=== PATIENT | female | born 1945 | race Caucasian/White ===

== ENCOUNTER → 2019-05-26 14:17 | Outpatient (BNVA) | payer MEDICARE, MEDICAID, SELFPAY | PROVIDERS: Family Provider Nurse Practitioner; Visit Provider Nurse Practitioner | DX: E11.65 Type 2 diabetes mellitus with hyperglycemia (principal); Z79.4 Long term (current) use of insulin; E61.1 Iron deficiency; I10 Essential (primary) hypertension; J44.9 Chronic obstructive pulmonary disease, unspecified; M81.0 Age-related osteoporosis without current pathological fracture; K21.9 Gastro-esophageal reflux disease without esophagitis; Z98.62 Peripheral vascular angioplasty status; J30.9 Allergic rhinitis, unspecified; R11.0 Nausea; R39.9 Unspecified symptoms and signs involving the genitourinary system; N39.0 Urinary tract infection, site not specified | CPT/HCPCS: 80053; 80061; 81001; 83036; 83540; 87077; 87086; 87186 ==

== ENCOUNTER → 2019-08-25 14:31 | Outpatient (BNVA) | payer MEDICARE, MEDICAID, SELFPAY | PROVIDERS: Family Provider Nurse Practitioner; Visit Provider Nurse Practitioner | DX: E11.65 Type 2 diabetes mellitus with hyperglycemia (principal); Z79.4 Long term (current) use of insulin; I10 Essential (primary) hypertension; M81.0 Age-related osteoporosis without current pathological fracture; Z98.62 Peripheral vascular angioplasty status; J30.9 Allergic rhinitis, unspecified; R11.0 Nausea; J44.9 Chronic obstructive pulmonary disease, unspecified; K21.9 Gastro-esophageal reflux disease without esophagitis; M19.90 Unspecified osteoarthritis, unspecified site | CPT/HCPCS: 80053; 80061; 81000; 81003; 83036; 84443; 87077; 87086; 87184; 87186 ==

== ENCOUNTER → 2019-09-14 13:58 | Outpatient (BNVA) | payer MEDICARE, MEDICAID, SELFPAY | PROVIDERS: Family Provider Nurse Practitioner; Visit Provider Nurse Practitioner | DX: E11.65 Type 2 diabetes mellitus with hyperglycemia (principal); Z79.4 Long term (current) use of insulin; N39.0 Urinary tract infection, site not specified | CPT/HCPCS: 81000 ==

== ENCOUNTER → 2019-11-30 10:26 | Outpatient (BNVA) | payer MEDICARE, MEDICAID, SELFPAY | PROVIDERS: Family Provider Nurse Practitioner; Visit Provider Nurse Practitioner | DX: E11.65 Type 2 diabetes mellitus with hyperglycemia (principal); Z79.4 Long term (current) use of insulin; Z98.62 Peripheral vascular angioplasty status; K21.9 Gastro-esophageal reflux disease without esophagitis | CPT/HCPCS: 80053; 80061; 81000; 83036; 84443; 85025 ==

== ENCOUNTER → 2020-02-01 09:47 | Outpatient (BNVA) | payer MEDICARE, MEDICAID, SELFPAY | PROVIDERS: Family Provider Nurse Practitioner; Visit Provider Nurse Practitioner | DX: E11.65 Type 2 diabetes mellitus with hyperglycemia (principal); I10 Essential (primary) hypertension; Z79.4 Long term (current) use of insulin; E78.1 Pure hyperglyceridemia; J43.9 Emphysema, unspecified; J30.9 Allergic rhinitis, unspecified; Z98.62 Peripheral vascular angioplasty status; R11.0 Nausea; R82.90 Unspecified abnormal findings in urine | CPT/HCPCS: 80053; 81000; 83036; 85025; 87077; 87086; 87184 ==

== ENCOUNTER → 2020-03-12 12:25 | Outpatient (BNVA) | payer MEDICARE, MEDICAID, SELFPAY | PROVIDERS: Family Provider Nurse Practitioner; Visit Provider Nurse Practitioner | DX: J43.9 Emphysema, unspecified (principal); R91.1 Solitary pulmonary nodule | CPT/HCPCS: 71046; 80053; 81000; 85025 ==

== ENCOUNTER 2020-03-28 15:29 | Outpatient (CLI) | payer MEDICARE, MEDICAID, SELFPAY ==
--- NOTE | 2020-03-28 16:00 | CT_ITS ---
WS: [id number] CT scan of the chest without IV contrast, additional two-dimensional coronal and sagittal reconstruct ion was performed. 03/28/2020 Clinical Data: Lung Nodule Comparison: PA and lateral chest, 03/12/2020, CT chest, 10/09/2014. DLP: 812.19 mGy-cm All CT scans at [facility] use at least one of these dose optimization techniques: automat ed exposure control; mA and/or kV adjustment per patient size (includes targeted exams where dose is matched to clinical indication); or iterative reconstruction. Findings: There is a anterior segment right upper lobe mass measuring in greatest diameter 2.12 cm. This is see n best on axial image 15 of 65. The heart size is normal with no pericardial effusion. There are hans nary artery calcifications. No pneumonia or pneumothorax is seen. The trachea bifurcates normally int o the bronchi. The pulmonary arterial system and thoracic aorta demonstrate no abnormalities or dilat ations. There is calcification in the aortic arch and descending aorta. There is no axillary or signi ficant mediastinal adenopathy. The upper abdomen shows clips from a cholecystectomy and the gallbladder fossa. The visualized liver, pancreas, adrenal glands and spleen are not remarkable. The bony thorax shows only osteoarthritic ch anges of the thoracic vertebral bodies. CT/CT chest wo con [id number] Impression: 1. 2.12 cm spiculated mass in the right upper lobe most consistent with cancer of the lung. 2. Recommend pulmonary consult.
== END 2020-03-28 15:30 | disposition home or self-care (01) ==
LOC: RADWPI 15:36
PROVIDERS: PCP Nurse Practitioner; Visit Provider Internal Medicine Critical Care Medicine
DX: R91.1 Solitary pulmonary nodule (principal)
CPT/HCPCS: 71250

== ENCOUNTER → 2020-04-02 10:53 | Outpatient (BNVA) | payer MEDICARE, MEDICAID, SELFPAY | PROVIDERS: PCP Nurse Practitioner; Visit Provider Internal Medicine Critical Care Medicine | DX: R91.1 Solitary pulmonary nodule (principal); Z01.812 Encounter for preprocedural laboratory examination; Z20.828 Contact with and (suspected) exposure to other viral communicable diseases | CPT/HCPCS: 87635 ==

== ENCOUNTER 2020-04-04 11:44 | Day surgery (SDC) | payer MEDICARE, MEDICAID, SELFPAY ==
[2020-04-03 09:48] VITALS: BMI 23.6
[2020-04-04] VITALS (11 sets, daily range): BP systolic 110–149; BP diastolic 46–99; PULSE 83–87; RESP 18–26; TEMP 36.3–36.7; O2SAT 93–100
--- NOTE | 2020-04-04 | CT_ITS ---
Guided Bronchoscopy Planning CT images; total exam DLP: 917.58 mGy-cm MTDD
[2020-04-04] MEDS: sodium chloride 0.9% 1,000 ML 30 ML IV (12:07)
[2020-04-04 12:16] LABS: Glucose Point of Care 79 mg/dL (70-110)
[2020-04-04] MEDS: midazolam 1 mg/mL INJ 2 mL 2 MG IVP ×2 (12:38→13:00)
--- NOTE | 2020-04-04 13:08 | ANES.PREANE2 ---
Pre-Anesthetic Assessment Pre-Anesthetic Assessment: Height/Weight: Height 1.68 m Weight 66.224 kg Temp Pulse Resp BP Pulse Ox 97.9 F 87 18 149/70 98 04/04/20 12:01 04/04/20 12:01 04/04/20 12:01 04/04/20 12:01 04/04/20 12:01 Preop Diagnosis: Suspected lung cancer Proposed Procedure: Operation Date: 04/04/20 13:20 Proposed Procedures p Alex [id number] R91.1(Not Applicable) - Delmi Polanco MD Last intake: Intake Last Liquid Date 04/03/20 Last Liquid Time 20:00 Last Solid Date 04/03/20 Last Solid Time 20:00 Social: Social History: No alcohol and No tobacco Exam: Pre-Anes Outpt Exam: alert, oriented x 3 and regular rate & rhythm Airway: Submandibular: WNL Cervical ROM: WNL MP: 2 Dentition: False Pulmonary: Pulmonary: COPD CV/HEM: CV/HEM: CAD, HTN and PVD : : None reported Hepatic: Hepatic: None reported GI: GI: GERD Metabolic: Metabolic: DM Musc/skel: Musc/skel: None reported Neuropsych: Neuropsych: None reported Anesthetic Plan: ASA status: 3 Anesthesia: General Risk of > 500 ml blood loss (7ml/kg in children): No Meds/Allergies Current Medications: Current Medications Generic Name Dose Route Start Last Admin Trade Name Freq PRN Reason Stop Dose Admin Sodium Chloride 1,000 mls @ 30 ml s/hr 04/04/20 12:00 04/04/20 12:07 Sodium Chloride 0.9% IV 04/05/20 11:59 30 mls/hr .Q24H ALLEGRA Administration Midazolam HCl 2 mg 04/04/20 11:53 04/04/20 12:38 Midazolam 1 Mg/M l Inj 2 Ml IVP 1 mg Q5M PRN Administration Preop Anxiety PFSH Anesthesia PFSH: Medical History Acid reflux Allergic rhinitis due to allergen Controlled diabetes mellitus with hyperglycemia, with long-term current use of insulin COPD (chronic obstructive pulmonary disease) HTN (hypertension) Low serum iron Nocturnal oxygen desaturation Osteoarthritis Post-menopausal osteoporosis Surgical History History of angioplasty with stent 1998 History of cholecystectomy History of oophorectomy History of tonsillectomy Hx of carotid angioplasty Family History Family/Other Diabetes Father COPD exacerbation Social History Smoking and tobacco status: former smoker Quit status (tobacco): has quit using tobacco Year quit tobacco: 2019 - 1PPD x 50 Years Second hand smoke exposure: No Smoking risk assessment/counseling performed?: Yes Alcohol intake: never Desire information about alcohol rehabilitation?: No Counseling given: No Desire information about substance/drug rehabilitation?: No Counseling given: No Lives independently: Yes Household members: children Housing: House Marital status: / Current occupational status: disabled Pets and animals: Yes Pets & animals: dog(s) History of recent travel: No Current gender identity: Female Data Anesthesia Other Labs: Laboratory Results - last 48 hr 04/04/20 12:11 POC Glucose 79 Cardiac Studies: No Data to Display
--- NOTE | 2020-04-04 13:48 | W.PM.OPSUD ---
Surgery/Procedure H&P Update DATE OF PROCEDURE: April 04, 2020 DATE H&P PERFORMED: 03/28/20 H&P UPDATE INFORMATION: I have reviewed H&P completed within last 30 days, I have examined patient prior to procedure and No changes to prior documentation PREOP DIAGNOSIS: Suspected lung cancer PLANNED PROCEDURE: Bronchoscopic inspection of the airway, possible endobronchial biopsy, navigational bronchoscopy guided transbronchial biopsies, fine-needle aspiration, Cytobrush, endobronchial sound guided transbronchial needle aspiration of lymph nodes and control of bleeding. Operation Date: 04/04/20 13:20 Proposed Procedures praveen Johnson [id number] R91.1(Not Applicable) - Bipjosé Polanco MD
--- NOTE | 2020-04-04 14:15 | SUR.OPER ---
EBUS BALLOON REMOVED INTACT.
[2020-04-04] MEDS: lidocaine 1% INJ 20 mL INTRAVESIC (14:44)
--- NOTE | 2020-04-04 15:42 | PM.OP ---
Operative Report Date of procedure: April 04, 2020 Pre-op Diagnosis: Suspected lung cancer Post-op diagnosis: same Brief History: 74-year-old lady with recently identified right upper lobe lung mass coming in for bronchoscopic evaluation. Procedure: Name of the procedure: Bronchoscopy with inspection of the airway, endobronchial ultrasound-guided transbronchial needle aspiration of lymph nodes and control of bleeding, navigational bronchoscopy guided right upper lobe lung mass biopsy, fine-needle aspiration. Indication: Right upper lobe lung mass Anesthesia: General anesthesia. Local anesthesia: The gwendolyn in the right and left mainstem bronchi were anesthetized with 1% lidocaine, 3 mL. Description of the procedure: The procedure was explained to the patient and the consent was obtained. The patient was brought to the OR. The patient underwent endotracheal intubation for general anesthesia. Following induction of general anesthesia, the bronchoscope was advanced through the ET tube. The lower trachea appeared to be normal. The gwendolyn was sharp. The gwendolyn, the right and left mainstem bronchi are anesthetized with 1% lidocaine. In a systematic manner bilateral bronchial tree was then examined. The bronchoscope was advanced into the left mainstem bronchus. There was no erythema,mucus and areas of cobblestoning. The left upper lobe, lingula and left lower lobe bronchi were examined up to the third subsegmental level and no abnormalities were identified. The bronchoscope was then introduced into the right mainstem bronchus. The right upper lobe, right middle lobe and right lower lobe bronchi were examined up to the third subsegmental level and no abnormalities were identified. There was mucus throughout the airways. Right upper lobe lung mass biopsies were attempted under navigational guidance however this was not successful. The endobronchial ultrasound was introduced through the ET tube. No significant lymphadenopathy was identified. The largest lymph node was in the right hilar lymph node group. Station 11 R were sampled with fine-needle aspiration. Samples: 1. Fine-needle aspiration from 1111 constitutional sent for histopathology. Complications: There was no immediate complications.
--- NOTE | 2020-04-04 15:49 | SUR.PHASEI ---
pt awake alert asking questions pertinent to surgery vss. iv patent
--- NOTE | 2020-04-04 15:58 | XRR_ITS ---
PROCEDURE INFORMATION: Exam: XR Chest, 1 View Exam date and time: 04/04/2020 4:24 PM Age: 74 years old Clinical indication: Device placement; Other: Post bronch; Prior surgery; Surgery date: Post-operative (0-2 days); Additional info: Post bronchoscopy TECHNIQUE: Imaging protocol: XR of the chest Views: 1 view. COMPARISON: CT chest wo con [id number] 03/28/2020 4:05 PM FINDINGS: Lungs: Unremarkable. No consolidation. Pleural space: Unremarkable. No pleural effusion. No pneumothorax. Heart/Mediastinum: Unremarkable. No cardiomegaly. Bones/joints: Unremarkable. XR/XR chest 1V portable [id number] IMPRESSION: No acute findings.
[2020-04-04] MEDS: ipratropium-albuterol 3 mL Neb INHALATION (16:00)
[2020-04-04] MEDS: HYDROcodone-acetaminophen 10-325 mg Tablet 2 TAB PO (16:40)
--- NOTE | 2020-04-04 16:58 | SUR.PHASEI ---
622 pt up in bed awake alert resp even and unlabored pt c/o of (hard to breath) but then wants something to drink her glasses and dentures wants to see family pt vss pt to ops awake alert talkative, no s/s of distess.
--- NOTE | 2020-04-04 17:26 | ANE.PACU2 ---
Inpatient post-anesthesia follow up: Airway intact: Yes Vital signs: Temperature 97.4 F Pulse Rate 85 Respiratory Rate 18 Blood Pressure 121/99 Pulse Oximetry 94 Oxygen Delivery Me thod Room Air Oxygen Flow Rate 2 Fraction of Inspir ed Oxygen Hydration adequate: Yes Nausea and vomiting: No Pain level: 1 Mental status: Baseline
== END 2020-04-04 17:00 | disposition home or self-care (01) ==
PROVIDERS: PCP Nurse Practitioner; Visit Provider Internal Medicine Critical Care Medicine
PROC: 0BJ08ZZ Inspection of Tracheobronchial Tree, Via Natural or Artificial Opening Endoscopic (ICD-10-PCS; CPT 31622; principal; 2020-04-04 13:10)
PROC: BB4BZZZ Ultrasonography of Pleura (ICD-10-PCS; 2020-04-04 13:10)
DX: C34.90 Malignant neoplasm of unspecified part of unspecified bronchus or lung (principal); C77.9 Secondary and unspecified malignant neoplasm of lymph node, unspecified; J44.9 Chronic obstructive pulmonary disease, unspecified; I25.10 Atherosclerotic heart disease of native coronary artery without angina pectoris; I10 Essential (primary) hypertension; K21.9 Gastro-esophageal reflux disease without esophagitis; E11.9 Type 2 diabetes mellitus without complications; M19.90 Unspecified osteoarthritis, unspecified site; Z95.5 Presence of coronary angioplasty implant and graft; Z87.891 Personal history of nicotine dependence; Z79.4 Long term (current) use of insulin
CPT/HCPCS: 12345; 31625; 31627; 36416; 71045; 77011; 82962; 88305; 96374; 96375; J2250; J2704; J3010; J3490; J7030

== ENCOUNTER 2020-04-25 09:40 | Outpatient (CLI) | payer MEDICARE, MEDICAID, SELFPAY ==
--- NOTE | 2020-04-25 18:45 | ONC CON_ITS ---
Dr. Cartwright New Patient Note Patient: Melonie Cross Unit #: [id number]: [id number] Dicatated By: Davy Cartwright M.D.Date of Visit: Apr 25, 2020 Onc MED New Patient/Consult Referring Physician: Chief Complaint: Lung cancer. 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 Her chest x-ray on 03/12/2020 showed a faint 2 cm nodular density in the right suprahilar region which was new compared to previous study from 2017. She was recommended to have further evaluation with chest CT. Her noncontrast CT on 03/28/2020 showed a right upper lobe lung mass measuring 2.12 cm. There are no other pulmonary parenchymal lesions noted and there is no significant mediastinal or axillary adenopathy noted. She was then referred to Dr. Polanco and on 04/04/2020 she underwent bronchoscopy/EBUS with FNA biopsy of a station 11R lymph node. There were no endobronchial lesions identified and attempted biopsy of the lung nodule was unsuccessful. The endobronchial ultrasound showed no significant lymphadenopathy. The largest node was in the right hilar node group, and pathology on the FNA was consistent with poorly differentiated nonkeratinizing squamous cell carcinoma. She is scheduled to have further staging with PET/CT on Thursday, and she is scheduled to have pulmonary function studies. She does have known COPD. Her other medical illnesses include hypertension, hyperlipidemia, type 2 diabetes, and coronary artery disease. She has had previous angioplasty/stent placement. Her medical history is also significant for having undergone right nephrectomy for renal cell carcinoma sometime around 2009. Those records are not available. She does have a history of smoking for 45 years, up to a pack and a half of cigarettes daily. She quit smoking in February 2020. She does have limited activity tolerance, but she is able to do light work and she also cares for an invalid son. Her ECOG score is 1. Her appetite is variable. She has had a weight loss of at least 20 pounds. She does not have fever or night sweats. Her breathing has improved since she stopped smoking. She does not complain of cough, and she has not been having chest pain. She has no GI/ complaints other than heartburn, which has bothered her for years, mainly just when she eats spicy foods. She has degenerative disease of the spine with chronic low back pain in her back. More recently she is also had pain and numbness in her left leg. She does not complain of headache, and she has no other focal neurologic symptoms. Past Medical History: Her medical history includes chronic obstructive pulmonary disease, degenerative disease of the spine, gastroesophageal reflux disease, hyperlipidemia, hypertension, osteoporosis, renal cell carcinoma, and type II diabetes. Past Surgical History: She underwent bronchoscopy/EBUS with FNA biopsy of station 11R lymph node on 04/04/2020. Her other surgical/procedural history includes oopherectomy, tonsillectomy, right nephrectomy for renal cell carcinoma in 2009, cholecystectomy in 2006, and coronary angioplasty with stent placement in 1998. Medications: Alendronate Sodium (70 mg) Tablet Oral Take as Directed, Anoro Ellipta 1 Inhalation (of 62.5-25 mcg/inh) Aerosol Powder, Breath Activated Inhalation q 24 hours, Aspirin 1 Tablet (of 81 mg) Tablet, chewable Oral daily, Bactroban (2 %) Ointment Topical t.i.d., Benazepril HCl 1 Tablet (of 40 mg) Oral daily, Budesonide (0.5 mg/2mL) Suspension Inhalation b.i.d., Cardizem CD 1 (360 mg) Capsule SR 24 HR Oral daily, Cholecalciferol 1 Tablet (of 50 mcg ) Oral daily, diazePAM 1 (10 mg) Tablet Oral four times a day, Fenofibrate 1 (145 mg) Tablet Oral daily, HYDROcodone-Acetaminophen 1 Tablet (of 10-325 mg) Oral 6x/d, Ipratropium-Albuterol 1 Inhalation (of 0.5-2.5 (3) mg/3mL) Solution Inhalation four times a day, Isosorbide Mononitrate ER 1 Tablet (of 60 mg) Tablet SR 24 HR Oral b.i.d., Magnesium Oxide 1 (400 mg) Capsule Oral b.i.d., Metoprolol Succinate ER 1 Tablet (of 100 mg) Tablet SR 24 HR Oral daily, Nitroglycerin Tablet, sublingual Sublingual PRN, Ondansetron HCl 1 Tablet (of 4 mg) Oral daily, Pantoprazole Sodium 1 (20 mg) Tablet, enteric coated Oral daily, Probiotic & Acidophilus Ex St 1 Capsule Oral daily, Theophylline ER 1 (400 mg) Capsule SR 24 HR Oral daily, Tresiba FlexTouch 75 Units (of 200 Units/mL) Subcutaneous daily, Victoza 1 (18 mg/3mL) Subcutaneous q 24 hours, Xyzal 1 Tablet (of 5 mg) Oral daily Allergies: amLODIPine Besylate, Cephalexin, Erythromycin Base, Penicillins, Propranolol HCl, Tetanus-Diphtheria Toxoids Td, Tetracycline HCl, and ticlopidine. Social History: Ms. Cross is . She has a history of smoking for 45 years, up to 1-1/2 packs of cigarettes daily. She quit smoking in February 2020. She does not drink alcohol. Family History: Father had COPD and of heart attack at age 80. Mother with congestive heart failure at age 70. She had no siblings. Review Of Symptoms: Constitutional - She has limited activity tolerance, but she is able to do light work, and she takes care of her invalid son. Appetite is variable. Her weight is down at least 20 pounds. She does not have fever, night sweats, or hot flashes. ECOG score is 1, Eyes - No change in vision, ENMT - No sinus congestion/drainage. No mouth sores. No sore throat or difficulty swallowing, Hematologic/Lymphatic - No abnormal bruising or bleeding, Respiratory - She has shortness of breath, but her breathing has improved since she quit smoking. No cough. No pleuritic pain or hemoptysis, Cardiovascular - No angina pain. No palpitations, Gastrointestinal - No nausea or vomiting. She has had heartburn for years, mainly with spicy foods. No diarrhea or constipation. No blood in the stool or black stools, Genitourinary (F) - No dysuria or hematuria. No urinary frequency. No urgency or incontinence, Musculoskeletal - She has chronic pain in the back and left leg, Neurologic - No headache or dizziness. She has some numbness in the anterior aspect of the left thigh and in the dorsum of her left foot. No other focal neurologic symptoms, Psychiatric - She has some depression. No insomnia. Vital Signs: Performed on Apr 25, 2020 10:44: 6, 22.79, 1.73 sq.m, 66 in, 96 %, 85 /min, 16 /min, 120/41 mm(hg), 97.7 F (LOW), and 141.2 lbs (HIGH). Physical Examination: Constitutional - She looks pretty good generally, Eyes - Sclerae nonicteric. Conjunctivae clear, ENMT - No lesions noted in the oral cavity, Neck - No mass or thyromegaly, Hematologic/Lymphatic - No cervical, clavicular, or axillary adenopathy, Respiratory - Lungs sound clear with diminished air movement bilaterally, Cardiovascular - Heart rhythm is regular. There is a II/ systolic murmur. There is no gallop or rub noted, Abdomen - Soft and non-tender. Liver and spleen are not enlarged. There is no abdominal mass or ascites noted and there is no inguinal adenopathy, Extremities - No edema. Pedal pulses are palpable bilaterally, Integumentary - No rashes. No suspicious skin lesions noted, Neurologic - No focal neurologic deficits noted. Lab/Imaging: Her laboratory studies from 03/12/2020 included CBC showing hemoglobin 10.6 g with hematocrit 34.9%. The red cell indices were in the upper normal range. White blood cell count was 9300 and platelet count was 401,000. Comprehensive metabolic profile showed elevated BUN and creatinine at 26 and 1.3 mg/dL. The bilirubin and liver enzymes were normal. Historic Problem List: 1. COPD. 2. Hypertension. 3. Hyperlipidemia. 4. Type 2 diabetes. 5. Coronary artery disease with previous angioplasty/stent placement. 6. Chronic kidney disease. 7. GERD. 8. 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 9. She underwent right nephrectomy for renal cell carcinoma approximately 2009. Problems Addressed with this Encounter and Plan: 1. 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 By clinical evaluation her disease appears to be stage IIB (T1c, N1, M0). The CT findings and the pathology results were reviewed with the patient, and I also reviewed the CT images with her. We discussed the clinic complications. At this point it is uncertain whether her disease may be operable, as that will depend on the results of the staging PET/CT and the pulmonary function studies. With lymph node involvement, though, she would not be a candidate for SBRT. If she is considered nonoperable or if she declined surgery, she would be eligible for treatment with chemoradiation and, depending on response, maintenance immunotherapy. I did review potential side effects associated with those treatments, but any further recommendations will be deferred pending outcome of the PET/CT and the pulmonary function studies. 2. Her laboratory studies from February did show mild anemia. In reviewing her records in [facility], this does appear to be a new finding, and it will require further evaluation. Signed By: Davy Cartwright M.D. <<Signature on File>>
[2020-04-27 06:32] LABS: Coronavirus Test Green County Not Detected
== END 2020-04-25 09:41 | disposition home or self-care (01) ==
LOC: ONCMED 09:43
PROVIDERS: PCP Nurse Practitioner; Visit Provider Internal Medicine Medical Oncology
DX: C34.11 Malignant neoplasm of upper lobe, right bronchus or lung (principal); Z20.822 Contact with and (suspected) exposure to COVID-19; D63.0 Anemia in neoplastic disease; E11.22 Type 2 diabetes mellitus with diabetic chronic kidney disease; I12.9 Hypertensive chronic kidney disease with stage 1 through stage 4 chronic kidney disease, or unspecified chronic kidney disease; N18.9 Chronic kidney disease, unspecified; D63.1 Anemia in chronic kidney disease; J44.9 Chronic obstructive pulmonary disease, unspecified; Z87.891 Personal history of nicotine dependence
CPT/HCPCS: 87635; 99205

== ENCOUNTER 2020-05-01 12:50 | Outpatient (CLI) | payer MEDICARE, MEDICAID, SELFPAY ==
--- NOTE | 2020-05-01 14:32 | PFTS_ITS ---
Date of Study:05/01/20 Date of Dictation: 05/09/20 MECHANICS: Forced vital capacity (FVC) is normal . Forced expiratory volume in one second (FEV1) is reduced . FEV1/FVC is reduced . No post bronchodilator study performed. FLOW VOLUME LOOP: End expiratory sloping suggestive of small airway obstruction . LUNG VOLUMES: Total lung capacity (TLC) is normal. Residual volume (RV) is increased suggestive of airway trapping. DIFFUSING CAPACITY FOR CARBON MONOXIDE: mildly decreased. . INTERPRETATION: The pulmonary function tests are consistent with obstructive ventilatory defect with air trapping. Mild gas transfer defect. Please correlate clinically. MTDD
== END 2020-05-01 12:51 | disposition home or self-care (01) ==
LOC: RT 12:52
PROVIDERS: PCP Nurse Practitioner; Visit Provider Internal Medicine Critical Care Medicine
DX: R91.1 Solitary pulmonary nodule (principal)
CPT/HCPCS: 87635; 94010; 94726; 94729

== ENCOUNTER → 2020-05-04 12:08 | Outpatient (BNVA) | payer MEDICARE, MEDICAID, SELFPAY | PROVIDERS: PCP Nurse Practitioner; Visit Provider Nurse Practitioner | DX: E11.65 Type 2 diabetes mellitus with hyperglycemia (principal); I10 Essential (primary) hypertension; J43.9 Emphysema, unspecified; E78.1 Pure hyperglyceridemia; Z98.62 Peripheral vascular angioplasty status; R11.0 Nausea; K21.9 Gastro-esophageal reflux disease without esophagitis; F41.8 Other specified anxiety disorders; Z79.4 Long term (current) use of insulin | CPT/HCPCS: 80053; 83036; 84443 ==

== ENCOUNTER 2020-05-21 06:03 | Outpatient (CLI) | payer MEDICARE, MEDICAID, SELFPAY ==
--- NOTE | 2020-05-22 07:26 | ONC FU_ITS ---
Dr. Cartwright Patient Follow-Up Note Patient: Melonie Cross Unit #: [id number]: 1945 Dicatated By: Davy Cartwright M.D.Date of Visit:May 21, 2020 Onc Med Follow-up/Prog Note Chief Complaint: Lung cancer. 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 Her chest x-ray on 03/12/2020 showed a faint 2 cm nodular density in the right suprahilar region which was new compared to previous study from 2017. She was recommended to have further evaluation with chest CT. Her noncontrast CT on 03/28/2020 showed a right upper lobe lung mass measuring 2.12 cm. There are no other pulmonary parenchymal lesions noted and there is no significant mediastinal or axillary adenopathy noted. She was then referred to Dr. Polanco and on 04/04/2020 she underwent bronchoscopy/EBUS with FNA biopsy of a station 11R lymph node. There were no endobronchial lesions identified and attempted biopsy of the lung nodule was unsuccessful. The endobronchial ultrasound showed no significant lymphadenopathy. The largest node was in the right hilar node group, and pathology on the FNA was consistent with poorly differentiated nonkeratinizing squamous cell carcinoma. She has known COPD. Her other medical illnesses include hypertension, hyperlipidemia, type 2 diabetes, and coronary artery disease. She has had previous angioplasty/stent placement. Her medical history is also significant for having undergone right nephrectomy for renal cell carcinoma sometime around 2009. Those records were not available. She does have a history of smoking for 45 years, up to a pack and a half of cigarettes daily. She quit smoking in February 2020. I had seen her initially on 04/25/2020. 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 She was able to come in for staging PET/CT on 04/28/2020. That study showed an FDG avid right upper lobe mass measuring 2.1 cm, SUV 10.9, consistent with primary malignancy. A superior right hilar lymph node was FDG avid with SUV 4.8, consistent with local metastatic disease. The only other area of abnormal uptake was a solid lesion in the superior right breast measuring 1.7 x 1.2 cm with SUV 10.0, suspicious for synchronous primary breast cancer. She was then able to come in for pulmonary function studies on 05/01/2020. Her FEV1 was 1.57 L, 69% of predicted. She comes in now to discuss her further management. She says she does not feel too bad. Her main complaint is that she has chronic pain in her left leg, for which she has been getting treatment through pain clinic. She has been maintained on a stable dose of hydrocodone/APAP and she is very concerned about being able to continue it, because it does keep her functional enough to care for her son. Medications: Alendronate Sodium (70 mg) Tablet Oral Take as Directed, Anoro Ellipta 1 Inhalation (of 62.5-25 mcg/inh) Aerosol Powder, Breath Activated Inhalation q 24 hours, Aspirin 1 Tablet (of 81 mg) Tablet, chewable Oral daily, Bactroban (2 %) Ointment Topical t.i.d., Benazepril HCl 1 Tablet (of 40 mg) Oral daily, Budesonide (0.5 mg/2mL) Suspension Inhalation b.i.d., Cardizem CD 1 (360 mg) Capsule SR 24 HR Oral daily, Cholecalciferol 1 Tablet (of 50 mcg ) Oral daily, diazePAM 1 (10 mg) Tablet Oral four times a day, Fenofibrate 1 (145 mg) Tablet Oral daily, HYDROcodone-Acetaminophen 1 Tablet (of 10-325 mg) Oral 6x/d, Ipratropium-Albuterol 1 Inhalation (of 0.5-2.5 (3) mg/3mL) Solution Inhalation four times a day, Isosorbide Mononitrate ER 1 Tablet (of 60 mg) Tablet SR 24 HR Oral b.i.d., Magnesium Oxide 1 (400 mg) Capsule Oral b.i.d., Metoprolol Succinate ER 1 Tablet (of 100 mg) Tablet SR 24 HR Oral daily, Nitroglycerin Tablet, sublingual Sublingual PRN, Ondansetron HCl 1 Tablet (of 4 mg) Oral daily, Pantoprazole Sodium 1 (20 mg) Tablet, enteric coated Oral daily, Probiotic & Acidophilus Ex St 1 Capsule Oral daily, Theophylline ER 1 (400 mg) Capsule SR 24 HR Oral daily, Tresiba FlexTouch 75 Units (of 200 Units/mL) Subcutaneous daily, Victoza 1 (18 mg/3mL) Subcutaneous q 24 hours, Xyzal 1 Tablet (of 5 mg) Oral daily Allergies: amLODIPine Besylate, Cephalexin, Erythromycin Base, Penicillins, Propranolol HCl, Tetanus-Diphtheria Toxoids Td, Tetracycline HCl, and ticlopidine. Vital Signs: Performed on May 21, 2020 14:40 Height - 66.00 in Weight - 142 lbs (HIGH) BSA - 1.73 sq.m BMI - 22.92 Temperature - 98.0 F (LOW) Pulse - 74 /min Respiration - 18 /min BP - 142/63 mm(hg) (HIGH) O2 Sat - 97 % Pain - 7 Fatigue - 3 Problem List: 1. 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 By clinical evaluation her disease appears to be stage IIB (T1c, N1, M0). 2. PET/CT evidence of FDG avid mass in the superior right breast, suspicious for primary breast cancer. 3. COPD. 4. Hypertension. 5. Hyperlipidemia. 6. Type 2 diabetes. 7. Coronary artery disease with previous angioplasty/stent placement. 8. Chronic kidney disease. 9. GERD. 10. 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 11. She underwent right nephrectomy for renal cell carcinoma approximately 2009. Problems Addressed with this Encounter and Plan: 1. 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 By clinical evaluation her disease appears to be stage IIB (T1c, N1, M0). With disease localized to the lung and a hilar lymph node, she would potentially be an operable candidate. We had discussed this with her previously, but she has been adamantly opposed to undergoing surgery. As the hilar lymph node involvement precludes SBRT, the other treatment option would be chemoradiation utilizing a standard weekly carboplatin/paclitaxel chemotherapy regimen. I reviewed anticipated side effects with that regimen, and she is at least willing to consider it. She is aware that she would need to undergo placement of a Port-A-Cath for venous access for the chemotherapy. 2. PET/CT evidence of FDG avid mass in the superior right breast, suspicious for primary breast cancer. We also discussed the fact that she would require further evaluation for the suspected breast cancer. In the setting of known lung cancer, I would manage her breast cancer as conservatively as possible. I have reviewed the PET/CT with Dr. Honeycutt to discuss his recommendations for evaluating the breast mass I have also reviewed the case with Dr. Pierre to get his input on radiation. At this point she will be scheduled for diagnostic mammogram/ultrasound and at the same time I will have her see Dr. Pierre for radiation oncology consultation. If the breast lesion is suspicious, I will then arrange for needle biopsy. If she is confirmed to have breast cancer, we can then plan a lumpectomy/axillary sentinel lymph node biopsy procedure together with placement of Port-A-Cath venous access device. At least for now she is agreeable to proceeding with this plan of action. Signed By: Davy Cartwright M.D. <<Signature on File>>
== END 2020-05-21 06:04 | disposition home or self-care (01) ==
LOC: ONCMED 06:05
PROVIDERS: PCP Nurse Practitioner; Visit Provider Internal Medicine Medical Oncology
DX: C34.11 Malignant neoplasm of upper lobe, right bronchus or lung (principal); J44.9 Chronic obstructive pulmonary disease, unspecified; I10 Essential (primary) hypertension; E78.5 Hyperlipidemia, unspecified; E11.59 Type 2 diabetes mellitus with other circulatory complications; I25.10 Atherosclerotic heart disease of native coronary artery without angina pectoris; Z95.5 Presence of coronary angioplasty implant and graft; E11.22 Type 2 diabetes mellitus with diabetic chronic kidney disease; N18.9 Chronic kidney disease, unspecified; K21.9 Gastro-esophageal reflux disease without esophagitis; M47.9 Spondylosis, unspecified; G89.29 Other chronic pain; M54.5 Low back pain; Z90.5 Acquired absence of kidney; Z85.528 Personal history of other malignant neoplasm of kidney; Z79.899 Other long term (current) drug therapy
CPT/HCPCS: 99215

== ENCOUNTER 2020-05-31 19:23 | Emergency (ER) | payer MEDICARE, MEDICAID, SELFPAY ==
[2020-05-31 19:33] VITALS: BP 108/76; PULSE 108; RESP 18; TEMP 36.6; O2SAT 99; BMI 21.7
--- NOTE | 2020-05-31 21:58 | W.ED.FEMALGU ---
HPI - Female Genitourinary General: Chief complaint: Urogenital-Female Stated complaint: unable to urinate Time Seen by Provider: 05/31/20 21:50 History of Present Illness: HPI Narrative: Patient is says today it started that she has been having difficulty urinating is been able to pee about 3 drops. Said she started some right lower quadrant pain yesterday that is gone now but her bladder feels full. Is currently being treated by Dr. Cartwright for cancer. Patient said her right kidney is also gone. MD elicited complaint: dysuria Onset (ago): hour(s) Vaginal discharge: none Urinary symptoms: Difficulty Urinating Exacerbating factors: none Relieving factors: none Associated symptoms: Reports no associated symptoms and abdominal pain (Abdominal pain is gone now but she does have fullness in her bladder); Deny headache(s) Treatment prior to arrival: none Review of Systems Const: Denies: fever(s) or chills ENMT: Denies: throat pain Card: Denies: chest pain Resp: Denies: dyspnea (Patient does breathing treatments every 4 hours at home.) GI: Reports: abdominal pain (Abdominal pain is gone now but she does have fullness in her bladder) : Reports: difficulty voiding Musc: Denies: neck pain Skin/Breast: Denies: rash Neuro: Denies: headache(s) Psych: Denies: anxiety or depression Igor/Lymph: Denies: easy bruising PFSH ED PFSH: Medical History (Updated 06/01/20 @ 01:56 by CHEIKH Ramirez) Acid reflux Allergic rhinitis due to allergen Controlled diabetes mellitus with hyperglycemia, with long-term current use of insulin COPD (chronic obstructive pulmonary disease) HTN (hypertension) Low serum iron Nausea Nocturnal oxygen desaturation Osteoarthritis Post-menopausal osteoporosis Surgical History History of angioplasty with stent 1998 History of cholecystectomy History of oophorectomy History of tonsillectomy Hx of carotid angioplasty Family History Family/Other Diabetes Father COPD exacerbation Social History Smoking and tobacco status: former smoker Quit status (tobacco): has quit using tobacco Year quit tobacco: 2019 - 1PPD x 50 Years Second hand smoke exposure: No Smoking risk assessment/counseling performed?: Yes Alcohol intake: never Desire information about alcohol rehabilitation?: No Counseling given: No Desire information about substance/drug rehabilitation?: No Counseling given: No Lives independently: Yes Household members: children Housing: House Marital status: / Current occupational status: disabled Pets and animals: Yes Pets & animals: dog(s) History of recent travel: No Current gender identity: Female Physical Exam Const: COMMON NORMALS: no acute distress, average body habitus and patient oriented x3 HENMT: COMMON NORMALS: normocephalic HEAD & SCALP: normal to inspection and normocephalic FACE & SINUS: normal facial exam Eye: COMMON NORMALS: conjunctivae normal GENERAL EYE: appearance normal, both eyes and all related structures CONJUNCTIVA: Yes conjunctivae normal Neck/C-Spine: COMMON NORMALS: no JVD Chest: COMMONS NORMALS: normal inspection of the chest Resp: COMMON NORMALS: normal respiratory effort and clear to auscultation bilaterally AUSCULTATION: clear to auscultation bilaterally Cardio: COMMON NORMALS: no JVD, regular rate and regular rhythm RATE: regular rate RHYTHM: regular rhythm GI: COMMON NORMALS: Normal to inspection, nondistended, normoactive bowel sounds present AUSCULTATION: Yes normoactive bowel sounds OTHER: Her bladder is tender to palpation is slightly full. Extremity: COMMON NORMALS: normal to inspection and full ROM Neuro: COMMON NORMALS: patient oriented x3 Course Vital Signs: Vital signs: Vital Signs Temperature 97.9 F 05/31/20 19:33 Pulse Rate 105 H 06/01/20 02:26 Respiratory Rate 18 06/01/20 02:26 Blood Pressure 102/51 06/01/20 02:26 Pulse Oximetry 97 06/01/20 02:26 MDM - Female MDM Narrative: Medical decision making narrative: Labs and case discussed with Dr. Spann. Plan of care instructed patient will receive another liter fluids we draw basic metabolic and see how kidney function doing after 2 L of fluid. Patient requested breathing updraft be done which she says she does every 4 hours at home. Also wanted nitroglycerin because she says she just takes 1 will be on the safe side. She denies chest pain and she is very adamant she did not have chest pain. She takes 1 nitroglycerin as needed because she thinks it helps prevent any problems. Said she is wanting go home soon only more lab test done. Discussed case with Dr. Spann Lab Data: Labs: Lab Results 05/31/20 05/31/20 05/31/20 Range/Units 22:00 22:00 22:11 WBC 12.3 H (4.0-10.0) 10^3/ uL RBC 3.87 L (4.1-5.3) 10^6/u L Hgb 11.0 L (11.5-15.3) g/dL Hct 36.6 L (37.0-47.0) % MCV 94.6 (81-99) fL MCH 28.4 (28.0-34.0) pg MCHC 30.1 (30.0-36.0) g/dL RDW 13.5 (12.1-15.1) % Plt Count 389 (130-400) 10^3/c mm MPV 9.6 (7.4-10.4) fL Neut % (Auto) 71.4 % Lymph % (Auto) 21.2 % [place] % (Auto) 5.9 % Eos % (Auto) 0.9 % Baso % (Auto) 0.4 % Neut # (Auto) 8.76 H (1.8-7.7) 10^3/u L Lymph # (Auto) 2.6 (0.8-4.8) 10^3/u L [place] # (Auto) 0.7 (0.2-0.9) 10^3/u L Eos # (Auto) 0.1 (0.0-0.8) 10^3/u L Baso # (Auto) 0.1 (0.0-0.1) 10^3/u L Nucleated RBC % (a uto) 0 % Nucleated RBCs # 0.0 /100WBC Sodium 137 (136-145) mmol/L Potassium 4.2 (3.5-5.1) mmol/L Chloride 103 (98-107) mmol/L Carbon Dioxide 17 L (22-29) mmol/L Anion Gap 21.2 H (5-19) BUN 39 H (8-23) mg/dL Creatinine 2.9 H (0.5-0.9) mg/dL GFR Calculation Not Reportable Glucose 116 H (65-115) mg/dL Calculated Osmolal ity 294 (285-295) mOsm/k g Calcium 8.9 (8.5-10.5) mg/dL Total Bilirubin 0.2 (0.15-1.2) mg/dL AST 14 (0-32) U/L ALT 9 (0-33) U/L Alkaline Phosphata se 54 (35-105) IU/L Total Protein 7.5 (6.6-8.7) g/dL Albumin 4.4 (3.5-5.2) g/dL Globulin 3.1 (1.3-4.6) g/dL Urine Color Cancelled Urine Appearance Cancelled Urine pH Cancelled Ur Specific Gravit y Cancelled Urine Protein Cancelled Urine Glucose (UA) Cancelled Urine Ketones Cancelled Urine Blood Cancelled Urine Nitrate Cancelled Urine Bilirubin Cancelled Prot Sulfosalicyli c Acd Cancelled Urine Urobilinogen Cancelled Ur Leukocyte Mona ase Cancelled Urine RBC (0-2) /hpf Urine WBC (0-5) /hpf Ur Squamous Epith Cells (0-5) /hpf Ur Transition Epit h Cell /hpf Amorphous Sediment /hpf Urine Bacteria (NONE) /hpf 05/31/20 06/01/20 Range/Units 23:00 01:16 WBC (4.0-10.0) 10^3/ uL RBC (4.1-5.3) 10^6/u L Hgb (11.5-15.3) g/dL Hct (37.0-47.0) % MCV (81-99) fL MCH (28.0-34.0) pg MCHC (30.0-36.0) g/dL RDW (12.1-15.1) % Plt Count (130-400) 10^3/c mm MPV (7.4-10.4) fL Neut % (Auto) % Lymph % (Auto) % [place] % (Auto) % Eos % (Auto) % Baso % (Auto) % Neut # (Auto) (1.8-7.7) 10^3/u L Lymph # (Auto) (0.8-4.8) 10^3/u L [place] # (Auto) (0.2-0.9) 10^3/u L Eos # (Auto) (0.0-0.8) 10^3/u L Baso # (Auto) (0.0-0.1) 10^3/u L Nucleated RBC % (a uto) % Nucleated RBCs # /100WBC Sodium 138 (136-145) mmol/L Potassium 4.0 (3.5-5.1) mmol/L Chloride 107 (98-107) mmol/L Carbon Dioxide 19 L (22-29) mmol/L Anion Gap 16.0 (5-19) BUN 36 H (8-23) mg/dL Creatinine 2.2 H (0.5-0.9) mg/dL GFR Calculation Not Reportable Glucose 102 (65-115) mg/dL Calculated Osmolal ity 295 (285-295) mOsm/k g Calcium 7.9 L (8.5-10.5) mg/dL Total Bilirubin (0.15-1.2) mg/dL AST (0-32) U/L ALT (0-33) U/L Alkaline Phosphata se (35-105) IU/L Total Protein (6.6-8.7) g/dL Albumin (3.5-5.2) g/dL Globulin (1.3-4.6) g/dL Urine Color Yellow Urine Appearance Cloudy Urine pH 5 Ur Specific Gravit y 1.025 Urine Protein Neg Urine Glucose (UA) Norm Urine Ketones Negative Urine Blood Neg Urine Nitrate Negative Urine Bilirubin Neg Prot Sulfosalicyli c Acd Urine Urobilinogen Norm Ur Leukocyte Mona ase Negative Urine RBC 0-4 H (0-2) /hpf Urine WBC None (0-5) /hpf Ur Squamous Epith Cells 0-4 H (0-5) /hpf Ur Transition Epit h Cell 0-4 /hpf Amorphous Sediment 1+ /hpf Urine Bacteria 3+ H (NONE) /hpf Discharge Plan Discharge Patient Disposition: Home Clinical Impression: Acute dehydration, Acute UTI Condition: Stable Prescriptions: New Bactrim DS 800-160 mg tablet 1 tab PO BID 7 Days Qty: 14 RF: 0 No Action cholecalciferol (vitamin D3) 50 mcg (2,000 unit) capsule 50 mcg PO DAILY RF: 0 aspirin 81 mg tablet,delayed release (DR/EC) 81 mg PO DAILY Qty: 30 RF: 2 benazepril 40 mg tablet 40 mg PO DAILY Qty: 30 RF: 2 diltiazem HCl 360 mg capsule,extended release 24hr 360 mg PO DAILY Qty: 30 RF: 2 fenofibrate nanocrystallized [Tricor] 145 mg tablet 145 mg PO DAILY Qty: 30 RF: 2 Tresiba FlexTouch U-200 200 unit/mL (3 mL) insulin pen 75 unit SUBCUT DAILY Qty: 27 RF: 2 ipratropium-albuterol 0.5 mg-3 mg(2.5 mg base)/3 mL solution for nebulization 3 ml INHALATION QID PRN (Reason: shortness of breath or wheezing) Qty: 90 RF: 5 isosorbide mononitrate 60 mg tablet extended release 24 hr 60 mg PO BID Qty: 30 RF: 2 Victoza 3-Alfred 0.6 mg/0.1 mL (18 mg/3 mL) pen injector 1.8 mg SUBCUT Q24H Qty: 9 RF: 2 magnesium oxide 400 mg magnesium tablet 400 mg PO BID Qty: 60 RF: 2 metoprolol succinate 100 mg tablet extended release 24 hr 100 mg PO DAILY Qty: 30 RF: 2 ondansetron HCl [Zofran] 4 mg tablet 4 mg PO DAILY Qty: 30 RF: 2 pantoprazole 20 mg tablet,delayed release (DR/EC) 20 mg PO DAILY Qty: 30 RF: 2 theophylline 400 mg capsule,extended release 24hr 400 mg PO DAILY Qty: 30 RF: 2 escitalopram oxalate [Lexapro] 10 mg tablet 10 mg PO .at supper Qty: 30 RF: 2 mupirocin 2 % ointment 1 applic topical TID Qty: 22 RF: 0 nitroglycerin [Nitrostat] 0.4 mg tablet, sublingual 0.4 mg SUBLINGUAL Q5M PRN (Reason: chest pain) Qty: 25 RF: 0 (DME) pen needle, diabetic 33 gauge x 5/32 needle See Rx Instructions .ROUTE .MEDSUPPLY Qty: 200 RF: 5 (DME) nebulizers Misc See Rx Instructions .ROUTE .MEDSUPPLY Qty: 1 RF: 0 Anoro Ellipta 62.5-25 mcg/actuation blister with device 1 inh INHALATION Q24H Qty: 60 RF: 3 hydrocodone-acetaminophen 10-325 mg Tablet 1 tab PO Q6H PRN (Reason: Pain) RF: 0 Discharge Orders: Discharge ED (Routine); Ordered 06/01/20 Ordered By: Jose Llamas Referrals: Idalia Means FNP-C [Primary Care Provider] - Jose Llamas FNP [Emergency Provider] - Discharge Diet: Usual diet Discharge Activity: Increase activity as tolerated Patient Instructions: Dehydration (ED), Urinary Tract Infection in Women (ED), Opioid Safety Activity Restrictions/Additional Instructions: Follow-up with medical provider as directed. Take medications as prescribed. Return to the ER or your medical provider if condition worsens. Please read and understand discharge instructions. If any questions ask please. Follow-up Idalia Means next week and repeat your urine result and your laboratory blood work to make sure that everything is doing well. Coding Level of Care Code ED Pharmacogeneticist for Luis Fwd Exam Comprehensive
[2020-05-31 22:08] LABS: Basophils # 0.1 10^3/uL (0.0-0.1); Basophils % 0.4 %; Eosinophils # 0.1 10^3/uL (0.0-0.8); Eosinophils % 0.9 %; Hematocrit 36.6 % (37.0-47.0); Lymphocytes # 2.6 10^3/uL (0.8-4.8); Lymphocytes % 21.2 %; Mean Corpuscular HGB Conc 30.1 g/dL (30.0-36.0); Mean Corpuscular Hemoglobin 28.4 pg (28.0-34.0); Mean Corpuscular Volume 94.6 fL (81-99); Mean Platelet Volume 9.6 fL (7.4-10.4); Monocytes # 0.7 10^3/uL (0.2-0.9); Monocytes % 5.9 %; Neutrophils # 8.76 10^3/uL (1.8-7.7); Neutrophils % 71.4 %; Nucleated Red Blood Cells % 0 %; Platelet Count 389 10^3/cmm (130-400); Red Blood Count 3.87 10^6/uL (4.1-5.3); Red Cell Distribution Width 13.5 % (12.1-15.1); White Blood Count 12.3 10^3/uL (4.0-10.0)
[2020-05-31 22:24] LABS: Alanine Aminotransferase 9 U/L (0-33); Albumin Level 4.4 g/dL (3.5-5.2); Alkaline Phosphatase 54 IU/L (35-105); Anion Gap 21.2 (5-19); Aspartate Amino Transferase 14 U/L (0-32); Blood Urea Nitrogen 39 mg/dL (8-23); Calcium 8.9 mg/dL (8.5-10.5); Carbon Dioxide 17 mmol/L (22-29); Chloride 103 mmol/L (98-107); Globulin 3.1 g/dL (1.3-4.6); Glucose 116 mg/dL (65-115); Osmolality Calculated 294 mOsm/kg (285-295); Potassium 4.2 mmol/L (3.5-5.1); Sodium 137 mmol/L (136-145); Total Bilirubin 0.2 mg/dL (0.15-1.2); Total Protein 7.5 g/dL (6.6-8.7)
[2020-05-31 23:05] VITALS: BP 99/69; PULSE 102; RESP 18; O2SAT 96
[2020-05-31] MEDS: sodium chloride 0.9% 1,000 ML 999 ML IV (23:13)
[2020-05-31 23:28] LABS: Add Urine Microscopic? YES; Bilirubin Urine Neg (Negative); Blood Urine Neg (Negative); Glucose Urine UA Norm (Normal); Ketones Urine Negative (Negative); Leukocyte Esterase Urine Negative (Negative); Nitrate Urine Negative (Negative); Protein Urine Neg (Negative); Specific Gravity, Urine 1.025 (1.005-1.030); Urine Appearance Cloudy (CLEAR); Urine Color Yellow (Yellow); Urobilinogen Urine Norm (Negative); pH Urine 5 (5-7)
--- NOTE | 2020-05-31 23:32 | XR_ITS ---
WS: [id number] ABDOMEN 1 VIEW(S) HISTORY: abd discomfort COMPARISON: None available. Mild diffuse constipation. Mild increased amount of air fecal material. 14 mm calcification in the pelvis related to a fibroid. There is a 5 mm calcification in the LEFT abd omen which may be associated with the kidney. Severe degenerative rotoscoliosis of the lumbar spine. Asymmetric disc space narrowing with LEFT conv ex curvature. XR/XR KUB portable [id number] IMPRESSION: 1. Mild fecal retention and constipation. 2. Calcified fibroid. 3. Prior cholecystectomy.
[2020-05-31 23:38] LABS: Add Urine Culture? No; Amorphous Sediment Urine 1+ /hpf; Bacteria Urine 3+ /hpf; RBC Urine 0-4 /hpf (0-2); Squamous Epithelial Cell Urine 0-4 /hpf (0-5); Transitional Epi Cells Urine 0-4 /hpf
[2020-05-31] MEDS: sulfamethoxazole-trimeth DS 160-800 mg Tablet 1 TAB PO (23:43)
[2020-05-31 23:57] VITALS: BP 125/81; PULSE 105; RESP 18; O2SAT 98
[2020-06-01] MEDS: sodium chloride 0.9% 1,000 ML 999 ML IV (00:36)
[2020-06-01 01:13] VITALS: BP 163/107; PULSE 78; RESP 18; O2SAT 99
[2020-06-01] MEDS: ipratropium-albuterol 3 mL Neb INHALATION (01:34)
[2020-06-01 01:35] VITALS: PULSE 109; RESP 20; O2SAT 97
[2020-06-01 01:41] VITALS: PULSE 108; RESP 22; O2SAT 98
[2020-06-01] MEDS: nitroglycerin 0.4 mg sublingual Tablet SUBLINGUAL (01:45)
[2020-06-01 02:15] LABS: Blood Urea Nitrogen 36 mg/dL (8-23); Calcium 7.9 mg/dL (8.5-10.5); Carbon Dioxide 19 mmol/L (22-29); Chloride 107 mmol/L (98-107); Glucose 102 mg/dL (65-115); Osmolality Calculated 295 mOsm/kg (285-295); Sodium 138 mmol/L (136-145)
[2020-06-01 02:26] VITALS: BP 102/51; PULSE 105; RESP 18; O2SAT 97
== END 2020-06-01 02:27 | disposition home or self-care (01) ==
PROVIDERS: Emergency Medicine; Emergency Provider Nurse Practitioner Family; PCP Nurse Practitioner
DX: N39.0 Urinary tract infection, site not specified (principal); E86.0 Dehydration; Z79.82 Long term (current) use of aspirin; Z79.4 Long term (current) use of insulin; E11.9 Type 2 diabetes mellitus without complications; J44.9 Chronic obstructive pulmonary disease, unspecified; I10 Essential (primary) hypertension; Z87.891 Personal history of nicotine dependence
CPT/HCPCS: 36415; 51701; 74018; 80048; 80053; 81001; 81003; 85025; 94640; 96360; 96361; 99283; J7030

== ENCOUNTER 2020-06-07 11:17 | Outpatient (CLI) | payer MEDICARE, MEDICAID, SELFPAY ==
--- NOTE | 2020-06-07 11:27 | MM_ITS ---
WS: [id number] BILATERAL DIGITAL DIAGNOSTIC MAMMOGRAM MAMMOGRAPHY WITH CAD CLINICAL INFORMATION: FDG POSITIVE MASS SUPERIOR RIGHT BREAST COMPARISON: PET CT April 28, 2020 TECHNIQUE: Bilateral CC, MLO, and ML views. FINDINGS: Palpable marker upper inner quadrant right breast. The breasts are composed of heterogeneous fibroglandular density, which can limit the detection of sm all underlying mass lesions. Dense heterogeneous focal asymmetric density measuring 2.7 x 2.4 cm deep to the palpable marker upper quadrant right breast. Multiple associated pleomorphic calcifications. Findings are suspicious and ultrasound is pending. This corresponds to the FDG active lesion seen on the PET/CT. Additional indeterminant calcifications subareolar right breast. Additional indeterminant calcificati ons along the right axillary tail posterior depth. Additional vascular calcifications in this area. Eggshell and punctate benign calcifications left breast. Left breast is otherwise unremarkable. ULTRASOUND BREAST RIGHT TECHNIQUE: Ultrasound right breast focused area of concern. CLINICAL INFORMATION: FDG POSITIVE MASS SUPERIOR RIGHT BREAST COMPARISON: None. FINDINGS: Ultrasound right breast the 12:00 position 4 cm from the nipple. There is a hypoechoic solid irregula r mass with heterogeneous calcifications. Shadowing mass measures approximately 2.3 x 1.8 x 1.5 cm hi ghly suspicious for malignancy. This lesion is taller than wide. Recommend further evaluation ultraso und-guided biopsy. Additional enlarged lymph nodes noted in the right axilla the largest measuring 1.9 x 1.2 x 1.0 cm. R ecommend ultrasound guided biopsy of this lymph node. MM/[place] [id number] IMPRESSION: BI-RADS: 5-Highly Suggestive of Malignancy FOLLOW UP: US Guided Biopsy Recommended RECOMMEND ULTRASOUND-GUIDED BIOPSY SHADOWING RIGHT BREAST MASS AND LARGEST RIGH T AXILLARY LYMPH NODE. Also, Recommend additional spot magnification views of the subareolar calcifica tions right breast and additional calcifications right axillary tail posterior depth.
--- NOTE | 2020-06-07 14:19 | N.ONRAD NP_ITS ---
Radiation Oncology Consultation Patient Name: Melonie Cross Date of : 1945 Date of Service: 06/07/2020 Attending Physician: Darrick Pierre M.D. Melonie Cross was seen in consultation this afternoon at the request of Davy Cartwright M.D. for consideration of thoracic radiotherapy in the management of her recently diagnosed non-small cell lung cancer. A chest radiograph obtained February 2020 for evaluation of COPD demonstrated a 2 cm nodule in the right supra-hilar region. CT of the chest completed on March 28, 2020 identified a 2.1 cm right upper lobe mass without mediastinal adenopathy. A bronchoscopy with EBUS performed on April 04, 2020 by Marah Polanco M.D. The biopsy of an 11R lymph node was positive for metastatic non-keratinizing squamous cell carcinoma (pathology report was dependently reviewed in [facility]). A PET CT on April 28, 2020 (directly visualized in [facility]) revealed a 2.1 cm right upper lobe lesion (SUV 10.9), a right hilar lymph node (SUV 4.8), and a 0.7 cm nodule in the right breast (SUV 10). Pulmonary function testing revealed an obstructive ventilatory defect (increased TLC and RV; FEV1 69% and DLCO 72% of predicted). The breast nodule is pending evaluation. I discussed with Ms. Cross the AJCC clinical stage IIB (T1cN1) lung cancer corresponding to her disease. I also reviewed the National Comprehensive Cancer Network Guidelines for surgical exploration and mediastinal lymph node dissection or concurrent chemoradiotherapy in medically inoperable patients that was established by the classic study RTOG 9410 comparing sequential versus concurrent chemoradiotherapy that demonstrated an overall survival advantage for the concurrent chemoradiotherapy regimen. She will be evaluated for surgery prior to making a final treatment decision. Signed by: Dr. Darrick Pierre 08/09/2020 10:11:45 AM
== END 2020-06-07 11:18 | disposition home or self-care (01) ==
PROVIDERS: PCP Nurse Practitioner; Visit Provider Internal Medicine Medical Oncology
DX: C34.11 Malignant neoplasm of upper lobe, right bronchus or lung (principal); C77.1 Secondary and unspecified malignant neoplasm of intrathoracic lymph nodes; R92.1 Mammographic calcification found on diagnostic imaging of breast; N63.12 Unspecified lump in the right breast, upper inner quadrant; R93.89 Abnormal findings on diagnostic imaging of other specified body structures
CPT/HCPCS: 76642; 77066; 99205

== ENCOUNTER 2020-06-15 10:18 | Outpatient (CLI) | payer MEDICARE, MEDICAID, SELFPAY ==
--- NOTE | 2020-06-15 11:00 | MM_ITS ---
WS: [id number] RIGHT DIGITAL MAMMOGRAPHY WITH CAD CLINICAL INFORMATION: calcifications COMPARISON: June 07, 2020 TECHNIQUE: 4 views of the right breast were obtained. FINDINGS: The right breast is composed of heterogeneous fibroglandular density tissue, which can limit the dete ction of small underlying mass lesions. Heterogeneous clustered and punctate calcifications some in a ductal distribution appear contiguous w ith the previously described shadowing mass at the 12:00 position. These extend into a subareolar loc ation some of which appear ductal. Additional heterogeneous and pleomorphic calcifications upper outer right breast some in a ductal dis tribution also likely contiguous with the 12:00 shadowing mass which also demonstrates calcifications . Incidental vascular calcifications. MM/[place] [id number] IMPRESSION: BI-RADS: 5-Highly Suggestive of Malignancy FOLLOW UP: See Report Clustered and ductal pleomorphic calcifications in the subareolar location and upper outer right breast appear contiguous with the previously described 12:00 breast mass also with suspicious calcifications. This is likely part of the lilia e process. Recommend breast surgery consultation for further evaluation. These additional calcifications could be sampled with stereotactic biopsy if clinical ly indicated.
== END 2020-06-15 10:19 | disposition home or self-care (01) ==
LOC: RADSHAW 10:23
PROVIDERS: PCP Nurse Practitioner; Visit Provider Nurse Practitioner
DX: R92.1 Mammographic calcification found on diagnostic imaging of breast (principal)
CPT/HCPCS: 77065

== ENCOUNTER 2020-06-22 11:34 | Outpatient (CLI) | payer MEDICARE, MEDICAID, SELFPAY ==
--- NOTE | 2020-06-22 | US_ITS ---
WS: [id number] ULTRASOUND-GUIDED RIGHT BREAST BIOPSY CLINICAL INFORMATION: Right breast nodule X2 COMPARISON: None. FINDINGS: The procedure including risks, benefits, and complications were discussed with the patient who agreed to proceed. Using sterile technique patient was prepped and draped in the usual sterile fashion. Aft er 1% lidocaine utilizing real-time ultrasound guidance 5 14-gauge cores were obtained of the right b reast lesion at the 12 o'clock position. Subsequently a titanium clip was placed in the biopsy cavity . Next the largest lymph node right axilla was also biopsied. After 1% lidocaine utilizing real-time ul trasound guidance 5 14-gauge cores were obtained of the right axillary lymph node. Subsequently a tit anium clip was placed in the biopsy cavity. No immediate complications. Pathology demonstrates A. Breast, right , biopsy: -Positive for malignancy. -Consistent with intramammary breast carcinoma, Andersen Mathur grade 2 (score 7). B. Lymph node, axilla, -Sinus histiocytosis. US/US biopsy lymph node breast/ax IMPRESSION: 1. Uncomplicated ultrasound-guided right breast and axillary lymph node biopsy . 2. The pathology demonstrates intramammary breast carcinoma. Axillary lymph no de pathology is benign. 3. See pathology report for breast cancer prognostic profile BI-RADS: 6-Known Biopsy-Proven Malignancy FOLLOW UP: Surgical Biopsy Recommended RECOMMEND BREAST SURGERY CONSULTATION FOR FURTHER EVALUATION.
--- NOTE | 2020-06-22 13:00 | US_ITS ---
WS: [id number] ULTRASOUND-GUIDED RIGHT BREAST BIOPSY CLINICAL INFORMATION: Right breast nodule X2 COMPARISON: None. FINDINGS: The procedure including risks, benefits, and complications were discussed with the patient who agreed to proceed. Using sterile technique patient was prepped and draped in the usual sterile fashion. Aft er 1% lidocaine utilizing real-time ultrasound guidance 5 14-gauge cores were obtained of the right b reast lesion at the 12 o'clock position. Subsequently a titanium clip was placed in the biopsy cavity . Next the largest lymph node right axilla was also biopsied. After 1% lidocaine utilizing real-time ul trasound guidance 5 14-gauge cores were obtained of the right axillary lymph node. Subsequently a tit anium clip was placed in the biopsy cavity. No immediate complications. Pathology demonstrates A. Breast, right , biopsy: -Positive for malignancy. -Consistent with intramammary breast carcinoma, Andersen Mathur grade 2 (score 7). B. Lymph node, axilla, -Sinus histiocytosis. US/[place] [id number] IMPRESSION: 1. Uncomplicated ultrasound-guided right breast and axillary lymph node biopsy . 2. The pathology demonstrates intramammary breast carcinoma. Axillary lymph no de pathology is benign. 3. See pathology report for breast cancer prognostic profile BI-RADS: 6-Known Biopsy-Proven Malignancy FOLLOW UP: Surgical Biopsy Recommended RECOMMEND BREAST SURGERY CONSULTATION FOR FURTHER EVALUATION.
[2020-06-22 13:01] LABS: INR 0.91 (0.8-1.2)
[2020-06-28 10:50] LABS: Miscellaneous Test See Scanned Lab Rpt
== END 2020-06-22 11:35 | disposition home or self-care (01) ==
PROVIDERS: PCP Nurse Practitioner; Visit Provider Internal Medicine Medical Oncology
DX: N63.10 Unspecified lump in the right breast, unspecified quadrant (principal); C50.811 Malignant neoplasm of overlapping sites of right female breast; D76.3 Other histiocytosis syndromes
CPT/HCPCS: 19083; 36415; 38505; 76942; 85610; 88305; 88361; 88367; 88374

== ENCOUNTER → 2020-06-26 09:49 | Outpatient (BNVA) | payer MEDICARE, MEDICAID, SELFPAY | PROVIDERS: PCP Nurse Practitioner; Visit Provider Nurse Practitioner | DX: E11.65 Type 2 diabetes mellitus with hyperglycemia (principal); Z79.4 Long term (current) use of insulin | CPT/HCPCS: 81003; 87077; 87086; 87184 ==

== ENCOUNTER 2020-07-05 06:16 | Outpatient (CLI) | payer MEDICARE, MEDICAID, SELFPAY ==
[2020-07-05 14:58] LABS: Basophils # 0.1 10^3/uL (0.0-0.1); Basophils % 0.7 %; Eosinophils # 0.2 10^3/uL (0.0-0.8); Eosinophils % 2.2 %; Hematocrit 36.2 % (37.0-47.0); Hemoglobin 11.1 g/dL (11.5-15.3); Lymphocytes # 1.9 10^3/uL (0.8-4.8); Lymphocytes % 28.2 %; Mean Corpuscular HGB Conc 30.7 g/dL (30.0-36.0); Mean Corpuscular Hemoglobin 28.1 pg (28.0-34.0); Mean Corpuscular Volume 91.6 fL (81-99); Mean Platelet Volume 9.4 fL (7.4-10.4); Monocytes # 0.5 10^3/uL (0.2-0.9); Monocytes % 7.4 %; Neutrophils # 4.13 10^3/uL (1.8-7.7); Neutrophils % 61.4 %; Nucleated Red Blood Cells % 0 %; Platelet Count 466 10^3/cmm (130-400); Red Blood Count 3.95 10^6/uL (4.1-5.3); Red Cell Distribution Width 13.6 % (12.1-15.1); White Blood Count 6.7 10^3/uL (4.0-10.0)
[2020-07-05 15:17] LABS: Alanine Aminotransferase 9 U/L (0-33); Albumin Level 4.4 g/dL (3.5-5.2); Alkaline Phosphatase 52 IU/L (35-105); Anion Gap 14.8 (5-19); Aspartate Amino Transferase 18 U/L (0-32); Blood Urea Nitrogen 31 mg/dL (8-23); Calcium 9.4 mg/dL (8.5-10.5); Carbon Dioxide 22 mmol/L (22-29); Chloride 102 mmol/L (98-107); Globulin 3.5 g/dL (1.3-4.6); Glucose 116 mg/dL (65-115); Osmolality Calculated 286 mOsm/kg (285-295); Potassium 4.8 mmol/L (3.5-5.1); Sodium 134 mmol/L (136-145); Total Bilirubin 0.2 mg/dL (0.15-1.2); Total Protein 7.9 g/dL (6.6-8.7)
--- NOTE | 2020-07-08 12:27 | ONC FU_ITS ---
Dr. Cartwright Patient Follow-Up Note Patient: Melonie Cross Unit #: [id number]: 1945 Dicatated By: Davy Cartwright M.D.Date of Visit:Jul 05, 2020 Onc Med Follow-up/Prog Note Chief Complaint: Lung cancer. 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 Her chest x-ray on 03/12/2020 showed a faint 2 cm nodular density in the right suprahilar region which was new compared to previous study from 2017. She was recommended to have further evaluation with chest CT. Her noncontrast CT on 03/28/2020 showed a right upper lobe lung mass measuring 2.12 cm. There are no other pulmonary parenchymal lesions noted and there is no significant mediastinal or axillary adenopathy noted. She was then referred to Dr. Polanco and on 04/04/2020 she underwent bronchoscopy/EBUS with FNA biopsy of a station 11R lymph node. There were no endobronchial lesions identified and attempted biopsy of the lung nodule was unsuccessful. The endobronchial ultrasound showed no significant lymphadenopathy. The largest node was in the right hilar node group, and pathology on the FNA was consistent with poorly differentiated nonkeratinizing squamous cell carcinoma. She has known COPD. Her other medical illnesses include hypertension, hyperlipidemia, type 2 diabetes, and coronary artery disease. She has had previous angioplasty/stent placement. Her medical history is also significant for having undergone right nephrectomy for renal cell carcinoma sometime around 2009. Those records were not available. She does have a history of smoking for 45 years, up to a pack and a half of cigarettes daily. She quit smoking in February 2020. I had seen her initially on 04/25/2020. 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 She was able to come in for staging PET/CT on 04/28/2020. That study showed an FDG avid right upper lobe mass measuring 2.1 cm, SUV 10.9, consistent with primary malignancy. A superior right hilar lymph node was FDG avid with SUV 4.8, consistent with local metastatic disease. The only other area of abnormal uptake was a solid lesion in the superior right breast measuring 1.7 x 1.2 cm with SUV 10.0, suspicious for synchronous primary breast cancer. She was then able to come in for pulmonary function studies on 05/01/2020. Her FEV1 was 1.57 L, 69% of predicted. She had radiation oncology consultation with Dr. Pierre on 06/07/2020. Although with N1 disease she was still potentially an operable candidate, she indicated that due to her social circumstances and requirement for hospitalization, that she would still not consider surgery as a treatment option. She was agreeable, though, to undergo radiation. At that time she had further evaluation for the breast lesion with diagnostic mammogram/ultrasound. It was BI-RADS 5, highly suggestive of malignancy. The mammogram showed a dense heterogeneous focal asymmetric density measuring 2.7 x 2.4 cm, corresponding to the lesion identified by PET/CT. Ultrasound showed a hypoechoic solid irregular mass at the 12 o'clock position measuring 2.3 x 1.8 x 1.5 cm. Also noted was an enlarged lymph node in the right axilla measuring 1.9 x 1.2 x 1.0 cm. On 06/22/2020 she underwent ultrasound-guided biopsy of the breast mass and of the axillary lymph node. Pathology on the breast showed grade 2 intraductal carcinoma. It was found to be ER and GA negative. The lymph node showed sinus histiocytosis. She is seen today to discuss her further management. Medications: Alendronate Sodium (70 mg) Tablet Oral Take as Directed, Anoro Ellipta 1 Inhalation (of 62.5-25 mcg/inh) Aerosol Powder, Breath Activated Inhalation q 24 hours, Aspirin 1 Tablet (of 81 mg) Tablet, chewable Oral daily, Bactroban (2 %) Ointment Topical t.i.d., Benazepril HCl 1 Tablet (of 40 mg) Oral daily, Budesonide (0.5 mg/2mL) Suspension Inhalation b.i.d., Cardizem CD 1 (360 mg) Capsule SR 24 HR Oral daily, Cholecalciferol 1 Tablet (of 50 mcg ) Oral daily, diazePAM 1 (10 mg) Tablet Oral four times a day, Fenofibrate 1 (145 mg) Tablet Oral daily, HYDROcodone-Acetaminophen 1 Tablet (of 10-325 mg) Oral 6x/d, Ipratropium-Albuterol 1 Inhalation (of 0.5-2.5 (3) mg/3mL) Solution Inhalation four times a day, Isosorbide Mononitrate ER 1 Tablet (of 60 mg) Tablet SR 24 HR Oral b.i.d., Magnesium Oxide 1 (400 mg) Capsule Oral b.i.d., Metoprolol Succinate ER 1 Tablet (of 100 mg) Tablet SR 24 HR Oral daily, Nitroglycerin Tablet, sublingual Sublingual PRN, Ondansetron HCl 1 Tablet (of 4 mg) Oral daily, Pantoprazole Sodium 1 (20 mg) Tablet, enteric coated Oral daily, Probiotic & Acidophilus Ex St 1 Capsule Oral daily, Theophylline ER 1 (400 mg) Capsule SR 24 HR Oral daily, Tresiba FlexTouch 75 Units (of 200 Units/mL) Subcutaneous daily, Victoza 1 (18 mg/3mL) Subcutaneous q 24 hours, Xyzal 1 Tablet (of 5 mg) Oral daily Allergies: amLODIPine Besylate, Cephalexin, Erythromycin Base, Penicillins, Propranolol HCl, Tetanus-Diphtheria Toxoids Td, Tetracycline HCl, and ticlopidine. Vital Signs: Performed on Jul 05, 2020 15:16 Height - 66.00 in Weight - 139.8 lbs (LOW) BSA - 1.72 sq.m BMI - 22.56 Temperature - 97.8 F (LOW) Pulse - 106 /min (HIGH) Respiration - 17 /min BP - 130/67 mm(hg) O2 Sat - 97 % Pain - 0 Lab/Imaging: Test performed on Jul 05, 2020 14:40 Sodium 134 mmol/L Potassium 4.8 mmol/L Chloride 102 mmol/L CO2 22 mmol/L Anion Gap 14.8 BUN 31 mg/dL Creatinine 1.7 mg/dL Cr Clearance (Est) 29.5000 mL/min Glucose 116 mg/dL Osmolality - Calculated 286 mOsm/kg Calcium 9.4 mg/dL Protein, Total 7.9 g/dL Albumin 4.4 g/dL Globulin 3.5 g/dL Bilirubin, Total 0.2 mg/dL ALT (SGPT) 9 U/L AST (SGOT) 18 U/L Alkaline Phosphatase 52 IU/L WBC 6.7 10 3/uL RBC 3.95 10 6/uL HGB 11.1 g/dL HCT 36.2 % MCV 91.6 fL MCH 28.1 pg MCHC 30.7 g/dL RDW 13.6 % Platelet Count 466 10 3/cmm MPV 9.4 fL Neutrophils 4.13 10 3/uL Lymphocytes 1.9 10 3/uL Monocytes 0.5 10 3/uL Eosinophils 0.2 10 3/uL Basophils 0.1 10 3/uL Neutrophil % 61.4 % Lymphocyte % 28.2 % Monocyte % 7.4 % Eosinophil % 2.2 % Basophils % 0.7 % NRBC % 0 % Problem List: 1. 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 By clinical evaluation her disease appears to be stage IIB (T1c, N1, M0). 2. 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 3. COPD. 4. Hypertension. 5. Hyperlipidemia. 6. Type 2 diabetes. 7. Coronary artery disease with previous angioplasty/stent placement. 8. Chronic kidney disease. 9. GERD. 10. 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 11. She underwent right nephrectomy for renal cell carcinoma approximately 2009. Problems Addressed with this Encounter and Plan: 1. 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 By clinical evaluation her disease appears to be stage IIB (T1c, N1, M0). With disease localized to the lung and a hilar lymph node, she would potentially be an operable candidate, but she has been adamantly opposed to undergoing surgery. As such, she is given the option to undergo chemoradiation utilizing a standard weekly carboplatin/paclitaxel chemotherapy regimen. I reviewed anticipated side effects with that regimen, and at this point she is willing to proceed with treatment as recommended She will be scheduled to undergo placement of a Port-A-Cath for venous access for the chemotherapy, and she will then return for radiation planning. 2. She has been found to have grade 2 ductal carcinoma in situ of the right breast, ER/GA negative. Treatment will be deferred until she has completed her chemoradiation. Her lung radiation unfortunately will preclude radiation to the breast, and within the ER/GA negative tumor she will not be eligible for adjuvant hormonal therapy. As such her treatment options will be lumpectomy alone or total mastectomy. Signed By: Davy Cartwright M.D. <<Signature on File>>
== END 2020-07-05 06:17 | disposition home or self-care (01) ==
LOC: ONCMED 06:18
PROVIDERS: PCP Nurse Practitioner; Visit Provider Internal Medicine Medical Oncology
DX: C34.11 Malignant neoplasm of upper lobe, right bronchus or lung (principal); C77.1 Secondary and unspecified malignant neoplasm of intrathoracic lymph nodes; D05.11 Intraductal carcinoma in situ of right breast; Z17.1 Estrogen receptor negative status [ER-]
CPT/HCPCS: 36415; 80053; 85025; 99215

== ENCOUNTER → 2020-07-26 08:10 | Outpatient (BNVA) | payer MEDICARE, MEDICAID, SELFPAY | PROVIDERS: PCP Nurse Practitioner; Visit Provider Surgery | DX: C34.90 Malignant neoplasm of unspecified part of unspecified bronchus or lung (principal); E11.65 Type 2 diabetes mellitus with hyperglycemia; I10 Essential (primary) hypertension; J43.9 Emphysema, unspecified; Z79.4 Long term (current) use of insulin; F41.8 Other specified anxiety disorders; E78.1 Pure hyperglyceridemia; R11.0 Nausea; K21.9 Gastro-esophageal reflux disease without esophagitis; Z74.09 Other reduced mobility; M79.18 Myalgia, other site; M81.0 Age-related osteoporosis without current pathological fracture; J30.9 Allergic rhinitis, unspecified | CPT/HCPCS: 80053; 80061; 81000; 83036; 85025; 87635 ==

== ENCOUNTER → 2020-08-03 09:53 | Outpatient (BNVA) | payer MEDICARE, MEDICAID, SELFPAY | PROVIDERS: PCP Nurse Practitioner; Visit Provider Surgery | DX: Z01.812 Encounter for preprocedural laboratory examination (principal); Z20.822 Contact with and (suspected) exposure to COVID-19 | CPT/HCPCS: 87635 ==

== ENCOUNTER 2020-08-07 09:02 | Day surgery (SDC) | payer MEDICARE, MEDICAID, SELFPAY ==
[2020-07-27 14:40] VITALS: BMI 23.2
[2020-08-07] VITALS (7 sets, daily range): BP systolic 127–171; BP diastolic 47–113; PULSE 78–92; RESP 14–18; TEMP 36.3–36.8; O2SAT 95–99
--- NOTE | 2020-08-07 | SCC_ITS ---
Procedure Done: Right internal jugular vein PowerPort placement 19.8 seconds of fluoroscopic guidance, for a cumulative dose of 2.89 mGy, was provided to Dr. Fritz by the radiology department. C-arm images of the chest were saved for the patient's permanent record. [facility]
--- NOTE | 2020-08-07 09:10 | SC_ITS ---
WS: [id number] C-ARM RADIOGRAPHS CHEST; 3 IMAGES HISTORY: Powerport Placement COMPARISON: None available. Intraoperative imaging during Mediport placement. Tip in the distal SVC. SC/C-arm FL for CVA [id number] IMPRESSION: Intraoperative imaging during Mediport placement.
--- NOTE | 2020-08-07 10:02 | P.ANESASSM_ITS ---
Pre-Anesthetic Assessment Pre-Anesthetic Assessment: Height/Weight: Height 1.68 m Weight 65.317 kg Temp Pulse Resp BP Pulse Ox 98.3 F 79 18 171/113 98 08/07/20 09:25 08/07/20 09:25 08/07/20 09:25 08/07/20 09:25 08/07/20 09:25 Preop Diagnosis: Lung cancer Proposed Procedure: Operation Date: 08/07/20 10:45 Proposed Procedures p Portacath Placement 26913 C34.90(Not Applicable) - Denton Fritz MD Familial anesthetic complications: Hard time waking up - took very long to wake up from colonoscopy. Avoid versed. Was Beta Aileen taken within 24 hours: Yes Was Clonidine taken within 24 hours: N/A Last intake: Intake Last Liquid Date 08/07/20 Last Liquid Time 04:00 Last Solid Date 08/06/20 Last Solid Time 23:55 Social: Social History: No alcohol and No tobacco Exam: Pre-Anes Outpt Exam: alert, oriented x 3, clear to auscultation bilaterally and regular rate & rhythm Airway: Cervical ROM: WNL MP: 2 Dentition: False Pulmonary: Pulmonary: COPD CV/HEM: CV/HEM: CAD, HTN and PVD GI: GI: GERD Metabolic: Metabolic: DM Anesthetic Plan: ASA status: 3 Anesthesia: MAC Other: Patient asking about local only to avoid prolonged awakening from anesthesia. Will avoid versed and minimize any fentanyl Risk of > 500 ml blood loss (7ml/kg in children): No PFSH Anesthesia PFSH: Medical History Acid reflux Allergic rhinitis due to allergen Controlled diabetes mellitus with hyperglycemia, with long-term current use of insulin COPD (chronic obstructive pulmonary disease) HTN (hypertension) Low serum iron Nausea Nocturnal oxygen desaturation Osteoarthritis Post-menopausal osteoporosis Surgical History History of angioplasty with stent 1998 History of cholecystectomy History of oophorectomy History of tonsillectomy Hx of carotid angioplasty Family History Family/Other Diabetes Father COPD exacerbation Social History Smoking and tobacco status: former smoker Quit status (tobacco): has quit using tobacco Year quit tobacco: 2020 - 1PPD x 50 Years Second hand smoke exposure: No Smoking risk assessment/counseling performed?: Yes Alcohol intake: never Desire information about alcohol rehabilitation?: No Counseling given: No Desire information about substance/drug rehabilitation?: No Counseling given: No Lives independently: Yes Household members: children Housing: House Marital status: / Current occupational status: disabled Pets and animals: Yes Pets & animals: dog(s) History of recent travel: No Current gender identity: Female Data Anesthesia Cardiac Studies: No Data to Display
[2020-08-07] MEDS: sodium chloride 0.9% 1,000 ML 30 ML IV (10:04)
[2020-08-07 10:13] LABS: Glucose Point of Care 117 mg/dL (70-110)
--- NOTE | 2020-08-07 10:50 | W.PM.OPSUD ---
Surgery/Procedure H&P Update DATE OF PROCEDURE: August 07, 2020 DATE H&P PERFORMED: 07/26/20 H&P UPDATE INFORMATION: I have reviewed H&P completed within last 30 days, I have examined patient prior to procedure and No changes to prior documentation PREOP DIAGNOSIS: Lung cancer PRIMARY INDICATION FOR PROCEDURE: The same PLANNED PROCEDURE: Operation Date: 08/07/20 10:45 Proposed Procedures p Portacath Placement 52803 C34.90(Not Applicable) - Denton Fritz MD
[2020-08-07] MEDS: clindamycin 600 MG/50 ML PREMIX 100 MG IV (10:54)
--- NOTE | 2020-08-07 11:51 | P.OP_ITS ---
Operative Report Date of procedure: August 07, 2020 Pre-op Diagnosis: Lung cancer Procedure Done: 1. Placement of PowerPort via the right internal jugular vein 2. Fluoroscopic guidance and interpretation for placement of catheter 3. Ultrasound guidance to access the right internal jugular vein Implants: Right upper chest PowerPort Surgeon: Denton Fritz Costuming Supervisor: computer aided design technician Rey and circulating nurse Danna Toth Anesthesia: MAC (Shreya Conn) Estimated blood loss (mL): 5 Findings: Attempt access to left subclavian vein and right subclavian vein without success. Condition: stable Brief History: Pleasant 75 years old female patient with history of lung cancer requiring Port-A-Cath placement. Full H&P and informed consent per chart. Procedure: Patient was identified in the holding area and taken to the operative room and placed in supine position IV propofol was given by the anesthesia provider ,both arms were tucked,Time-out was done verifying the patient's name/date of /planned procedure and destination after the procedure, all were in agreement. SCDs confirmed to be functioning, preoperative antibiotics administered per protocol, and beta georgette protocol was confirmed, appropriate positioning of the patient was done by me. Medications were reviewed to assess for anticoagulant usage. Risks and benefits and prevention of central line associated blood stream infection (CLABSI) were discussed with the patient/CPOA, and a consent was obtained. Monitors were in place and monitored throughout the procedure. All necessary supplies were available prior to start. Hand hygiene was completed prior to starting. Maximum barrier technique was utilized including a sterile gown, sterile gloves with a hat and mask. Site was was prepped with [chlorhexidine] and a full body drape was placed. 5 mL of 2% lidocaine was injected into the skin with a 25 gauge needle. Prep& drape was done under the usual sterile technique, lidocaine 2% was injected at the site of the stick, started by left subclavian vein there was no obvious success after few attempts, at this point I decided to access the right subclavian vein and arterial flow was revealed. Pressure was sustained for a few minutes and then I decided to access the right internal jugular vein. Right Internal Juglar vein stick that retrieved venous blood was obtained from the first stick under ultrasound guidance and there was no evidence of intraluminal thrombosis, interpretation was done by me through the whole entire procedure, a guidewire was then threaded and under the guidance of fluoroscopy position was confirmed to be in the IVC and my interpretation, there was no PVC changes, at that point the guidewire was secured to the drapes with a hemostat and the needle was taken out. Attention was then deviated towards creation of a pocket for the port were lidocaine 2% was injected using an 15 blade knife skin incision was created at the right upper Chest ,dissection using the Bovie to create a pocket for the Port-A-Cath to be accommodated, hemostasis was secured, after the port being appropriately flushed it was inserted into the pocket and a tunneler was used to accommodate the catheter of the port cath to be delivered through the incision first created at the site of the stick, yet I had to create a transit incision at the root of the neck at the right side to the patient difficult anatomy , and then I was able to retrieve the catheter at the index site of the stick. At that point under fluoroscopy an estimated length was measured for the catheter and was cut at the designed level, followed by that a dilator with the sheath introduced onto the guidewire the dilator and the wire were retrieved and the catheter of the port was introduced via the sheath where it was peeled off and the catheter maintained to be in the SVC that was confirmed with fluoroscopy, and the fluoroscopy interpretation was done by me throughout the entire procedure. Multiple flushes of the port was done by diluted heparin and I was able to retrieve without difficulty venous blood as well as appropriate flushing was achieved. The port was Kept in its pocket,3-0 Vicryl deep subdermal interrupted sutures, skin was then closed by 4-0 Monocryl as subcuticular closure. The stick site was closed by 4-0 Monocryl and Surgical gluewas used followed by dressing. Patient tolerated the procedure well was taken to the recovery area Count was correct at the end of the procedure I was present for the whole entire procedure
--- NOTE | 2020-08-07 11:54 | XR_ITS ---
WS: [id number] Exam: XR chest 1V portable [id number] Date/Time of Exam: 08/07/2020 12:10 PM Reason For Exam: Status post placement of right IJ vein PowerPort A right subclavian port is been placed and appears to end in the lower one third of the SVC. A 3 cm e nlarging mass seen in the right upper lobe which apparently represents the patient's known lung malig adrienne. There may be some infiltrate in the right lower lobe. The left lung is clear. No pneumothorax. No pleural effusion. Normal cardiomediastinal silhouette. Regional bony elements are intact. XR/XR chest 1V portable [id number] IMPRESSION: 1. Right subclavian port in satisfactory position. 2. Enlarging 3 cm right upper lobe pulmonary mass apparently representing the p atient's known lung malignancy. 3. There may be infiltrate in the right lower lobe. This could also be artifact due to clothing.
[2020-08-07] MEDS: lidocaine 2% INJ 20 mL INJECTION (11:57)
[2020-08-07] MEDS: heparin, porcine 1,000 unit/mL INJ 10 mL 6000 UNIT IRRIGATION (11:58)
[2020-08-07] MEDS: cetylpyridinium Lozenge 1 EACH MUCOUS MEM (12:35)
--- NOTE | 2020-08-07 14:19 | ANE.PACU2 ---
Inpatient post-anesthesia follow up: Airway intact: Yes Vital signs: Temperature 97.5 F Pulse Rate 78 Respiratory Rate 18 Blood Pressure 147/52 Pulse Oximetry 95 Oxygen Delivery Me thod Room Air Oxygen Flow Rate Fraction of Inspir ed Oxygen Hydration adequate: Yes Nausea and vomiting: No Pain level: 2 Mental status: Baseline
== END 2020-08-07 13:10 | disposition home or self-care (01) ==
PROVIDERS: PCP Nurse Practitioner; Visit Provider Surgery
PROC: (CPT 36561; principal; 2020-08-07 10:45)
DX: C34.90 Malignant neoplasm of unspecified part of unspecified bronchus or lung (principal); J44.9 Chronic obstructive pulmonary disease, unspecified; I25.10 Atherosclerotic heart disease of native coronary artery without angina pectoris; I10 Essential (primary) hypertension; K21.9 Gastro-esophageal reflux disease without esophagitis; E11.9 Type 2 diabetes mellitus without complications; M19.90 Unspecified osteoarthritis, unspecified site; Z87.891 Personal history of nicotine dependence; Z79.82 Long term (current) use of aspirin; Z79.4 Long term (current) use of insulin
CPT/HCPCS: 36561; 36416; 71045; 77001; 82962; 96365; C1788; J1644; J2704; J3490; J7030

== ENCOUNTER 2020-08-09 05:58 | Outpatient (RCR) | payer MEDICARE, MEDICAID, SELFPAY ==
--- NOTE | 2020-08-09 | CT_ITS ---
Radiation Therapy Planning CT images; total exam DLP: 500.35 mGy-cm MTDD
[2020-08-09] MEDS: iodixanol 320 mg/mL 100mL Btl (RAD THERAPY ONLY) IV (09:58)
== END 2020-08-10 23:59 | disposition home or self-care (01) ==
LOC: ONCMED 05:58
PROVIDERS: PCP Nurse Practitioner; Visit Provider Radiology Radiation Oncology
DX: Z51.0 Encounter for antineoplastic radiation therapy (principal); C34.11 Malignant neoplasm of upper lobe, right bronchus or lung; D05.11 Intraductal carcinoma in situ of right breast
CPT/HCPCS: 77334; Q9967

== ENCOUNTER 2020-09-04 06:53 | Outpatient (CLI) | payer MEDICARE, MEDICAID, SELFPAY ==
--- NOTE | 2020-09-04 08:21 | CT_ITS ---
WS: [id number] CT CHEST ANGIOGRAPHY WITH REFORMATS HISTORY: SUDDEN ONSET SHORTNESS OF BREATH TECHNIQUE: Contiguous axial images are obtained through the chest during arterial injection of intrav enous contrast. Images are reconstructed to evaluate the pulmonary arteries. MIP imaging also reviewe d. All CT scans at [facility] use at least one of these dose optimization techniques: aut omated exposure control; mA and/or kV adjustment per patient size (includes targeted exams where dose is matched to clinical indication); or iterative reconstruction. CONTRAST: Visipaque 320; 95 mL IV. DLP: 586.08 mGy.cm COMPARISON: 03/28/2020, 08/09/2020 Excellent opacification of the pulmonary arteries. No filling defects or pulmonary emboli. Normal siz e pulmonary artery. Moderate atherosclerosis aorta. No aneurysm. Heart size is normal. No filling def ect in the LEFT atrial appendage. No pericardial or pleural effusion. Moderate pulmonary hyperexpansion. There is a mixed solid and cystic mass with spiculation in the RIG HT upper lobe measuring 2.3 x 2.3 cm. Solid component has decreased and this is probably undergone pr ior radiation therapy. No additional pulmonary nodules, mass or pneumonia. RIGHT hilar lymph node tej sures 11 mm. Right-sided Port-A-Cath with tip in the distal SVC. Lobulated soft tissue mass in the RIGHT breast me asures 17 x 23 mm with an adjacent biopsy clip. No axillary adenopathy. No hiatal hernia. Very mild thickening of the adrenal glands. Similar to the study of 03/28/2020 with no increasing nodularity or mass. Mild increase in thoracic kyphosis. No osteoblastic or osteolytic bone disease. CT/CT angio chest PE protcl [id number] IMPRESSION: 1. No pulmonary embolism. 2. No pneumonia. 3. Subsolid, spiculated mass in the RIGHT upper lobe. Mass measures 2.3 x 2.3 cm and has probably undergone recent radiation therapy. Recommend continued rock se follow-up to ensure no progression. 4. Known RIGHT breast neoplasm. 5. Indeterminate RIGHT hilar lymph node measures 11 mm.
[2020-09-04] MEDS: iodixanol 320 mg/mL 100mL Btl IV (09:15)
== END 2020-09-04 06:54 | disposition home or self-care (01) ==
PROVIDERS: PCP Nurse Practitioner; Visit Provider Internal Medicine Medical Oncology
DX: C34.11 Malignant neoplasm of upper lobe, right bronchus or lung (principal); R06.02 Shortness of breath; D49.3 Neoplasm of unspecified behavior of breast
CPT/HCPCS: 71275

== ENCOUNTER 2020-09-05 05:49 | Outpatient (RCR) | payer MEDICARE, MEDICAID, SELFPAY ==
[2020-08-16 11:58] LABS: Basophils % 0.3 %; Hematocrit 33.1 % (37.0-47.0); Hemoglobin 9.9 g/dL (11.5-15.3); Lymphocytes # 0.6 10^3/uL (0.8-4.8); Lymphocytes % 9.1 %; Mean Corpuscular HGB Conc 29.9 g/dL (30.0-36.0); Mean Corpuscular Hemoglobin 27.7 pg (28.0-34.0); Mean Corpuscular Volume 92.5 fL (81-99); Mean Platelet Volume 9.5 fL (7.4-10.4); Monocytes % 0.6 %; Neutrophils # 6.08 10^3/uL (1.8-7.7); Neutrophils % 89.6 %; Nucleated Red Blood Cells % 0 %; Platelet Count 381 10^3/cmm (130-400); Red Blood Count 3.58 10^6/uL (4.1-5.3); Red Cell Distribution Width 13.8 % (12.1-15.1); White Blood Count 6.8 10^3/uL (4.0-10.0)
[2020-08-16 12:17] LABS: Alanine Aminotransferase 11 U/L (0-33); Albumin Level 4.2 g/dL (3.5-5.2); Alkaline Phosphatase 42 IU/L (35-105); Anion Gap 18.6 (5-19); Aspartate Amino Transferase 17 U/L (0-32); Blood Urea Nitrogen 23 mg/dL (8-23); Calcium 9.3 mg/dL (8.5-10.5); Carbon Dioxide 25 mmol/L (22-29); Chloride 100 mmol/L (98-107); Globulin 2.8 g/dL (1.3-4.6); Glucose 294 mg/dL (65-115); Osmolality Calculated 303 mOsm/kg (285-295); Potassium 4.6 mmol/L (3.5-5.1); Sodium 139 mmol/L (136-145); Total Bilirubin 0.2 mg/dL (0.15-1.2)
[2020-08-16] MEDS: sodium chloride 0.9% 250 ML 75 ML IV (14:12)
[2020-08-16] MEDS: famotidine 20 mg/2 mL INJ IVP (14:12)
[2020-08-16] MEDS: diphenhydrAMINE 50 mg/mL SDV 1mL 25 MG IVP (14:14)
[2020-08-16] MEDS: palonosetron 0.25 mg/5 mL SDV IVP (14:18)
--- NOTE | 2020-08-21 11:14 | ONCRAD TMN_ITS ---
Radiation Oncology Treatment Management Note Patient Name: Melonie Cross Date of : 1945 Date of Service: 08/21/2020 Attending Physician: Darrick Pierre M.D. 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 The patient has received 8 Gy of a prescribed 60 Dia with an intensity modulated radiotherapy plan utilizing a step and shoot treatment technique. She has been prescribed carboplatin (AUC 2) and paclitaxel (50 mg/m???) weekly during therapy. Upon review of systems, she denied pulmonary symptoms. On physical examination, the patient weighed 142 lbs. Her temperature was 97.8 ???F with a blood pressure of 160/70 mmHg. The pulse was 97 bpm and her respiratory rate was 20. Oxygen saturation while breathing room air was 97%. There was no erythema within the treatment gusman. Auscultation of the posterior lung gusman identified bronchial breath sounds. Continue thoracic radiotherapy as prescribed. Signed by: Dr. Darrick Pierre 08/21/2020 11:12:44 AM
[2020-08-22 13:48] LABS: Basophils % 0.5 %; Eosinophils # 0.1 10^3/uL (0.0-0.8); Eosinophils % 1.9 %; Hematocrit 31.8 % (37.0-47.0); Hemoglobin 9.8 g/dL (11.5-15.3); Lymphocytes # 1.5 10^3/uL (0.8-4.8); Lymphocytes % 25.7 %; Mean Corpuscular HGB Conc 30.8 g/dL (30.0-36.0); Mean Corpuscular Hemoglobin 28.1 pg (28.0-34.0); Mean Corpuscular Volume 91.1 fL (81-99); Mean Platelet Volume 9.9 fL (7.4-10.4); Monocytes # 0.3 10^3/uL (0.2-0.9); Monocytes % 4.7 %; Neutrophils # 3.79 10^3/uL (1.8-7.7); Neutrophils % 66.5 %; Nucleated Red Blood Cells % 0 %; Platelet Count 356 10^3/cmm (130-400); Red Blood Count 3.49 10^6/uL (4.1-5.3); Red Cell Distribution Width 13.6 % (12.1-15.1); White Blood Count 5.7 10^3/uL (4.0-10.0)
[2020-08-22 14:28] LABS: Alanine Aminotransferase 9 U/L (0-33); Alkaline Phosphatase 34 IU/L (35-105); Anion Gap 12.3 (5-19); Aspartate Amino Transferase 13 U/L (0-32); Blood Urea Nitrogen 25 mg/dL (8-23); Calcium 8.7 mg/dL (8.5-10.5); Carbon Dioxide 27 mmol/L (22-29); Chloride 105 mmol/L (98-107); Globulin 2.5 g/dL (1.3-4.6); Glucose 136 mg/dL (65-115); Osmolality Calculated 296 mOsm/kg (285-295); Potassium 4.3 mmol/L (3.5-5.1); Sodium 140 mmol/L (136-145); Total Bilirubin 0.2 mg/dL (0.15-1.2); Total Protein 6.5 g/dL (6.6-8.7)
--- NOTE | 2020-08-23 10:20 | ONC FU_ITS ---
[facility] Patient Note Patient: Melonie Cross Unit #: [id number]: 1945 Dictated By: Anila AriasDate of Visit: August 16, 2020 Onc MED Follow-Up/Prog Note Chief Complaint: Lung cancer. 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 Her chest x-ray on 03/12/2020 showed a faint 2 cm nodular density in the right suprahilar region which was new compared to previous study from 2017. She was recommended to have further evaluation with chest CT. Her noncontrast CT on 03/28/2020 showed a right upper lobe lung mass measuring 2.12 cm. There are no other pulmonary parenchymal lesions noted and there is no significant mediastinal or axillary adenopathy noted. She was then referred to Dr. Polanco and on 04/04/2020 she underwent bronchoscopy/EBUS with FNA biopsy of a station 11R lymph node. There were no endobronchial lesions identified and attempted biopsy of the lung nodule was unsuccessful. The endobronchial ultrasound showed no significant lymphadenopathy. The largest node was in the right hilar node group, and pathology on the FNA was consistent with poorly differentiated nonkeratinizing squamous cell carcinoma. She has known COPD. Her other medical illnesses include hypertension, hyperlipidemia, type 2 diabetes, and coronary artery disease. She has had previous angioplasty/stent placement. Her medical history is also significant for having undergone right nephrectomy for renal cell carcinoma sometime around 2009. Those records were not available. She does have a history of smoking for 45 years, up to a pack and a half of cigarettes daily. She quit smoking in February 2020. Dr Cartwright had seen her initially on 04/25/2020. 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 She was able to come in for staging PET/CT on 04/28/2020. That study showed an FDG avid right upper lobe mass measuring 2.1 cm, SUV 10.9, consistent with primary malignancy. A superior right hilar lymph node was FDG avid with SUV 4.8, consistent with local metastatic disease. The only other area of abnormal uptake was a solid lesion in the superior right breast measuring 1.7 x 1.2 cm with SUV 10.0, suspicious for synchronous primary breast cancer. She was then able to come in for pulmonary function studies on 05/01/2020. Her FEV1 was 1.57 L, 69% of predicted. She had radiation oncology consultation with Dr. Pierre on 06/07/2020. Although with N1 disease she was still potentially an operable candidate, she indicated that due to her social circumstances and requirement for hospitalization, that she would still not consider surgery as a treatment option. She was agreeable, though, to undergo radiation. At that time she had further evaluation for the breast lesion with diagnostic mammogram/ultrasound. It was BI-RADS 5, highly suggestive of malignancy. The mammogram showed a dense heterogeneous focal asymmetric density measuring 2.7 x 2.4 cm, corresponding to the lesion identified by PET/CT. Ultrasound showed a hypoechoic solid irregular mass at the 12 o'clock position measuring 2.3 x 1.8 x 1.5 cm. Also noted was an enlarged lymph node in the right axilla measuring 1.9 x 1.2 x 1.0 cm. On 06/22/2020 she underwent ultrasound-guided biopsy of the breast mass and of the axillary lymph node. Pathology on the breast showed grade 2 intraductal carcinoma. It was found to be ER and CA negative. The lymph node showed sinus histiocytosis. Dr. Cartwright had offered her treatment for her stage IIb right upper lobe lung cancer with concurrent therapy with chemotherapy/radiation. Her planned chemotherapy will be weekly carboplatin paclitaxel. She did have a right internal jugular vein PowerPort placed on August 07, [address] Fritz. 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 This treatment will be deferred until she is completed chemoradiation. Her lung radiation unfortunately will preclude radiation to the breast and within the ER CA negative tumor she will not be eligible for adjuvant hormonal therapy. In regards to treatment her options could be lumpectomy alone or total mastectomy. Mrs. Cross is here today for follow-up initiation of her first cycle of carboplatin paclitaxel in combination with daily radiation. She has no new concerns today. She denies any fever or chills. She is had no signs or symptoms of infection for at least the last 72 hours. She denies any new pain. She states she has shortness of breath but is no different than what has been normal over the last several months. She denies any hemoptysis. She denies any orthopnea. She states she has not any chest pain or palpitations. She has had no nausea or vomiting. She states her bowels and bladder are normal for her presently. She denies any pre-existing peripheral neuropathy. Her ECOG is 1. She is seen today to discuss her further management. Past Medical History: Chronic obstructive pulmonary disease Coronary artery disease Degenerative disease of the spine Gastroesophageal reflux disease Hyperlipidemia Hypertension Osteoporosis Renal cell cancer Type II diabetes Past Surgical History: Oopherectomy Tonsillectomy PowerPort right internal jugular vein-Dr. Fritz in 2020 Bronchoscopy/EBUS with FNA biopsy of station 11R lymph node. in 2019 Right nephrectomy for renal cell carcinoma in 2009 Cholecystectomy in 2006 Coronary angioplasty with stent placement in 1998 Allergies: amLODIPine Besylate, Cephalexin, Erythromycin Base, Penicillins, Propranolol HCl, Tetanus-Diphtheria Toxoids Td, Tetracycline HCl, and ticlopidine. Medications: Alendronate Sodium (70 mg) Tablet Oral Take as Directed Anoro Ellipta 1 Inhalation (of 62.5-25 mcg/inh) Aerosol Powder, Breath Activated Inhalation q 24 hours Aspirin 1 Tablet (of 81 mg) Tablet, chewable Oral daily Bactroban (2 %) Ointment Topical t.i.d. Benazepril HCl 1 Tablet (of 40 mg) Oral daily Budesonide (0.5 mg/2mL) Suspension Inhalation b.i.d. Cardizem CD 1 (360 mg) Capsule SR 24 HR Oral daily Cholecalciferol 1 Tablet (of 50 mcg ) Oral daily diazePAM 1 (10 mg) Tablet Oral four times a day Fenofibrate 1 (145 mg) Tablet Oral daily HYDROcodone-Acetaminophen 1 Tablet (of 10-325 mg) Oral 6x/d Ipratropium-Albuterol 1 Inhalation (of 0.5-2.5 (3) mg/3mL) Solution Inhalation four times a day Isosorbide Mononitrate ER 1 Tablet (of 60 mg) Tablet SR 24 HR Oral b.i.d. Magnesium Oxide 1 (400 mg) Capsule Oral b.i.d. Metoprolol Succinate ER 1 Tablet (of 100 mg) Tablet SR 24 HR Oral daily Nitroglycerin Tablet, sublingual Sublingual PRN Ondansetron HCl 1 Tablet (of 4 mg) Oral daily Pantoprazole Sodium 1 (20 mg) Tablet, enteric coated Oral daily Probiotic & Acidophilus Ex St 1 Capsule Oral daily Theophylline ER 1 (400 mg) Capsule SR 24 HR Oral daily Tresiba FlexTouch 75 Units (of 200 Units/mL) Subcutaneous daily Victoza 1 (18 mg/3mL) Subcutaneous q 24 hours Xyzal 1 Tablet (of 5 mg) Oral daily Family History: Ms. Goetzs mother at age 70: congestive heart failure, and myocardial infarction at age 70. Ms. Cross's father at age 80: chronic obstructive pulmonary disease, and myocardial infarction at age 80. Father had COPD and of heart attack at age 80. Mother with congestive heart failure at age 70. She had no siblings. Social History: Ms. Cross is . She quit smoking 1 year ago but had smoked 0.5 packs/day for 50 years. She has no history of drinking. She is . She has a history of smoking for 45 years, up to 1-1/2 packs of cigarettes daily. She quit smoking in February 2020. She does not drink alcohol. Review Of Symptoms: <See Above> Vital Signs: Performed on August 16, 2020 12:42 Height - 66.00 in Weight - 141.2 lbs (HIGH) BSA - 1.73 sq.m BMI - 22.79 Temperature - 97.1 F (LOW) Pulse - 93 /min Respiration - 18 /min BP - 144/59 mm(hg) (HIGH) O2 Sat - 96 % Pain - 6 Fatigue - 7,1 - No physically strenuous activity, but ambulatory and able to carry out light or sedentary work (e.g. office work, light house work). (ECOG) Physical Examination: Constitutional Alert, oriented, no acute distress. Skin pink, warm and dry. Head Normocephalic; atraumatic. Eyes Conjunctivae and sclerae are clear and without icterus. Pupils are reactive and equal. Neck Supple without masses or thyromegaly. No jugular venous distension. Hematologic/Lymphatic No petechiae or purpura. No tender or palpable lymph nodes in the cervical or supraclavicular areas. Respiratory Lungs are clear to auscultation without rhonchi or wheezing. Cardiovascular Regular rate and rhythm of heart without murmurs,clicks, gallops or rubs. Chest Right port insertion site unremarkable. Abdomen Non-tender, non-distended, no masses or ascites. Good bowel sounds noted in all quads. No guarding or rebound tenderness. No pulsatile masses. Back/Spine Non-tender to palpation. Extremities No visible deformities, no cyanosis, clubbing or edema. Musculoskeletal No tenderness or swelling, normal range of motion without obvious weakness. Integumentary No rashes or lesions. Neurologic No sensory or motor deficits, normal cerebellar function, normal gait. Psychiatric Alert and oriented times three. Coherent speech. Verbalizes understanding of our discussions today. Laboratory:Test performed on August 22, 2020 13:30 Sodium 140 mmol/L Potassium 4.3 mmol/L Chloride 105 mmol/L CO2 27 mmol/L Anion Gap 12.3 BUN 25 mg/dL Creatinine 1.2 mg/dL Cr Clearance (Est) 41.8000 mL/min Glucose 136 mg/dL Osmolality - Calculated 296 mOsm/kg Calcium 8.7 mg/dL Protein, Total 6.5 g/dL Albumin 4.0 g/dL Globulin 2.5 g/dL Bilirubin, Total 0.2 mg/dL ALT (SGPT) 9 U/L AST (SGOT) 13 U/L Alkaline Phosphatase 34 IU/L WBC 5.7 10 3/uL RBC 3.49 10 6/uL HGB 9.8 g/dL HCT 31.8 % MCV 91.1 fL MCH 28.1 pg MCHC 30.8 g/dL RDW 13.6 % Platelet Count 356 10 3/cmm MPV 9.9 fL Neutrophils 3.79 10 3/uL Lymphocytes 1.5 10 3/uL Monocytes 0.3 10 3/uL Eosinophils 0.1 10 3/uL Basophils 0.0 10 3/uL Neutrophil % 66.5 % Lymphocyte % 25.7 % Monocyte % 4.7 % Eosinophil % 1.9 % Basophils % 0.5 % NRBC % 0 % Test performed on Jun 22, 2020 12:40 PT 12.50 SECONDS INR 0.91 Impression: 1. 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 By clinical evaluation her disease appears to be stage IIB (T1c, N1, M0). 2. 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 3. COPD. 4. Hypertension. 5. Hyperlipidemia. 6. Type 2 diabetes. 7. Coronary artery disease with previous angioplasty/stent placement. 8. Chronic kidney disease. 9. GERD. 10. 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 11. She underwent right nephrectomy for renal cell carcinoma approximately 2009. Plan/Problems Addressed at this Visit: 1. 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 By clinical evaluation her disease appears to be stage IIB (T1c, N1, M0). With disease localized to the lung and a hilar lymph node, she would potentially be an operable candidate, but she has been adamantly opposed to undergoing surgery. As such, she is given the option to undergo chemoradiation utilizing a standard weekly carboplatin/paclitaxel chemotherapy regimen. She had right internal jugular PowerPort placed by Dr. Fritz. A. Proceed with week 1 carboplatin AUC 2/paclitaxel 50 mg per metered squared in conjunction with daily radiation. B. Premed steroid compliance confirmed. C. Aggressive antiemetics due to regimen D. Today's labs reviewed in detail discussed with Julio C America and a copy was given to her. WBC 6.8, hemoglobin 9.9, platelets 381,000, ANC is 6000. Potassium 4.6 random glucose 294???steroid-induced, creatinine 1.2 LFTs are normal. Her weight today is 141.2. E. She will have antiemetics on hand at home to include Compazine and lorazepam. We may add ondansetron after day 3 or 4 of chemotherapy as she does get Aloxi with her chemotherapy treatments weekly. 2. 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 Treatment will be deferred until she has completed her chemoradiation. Her lung radiation unfortunately will preclude radiation to the breast, and within the ER/CA negative tumor she will not be eligible for adjuvant hormonal therapy. As such her treatment options will be lumpectomy alone or total mastectomy. 3. Follow-up plan A. She will have weekly CBC CMP which may be done the day before chemotherapy. B. She will have weekly carboplatin paclitaxel in combination with daily radiation as long as side effects and blood counts allow. C. Mrs. Cross was encouraged to contact us prior to her visit in 1 week if she has any questions or problems. 4. Chemotherapy treatment plan education A. The patient was informed of chemotherapy plan and specific drugs were discussed. We also discussed how chemotherapy works and identified common side effects including alopecia; myelosuppression-including neutropenia, anemia, thrombocytopenia; peripheral neuropathy; fatigue; nausea; diarrhea; constipation; bleeding or bruising; skin changes; mouth sores; drug hypersensitivity/allergic reactions or anaphylaxis and extravasation. They have also been informed how to contact the clinic with side effects or symptoms, including but not limited to fever greater than 100.4???, chills, sore throat, bleeding or bruising that is not explained or mouth sores, cough, nasal discharge, diarrhea, constipation, nausea and/or vomiting not relieved with medications on hand at home, as well as any other concern or question they may have. Our hours are 8:00 a.m. to 4:30 p.m. on Thursday through and 8-12:00 on Thursday. However, someone is stationary boiler fireman 24 hours per day and they have been advised to contact the [facility] at if it is after hours. We have also discussed potential long-term side effects of chemotherapy including secondary cancers, infertility, pulmonary complications, cardiac complications, and again peripheral neuropathy. We have discussed that they certainly need to let us know before taking any antioxidants or herbal or further dietary supplements, as we are unsure of how these agents react with chemotherapy and we request that they avoid these products for now. They were informed that it is okay to take multivitamins at normal doses. They verbally state that they understand to take all medications as directed by their healthcare provider unless otherwise indicated. They also verbalized understanding to leave the pressure dressing on the intravenous administration site for at least two hours after treatment. Instructions for oral care with baking soda and salt water rinses as well as a guide for use of [id number] medication were provided with the treatment plan. They have been given a written patient treatment plan, of which a copy is in the chart, as well as specific drug information. They have no questions and verbalized understanding and are willing to proceed with chemotherapy at this time. Total time spent on Ms. Cross's care today including time spent reviewing her chart and proposed plan of care prior to the visit; discussion of current treatment plan, side effect of medication and management and answering questions as well as post visit documentation was 60 minutes. Signed By: Anila Arias-, AOCNP Davy Cartwright MD <<Signature on File>>
[2020-08-27 14:09] LABS: Basophils % 0.1 %; Hematocrit 29.7 % (37.0-47.0); Hemoglobin 9.4 g/dL (11.5-15.3); Lymphocytes # 0.3 10^3/uL (0.8-4.8); Lymphocytes % 2.9 %; Mean Corpuscular HGB Conc 31.6 g/dL (30.0-36.0); Mean Corpuscular Hemoglobin 28.6 pg (28.0-34.0); Mean Corpuscular Volume 90.3 fL (81-99); Mean Platelet Volume 9.7 fL (7.4-10.4); Monocytes # 0.5 10^3/uL (0.2-0.9); Monocytes % 4.5 %; Neutrophils # 9.78 10^3/uL (1.8-7.7); Neutrophils % 91.5 %; Nucleated Red Blood Cells % 0 %; Platelet Count 357 10^3/cmm (130-400); Red Blood Count 3.29 10^6/uL (4.1-5.3); Red Cell Distribution Width 14.5 % (12.1-15.1); White Blood Count 10.7 10^3/uL (4.0-10.0)
[2020-08-27 14:24] LABS: Alanine Aminotransferase 20 U/L (0-33); Albumin Level 3.7 g/dL (3.5-5.2); Alkaline Phosphatase 33 IU/L (35-105); Anion Gap 13.7 (5-19); Aspartate Amino Transferase 19 U/L (0-32); Blood Urea Nitrogen 36 mg/dL (8-23); Calcium 8.1 mg/dL (8.5-10.5); Carbon Dioxide 24 mmol/L (22-29); Chloride 108 mmol/L (98-107); Globulin 2.2 g/dL (1.3-4.6); Glucose 135 mg/dL (65-115); Osmolality Calculated 304 mOsm/kg (285-295); Potassium 3.7 mmol/L (3.5-5.1); Sodium 142 mmol/L (136-145); Total Bilirubin 0.2 mg/dL (0.15-1.2); Total Protein 5.9 g/dL (6.6-8.7)
[2020-08-28] MEDS: sodium chloride 0.9% 250 ML 75 ML IV (12:30)
[2020-08-28] MEDS: famotidine 20 mg/2 mL INJ IVP (12:30)
[2020-08-28] MEDS: diphenhydrAMINE 50 mg/mL SDV 1mL 25 MG IVP (12:32)
[2020-08-28] MEDS: sodium chloride 0.9% (100 ml) 100 ML 400 ML (12:32)
[2020-08-28] MEDS: palonosetron 0.25 mg/5 mL SDV IVP (12:50)
--- NOTE | 2020-08-28 15:36 | ONCRAD TMN_ITS ---
Radiation Oncology Treatment Management Note Patient Name: Melonie Cross Date of : 1945 Date of Service: 08/28/2020 Attending Physician: Darrick Pierre M.D. Melonie Corss is a 75 year-old white female diagnosed with a clinical stage IIB (T1cN1) squamous cell carcinoma of the right upper lobe of the lung and hilum. The patient has received 18 Gy of a prescribed 60 Dia with an intensity modulated radiotherapy plan utilizing a step and shoot treatment technique. She has been prescribed carboplatin (AUC 2) and paclitaxel (50 mg/m???) weekly during therapy. Upon review of systems, she denied pulmonary symptoms. On physical examination, the patient weighed 146 lbs. Her temperature was 97.6 ???F with a blood pressure of 164/64 mmHg. The pulse was 108 bpm and her respiratory rate was 16. Oxygen saturation while breathing room air was 97%. There was no erythema within the treatment gusman. Auscultation of the posterior lung gusman identified bronchial breath sounds. Continue thoracic radiotherapy as planned. Signed by: Dr. Darrick Pierre 08/28/2020 3:34:59 PM
--- NOTE | 2020-09-04 12:01 | ONC FU_ITS ---
[facility] Patient Note Patient: Melonie Cross Unit #: [id number]: 1945 Dictated By: Anila AriasDate of Visit: August 23, 2020 Onc MED Follow-Up/Prog Note Chief Complaint: Lung cancer. 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 Her chest x-ray on 03/12/2020 showed a faint 2 cm nodular density in the right suprahilar region which was new compared to previous study from 2017. She was recommended to have further evaluation with chest CT. Her noncontrast CT on 03/28/2020 showed a right upper lobe lung mass measuring 2.12 cm. There are no other pulmonary parenchymal lesions noted and there is no significant mediastinal or axillary adenopathy noted. She was then referred to Dr. Polanco and on 04/04/2020 she underwent bronchoscopy/EBUS with FNA biopsy of a station 11R lymph node. There were no endobronchial lesions identified and attempted biopsy of the lung nodule was unsuccessful. The endobronchial ultrasound showed no significant lymphadenopathy. The largest node was in the right hilar node group, and pathology on the FNA was consistent with poorly differentiated nonkeratinizing squamous cell carcinoma. She has known COPD. Her other medical illnesses include hypertension, hyperlipidemia, type 2 diabetes, and coronary artery disease. She has had previous angioplasty/stent placement. Her medical history is also significant for having undergone right nephrectomy for renal cell carcinoma sometime around 2009. Those records were not available. She does have a history of smoking for 45 years, up to a pack and a half of cigarettes daily. She quit smoking in February 2020. Dr Cartwright had seen her initially on 04/25/2020. 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 She was able to come in for staging PET/CT on 04/28/2020. That study showed an FDG avid right upper lobe mass measuring 2.1 cm, SUV 10.9, consistent with primary malignancy. A superior right hilar lymph node was FDG avid with SUV 4.8, consistent with local metastatic disease. The only other area of abnormal uptake was a solid lesion in the superior right breast measuring 1.7 x 1.2 cm with SUV 10.0, suspicious for synchronous primary breast cancer. She was then able to come in for pulmonary function studies on 05/01/2020. Her FEV1 was 1.57 L, 69% of predicted. She had radiation oncology consultation with Dr. Pierre on 06/07/2020. Although with N1 disease she was still potentially an operable candidate, she indicated that due to her social circumstances and requirement for hospitalization, that she would still not consider surgery as a treatment option. She was agreeable, though, to undergo radiation. At that time she had further evaluation for the breast lesion with diagnostic mammogram/ultrasound. It was BI-RADS 5, highly suggestive of malignancy. The mammogram showed a dense heterogeneous focal asymmetric density measuring 2.7 x 2.4 cm, corresponding to the lesion identified by PET/CT. Ultrasound showed a hypoechoic solid irregular mass at the 12 o'clock position measuring 2.3 x 1.8 x 1.5 cm. Also noted was an enlarged lymph node in the right axilla measuring 1.9 x 1.2 x 1.0 cm. On 06/22/2020 she underwent ultrasound-guided biopsy of the breast mass and of the axillary lymph node. Pathology on the breast showed grade 2 intraductal carcinoma. It was found to be ER and VT negative. The lymph node showed sinus histiocytosis. Dr. Cartwright had offered her treatment for her stage IIb right upper lobe lung cancer with concurrent therapy with chemotherapy/radiation. Her planned chemotherapy will be weekly carboplatin paclitaxel. She did have a right internal jugular vein PowerPort placed on August 07, [address] Fritz. 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 This treatment will be deferred until she is completed chemoradiation. Her lung radiation unfortunately will preclude radiation to the breast and within the ER VT negative tumor she will not be eligible for adjuvant hormonal therapy. In regards to treatment her options could be lumpectomy alone or total mastectomy. Mrs. Cross is here today for follow-up and week 2 of carboplatin paclitaxel in combination with daily radiation. She began her first treatment on august 16, 2020. She states the only concern she has had with the treatment is bilateral leg weakness. She states is not really numbness or tingling is just weakness in general. She states she does care for her son who is bedridden and blind. She states there are times that she just do not know if I will be able to get in there and check on him because my legs are so weak . She states in general she is more weak and tired but today she feels really good because she took her premed steroids. It is noted that her random glucose prior to her treatment last week which was done the day she did take her premed steroids was 294 and yesterday without the premed steroids her random glucose was 136. She states she has not had any nausea or vomiting. She denies any fever or chills. She states she has not had any cough or hemoptysis. She states her breathing is about the same and feels that the shortness of breath is better overall. She denies any bowel or bladder changes. She does not had any peripheral neuropathy symptoms that she identifies. She states her mouth has been tender and feels that there is been a few sores in it. She has tried baking soda salt water rinses which have not helped at all. She states it sore to eat although she is eating it is just sore . Her ECOG is 1. Past Medical History: Chronic obstructive pulmonary disease Coronary artery disease Degenerative disease of the spine Gastroesophageal reflux disease Hyperlipidemia Hypertension Osteoporosis Renal cell cancer Type II diabetes Past Surgical History: Oopherectomy Tonsillectomy PowerPort right internal jugular vein-Dr. Fritz in 2020 Bronchoscopy/EBUS with FNA biopsy of station 11R lymph node. in 2019 Right nephrectomy for renal cell carcinoma in 2009 Cholecystectomy in 2006 Coronary angioplasty with stent placement in 1998 Allergies: amLODIPine Besylate, Cephalexin, Erythromycin Base, Penicillins, Propranolol HCl, Tetanus-Diphtheria Toxoids Td, Tetracycline HCl, and ticlopidine. Medications: Alendronate Sodium (70 mg) Tablet Oral Take as Directed Anoro Ellipta 1 Inhalation (of 62.5-25 mcg/inh) Aerosol Powder, Breath Activated Inhalation q 24 hours Aspirin 1 Tablet (of 81 mg) Tablet, chewable Oral daily Bactroban (2 %) Ointment Topical t.i.d. Benazepril HCl 1 Tablet (of 40 mg) Oral daily Budesonide (0.5 mg/2mL) Suspension Inhalation b.i.d. Cardizem CD 1 (360 mg) Capsule SR 24 HR Oral daily Cholecalciferol 1 Tablet (of 50 mcg ) Oral daily diazePAM 1 (10 mg) Tablet Oral four times a day Fenofibrate 1 (145 mg) Tablet Oral daily HYDROcodone-Acetaminophen 1 Tablet (of 10-325 mg) Oral 6x/d Ipratropium-Albuterol 1 Inhalation (of 0.5-2.5 (3) mg/3mL) Solution Inhalation four times a day Isosorbide Mononitrate ER 1 Tablet (of 60 mg) Tablet SR 24 HR Oral b.i.d. Magnesium Oxide 1 (400 mg) Capsule Oral b.i.d. Metoprolol Succinate ER 1 Tablet (of 100 mg) Tablet SR 24 HR Oral daily Nitroglycerin Tablet, sublingual Sublingual PRN Ondansetron HCl 1 Tablet (of 4 mg) Oral daily Pantoprazole Sodium 1 (20 mg) Tablet, enteric coated Oral daily Probiotic & Acidophilus Ex St 1 Capsule Oral daily Theophylline ER 1 (400 mg) Capsule SR 24 HR Oral daily Tresiba FlexTouch 75 Units (of 200 Units/mL) Subcutaneous daily Victoza 1 (18 mg/3mL) Subcutaneous q 24 hours Xyzal 1 Tablet (of 5 mg) Oral daily Family History: Ms. Cross's mother at age 70: congestive heart failure, and myocardial infarction at age 70. Ms. Cross's father at age 80: chronic obstructive pulmonary disease, and myocardial infarction at age 80. Father had COPD and of heart attack at age 80. Mother with congestive heart failure at age 70. She had no siblings. Social History: Ms. Cross is . She quit smoking 1 year ago but had smoked 0.5 packs/day for 50 years. She has no history of drinking. She is . She has a history of smoking for 45 years, up to 1-1/2 packs of cigarettes daily. She quit smoking in February 2020. She does not drink alcohol. Review Of Symptoms: <See Above> Vital Signs: Performed on August 23, 2020 10:10 Height - 66.00 in Weight - 139.0 lbs (LOW) BSA - 1.71 sq.m BMI - 22.44 Temperature - 97.1 F (LOW) Pulse - 116 /min (HIGH) Respiration - 19 /min BP - 121/80 mm(hg) O2 Sat - 97 % Pain - 6,1 - No physically strenuous activity, but ambulatory and able to carry out light or sedentary work (e.g. office work, light house work). (ECOG) Physical Examination: Constitutional Alert, oriented, no acute distress. Skin pink, warm and dry. Head Normocephalic; atraumatic. Eyes Conjunctivae and sclerae are clear and without icterus. Pupils are reactive and equal. ENMT Mild mucositis noted in the palate with some bright red tongue irritation and mild amount of white pasty exudate. Neck Supple without masses or thyromegaly. No jugular venous distension. Hematologic/Lymphatic No petechiae or purpura. No tender or palpable lymph nodes in the cervical or supraclavicular areas. Respiratory Lungs are clear to auscultation without rhonchi or wheezing. Cardiovascular Regular rate and rhythm of heart without murmurs,clicks, gallops or rubs. Chest Right port insertion site unremarkable. Back/Spine Non-tender to palpation. Extremities No visible deformities, no cyanosis, clubbing or edema. Musculoskeletal No tenderness or swelling, normal range of motion without obvious weakness. Integumentary No rashes or lesions. Neurologic No sensory or motor deficits, normal cerebellar function, normal gait. Psychiatric Alert and oriented times three. Coherent speech. Verbalizes understanding of our discussions today. Laboratory:Test performed on August 27, 2020 13:30 Sodium 142 mmol/L Potassium 3.7 mmol/L Chloride 108 mmol/L CO2 24 mmol/L Anion Gap 13.7 BUN 36 mg/dL Creatinine 1.2 mg/dL Cr Clearance (Est) 41.5600 mL/min Glucose 135 mg/dL Osmolality - Calculated 304 mOsm/kg Calcium 8.1 mg/dL Protein, Total 5.9 g/dL Albumin 3.7 g/dL Globulin 2.2 g/dL Bilirubin, Total 0.2 mg/dL ALT (SGPT) 20 U/L AST (SGOT) 19 U/L Alkaline Phosphatase 33 IU/L WBC 10.7 10 3/uL RBC 3.29 10 6/uL HGB 9.4 g/dL HCT 29.7 % MCV 90.3 fL MCH 28.6 pg MCHC 31.6 g/dL RDW 14.5 % Platelet Count 357 10 3/cmm MPV 9.7 fL Neutrophils 9.78 10 3/uL Lymphocytes 0.3 10 3/uL Monocytes 0.5 10 3/uL Eosinophils 0.0 10 3/uL Basophils 0.0 10 3/uL Neutrophil % 91.5 % Lymphocyte % 2.9 % Monocyte % 4.5 % Eosinophil % 0.0 % Basophils % 0.1 % NRBC % 0 % Test performed on Jun 22, 2020 12:40 PT 12.50 SECONDS INR 0.91 Impression: 1. 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 By clinical evaluation her disease appears to be stage IIB (T1c, N1, M0). 2. 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 3. COPD. 4. Hypertension. 5. Hyperlipidemia. 6. Type 2 diabetes. 7. Coronary artery disease with previous angioplasty/stent placement. 8. Chronic kidney disease. 9. GERD. 10. 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 11. She underwent right nephrectomy for renal cell carcinoma approximately 2009. Plan/Problems Addressed at this Visit: 1. 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 By clinical evaluation her disease appears to be stage IIB (T1c, N1, M0). With disease localized to the lung and a hilar lymph node, she would potentially be an operable candidate, but she has been adamantly opposed to undergoing surgery. As such, she is given the option to undergo chemoradiation utilizing a standard weekly carboplatin/paclitaxel chemotherapy regimen. She had right internal jugular PowerPort placed by Dr. Fritz. A. Proceed with week 2 carboplatin AUC 2/paclitaxel 50 mg per metered squared in conjunction with daily radiation. B. Premed steroid compliance confirmed. C. Aggressive antiemetics due to regimen D. August 22, 2020 labs reviewed in detail discussed with Ms. Cross and a copy was given to her. WBC 5.7, hemoglobin 9.8, platelets 356,000, ANC is 3800. Potassium 4.3 random glucose 136 creatinine 1.2 which is stable LFTs are normal. Her weight today is 139.0 which is down 2 pounds. E. She will have antiemetics on hand at home to include Compazine and lorazepam. She may add ondansetron after day 3 or 4 of chemotherapy as she does get Aloxi with her chemotherapy treatments weekly. F. She is having some mouth tenderness and states it is sore to eat. She does have mild mucositis on exam. She will be given a prescription for fluconazole and famciclovir. 2. 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 Treatment will be deferred until she has completed her chemoradiation. Her lung radiation unfortunately will preclude radiation to the breast, and within the ER/VT negative tumor she will not be eligible for adjuvant hormonal therapy. As such her treatment options will be lumpectomy alone or total mastectomy. 3. Follow-up plan A. She will have weekly CBC CMP which may be done the day before chemotherapy. B. She will have weekly carboplatin paclitaxel in combination with daily radiation as long as side effects and blood counts allow. C. Mrs. Cross was encouraged to contact us prior to her visit in 1 week if she has any questions or problems. Signed By: Anila Arias-, AOCNP Davy Cartwright MD <<Signature on File>>
--- NOTE | 2020-09-04 12:50 | ONCRAD TMN_ITS ---
Radiation Oncology Weekly Treatment Management Patient: Melonie Cross MR#: [id number] : 1945> Attending Physician: Dr. Joaquín Diaz Date of Service: 09/04/2020 Referring Physician(s) : Diagnosis: C34.11 - Malignant neoplasm of upper lobe, right bronchus or lung, Diagnosed 04/25/2020 (Active) Stage IIB, T1c, N1, M0 Radiotherapy to date: Course: Lung 2020, Treatment Site: [facility], Ref. ID: [id number], Energy: 6X, Dose/Fx (cGy): 200, #Fx: , Dose Correction (cGy): 0, Total Dose (cGy): 2,600, Start Date: 08/16/2020, Elapsed Days: Reason for visit: The patient is being seen today as part of their regularly scheduled weekly on treatment visits to assess for acute toxicities from radiotherapy. Review of Systems: Noted increased SOB and new ankle swelling beginning on Thursday08/31/2020. No sore throat, F, C, N or V. . Not smoking. Vital Signs: Performed on 09/04/2020 11:23 AM BMI - 23.501 kg/m2 (high), Height - 66.00 in, Weight - 145.6 lbs, Temperature - 98.3 f, Pulse - 89, Respiration - 24, O2 Sat - 95 % (low), Pain - 0 and BP - 134/ 55 mm(hg)(/low). Physical Exam: New bilateral pedal edema Imaging: Radiation therapy imaging related to accurate target localization (i.e. KV, MV and CBCT) was reviewed. Appropriate changes, if any, were made to ensure treatment accuracy. CTA with PE protocol today: No evidence for PE, no pneumonia, no effusion. Known lung and breast carcinomas seen. Lung mass 2.3 x 2.3 cm Plan: Good tolerance of RT. Likely new CHF. Dr. Cartwright increased prednisone and added furosemide and K replacement. Continue treatment as planned. Signed by: Dr. Joaquín Diaz 09/04/2020 12:49:35 PM
[2020-09-05 13:34] LABS: Basophils % 0.1 %; Hematocrit 32.2 % (37.0-47.0); Hemoglobin 10.1 g/dL (11.5-15.3); Lymphocytes # 0.2 10^3/uL (0.8-4.8); Lymphocytes % 1.1 %; Mean Corpuscular HGB Conc 31.4 g/dL (30.0-36.0); Mean Corpuscular Hemoglobin 28.5 pg (28.0-34.0); Mean Corpuscular Volume 90.7 fL (81-99); Mean Platelet Volume 9.9 fL (7.4-10.4); Monocytes # 0.4 10^3/uL (0.2-0.9); Monocytes % 2.6 %; Neutrophils # 16.35 10^3/uL (1.8-7.7); Neutrophils % 94.9 %; Nucleated Red Blood Cells % 0 %; Platelet Count 211 10^3/cmm (130-400); Red Blood Count 3.55 10^6/uL (4.1-5.3); Red Cell Distribution Width 15.3 % (12.1-15.1); White Blood Count 17.2 10^3/uL (4.0-10.0)
--- NOTE | 2020-09-05 16:08 | ONC FU_ITS ---
[facility] Patient Note Patient: Melonie Cross Unit #: [id number]: 1945 Dictated By: Anila AriasDate of Visit: August 28, 2020 Onc MED Follow-Up/Prog Note Chief Complaint: Lung cancer. 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 Her chest x-ray on 03/12/2020 showed a faint 2 cm nodular density in the right suprahilar region which was new compared to previous study from 2017. She was recommended to have further evaluation with chest CT. Her noncontrast CT on 03/28/2020 showed a right upper lobe lung mass measuring 2.12 cm. There are no other pulmonary parenchymal lesions noted and there is no significant mediastinal or axillary adenopathy noted. She was then referred to Dr. Polanco and on 04/04/2020 she underwent bronchoscopy/EBUS with FNA biopsy of a station 11R lymph node. There were no endobronchial lesions identified and attempted biopsy of the lung nodule was unsuccessful. The endobronchial ultrasound showed no significant lymphadenopathy. The largest node was in the right hilar node group, and pathology on the FNA was consistent with poorly differentiated nonkeratinizing squamous cell carcinoma. She has known COPD. Her other medical illnesses include hypertension, hyperlipidemia, type 2 diabetes, and coronary artery disease. She has had previous angioplasty/stent placement. Her medical history is also significant for having undergone right nephrectomy for renal cell carcinoma sometime around 2009. Those records were not available. She does have a history of smoking for 45 years, up to a pack and a half of cigarettes daily. She quit smoking in February 2020. Dr Cartwright had seen her initially on 04/25/2020. 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 She was able to come in for staging PET/CT on 04/28/2020. That study showed an FDG avid right upper lobe mass measuring 2.1 cm, SUV 10.9, consistent with primary malignancy. A superior right hilar lymph node was FDG avid with SUV 4.8, consistent with local metastatic disease. The only other area of abnormal uptake was a solid lesion in the superior right breast measuring 1.7 x 1.2 cm with SUV 10.0, suspicious for synchronous primary breast cancer. She was then able to come in for pulmonary function studies on 05/01/2020. Her FEV1 was 1.57 L, 69% of predicted. She had radiation oncology consultation with Dr. Pierre on 06/07/2020. Although with N1 disease she was still potentially an operable candidate, she indicated that due to her social circumstances and requirement for hospitalization, that she would still not consider surgery as a treatment option. She was agreeable, though, to undergo radiation. At that time she had further evaluation for the breast lesion with diagnostic mammogram/ultrasound. It was BI-RADS 5, highly suggestive of malignancy. The mammogram showed a dense heterogeneous focal asymmetric density measuring 2.7 x 2.4 cm, corresponding to the lesion identified by PET/CT. Ultrasound showed a hypoechoic solid irregular mass at the 12 o'clock position measuring 2.3 x 1.8 x 1.5 cm. Also noted was an enlarged lymph node in the right axilla measuring 1.9 x 1.2 x 1.0 cm. On 06/22/2020 she underwent ultrasound-guided biopsy of the breast mass and of the axillary lymph node. Pathology on the breast showed grade 2 intraductal carcinoma. It was found to be ER and ID negative. The lymph node showed sinus histiocytosis. Dr. Cartwright had offered her treatment for her stage IIb right upper lobe lung cancer with concurrent therapy with chemotherapy/radiation. Her planned chemotherapy will be weekly carboplatin paclitaxel. She did have a right internal jugular vein PowerPort placed on August 07, [address] Fritz. 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 This treatment will be deferred until she is completed chemoradiation. Her lung radiation unfortunately will preclude radiation to the breast and within the ER ID negative tumor she will not be eligible for adjuvant hormonal therapy. In regards to treatment her options could be lumpectomy alone or total mastectomy. Mrs. Cross is here today for follow-up and week 3 of carboplatin paclitaxel in combination with daily radiation. She began her first treatment on August 16, 2020. Her treatment was held last week due to bilateral leg weakness and presentation of her disabled son to the ER during her appointment time. She states she does feel some better with the break. We have recommended that she change her treatment to carboplatin and Abraxane so that she could avoid the premed steroids. She did not take them this morning. She was having intolerance of the premed steroids due to hyperglycemia and bilateral leg weakness. She states she feels really good today. Her son is doing better. She states she is eating good. Her energy is some better although she does still tire easily. She denies any shortness of breath orthopnea. She denies any cough or hemoptysis. She denies any nausea or vomiting. She states her bowels and bladder are normal for her. She denies any new pain. She has no peripheral neuropathy. She has not noted any hearing changes. Her ECOG is 1. She states if her energy runs low that she may try taking dexamethasone 4 mg daily for energy so that she can care for her son. She is advised that this has caused her blood sugar to elevate in the past. Past Medical History: Chronic obstructive pulmonary disease Coronary artery disease Degenerative disease of the spine Gastroesophageal reflux disease Hyperlipidemia Hypertension Osteoporosis Renal cell cancer Type II diabetes Past Surgical History: Oopherectomy Tonsillectomy PowerPort right internal jugular vein-Dr. Fritz in 2020 Bronchoscopy/EBUS with FNA biopsy of station 11R lymph node. in 2019 Right nephrectomy for renal cell carcinoma in 2009 Cholecystectomy in 2006 Coronary angioplasty with stent placement in 1998 Allergies: amLODIPine Besylate, Cephalexin, Erythromycin Base, Penicillins, Propranolol HCl, Tetanus-Diphtheria Toxoids Td, Tetracycline HCl, and ticlopidine. Medications: Alendronate Sodium (70 mg) Tablet Oral Take as Directed Anoro Ellipta 1 Inhalation (of 62.5-25 mcg/inh) Aerosol Powder, Breath Activated Inhalation q 24 hours Aspirin 1 Tablet (of 81 mg) Tablet, chewable Oral daily Bactroban (2 %) Ointment Topical t.i.d. Benazepril HCl 1 Tablet (of 40 mg) Oral daily Budesonide (0.5 mg/2mL) Suspension Inhalation b.i.d. Cardizem CD 1 (360 mg) Capsule SR 24 HR Oral daily Cholecalciferol 1 Tablet (of 50 mcg ) Oral daily diazePAM 1 (10 mg) Tablet Oral four times a day Fenofibrate 1 (145 mg) Tablet Oral daily HYDROcodone-Acetaminophen 1 Tablet (of 10-325 mg) Oral 6x/d Ipratropium-Albuterol 1 Inhalation (of 0.5-2.5 (3) mg/3mL) Solution Inhalation four times a day Isosorbide Mononitrate ER 1 Tablet (of 60 mg) Tablet SR 24 HR Oral b.i.d. Magnesium Oxide 1 (400 mg) Capsule Oral b.i.d. Metoprolol Succinate ER 1 Tablet (of 100 mg) Tablet SR 24 HR Oral daily Nitroglycerin Tablet, sublingual Sublingual PRN Ondansetron HCl 1 Tablet (of 4 mg) Oral daily Pantoprazole Sodium 1 (20 mg) Tablet, enteric coated Oral daily Probiotic & Acidophilus Ex St 1 Capsule Oral daily Theophylline ER 1 (400 mg) Capsule SR 24 HR Oral daily Tresiba FlexTouch 75 Units (of 200 Units/mL) Subcutaneous daily Victoza 1 (18 mg/3mL) Subcutaneous q 24 hours Xyzal 1 Tablet (of 5 mg) Oral daily Family History: Ms. Goetzs mother at age 70: congestive heart failure, and myocardial infarction at age 70. Ms. Goetzs father at age 80: chronic obstructive pulmonary disease, and myocardial infarction at age 80. Father had COPD and of heart attack at age 80. Mother with congestive heart failure at age 70. She had no siblings. Social History: Ms. Cross is . She quit smoking 1 year ago but had smoked 0.5 packs/day for 50 years. She has no history of drinking. She is . She has a history of smoking for 45 years, up to 1-1/2 packs of cigarettes daily. She quit smoking in February 2020. She does not drink alcohol. Review Of Symptoms: <See Above> Vital Signs: Performed on August 28, 2020 15:25 Height - 66.00 in Weight - 146.0 lbs Temperature - 97.6 F Pulse - 108 Respiration - 16 BP - 164/64 mm(hg) (HIGH) O2 Sat - 97 % Pain - 0 Performed on August 28, 2020 15:25 BMI - 23.565 kg/m2 (HIGH) Performed on August 28, 2020 11:57 Height - 66.00 in Weight - 146 lbs (HIGH) BSA - 1.75 sq.m BMI - 23.57 Temperature - 97.6 F (LOW) Pulse - 108 /min (HIGH) Respiration - 16 /min BP - 164/64 mm(hg) (HIGH) O2 Sat - 97 % Pain - 0,1 - No physically strenuous activity, but ambulatory and able to carry out light or sedentary work (e.g. office work, light house work). (ECOG) Physical Examination: Constitutional Alert, oriented, no acute distress. Skin pink, warm and dry. Head Normocephalic; atraumatic. Eyes Conjunctivae and sclerae are clear and without icterus. Pupils are reactive and equal. ENMT No oral exudates, ulcers, masses, thrush or mucositis. Oropharynx clear. Tongue normal. Neck Supple without masses or thyromegaly. No jugular venous distension. Hematologic/Lymphatic No petechiae or purpura. No tender or palpable lymph nodes in the cervical or supraclavicular areas. Respiratory Lungs are clear to auscultation without rhonchi or wheezing. Cardiovascular Regular rate and rhythm of heart without murmurs,clicks, gallops or rubs. Chest Right port insertion site unremarkable. Abdomen Non-tender, non-distended, no masses or ascites. Good bowel sounds noted in all quads. No guarding or rebound tenderness. No pulsatile masses. Back/Spine Non-tender to palpation. Extremities No visible deformities, no cyanosis, clubbing or edema. Musculoskeletal No tenderness or swelling, normal range of motion without obvious weakness. Integumentary No rashes or lesions. Neurologic No sensory or motor deficits, normal cerebellar function, normal gait. Psychiatric Alert and oriented times three. Coherent speech. Verbalizes understanding of our discussions today. Laboratory:Test performed on August 27, 2020 13:30 Sodium 142 mmol/L Potassium 3.7 mmol/L Chloride 108 mmol/L CO2 24 mmol/L Anion Gap 13.7 BUN 36 mg/dL Creatinine 1.2 mg/dL Cr Clearance (Est) 41.5600 mL/min Glucose 135 mg/dL Osmolality - Calculated 304 mOsm/kg Calcium 8.1 mg/dL Protein, Total 5.9 g/dL Albumin 3.7 g/dL Globulin 2.2 g/dL Bilirubin, Total 0.2 mg/dL ALT (SGPT) 20 U/L AST (SGOT) 19 U/L Alkaline Phosphatase 33 IU/L WBC 10.7 10 3/uL RBC 3.29 10 6/uL HGB 9.4 g/dL HCT 29.7 % MCV 90.3 fL MCH 28.6 pg MCHC 31.6 g/dL RDW 14.5 % Platelet Count 357 10 3/cmm MPV 9.7 fL Neutrophils 9.78 10 3/uL Lymphocytes 0.3 10 3/uL Monocytes 0.5 10 3/uL Eosinophils 0.0 10 3/uL Basophils 0.0 10 3/uL Neutrophil % 91.5 % Lymphocyte % 2.9 % Monocyte % 4.5 % Eosinophil % 0.0 % Basophils % 0.1 % NRBC % 0 % Test performed on Jun 22, 2020 12:40 PT 12.50 SECONDS INR 0.91 Impression: 1. 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 By clinical evaluation her disease appears to be stage IIB (T1c, N1, M0). 2. 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 3. COPD. 4. Hypertension. 5. Hyperlipidemia. 6. Type 2 diabetes. 7. Coronary artery disease with previous angioplasty/stent placement. 8. Chronic kidney disease. 9. GERD. 10. 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 11. She underwent right nephrectomy for renal cell carcinoma approximately 2009. Plan/Problems Addressed at this Visit: 1. 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 By clinical evaluation her disease appears to be stage IIB (T1c, N1, M0). With disease localized to the lung and a hilar lymph node, she would potentially be an operable candidate, but she has been adamantly opposed to undergoing surgery. As such, she is given the option to undergo chemoradiation utilizing a standard weekly carboplatin/paclitaxel chemotherapy regimen. She had right internal jugular PowerPort placed by Dr. Fritz. A. Proceed with week # carboplatin AUC 2/TAXANE (Now Abraxane due to steroid intolerance) in conjunction with daily radiation. B. Aggressive antiemetics due to regimen C. August 27, 2020 labs reviewed in detail discussed with Ms. Cross and a copy was given to her. WBC 10.7, hemoglobin 9.4, platelets 3 57,000 ANC is 9780. Potassium 3.7 random glucose 135 without steroids creatinine 1.2 LFTs are normal. Her weight is improved at 146 today. D. She does have antiemetics on hand at home to include Compazine and lorazepam. She may add ondansetron after day 3 or 4 of chemotherapy as she does get Aloxi with her chemotherapy treatments weekly. 2. 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 Treatment will be deferred until she has completed her chemoradiation. Her lung radiation unfortunately will preclude radiation to the breast, and within the ER/ID negative tumor she will not be eligible for adjuvant hormonal therapy. As such her treatment options will be lumpectomy alone or total mastectomy. 3. Follow-up plan A. She will have weekly CBC CMP which may be done the day before chemotherapy. B. She will have weekly carboplatin ABRAXANE in combination with daily radiation as long as side effects and blood counts allow. C. Mrs. Cross was encouraged to contact us prior to her visit in 1 week if she has any questions or problems. Signed By: Anila Arias-, [facility] Davy Cartwright MD <<Signature on File>>
== END 2020-09-06 13:00 | disposition home or self-care (01) ==
LOC: ONCMED 05:49
PROVIDERS: Nurse Practitioner; Absent Provider Radiology Radiation Oncology; PCP Nurse Practitioner; Visit Provider Radiology Radiation Oncology
DX: Z51.0 Encounter for antineoplastic radiation therapy (principal); Z51.11 Encounter for antineoplastic chemotherapy; C34.01 Malignant neoplasm of right main bronchus; D05.11 Intraductal carcinoma in situ of right breast; Z17.1 Estrogen receptor negative status [ER-]; J44.9 Chronic obstructive pulmonary disease, unspecified; E11.59 Type 2 diabetes mellitus with other circulatory complications; I25.10 Atherosclerotic heart disease of native coronary artery without angina pectoris; E11.22 Type 2 diabetes mellitus with diabetic chronic kidney disease; N18.9 Chronic kidney disease, unspecified; M47.9 Spondylosis, unspecified; K21.9 Gastro-esophageal reflux disease without esophagitis; E78.5 Hyperlipidemia, unspecified; I10 Essential (primary) hypertension; M81.0 Age-related osteoporosis without current pathological fracture; Z79.899 Other long term (current) drug therapy; C34.11 Malignant neoplasm of upper lobe, right bronchus or lung; R06.02 Shortness of breath; D49.3 Neoplasm of unspecified behavior of breast
CPT/HCPCS: 36591; 71275; 77300; 77301; 77336; 77338; 77386; 80053; 85025; 96367; 96375; 96413; 96417; 99214; 99215; J1100; J1200; J2469; J3490; J7030; J7050; J9045; J9264; J9267

== ENCOUNTER 2020-09-06 13:53 | Emergency (ER) | payer MEDICARE, MEDICAID, SELFPAY ==
[2020-09-06 13:56] VITALS: BP 132/71; PULSE 101; RESP 28; TEMP 36.8; O2SAT 95; BMI 22.4
--- NOTE | 2020-09-06 13:59 | ECG_ITS ---
[facility] Test Date: 2020-09-06 Pat Name: Melonie Cross Department: Room: Gender: Female [employer]: : 1945 Requested By: Tyree Bautista Order Number: [id number] Pradeep MD: Cecelia Duran M.D. Measurements Intervals [place] Rate: 97 P: -10 ID: [id number] QRS: 47 QRSD: 75 T: 3 QT: 328 QTc: 418 Interpretive Statements SINUS RHYTHM POSSIBLE LEFT ATRIAL ENLARGEMENT [-0.1mV P WAVE IN V1/V2] No previous ECG available for comparison Electronically Signed On 09-06-2020 15:38:55 CDT by Cecelia Duran M.D. [id number]
--- NOTE | 2020-09-06 13:59 | XR_ITS ---
WS: [id number] Exam: XR chest 1V portable [id number] Date/Time of Exam: 09/06/2020 2:01 PM Reason For Exam: dyspnea/cough Comparison 08/07/2020. The lungs are fully expanded. No consolidating infiltrates or pleural effusions. Normal cardiomediast inal structures. A right subclavian port ends in the lower one third of the SVC. Regional bony struct ures are intact. XR/XR chest 1V portable [id number] IMPRESSION: 1. No acute cardiopulmonary finding.
--- NOTE | 2020-09-06 14:01 | ED_ITS ---
Documented by User: Tyree Wall DO 09/07/20 06:09 HPI - SOB/Dyspnea General: Chief Complaint: Shortness of Breath/Dyspnea Stated Complaint: SOB/ DIFFICULTY BREATHING Time Seen by Provider: 09/06/20 13:54 History of Present Illness: HPI Narrative: 75-year-old female presents emergency room via EMS from home. She has a known history of lung CA. She was having increasing shortness of breath and cough she is not usually on any oxygen therapy message she was sent in the 90s they put her on supplemental oxygen as well. On arrival here she is in the upper 90s on 4 L. She denies any chest pain she has no significant productive cough but has been very short of breath in route she received nebulizers with moderate improvement. She not currently on antibiotics she did get radiation treatment earlier this week. Denies any chest pain. MD elicited complaint: shortness of breath and cough Pertinent past history: COPD and other (Lung CA) Onset (ago): hour(s) Timing: constant Associated symptoms: Deny abdominal pain, chest pain, fever(s), nausea, orth opnea or vomiting Review of Systems Const: Denies: fever(s), chills, body aches, change in appetite, fatigue or malaise ENMT: Denies: throat pain, ear or mastoid pain, nasal discharge or nasal congestion Card: Denies: chest pain, edema, dyspnea on exertion or orthopnea Resp: Reports: dyspnea; Denies: productive cough or non-productive cough GI: Denies: abdominal pain, nausea, vomiting, hematemesis, coffee ground emesis, diarrhea, constipation, bloating, hematochezia or melena : Denies: flank pain, difficulty voiding, dysuria, urinary frequency or urinary urgency Skin/Breast: Denies: rash or pruritus PFSH ED PFSH: Medical History Acid reflux Allergic rhinitis due to allergen Controlled diabetes mellitus with hyperglycemia, with long-term current use of insulin COPD (chronic obstructive pulmonary disease) HTN (hypertension) Low serum iron Nausea Nocturnal oxygen desaturation Osteoarthritis Post-menopausal osteoporosis Surgical History History of angioplasty with stent 1998 History of cholecystectomy History of oophorectomy History of tonsillectomy Hx of carotid angioplasty Family History Family/Other Diabetes Father COPD exacerbation Social History Smoking and tobacco status: former smoker Quit status (tobacco): has quit using tobacco Year quit tobacco: 2020 - 1PPD x 50 Years Second hand smoke exposure: No Smoking risk assessment/counseling performed?: Yes Alcohol intake: never Desire information about alcohol rehabilitation?: No Counseling given: No Desire information about substance/drug rehabilitation?: No Counseling given: No Lives independently: Yes Household members: children Housing: House Marital status: / Current occupational status: disabled Pets and animals: Yes Pets & animals: dog(s) History of recent travel: No Current gender identity: Female Physical Exam Const: COMMON NORMALS: no acute distress GENERAL APPEARANCE: cooperative and comfortable ORIENTATION/CONSCIOUSNESS: Yes awake, Yes oriented to person, Yes oriented to place and Yes oriented to time HENMT: COMMON NORMALS: normocephalic, atraumatic, hearing grossly normal bilaterally and external ears normal HEAD & SCALP: normocephalic and atraumatic EXTERNAL EAR: Yes external ears normal Neck/C-Spine: COMMON NORMALS: no JVD Resp: AUSCULTATION: wheezes (mild) expiratory wheezes and throughout Cardio: COMMON NORMALS: no JVD, regular rate, regular rhythm and No murmurs present (Cardio) RATE: regular rate RHYTHM: regular rhythm GI: COMMON NORMALS: Soft to palpation and No hepatosplenomegaly present AUSCULTATION: Yes normoactive bowel sounds PALPATION: Yes Soft to palpation, No Tenderness to palpation present (GI), No Guarding due to palpation present (GI) and Yes No hepatosplenomegaly present Extremity: COMMON NORMALS: normal to inspection, capillary refill normal, no clubbing, cyanosis or edema, no calf tenderness and no pedal edema Neuro: SENSORIUM/ORIENTATION: Yes oriented to person, Yes oriented to place and Yes oriented to time Skin: COMMON NORMALS: no rashes or lesions noted GENERAL SKIN EXAM: no rashes or lesions noted Course Vital Signs: Vital signs: Vital Signs Temperature 98.2 F 09/06/20 13:56 Pulse Rate 99 09/06/20 16:33 Respiratory Rate 24 H 09/06/20 16:33 Blood Pressure 167/75 09/06/20 16:33 Pulse Oximetry 96 09/06/20 16:33 MDM - SOB/Dyspnea MDM Narrative: Medical decision making narrative: Care turned over to Dr. Rajan at change of shift. Labs and x-ray unremarkable patient does adding respiratory alkalosis on arrival. She is feeling much better we titrated her off her oxygen. Home O2 evaluate she had is pending. Lab Data: Labs: Lab Results 09/06/20 09/06/20 09/06/20 Range/Units 14:08 14:10 14:10 WBC 13.3 H (4.0-10.0) 10^3/ uL RBC 3.54 L (4.1-5.3) 10^6/u L Hgb 10.3 L (11.5-15.3) g/dL Hct 32.1 L (37.0-47.0) % MCV 90.7 (81-99) fL MCH 29.1 (28.0-34.0) pg MCHC 32.1 (30.0-36.0) g/dL RDW 15.6 H (12.1-15.1) % Plt Count 179 (130-400) 10^3/c mm MPV 10.2 (7.4-10.4) fL Neut % (Auto) 96.6 % Lymph % (Auto) 0.5 % Scott % (Auto) 1.6 % Eos % (Auto) 0.0 % Baso % (Auto) 0.2 % Neut # (Auto) 12.87 H (1.8-7.7) 10^3/u L Lymph # (Auto) 0.1 L (0.8-4.8) 10^3/u L Scott # (Auto) 0.2 (0.2-0.9) 10^3/u L Eos # (Auto) 0.0 (0.0-0.8) 10^3/u L Baso # (Auto) 0.0 (0.0-0.1) 10^3/u L Nucleated RBC % (a uto) 0 % Nucleated RBCs # 0.0 /100WBC Specimen Type Arterial Sample Site Radial, right ABG pH 7.52 H (7.35-7.45) ABG pCO2 36.0 (35-45) mmHg ABG pO2 65.4 L (80.0-100.0) mmH g ABG HCO3 29.5 H (22-26) mmol/L ABG O2 Saturation 92.1 ABG Base Excess 6.4 H (-2.0-2.0) mmol/ L Tye Test Pos A-a O2 Gradient 11.5 H (5-10) mmHg Hematocrit 32.9 L (37-47) % Hgb O2 Saturation 91.5 L (95-100) % Carboxyhemoglobin < 0.0 L (0.4-20.1) %THgb Methemoglobin 1.0 (0.4-1.5) % Total Hemoglobin 10.7 L (12-16) g/dL Sodium 137.0 136 (131-143) mmol/L Potassium 4.5 4.4 (3.5-5.0) mmol/L Glucose 400.0 H 367 H (70-115) mg/dL Ionized Calcium 1.1 (1.1-1.4) mmol/L O2 Delivery Device Nc O2 Liters/Min 2.0 % FiO2 28.0 % [place] Attendant ID Cak Chloride 96 L (98-107) mmol/L Carbon Dioxide 25 (22-29) mmol/L Anion Gap 19.4 H (5-19) BUN 41 H (8-23) mg/dL Creatinine 1.0 H (0.5-0.9) mg/dL GFR Calculation Not Reportable Calculated Osmolal ity 307 H (285-295) mOsm/k g Calcium 8.0 L (8.5-10.5) mg/dL Total Bilirubin 0.2 (0.15-1.2) mg/dL AST 18 (0-32) U/L ALT 35 H (0-33) U/L Alkaline Phosphata se 37 (35-105) IU/L Troponin T Baselin e (0-10) ng/L Troponin T 120 Min mi'kmaq (0-10) ng/L Delta Troponin T (0-10) ABS# Total Protein 5.3 L (6.6-8.7) g/dL Albumin 3.7 (3.5-5.2) g/dL Globulin 1.6 (1.3-4.6) g/dL 09/06/20 09/06/20 Range/Units 14:10 16:25 WBC (4.0-10.0) 10^3/ uL RBC (4.1-5.3) 10^6/u L Hgb (11.5-15.3) g/dL Hct (37.0-47.0) % MCV (81-99) fL MCH (28.0-34.0) pg MCHC (30.0-36.0) g/dL RDW (12.1-15.1) % Plt Count (130-400) 10^3/c mm MPV (7.4-10.4) fL Neut % (Auto) % Lymph % (Auto) % Scott % (Auto) % Eos % (Auto) % Baso % (Auto) % Neut # (Auto) (1.8-7.7) 10^3/u L Lymph # (Auto) (0.8-4.8) 10^3/u L Scott # (Auto) (0.2-0.9) 10^3/u L Eos # (Auto) (0.0-0.8) 10^3/u L Baso # (Auto) (0.0-0.1) 10^3/u L Nucleated RBC % (a uto) % Nucleated RBCs # /100WBC Specimen Type Sample Site ABG pH (7.35-7.45) ABG pCO2 (35-45) mmHg ABG pO2 (80.0-100.0) mmH g ABG HCO3 (22-26) mmol/L ABG O2 Saturation ABG Base Excess (-2.0-2.0) mmol/ L Tye Test A-a O2 Gradient (5-10) mmHg Hematocrit (37-47) % Hgb O2 Saturation (95-100) % Carboxyhemoglobin (0.4-20.1) %THgb Methemoglobin (0.4-1.5) % Total Hemoglobin (12-16) g/dL Sodium (131-143) mmol/L Potassium (3.5-5.0) mmol/L Glucose (70-115) mg/dL Ionized Calcium (1.1-1.4) mmol/L O2 Delivery Device O2 Liters/Min % FiO2 % [place] Attendant ID Chloride (98-107) mmol/L Carbon Dioxide (22-29) mmol/L Anion Gap (5-19) BUN (8-23) mg/dL Creatinine (0.5-0.9) mg/dL GFR Calculation Calculated Osmolal ity (285-295) mOsm/k g Calcium (8.5-10.5) mg/dL Total Bilirubin (0.15-1.2) mg/dL AST (0-32) U/L ALT (0-33) U/L Alkaline Phosphata se (35-105) IU/L Troponin T Baselin e 22 H (0-10) ng/L Troponin T 120 Min [place] 25.89 H (0-10) ng/L Delta Troponin T 3.89 (0-10) ABS# Total Protein (6.6-8.7) g/dL Albumin (3.5-5.2) g/dL Globulin (1.3-4.6) g/dL Discharge Plan Discharge Patient Disposition: Home Clinical Impression: Dyspnea Qualifiers: Dyspnea type: unspecified Qualified Code(s): R06.00 - Dyspnea, unspecified Condition: Stable Prescriptions: No Action cholecalciferol (vitamin D3) 50 mcg (2,000 unit) capsule 50 mcg PO DAILY RF: 0 aspirin 81 mg tablet,delayed release (DR/EC) 81 mg PO DAILY Qty: 30 RF: 2 Hold Instructions: Resume on 08/10/20. diltiazem HCl 360 mg capsule,extended release 24hr 360 mg PO DAILY Qty: 30 RF: 2 fenofibrate nanocrystallized [Tricor] 145 mg tablet 145 mg PO DAILY Qty: 30 RF: 2 (DME) nebulizers Misc See Rx Instructions .ROUTE .MEDSUPPLY Qty: 1 RF: 0 ondansetron HCl [Zofran] 4 mg tablet 4 mg PO DAILY Qty: 30 RF: 2 pantoprazole 20 mg tablet,delayed release (DR/EC) 20 mg PO DAILY Qty: 30 RF: 2 (DME) pen needle, diabetic 33 gauge x 5/32 needle See Rx Instructions .ROUTE .MEDSUPPLY Qty: 200 RF: 5 theophylline 400 mg capsule,extended release 24hr 400 mg PO DAILY Qty: 30 RF: 2 (DME) [id number] lightweight wheelchair See Rx Instructions .Route .MEDSUPPLY Qty: 1 RF: 0 Victoza 3-Alfred 0.6 mg/0.1 mL (18 mg/3 mL) pen injector 1.8 mg SUBCUT Q24H Qty: 9 RF: 2 isosorbide mononitrate 60 mg tablet extended release 24 hr 60 mg PO BID Qty: 30 RF: 2 magnesium oxide 400 mg magnesium tablet 400 mg PO BID Qty: 60 RF: 2 metoprolol succinate 100 mg tablet extended release 24 hr 100 mg PO DAILY Qty: 30 RF: 2 nitroglycerin [Nitrostat] 0.4 mg tablet, sublingual 0.4 mg SUBLINGUAL Q5M PRN (Reason: chest pain) Qty: 25 RF: 0 Anoro Ellipta 62.5-25 mcg/actuation blister with device See Rx Instructions .ROUTE .COMPLEX Qty: 60 RF: 3 ipratropium-albuterol 0.5 mg-3 mg(2.5 mg base)/3 mL solution for nebulization 3 ml INHALATION QID PRN (Reason: shortness of breath or wheezing) Qty: 180 RF: 1 budesonide [Pulmicort] 0.5 mg/2 mL suspension for nebulization 0.5 mg inhalation BID Qty: 120 RF: 5 Lotensin 40 mg tablet 40 mg PO DAILY RF: 0 hydrocodone-acetaminophen 10-325 mg Tablet 1 tab PO Q6H PRN (Reason: Pain) RF: 0 Discharge Orders: Discharge ED (Routine); Ordered 09/06/20 Ordered By: Kris Rajan Referrals: Idalia Means FNP-C [Primary Care Provider] - 1-3 days Discharge Diet: Advance as tolerated Discharge Activity: Resume usual activity Patient Instructions: Dyspnea (ED) Coding Level of Care Code ED Certified Medication Technician for Chg Fwd Documented by User: Kris Rajan MD 09/06/20 17:37 HPI - SOB/Dyspnea General: Chief Complaint: Shortness of Breath/Dyspnea Stated Complaint: SOB/ DIFFICULTY BREATHING Time Seen by Provider: 09/06/20 13:54 PFSH ED PFSH: Medical History Acid reflux Allergic rhinitis due to allergen Controlled diabetes mellitus with hyperglycemia, with long-term current use of insulin COPD (chronic obstructive pulmonary disease) HTN (hypertension) Low serum iron Nausea Nocturnal oxygen desaturation Osteoarthritis Post-menopausal osteoporosis Surgical History History of angioplasty with stent 1998 History of cholecystectomy History of oophorectomy History of tonsillectomy Hx of carotid angioplasty Family History Family/Other Diabetes Father COPD exacerbation Social History Smoking and tobacco status: former smoker Quit status (tobacco): has quit using tobacco Year quit tobacco: 2020 - 1PPD x 50 Years Second hand smoke exposure: No Smoking risk assessment/counseling performed?: Yes Alcohol intake: never Desire information about alcohol rehabilitation?: No Counseling given: No Desire information about substance/drug rehabilitation?: No Counseling given: No Lives independently: Yes Household members: children Housing: House Marital status: / Current occupational status: disabled Pets and animals: Yes Pets & animals: dog(s) History of recent travel: No Current gender identity: Female Course Vital Signs: Vital signs: Vital Signs Temperature 98.2 F 09/06/20 13:56 Pulse Rate 99 09/06/20 16:33 Respiratory Rate 24 H 09/06/20 16:33 Blood Pressure 167/75 09/06/20 16:33 Pulse Oximetry 96 09/06/20 16:33 MDM - SOB/Dyspnea MDM Narrative: Medical decision making narrative: Patient presents here with dyspnea and is well-appearing here her x-ray shows no pneumonia. Her lab work here is all normal. She does not qualify for home O2 and is stable for discharge. Lab Data: Labs: Lab Results 09/06/20 09/06/20 09/06/20 Range/Units 14:08 14:10 14:10 WBC 13.3 H (4.0-10.0) 10^3/ uL RBC 3.54 L (4.1-5.3) 10^6/u L Hgb 10.3 L (11.5-15.3) g/dL Hct 32.1 L (37.0-47.0) % MCV 90.7 (81-99) fL MCH 29.1 (28.0-34.0) pg MCHC 32.1 (30.0-36.0) g/dL RDW 15.6 H (12.1-15.1) % Plt Count 179 (130-400) 10^3/c mm MPV 10.2 (7.4-10.4) fL Neut % (Auto) 96.6 % Lymph % (Auto) 0.5 % Scott % (Auto) 1.6 % Eos % (Auto) 0.0 % Baso % (Auto) 0.2 % Neut # (Auto) 12.87 H (1.8-7.7) 10^3/u L Lymph # (Auto) 0.1 L (0.8-4.8) 10^3/u L Scott # (Auto) 0.2 (0.2-0.9) 10^3/u L Eos # (Auto) 0.0 (0.0-0.8) 10^3/u L Baso # (Auto) 0.0 (0.0-0.1) 10^3/u L Nucleated RBC % (a uto) 0 % Nucleated RBCs # 0.0 /100WBC Specimen Type Arterial Sample Site Radial, right ABG pH 7.52 H (7.35-7.45) ABG pCO2 36.0 (35-45) mmHg ABG pO2 65.4 L (80.0-100.0) mmH g ABG HCO3 29.5 H (22-26) mmol/L ABG O2 Saturation 92.1 ABG Base Excess 6.4 H (-2.0-2.0) mmol/ L Tye Test Pos A-a O2 Gradient 11.5 H (5-10) mmHg Hematocrit 32.9 L (37-47) % Hgb O2 Saturation 91.5 L (95-100) % Carboxyhemoglobin < 0.0 L (0.4-20.1) %THgb Methemoglobin 1.0 (0.4-1.5) % Total Hemoglobin 10.7 L (12-16) g/dL Sodium 137.0 136 (131-143) mmol/L Potassium 4.5 4.4 (3.5-5.0) mmol/L Glucose 400.0 H 367 H (70-115) mg/dL Ionized Calcium 1.1 (1.1-1.4) mmol/L O2 Delivery Device Nc O2 Liters/Min 2.0 % FiO2 28.0 % [place] Attendant ID Cak Chloride 96 L (98-107) mmol/L Carbon Dioxide 25 (22-29) mmol/L Anion Gap 19.4 H (5-19) BUN 41 H (8-23) mg/dL Creatinine 1.0 H (0.5-0.9) mg/dL GFR Calculation Not Reportable Calculated Osmolal ity 307 H (285-295) mOsm/k g Calcium 8.0 L (8.5-10.5) mg/dL Total Bilirubin 0.2 (0.15-1.2) mg/dL AST 18 (0-32) U/L ALT 35 H (0-33) U/L Alkaline Phosphata se 37 (35-105) IU/L Troponin T Baselin e (0-10) ng/L Troponin T 120 Min [place] (0-10) ng/L Delta Troponin T (0-10) ABS# Total Protein 5.3 L (6.6-8.7) g/dL Albumin 3.7 (3.5-5.2) g/dL Globulin 1.6 (1.3-4.6) g/dL 09/06/20 09/06/20 Range/Units 14:10 16:25 WBC (4.0-10.0) 10^3/ uL RBC (4.1-5.3) 10^6/u L Hgb (11.5-15.3) g/dL Hct (37.0-47.0) % MCV (81-99) fL MCH (28.0-34.0) pg MCHC (30.0-36.0) g/dL RDW (12.1-15.1) % Plt Count (130-400) 10^3/c mm MPV (7.4-10.4) fL Neut % (Auto) % Lymph % (Auto) % Scott % (Auto) % Eos % (Auto) % Baso % (Auto) % Neut # (Auto) (1.8-7.7) 10^3/u L Lymph # (Auto) (0.8-4.8) 10^3/u L Scott # (Auto) (0.2-0.9) 10^3/u L Eos # (Auto) (0.0-0.8) 10^3/u L Baso # (Auto) (0.0-0.1) 10^3/u L Nucleated RBC % (a uto) % Nucleated RBCs # /100WBC Specimen Type Sample Site ABG pH (7.35-7.45) ABG pCO2 (35-45) mmHg ABG pO2 (80.0-100.0) mmH g ABG HCO3 (22-26) mmol/L ABG O2 Saturation ABG Base Excess (-2.0-2.0) mmol/ L Tye Test A-a O2 Gradient (5-10) mmHg Hematocrit (37-47) % Hgb O2 Saturation (95-100) % Carboxyhemoglobin (0.4-20.1) %THgb Methemoglobin (0.4-1.5) % Total Hemoglobin (12-16) g/dL Sodium (131-143) mmol/L Potassium (3.5-5.0) mmol/L Glucose (70-115) mg/dL Ionized Calcium (1.1-1.4) mmol/L O2 Delivery Device O2 Liters/Min % FiO2 % [place] Attendant ID Chloride (98-107) mmol/L Carbon Dioxide (22-29) mmol/L Anion Gap (5-19) BUN (8-23) mg/dL Creatinine (0.5-0.9) mg/dL GFR Calculation Calculated Osmolal ity (285-295) mOsm/k g Calcium (8.5-10.5) mg/dL Total Bilirubin (0.15-1.2) mg/dL AST (0-32) U/L ALT (0-33) U/L Alkaline Phosphata se (35-105) IU/L Troponin T Baselin e 22 H (0-10) ng/L Troponin T 120 Min [place] 25.89 H (0-10) ng/L Delta Troponin T 3.89 (0-10) ABS# Total Protein (6.6-8.7) g/dL Albumin (3.5-5.2) g/dL Globulin (1.3-4.6) g/dL Imaging Data^: CXR: Attestation: I personally reviewed and interpreted this imaging study as follows: Radiologist's impression: [address] [address] XRay Report Signed Patient: Melonie Cross Unit #: [id number] : 1945 Age/Sex: 75 / F ADM Date: 09/06/20 Loc: ER Room/Bed: Attending Dr: Ordering Provider/Ordering MD: Tyree Wall DO Date of Service: 09/06/20 Procedure(s): XR chest 1V portable [id number] Accession Number(s): [id number] Report Number: [id number] WS: [id number] Exam: XR chest 1V portable [id number] Date/Time of Exam: 09/06/2020 2:01 PM Reason For Exam: dyspnea/cough Comparison 08/07/2020. The lungs are fully expanded. No consolidating infiltrates or pleural effusions. Normal cardiomediastinal structures. A right subclavian port ends in the lower one third of the SVC. Regional bony structures are intact. XR/XR chest 1V portable [id number] IMPRESSION: 1. No acute cardiopulmonary finding. Discharge Plan Discharge Patient Disposition: Home Clinical Impression: Dyspnea Qualifiers: Dyspnea type: unspecified Qualified Code(s): R06.00 - Dyspnea, unspecified Condition: Stable Prescriptions: No Action cholecalciferol (vitamin D3) 50 mcg (2,000 unit) capsule 50 mcg PO DAILY RF: 0 aspirin 81 mg tablet,delayed release (DR/EC) 81 mg PO DAILY Qty: 30 RF: 2 Hold Instructions: Resume on 08/10/20. diltiazem HCl 360 mg capsule,extended release 24hr 360 mg PO DAILY Qty: 30 RF: 2 fenofibrate nanocrystallized [Tricor] 145 mg tablet 145 mg PO DAILY Qty: 30 RF: 2 (DME) nebulizers Misc See Rx Instructions .ROUTE .MEDSUPPLY Qty: 1 RF: 0 ondansetron HCl [Zofran] 4 mg tablet 4 mg PO DAILY Qty: 30 RF: 2 pantoprazole 20 mg tablet,delayed release (DR/EC) 20 mg PO DAILY Qty: 30 RF: 2 (DME) pen needle, diabetic 33 gauge x 5/32 needle See Rx Instructions .ROUTE .MEDSUPPLY Qty: 200 RF: 5 theophylline 400 mg capsule,extended release 24hr 400 mg PO DAILY Qty: 30 RF: 2 (DME) [id number] lightweight wheelchair See Rx Instructions .Route .MEDSUPPLY Qty: 1 RF: 0 Victoza 3-Alfred 0.6 mg/0.1 mL (18 mg/3 mL) pen injector 1.8 mg SUBCUT Q24H Qty: 9 RF: 2 isosorbide mononitrate 60 mg tablet extended release 24 hr 60 mg PO BID Qty: 30 RF: 2 magnesium oxide 400 mg magnesium tablet 400 mg PO BID Qty: 60 RF: 2 metoprolol succinate 100 mg tablet extended release 24 hr 100 mg PO DAILY Qty: 30 RF: 2 nitroglycerin [Nitrostat] 0.4 mg tablet, sublingual 0.4 mg SUBLINGUAL Q5M PRN (Reason: chest pain) Qty: 25 RF: 0 Anoro Ellipta 62.5-25 mcg/actuation blister with device See Rx Instructions .ROUTE .COMPLEX Qty: 60 RF: 3 ipratropium-albuterol 0.5 mg-3 mg(2.5 mg base)/3 mL solution for nebulization 3 ml INHALATION QID PRN (Reason: shortness of breath or wheezing) Qty: 180 RF: 1 budesonide [Pulmicort] 0.5 mg/2 mL suspension for nebulization 0.5 mg inhalation BID Qty: 120 RF: 5 Lotensin 40 mg tablet 40 mg PO DAILY RF: 0 hydrocodone-acetaminophen 10-325 mg Tablet 1 tab PO Q6H PRN (Reason: Pain) RF: 0 Discharge Orders: Discharge ED (Routine); Ordered 09/06/20 Ordered By: Kris Rajan Referrals: Idalia Means, SERVICE DISPATCHER-C [Primary Care Provider] - 1-3 days Discharge Diet: Advance as tolerated Discharge Activity: Resume usual activity Patient Instructions: Dyspnea (ED) Coding Level of Care Code ED Certified Medication Technician for Luis Gonzáles
--- NOTE | 2020-09-06 14:03 | US_ITS ---
WS: [id number] Limited abdomen ultrasound. HISTORY: Evaluate for ascites. There is no ascites identified in all 4 quadrants. Urinary bladder is normally distended. US/US abdomen limited [id number] IMPRESSION: No ascites.
[2020-09-06 14:19] LABS: ABG PH Result 7.52 (7.35-7.45); Alveolar-Arterial Oxygen Gradi 11.5 mmHg (5-10); Arterial Blood Gas Hematocrit 32.9 % (37-47); Base Excess ABG 6.4 mmol/L (-2.0-2.0); Blood Gas Allen Test Pos; Blood Gas Operator Identificat CAK; Blood Gas Sample Site Radial, right; Blood Gas Sample Type Arterial; Carboxyhemoglobin < 0.0 %THgb (0.4-20.1); HCO3 ABG 29.5 mmol/L (22-26); HGB O2 Sat 91.5 % (95-100); Ionized Calcium Level - ABG 1.1 mmol/L (1.1-1.4); Oxygen Device NC; Oxygen Saturation ABG 92.1; PO2 ABG 65.4 mmHg (80.0-100.0); Potassium Level - ABG 4.5 mmol/L (3.5-5.0); Total Hemoglobin 10.7 g/dL (12-16)
[2020-09-06 14:41] LABS: Basophils % 0.2 %; Hematocrit 32.1 % (37.0-47.0); Hemoglobin 10.3 g/dL (11.5-15.3); Lymphocytes # 0.1 10^3/uL (0.8-4.8); Lymphocytes % 0.5 %; Mean Corpuscular HGB Conc 32.1 g/dL (30.0-36.0); Mean Corpuscular Hemoglobin 29.1 pg (28.0-34.0); Mean Corpuscular Volume 90.7 fL (81-99); Mean Platelet Volume 10.2 fL (7.4-10.4); Monocytes # 0.2 10^3/uL (0.2-0.9); Monocytes % 1.6 %; Neutrophils # 12.87 10^3/uL (1.8-7.7); Neutrophils % 96.6 %; Nucleated Red Blood Cells % 0 %; Platelet Count 179 10^3/cmm (130-400); Red Blood Count 3.54 10^6/uL (4.1-5.3); Red Cell Distribution Width 15.6 % (12.1-15.1); White Blood Count 13.3 10^3/uL (4.0-10.0)
[2020-09-06 15:08] LABS: Alanine Aminotransferase 35 U/L (0-33); Albumin Level 3.7 g/dL (3.5-5.2); Alkaline Phosphatase 37 IU/L (35-105); Anion Gap 19.4 (5-19); Aspartate Amino Transferase 18 U/L (0-32); Blood Urea Nitrogen 41 mg/dL (8-23); Carbon Dioxide 25 mmol/L (22-29); Chloride 96 mmol/L (98-107); Globulin 1.6 g/dL (1.3-4.6); Glucose 367 mg/dL (65-115); Osmolality Calculated 307 mOsm/kg (285-295); Potassium 4.4 mmol/L (3.5-5.1); Sodium 136 mmol/L (136-145); Total Bilirubin 0.2 mg/dL (0.15-1.2); Total Protein 5.3 g/dL (6.6-8.7)
[2020-09-06] MEDS: ipratropium-albuterol 3 mL Neb INHALATION (15:54)
[2020-09-06 15:55] VITALS: PULSE 98; RESP 18; O2SAT 93
[2020-09-06 15:58] VITALS: PULSE 96
[2020-09-06 16:00] VITALS: O2SAT 93
[2020-09-06 16:33] VITALS: BP 167/75; PULSE 99; RESP 24; O2SAT 96
[2020-09-06] MEDS: sodium chloride 0.9% 1,000 ML 999 ML IV (16:44)
[2020-09-06 17:23] LABS: Troponin 5 2HR 25.89 ng/L (0-10)
[2020-09-06 17:52] LABS: Troponin(5th) Baseline 22 ng/L (0-10)
[2020-09-06 18:16] LABS: Troponin 5 2HR Delta 3.89 ABS# (0-10)
--- NOTE | 2020-09-07 13:59 | PC.NURSE ---
spoke with pt and called in prescription to [facility] and pt's request
== END 2020-09-06 18:06 | disposition home or self-care (01) ==
PROVIDERS: Family Medicine; Emergency Provider Emergency Medicine; PCP Nurse Practitioner
DX: R06.00 Dyspnea, unspecified (principal); Z79.82 Long term (current) use of aspirin; E11.9 Type 2 diabetes mellitus without complications; J44.9 Chronic obstructive pulmonary disease, unspecified; I10 Essential (primary) hypertension; Z87.891 Personal history of nicotine dependence
CPT/HCPCS: 36415; 36600; 71045; 76705; 80051; 80053; 82330; 82805; 84484; 85025; 87040; 87077; 87186; 87205; 93005; 94640; 96360; 99284; J7030

== ENCOUNTER 2020-09-19 05:45 | Outpatient (RCR) | payer MEDICARE, MEDICAID, SELFPAY ==
--- NOTE | 2020-09-18 13:17 | ONCRAD TMN_ITS ---
Radiation Oncology Treatment Management Note Patient Name: Melonie Cross Date of : 1945 Date of Service: 09/18/2020 Attending Physician: Darrick Pierre M.D. 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 The patient has received 30 Gy of a prescribed 60 Dia with an intensity modulated radiotherapy plan utilizing a step and shoot treatment technique. She has been prescribed carboplatin (AUC 2) and Abraxane (40 mg/m???) weekly during therapy. Upon review of systems, she denied pulmonary symptoms. On physical examination, the patient weighed 141 lbs. Her temperature was 96.6 ???F with a blood pressure of 108/62 mmHg. The pulse was 105 bpm and her respiratory rate was 18. Oxygen saturation while breathing room air was 98%. There was no erythema within the treatment gusman. Auscultation of the posterior lung gusman identified bronchial breath sounds. Continue thoracic radiotherapy as planned. Signed by: Dr. Darrick Pierre 09/18/2020 1:15:46 PM
--- NOTE | 2020-09-18 19:48 | ONC FU_ITS ---
Dr. Cartwright Patient Follow-Up Note Patient: Melonie Cross Unit #: [id number]: 1945 Dicatated By: Davy Cartwright M.D.Date of Visit:Sep 18, 2020 Onc Med Follow-up/Prog Note Chief Complaint: Lung cancer and breast cancer. 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 Her chest x-ray on 03/12/2020 showed a faint 2 cm nodular density in the right suprahilar region which was new compared to previous study from 2017. She was recommended to have further evaluation with chest CT. Her noncontrast CT on 03/28/2020 showed a right upper lobe lung mass measuring 2.12 cm. There were no other pulmonary parenchymal lesions noted and there was no significant mediastinal or axillary adenopathy noted. She was then referred to Dr. Polanco and on 04/04/2020 she underwent bronchoscopy/EBUS with FNA biopsy of a station 11R lymph node. There were no endobronchial lesions identified and attempted biopsy of the lung nodule was unsuccessful. The endobronchial ultrasound showed no significant lymphadenopathy. The largest node was in the right hilar node group, and pathology on the FNA was consistent with poorly differentiated nonkeratinizing squamous cell carcinoma. I had seen her initially on 04/25/2020. 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 She was able to come in for staging PET/CT on 04/28/2020. That study showed an FDG avid right upper lobe mass measuring 2.1 cm, SUV 10.9, consistent with primary malignancy. A superior right hilar lymph node was FDG avid with SUV 4.8, consistent with local metastatic disease. The only other area of abnormal uptake was a solid lesion in the superior right breast measuring 1.7 x 1.2 cm with SUV 10.0, suspicious for synchronous primary breast cancer. She was then able to come in for pulmonary function studies on 05/01/2020. Her FEV1 was 1.57 L, 69% of predicted. She had radiation oncology consultation with Dr. Pierre on 06/07/2020. Although with N1 disease she was still potentially an operable candidate, she indicated that due to her social circumstances and requirement for hospitalization, that she would still not consider surgery as a treatment option. She was agreeable, though, to undergo radiation. At that time she had further evaluation for the breast lesion with diagnostic mammogram/ultrasound. It was BI-RADS 5, highly suggestive of malignancy. The mammogram showed a dense heterogeneous focal asymmetric density measuring 2.7 x 2.4 cm, corresponding to the lesion identified by PET/CT. Ultrasound showed a hypoechoic solid irregular mass at the 12 o'clock position measuring 2.3 x 1.8 x 1.5 cm. Also noted was an enlarged lymph node in the right axilla measuring 1.9 x 1.2 x 1.0 cm. On 06/22/2020 she underwent ultrasound-guided biopsy of the breast mass and of the axillary lymph node. Pathology on the breast showed grade 2 invasive ductal carcinoma. It was found to be ER and WI negative, both less < 1%. HER-2/vargas was positive, 3+ by IHC and amplification ratio by FISH of 2.9 with 9.0 HER-2 copies/cell. The lymph node showed sinus histiocytosis. Ultimately, it was determined that she was not an appropriate candidate for SBRT to the lung lesion, and we opted to proceed with standard chemoradiation utilizing weekly carboplatin/placlitaxel for the chemosensitization. We opted to defer further management of the breast cancer until the lung cancer treatment was completed. Her other medical illnesses include COPD, hypertension, hyperlipidemia, type 2 diabetes, and coronary artery disease. She has had previous angioplasty/stent placement. Her medical history is also significant for having undergone right nephrectomy for renal cell carcinoma sometime around 2009. Those records were not available. She does have a history of smoking for 45 years, up to a pack and a half of cigarettes daily. She quit smoking in February 2020. INTERIM HISTORY: She underwent placement of Port-A-Cath venous access device on 08/07/2020 and then she began week 1 carboplatin/paclitaxel concurrently with radiation on 08/16/2020. She tolerated the chemotherapy with acceptable toxicity, but her further management was complicated due to her social circumstances. She received her week to chemotherapy on 08/28/2020. She has since then continued radiation with some further interruptions. She has received no further chemotherapy. She is seen for an unplanned visit. Among other problems she has encountered, she developed an open wound at the site of her Port-A-Cath venous access device. She has had some ongoing problems with shortness of breath, but that has improved somewhat with empiric steroid therapy and pulmonary bronchial nebulizers. Her evaluation during that time did include a CT pulmonary angiogram which showed no evidence of pulmonary embolism and no pneumonia or other acute pathology. There was noted to be some decrease in the right upper lobe mass. She has limited activity tolerance, but she is able to do some light work. ECOG score is 1. She has had good appetite on the steroid. She has not had fever. She occasionally has sweating at night. She still has some shortness of breath, but her breathing has improved with the prednisone. She says she hardly ever has cough. She does not complain of chest pain. She has no GI or complaints. She has some pain and weakness in the left leg, thought to be due to sciatica. She does not complain of headache or dizziness, and she has no other focal neurologic symptoms. Medications: Alendronate Sodium (70 mg) Tablet Oral Take as Directed, Anoro Ellipta 1 Inhalation (of 62.5-25 mcg/inh) Aerosol Powder, Breath Activated Inhalation q 24 hours, Aspirin 1 Tablet (of 81 mg) Tablet, chewable Oral daily, Bactroban (2 %) Ointment Topical t.i.d., Benazepril HCl 1 Tablet (of 40 mg) Oral daily, Budesonide (0.5 mg/2mL) Suspension Inhalation b.i.d., Cardizem CD 1 (360 mg) Capsule SR 24 HR Oral daily, Cholecalciferol 1 Tablet (of 50 mcg ) Oral daily, diazePAM 1 (10 mg) Tablet Oral four times a day, Fenofibrate 1 (145 mg) Tablet Oral daily, HYDROcodone-Acetaminophen 1 Tablet (of 10-325 mg) Oral 6x/d, Ipratropium-Albuterol 1 Inhalation (of 0.5-2.5 (3) mg/3mL) Solution Inhalation four times a day, Isosorbide Mononitrate ER 1 Tablet (of 60 mg) Tablet SR 24 HR Oral b.i.d., Magnesium Oxide 1 (400 mg) Capsule Oral b.i.d., Metoprolol Succinate ER 1 Tablet (of 100 mg) Tablet SR 24 HR Oral daily, Nitroglycerin Tablet, sublingual Sublingual PRN, Ondansetron HCl 1 Tablet (of 4 mg) Oral daily, Pantoprazole Sodium 1 (20 mg) Tablet, enteric coated Oral daily, Probiotic & Acidophilus Ex St 1 Capsule Oral daily, Theophylline ER 1 (400 mg) Capsule SR 24 HR Oral daily, Tresiba FlexTouch 75 Units (of 200 Units/mL) Subcutaneous daily, Victoza 1 (18 mg/3mL) Subcutaneous q 24 hours, Xyzal 1 Tablet (of 5 mg) Oral daily Allergies: amLODIPine Besylate, Cephalexin, Erythromycin Base, Penicillins, Propranolol HCl, Tetanus-Diphtheria Toxoids Td, Tetracycline HCl, and ticlopidine. Vital Signs: Performed on Sep 18, 2020 13:08 Height - 66.00 in Weight - 141.2 lbs Temperature - 96.6 F Pulse - 105 Respiration - 18 BP - 108/62 mm(hg) O2 Sat - 98 % Pain - 0 Performed on Sep 18, 2020 13:08 BMI - 22.79 kg/m2 Performed on Sep 18, 2020 12:10 Height - 66.00 in Weight - 141.2 lbs (LOW) BSA - 1.73 sq.m BMI - 22.79 Temperature - 96.6 F (LOW) Pulse - 105 /min (HIGH) Respiration - 18 /min BP - 108/62 mm(hg) O2 Sat - 98 % Pain - 4 Fatigue - 7 Physical Examination: Constitutional - She appears somewhat weak generally, but not acutely ill., Eyes - Sclerae nonicteric. Conjunctivae clear, ENMT - No lesions noted in the oral cavity, Hematologic/Lymphatic - No cervical, clavicular, or axillary adenopathy, Respiratory - Lungs sound clear with diminished air movement bilaterally, Cardiovascular - Heart rhythm is regular. There is a II/ systolic murmur. There is no gallop or rub noted, Chest - There is an open wound at the site of the Port-A-Cath in the upper right chest wall. It looks clean and there is just mild associated erythema, Abdomen - Soft. Liver and spleen are not enlarged. There is no abdominal mass or ascites noted and there is no inguinal adenopathy, Extremities - Mild pedal edema, Neurologic - No focal neurologic deficits noted. Lab/Imaging: Laboratory studies from 09/06/2020 included CBC showing hemoglobin 10.3 g, white blood cell count 13,300, and platelet count 179,000. Problem List: 1. 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 By clinical evaluation her disease appears to be stage IIB (T1c, N1, M0). 2. Grade 2 invasive ductal carcinoma of the right breast, ER/WI negative and HER-2/vargas positive. 3. COPD. 4. Hypertension. 5. Hyperlipidemia. 6. Type 2 diabetes. 7. Coronary artery disease with previous angioplasty/stent placement. 8. Chronic kidney disease. 9. GERD. 10. 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 11. She underwent right nephrectomy for renal cell carcinoma approximately 2009. Problems Addressed with this Encounter and Plan: 1. 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 By clinical evaluation her disease appears to be stage IIB (T1c, N1, M0). 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 As such, she was adamantly opposed to undergoing surgery for the lung cancer. As an alternative, she was given the option to undergo chemoradiation utilizing a standard weekly carboplatin/paclitaxel chemotherapy regimen. She began her week 1 carboplatin/paclitaxel concurrently with radiation on 08/16/2020. She tolerated it without significant toxicity, but her further treatment was interrupted due to her social circumstances. She received her week 2 carboplatin/paclitaxel on 08/28/2020. As yet she has had no further chemotherapy. In the meantime, she has developed an open wound at the Port-A-Cath site in the upper right chest wall, and the Port-A-Cath is no longer viable for use. At this point she is willing to continue her treatment, but the Port-A-Cath will need to be removed and she will need an alternative venous access for the chemotherapy. We have been in contact with Dr. Rodarte and he has agreed to remove the Port-A-Cath and to have a PICC line placed tomorrow. That done, she can then proceed with her third weekly carboplatin/paclitaxel infusion. The dosages will remain the same. 2. She has been found to have grade 2 invasive ductal carcinoma in situ of the right breast, ER/WI negative and HER/2/vargas positive. Treatment is being deferred until she has completed her chemoradiation. Signed By: Davy Cartwright M.D. <<Signature on File>>
[2020-09-19 13:44] LABS: Basophils % 0.2 %; Hematocrit 28.4 % (37.0-47.0); Lymphocytes # 0.2 10^3/uL (0.8-4.8); Lymphocytes % 3.7 %; Mean Corpuscular HGB Conc 31.7 g/dL (30.0-36.0); Mean Corpuscular Hemoglobin 29.7 pg (28.0-34.0); Mean Corpuscular Volume 93.7 fL (81-99); Mean Platelet Volume 9.7 fL (7.4-10.4); Monocytes # 0.2 10^3/uL (0.2-0.9); Monocytes % 3.1 %; Neutrophils # 4.55 10^3/uL (1.8-7.7); Neutrophils % 89.1 %; Nucleated Red Blood Cells % 0 %; Platelet Count 206 10^3/cmm (130-400); Red Blood Count 3.03 10^6/uL (4.1-5.3); Red Cell Distribution Width 17.2 % (12.1-15.1); White Blood Count 5.1 10^3/uL (4.0-10.0)
[2020-09-19 14:08] LABS: Alanine Aminotransferase 13 U/L (0-33); Albumin Level 3.7 g/dL (3.5-5.2); Alkaline Phosphatase 35 IU/L (35-105); Anion Gap 17.9 (5-19); Aspartate Amino Transferase 14 U/L (0-32); Blood Urea Nitrogen 69 mg/dL (8-23); Calcium 8.4 mg/dL (8.5-10.5); Carbon Dioxide 21 mmol/L (22-29); Chloride 102 mmol/L (98-107); Globulin 2.5 g/dL (1.3-4.6); Glucose 305 mg/dL (65-115); Osmolality Calculated 314 mOsm/kg (285-295); Potassium 4.9 mmol/L (3.5-5.1); Sodium 136 mmol/L (136-145); Total Bilirubin 0.2 mg/dL (0.15-1.2); Total Protein 6.2 g/dL (6.6-8.7)
== END 2020-09-19 13:40 | disposition home or self-care (01) ==
LOC: ONCMED 05:45
PROVIDERS: Absent Provider Radiology Radiation Oncology; PCP Nurse Practitioner; Visit Provider Nurse Practitioner
DX: Z51.0 Encounter for antineoplastic radiation therapy (principal); C34.11 Malignant neoplasm of upper lobe, right bronchus or lung; C50.811 Malignant neoplasm of overlapping sites of right female breast; Z17.0 Estrogen receptor positive status [ER+]; J44.9 Chronic obstructive pulmonary disease, unspecified; I10 Essential (primary) hypertension; E78.5 Hyperlipidemia, unspecified; E11.59 Type 2 diabetes mellitus with other circulatory complications; I25.10 Atherosclerotic heart disease of native coronary artery without angina pectoris; E11.22 Type 2 diabetes mellitus with diabetic chronic kidney disease; N18.9 Chronic kidney disease, unspecified; K21.9 Gastro-esophageal reflux disease without esophagitis; M47.9 Spondylosis, unspecified; Z90.5 Acquired absence of kidney; Z79.899 Other long term (current) drug therapy; D05.11 Intraductal carcinoma in situ of right breast; Z17.1 Estrogen receptor negative status [ER-]; Z95.5 Presence of coronary angioplasty implant and graft; M54.5 Low back pain; G89.29 Other chronic pain; Z85.528 Personal history of other malignant neoplasm of kidney
CPT/HCPCS: 36415; 77386; 80053; 85025; 99215

== ENCOUNTER 2020-09-19 13:48 | Day surgery (SDC) | payer MEDICARE, MEDICAID, SELFPAY ==
--- NOTE | 2020-09-19 13:54 | PM.OPSURHP ---
Providers/Chief Complaint Primary Care Provider: GITA Decker Chief Complaint: picc insertion History of Present Illness Melonie Cross is a 75 year old female with history of breast cancer and lung cancer who is undergoing chemotherapy. Patient had a port placed in July 2020 and during visit with Dr. Cartwright yesterday it was noted that the wound had dehisced and the port was exposed and I was therefore consulted for removal of port. She denies any fevers or chills Review of Systems General: Reports: 10 or more systems reviewed and unremarkable except in HPI and below Medications/Allergies Home Medications Medication Instructions Recorded Confirmed Last Taken Type cholecalciferol (vitamin D3) 50 50 mcg PO DAILY 05/26/19 09/12/20 08/03/20 History mcg (2,000 unit) capsule hydrocodone-acetaminophen 1 tab PO Q6H PRN 04/03/20 09/12/20 08/07/20 07:30 History K0003 lightweight wheelchair #1 ea 07/26/20 09/12/20 Unknown Rx aspirin 81 mg tablet,delayed 81 mg PO DAILY #30 tab 07/26/20 09/12/20 08/03/20 Rx release diltiazem HCl 360 mg 360 mg PO DAILY #30 cap 07/26/20 09/12/20 08/07/20 07:30 Rx capsule,extended release 24 hr fenofibrate nanocrystallized 145 145 mg PO DAILY #30 tab 07/26/20 09/12/20 08/04/20 Rx mg tablet isosorbide mononitrate 60 mg 60 mg PO BID #30 tab 07/26/20 09/12/20 08/04/20 Rx tablet,extended release 24 hr liraglutide 0.6 mg/0.1 mL (18 mg/3 1.8 mg SUBCUT Q24H #9 ml 07/26/20 09/12/20 08/06/20 Rx mL) subcutaneous pen injector magnesium oxide 400 mg PO BID #60 tab 07/26/20 09/12/20 08/04/20 Rx metoprolol succinate 100 mg 100 mg PO DAILY #30 tab 07/26/20 09/12/20 08/07/20 07:30 Rx tablet,extended release 24 hr nebulizers #1 each 07/26/20 09/12/20 Unknown Rx ondansetron HCl 4 mg tablet 4 mg PO DAILY #30 tab 07/26/20 09/12/20 08/07/20 07:30 Rx pantoprazole 20 mg tablet,delayed 20 mg PO DAILY #30 tab 07/26/20 09/12/20 08/04/20 Rx release pen needle, diabetic 33 gauge x #200 each 07/26/20 09/12/20 Unknown Rx theophylline 400 mg 400 mg PO DAILY #30 cap 07/26/20 09/12/20 08/04/20 Rx capsule,extended release 24 hr nitroglycerin 0.4 mg sublingual 0.4 mg SUBLINGUAL Q5M PRN #25 tab 08/06/20 09/12/20 Unknown Rx tablet Lotensin 40 mg PO DAILY 08/07/20 09/12/20 08/06/20 07:30 History ipratropium 0.5 mg-albuterol 3 mg 3 ml INHALATION QID PRN #180 ml 09/04/20 09/12/20 Unknown Rx (2.5 mg base)/3 mL nebulization soln budesonide 0.5 mg/2 mL suspension 0.5 mg INHALATION BID #120 ml 09/05/20 09/12/20 Unknown Rx for nebulization insulin aspart U-100 100 unit/mL 3 - 18 unit SUBCUT TID 30 Days 09/12/20 09/12/20 Unknown Rx (3 mL) subcutaneous pen #16.2 ml insulin degludec 200 unit/mL (3 See Rx Instructions SUBCUT DAILY 09/12/20 09/12/20 Unknown Rx mL) subcutaneous pen #27 ml prednisone 20 mg tablet 20 mg PO DAILY 09/12/20 09/12/20 Unknown History glycopyrrolate 9 mcg-formoterol 2 puff INHALATION Q12H #10.7 g 09/18/20 Unknown Rx 4.8 mcg HFA aerosol inhaler Allergies Allergy/AdvReac Type Severity Reaction Status Date / Time amlodipine [From Norvasc] Allergy swelling Verified 08/24/20 14:17 cephalexin Allergy ALGY-Anaphy Verified 08/24/20 14:17 laxis erythromycin base Allergy ADR-Nausea Verified 08/24/20 14:17 Penicillins Allergy swelling Verified 08/24/20 14:17 propranolol [From Inderal LA] Allergy swelling Verified 08/24/20 14:17 tetanus toxoid, adsorbed Allergy swelling Verified 08/24/20 14:17 tetracycline Allergy ADR-Nausea Verified 08/24/20 14:17 ticlopidine [From Ticlid] Allergy swelling Verified 08/24/20 14:17 PFSH PFSH: Medical History Acid reflux Allergic rhinitis due to allergen COPD (chronic obstructive pulmonary disease) Diabetes mellitus with hyperglycemia, with long-term current use of insulin HTN (hypertension) Low serum iron Nausea Nocturnal oxygen desaturation Osteoarthritis Post-menopausal osteoporosis Surgical History History of angioplasty with stent 1998 History of cholecystectomy History of oophorectomy History of tonsillectomy Hx of carotid angioplasty Port-A-Cath in place Family History Family/Other Diabetes Father COPD exacerbation Social History Smoking and tobacco status: former smoker Quit status (tobacco): has quit using tobacco Year quit tobacco: 2019 - 1PPD x 50 Years Second hand smoke exposure: No Smoking risk assessment/counseling performed?: Yes Alcohol intake: never Desire information about alcohol rehabilitation?: No Counseling given: No Desire information about substance/drug rehabilitation?: No Counseling given: No Lives independently: Yes Household members: children Housing: House Marital status: / Current occupational status: disabled Pets and animals: Yes Pets & animals: dog(s) History of recent travel: No Current gender identity: Female Dietary Habits: Caffeine: Yes Physical Exam Narrative: EXAM NARRATIVE: HEENT: Normocephalic Eye: Sclera /conjunctiva normal Respiratory and chest: Bilateral clear breath sounds on auscultation 2 x 2 centimeter wound at the site of the port placement, no cellulitis or significant hematoma Cardiovascular: Normal S1 and S2 heart sounds Abdomen: Soft to palpation Neurological: Oriented to place person and time Skin: Intact, no lesions appreciated on gross exam A&P Assessment and plan (1) Encounter for care related to Port-a-Cath: 75-year-old female with lung cancer and breast cancer who has an exposed port which was initially placed for chemotherapy Plan for removal of PowerPort under local anesthesia today Procedure, risks, benefits and alternatives have been discussed with the patient who wishes to proceed with surgery. Status: Resolved Coding Level of Care Code Acute Drafter Assistant for Chg Fwd Diagnoses Encounter for care related to Port-a-Cath Z45.2
[2020-09-19 14:18] VITALS: BP 125/64; PULSE 115; RESP 18; TEMP 36.3; O2SAT 98
[2020-09-19 14:20] VITALS: BMI 23.4
[2020-09-19] MEDS: sodium chloride 0.9% 1,000 ML 30 ML IV (14:40)
[2020-09-19 14:45] VITALS: BP 112/57; PULSE 103; RESP 16; O2SAT 98
[2020-09-19 14:47] LABS: Glucose Point of Care 227 mg/dL (70-110)
[2020-09-19 14:55] VITALS: BP 128/63; PULSE 102; RESP 16; O2SAT 98
[2020-09-19] MEDS: ketorolac 30 mg/mL INJ IVP (15:03)
[2020-09-19] MEDS: lidocaine 1% INJ 20 mL INJECTION (15:04)
[2020-09-19 15:05] VITALS: BP 133/45; PULSE 102; RESP 16; O2SAT 94
[2020-09-19 15:10] VITALS: BP 119/63; PULSE 108; RESP 16; O2SAT 98
--- NOTE | 2020-09-19 15:14 | PM.OP ---
Operative Report Date of procedure: September 19, 2020 Pre-op Diagnosis: Port-A-Cath right internal jugular vein with overlying skin breakdown Post-op diagnosis: same Procedure Done: Removal of PowerPort from right internal jugular vein Pathology: none sent Surgeon: Johan Rodarte Anesthesia: Local Condition: stable Disposition: PACU Procedure: Patient was taken to the operating room and her right chest was prepped and draped in a sterile manner. 20 mL of 1% lidocaine with 0.5% Marcaine was infiltrated around the MediPort and catheter in the right internal jugular vein. Using a 15 blade the previous incision was opened, the subcutaneous tissue was divided using electrocautery and MediPort along the catheter was dissected free from the surrounding subcutaneous tissue and removed entirely. The wound was irrigated with saline, hemostasis ensured with electrocautery and subcutaneous tissue was approximated using 3-0 Vicryl suture and skin was closed using running subcuticular 4-0 Monocryl suture. 4x4 and sterile dressings were used as a pressure dressing. The patient was transferred to the recovery room in stable condition.
[2020-09-19 15:18] VITALS: BP 115/55; PULSE 103; RESP 18; TEMP 36.3; O2SAT 98
--- NOTE | 2020-09-19 15:48 | XR_ITS ---
WS: [id number] Portable AP upright chest, 09/19/2020 Clinical Data: picc placement Comparison: Portable chest, 09/06/2020. Findings: A left PICC line has been inserted and it ends in the superior vena cava. No left apical pn eumothorax is seen. XR/XR chest 1V portable [id number] Impression: Insertion of left PICC line.
--- NOTE | 2020-09-19 16:35 | PC.NURSE ---
PICC LEFT arm ready for use. Patient given instructions on care of PICC. No further questions.
== END 2020-09-19 16:41 | disposition home or self-care (01) ==
PROVIDERS: PCP Nurse Practitioner; Visit Provider Surgery
PROC: (CPT 36589; principal; 2020-09-19 15:45)
DX: Z45.2 Encounter for adjustment and management of vascular access device (principal); Z85.3 Personal history of malignant neoplasm of breast; Z85.118 Personal history of other malignant neoplasm of bronchus and lung; Z79.82 Long term (current) use of aspirin; Z79.4 Long term (current) use of insulin; Z79.52 Long term (current) use of systemic steroids; J44.9 Chronic obstructive pulmonary disease, unspecified; E11.65 Type 2 diabetes mellitus with hyperglycemia; I10 Essential (primary) hypertension; M19.90 Unspecified osteoarthritis, unspecified site; M81.0 Age-related osteoporosis without current pathological fracture; Z87.891 Personal history of nicotine dependence
CPT/HCPCS: 36590; 36416; 36569; 71045; 82962; J1885; J3490; J7030

== ENCOUNTER 2020-10-10 05:50 | Outpatient (RCR) | payer MEDICARE, MEDICAID, SELFPAY ==
[2020-09-20] MEDS: sodium chloride 0.9% 500 ML 999 ML IV (10:50)
--- NOTE | 2020-09-25 13:39 | ONCRAD TMN_ITS ---
Radiation Oncology Treatment Management Note Patient Name: Melonie Cross Date of : 1945 Date of Service: 09/25/2020 Attending Physician: Darrick Pierre M.D. 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 The patient has received 38 Gy of a prescribed 60 Dia with an intensity modulated radiotherapy plan utilizing a step and shoot treatment technique. She has been prescribed carboplatin (AUC 2) and Abraxane (40 mg/m???) weekly during therapy. Upon review of systems, she denied pulmonary symptoms. On physical examination, the patient weighed 141 lbs. Her temperature was 98.7 ???F with a blood pressure of 126/59 mmHg. The pulse was 77 bpm and her respiratory rate was 20. Oxygen saturation while breathing room air was 98%. There was no erythema within the treatment gusman. Auscultation of the posterior lung gusman identified clear breath sounds. Continue thoracic radiotherapy as prescribed. Ultrasound is scheduled for evaluation of PICC-line. Signed by: Dr. Darrick Pierre 09/25/2020 1:37:50 PM
--- NOTE | 2020-09-25 14:50 | USCV_ITS ---
Melonie Cross Age: 75 Gender: F : 1945 Exam Date: 09/25/2020 15:07 Ordering Phys: Addie Kang NP Technologist: KATIE Exam Location: [facility] [place]_ Indication: PICC LINE PAIN HISTORY: After PICC line placement the pt has experienced pain PROCEDURES: Venous duplex imaging was performed in only the left upper extremity. The following venous structures were evaluated: internal jugular vein, subclavian vein, axillary vein, and brachial veins. In addition, the basilic vein, cephalic vein, radial vein, and ulnar vein. Serial compression, augmentation maneuvers, and spectral Doppler flow evaluation were performed. FINDINGS: The PICC is located in one of the Lt Brachial veins. It is clotted . I can see the PICC in Lt SCV and see no clot there. Called prelim to Isabel at [facility]. 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 Brachial vein with PICC line appears to be occluded The second brachial vein and all the other above-mentioned veins were found to be patent, including the subclavian vein. Dr Guido Marks MD [facility] (Electronically Signed) Final Date: 25 September 2020 16:37 S
--- NOTE | 2020-09-27 09:39 | XR_ITS ---
WS: [id number] Exam: XR chest 1V portable [id number] Date/Time of Exam: 09/27/2020 9:42 AM Reason For Exam: picc placed Comparison 09/19/2020. A right-sided PICC line is been placed and ends in the lower one third of the SVC in good position. T he lungs are clear and fully inflated. Normal cardiomediastinal structures and regional bony elements . XR/XR chest 1V portable [id number] IMPRESSION: 1. Right-sided PICC line ending in the region of the lower one third of the SVC . 2. No acute cardiopulmonary process. These results were discussed by phone with the attending caregiver in the ICU a t 9:49 AM 09/27/2020.
[2020-09-27] MEDS: vancomycin 1,000 MG in sodium chloride 0.9% 250 ML 250 MG IV (10:47)
--- NOTE | 2020-10-03 13:33 | ONCRAD TMN_ITS ---
Radiation Oncology Treatment Management Note Patient Name: Melonie Cross Date of : 1945 Date of Service: 10/03/2020 Attending Physician: Darrick Pierre M.D. 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 The patient has received 46 Gy of a prescribed 60 Dia with an intensity modulated radiotherapy plan utilizing a step and shoot treatment technique. She has been prescribed carboplatin (AUC 2) and Abraxane (40 mg/m???) weekly during therapy. Upon review of systems, she denied pulmonary symptoms. On physical examination, the patient weighed 143 lbs. Her temperature was 98.1 ???F with a blood pressure of 124/61 mmHg. The pulse was 96 bpm and her respiratory rate was 20. Oxygen saturation while breathing room air was 98%. There was no erythema within the treatment gusman. Auscultation of the posterior lung gusman identified isolated right sided rales. Continue thoracic radiotherapy as planned. Signed by: Dr. Darrick Pierre 10/03/2020 1:31:55 PM
[2020-10-03 14:46] LABS: Basophils % 0.5 %; Eosinophils % 0.2 %; Hematocrit 27.1 % (37.0-47.0); Hemoglobin 8.2 g/dL (11.5-15.3); Lymphocytes # 0.7 10^3/uL (0.8-4.8); Lymphocytes % 13.1 %; Mean Corpuscular HGB Conc 30.3 g/dL (30.0-36.0); Mean Corpuscular Hemoglobin 28.6 pg (28.0-34.0); Mean Corpuscular Volume 94.4 fL (81-99); Mean Platelet Volume 10.2 fL (7.4-10.4); Monocytes # 0.8 10^3/uL (0.2-0.9); Monocytes % 13.6 %; Neutrophils # 3.95 10^3/uL (1.8-7.7); Neutrophils % 71.7 %; Nucleated Red Blood Cells % 0 %; Platelet Count 334 10^3/cmm (130-400); Red Blood Count 2.87 10^6/uL (4.1-5.3); Red Cell Distribution Width 17.4 % (12.1-15.1); White Blood Count 5.5 10^3/uL (4.0-10.0)
[2020-10-03 15:16] LABS: Alanine Aminotransferase 12 U/L (0-33); Albumin Level 4.1 g/dL (3.5-5.2); Alkaline Phosphatase 34 IU/L (35-105); Aspartate Amino Transferase 14 U/L (0-32); Blood Urea Nitrogen 31 mg/dL (8-23); Calcium 9.5 mg/dL (8.5-10.5); Carbon Dioxide 25 mmol/L (22-29); Chloride 102 mmol/L (98-107); Globulin 2.2 g/dL (1.3-4.6); Glucose 71 mg/dL (65-115); Osmolality Calculated 291 mOsm/kg (285-295); Sodium 138 mmol/L (136-145); Total Bilirubin 0.2 mg/dL (0.15-1.2); Total Protein 6.3 g/dL (6.6-8.7)
[2020-10-03 15:21] LABS: Anion Gap 15.7 (5-19); Potassium 4.7 mmol/L (3.5-5.1)
--- NOTE | 2020-10-09 13:42 | ONCRAD TMN_ITS ---
Radiation Oncology Treatment Management Note Patient Name: Melonie Cross Date of : 1945 Date of Service: 10/09/2020 Attending Physician: Darrick Pierre M.D. 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 The patient has received 52 Gy of a prescribed 60 Dia with an intensity modulated radiotherapy plan utilizing a step and shoot treatment technique. She has been prescribed carboplatin (AUC 2) and Abraxane (40 mg/m???) weekly during therapy. Upon review of systems, she denied pulmonary symptoms. On physical examination, the patient weighed 143 lbs. Her temperature was 98.3 ???F with a blood pressure of 122/56 mmHg. The pulse was 93 bpm and her respiratory rate was 20. Oxygen saturation while breathing room air was 99%. There was no erythema within the treatment gusman. Auscultation of the posterior lung gusman identified bronchial breath sounds. Continue thoracic radiotherapy as prescribed. Signed by: Dr. Darrick Pierre 10/09/2020 1:41:18 PM
--- NOTE | 2020-10-14 14:24 | ONC FU_ITS ---
[facility] Patient Note Patient: Melonie Cross Unit #: [id number]: 1945 Dictated By: Anila AriasDate of Visit: Sep 24, 2020 Onc MED Follow-Up/Prog Note Chief Complaint: Lung cancer. 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 Her chest x-ray on 03/12/2020 showed a faint 2 cm nodular density in the right suprahilar region which was new compared to previous study from 2017. She was recommended to have further evaluation with chest CT. Her noncontrast CT on 03/28/2020 showed a right upper lobe lung mass measuring 2.12 cm. There are no other pulmonary parenchymal lesions noted and there is no significant mediastinal or axillary adenopathy noted. She was then referred to Dr. Polanco and on 04/04/2020 she underwent bronchoscopy/EBUS with FNA biopsy of a station 11R lymph node. There were no endobronchial lesions identified and attempted biopsy of the lung nodule was unsuccessful. The endobronchial ultrasound showed no significant lymphadenopathy. The largest node was in the right hilar node group, and pathology on the FNA was consistent with poorly differentiated nonkeratinizing squamous cell carcinoma. She has known COPD. Her other medical illnesses include hypertension, hyperlipidemia, type 2 diabetes, and coronary artery disease. She has had previous angioplasty/stent placement. Her medical history is also significant for having undergone right nephrectomy for renal cell carcinoma sometime around 2009. Those records were not available. She does have a history of smoking for 45 years, up to a pack and a half of cigarettes daily. She quit smoking in February 2020. Dr Cartwright had seen her initially on 04/25/2020. 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 She was able to come in for staging PET/CT on 04/28/2020. That study showed an FDG avid right upper lobe mass measuring 2.1 cm, SUV 10.9, consistent with primary malignancy. A superior right hilar lymph node was FDG avid with SUV 4.8, consistent with local metastatic disease. The only other area of abnormal uptake was a solid lesion in the superior right breast measuring 1.7 x 1.2 cm with SUV 10.0, suspicious for synchronous primary breast cancer. She was then able to come in for pulmonary function studies on 05/01/2020. Her FEV1 was 1.57 L, 69% of predicted. She had radiation oncology consultation with Dr. Pierre on 06/07/2020. Although with N1 disease she was still potentially an operable candidate, she indicated that due to her social circumstances and requirement for hospitalization, that she would still not consider surgery as a treatment option. She was agreeable, though, to undergo radiation. At that time she had further evaluation for the breast lesion with diagnostic mammogram/ultrasound. It was BI-RADS 5, highly suggestive of malignancy. The mammogram showed a dense heterogeneous focal asymmetric density measuring 2.7 x 2.4 cm, corresponding to the lesion identified by PET/CT. Ultrasound showed a hypoechoic solid irregular mass at the 12 o'clock position measuring 2.3 x 1.8 x 1.5 cm. Also noted was an enlarged lymph node in the right axilla measuring 1.9 x 1.2 x 1.0 cm. On 06/22/2020 she underwent ultrasound-guided biopsy of the breast mass and of the axillary lymph node. Pathology on the breast showed grade 2 intraductal carcinoma. It was found to be ER and AL negative. The lymph node showed sinus histiocytosis. Dr. Cartwright had offered her treatment for her stage IIb right upper lobe lung cancer with concurrent therapy with chemotherapy/radiation. Her planned chemotherapy will be weekly carboplatin paclitaxel. She did have a right internal jugular vein PowerPort placed on August 07, [address] Fritz. 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 This treatment will be deferred until she is completed chemoradiation. Her lung radiation unfortunately will preclude radiation to the breast and within the ER AL negative tumor she will not be eligible for adjuvant hormonal therapy. In regards to treatment her options could be lumpectomy alone or total mastectomy. Ms Cross began week 1 carboplatin/paclitaxel concurrently with radiation on 08/16/2020. She tolerated the chemotherapy with acceptable toxicity, but her further management was complicated due to her social circumstances. She has a disabled son that she is the primary caregiver of. He has had health complications recently and she has not been completely compliant with her treatment in order to care for him. She received her week 2 chemotherapy on 08/28/2020. She has since then continued radiation with some further interruptions. She has received no further chemotherapy. She was seen by Dr Cartwright on 09/18/2020 for an unplanned visit. Among other problems she has encountered, she developed an open wound at the site of her Port-A-Cath venous access device. She has had some ongoing problems with shortness of breath, but that has improved somewhat with empiric steroid therapy and pulmonary bronchial nebulizers. Her evaluation during that time did include a CT pulmonary angiogram which showed no evidence of pulmonary embolism and no pneumonia or other acute pathology. There was noted to be some decrease in the right upper lobe mass. She has limited activity tolerance, but she is able to do some light work. She had removal of a PowerPort in the right internal jugular vein due to overlying skin breakdown on September 19, 2020. She had placement of a left PICC line on 09/19/2020. Ms. Cross presents today for follow-up and was scheduled to resume her chemotherapy with carboplatin Abraxane however she presents today with left arm swelling post PICC insertion. She states this swelling has been there for a couple of days but seems to be worse today. She denies any pain or redness. She has had no fever or chills. She states overall her energy is better. She still tires pretty quickly caring for her son but is still able to provide his care basically anorectic. She does have some assistance throughout the day occasionally but continues to be his primary caregiver. She denies any nausea or vomiting. She states her appetite is good. She denies any diarrhea or constipation. She is had no peripheral neuropathy. She denies any pain. She states her port site has improved dramatically and is not a problem. She denies any new shortness of breath orthopnea. She denies any hemoptysis. Her ECOG is 1. Past Medical History: Chronic obstructive pulmonary disease Coronary artery disease Degenerative disease of the spine Gastroesophageal reflux disease Hyperlipidemia Hypertension Osteoporosis Renal cell cancer Type II diabetes Past Surgical History: Oopherectomy Tonsillectomy Placement of the LEFT PICC line in 2020 Removal of right internal jugular PowerPort due to skin breakdown around the port per Dr. Rodarte in 2020 PowerPort right internal jugular vein-Dr. Fritz in 2020 Bronchoscopy/EBUS with FNA biopsy of station 11R lymph node. in 2019 Right nephrectomy for renal cell carcinoma in 2009 Cholecystectomy in 2006 Coronary angioplasty with stent placement in 1998 Allergies: amLODIPine Besylate, Cephalexin, Erythromycin Base, Penicillins, Propranolol HCl, Tetanus-Diphtheria Toxoids Td, Tetracycline HCl, and ticlopidine. Medications: Alendronate Sodium (70 mg) Tablet Oral Take as Directed Anoro Ellipta 1 Inhalation (of 62.5-25 mcg/inh) Aerosol Powder, Breath Activated Inhalation q 24 hours Aspirin 1 Tablet (of 81 mg) Tablet, chewable Oral daily Bactroban (2 %) Ointment Topical t.i.d. Benazepril HCl 1 Tablet (of 40 mg) Oral daily Budesonide (0.5 mg/2mL) Suspension Inhalation b.i.d. Cardizem CD 1 (360 mg) Capsule SR 24 HR Oral daily Cholecalciferol 1 Tablet (of 50 mcg ) Oral daily diazePAM 1 (10 mg) Tablet Oral four times a day Fenofibrate 1 (145 mg) Tablet Oral daily HYDROcodone-Acetaminophen 1 Tablet (of 10-325 mg) Oral 6x/d Ipratropium-Albuterol 1 Inhalation (of 0.5-2.5 (3) mg/3mL) Solution Inhalation four times a day Isosorbide Mononitrate ER 1 Tablet (of 60 mg) Tablet SR 24 HR Oral b.i.d. Magnesium Oxide 1 (400 mg) Capsule Oral b.i.d. Metoprolol Succinate ER 1 Tablet (of 100 mg) Tablet SR 24 HR Oral daily Nitroglycerin Tablet, sublingual Sublingual PRN Ondansetron HCl 1 Tablet (of 4 mg) Oral daily Pantoprazole Sodium 1 (20 mg) Tablet, enteric coated Oral daily Probiotic & Acidophilus Ex St 1 Capsule Oral daily Theophylline ER 1 (400 mg) Capsule SR 24 HR Oral daily Tresiba FlexTouch 75 Units (of 200 Units/mL) Subcutaneous daily Victoza 1 (18 mg/3mL) Subcutaneous q 24 hours Xyzal 1 Tablet (of 5 mg) Oral daily Family History: Ms. Cross's mother at age 70: congestive heart failure, and myocardial infarction at age 70. Ms. Cross's father at age 80: chronic obstructive pulmonary disease, and myocardial infarction at age 80. Father had COPD and of heart attack at age 80. Mother with congestive heart failure at age 70. She had no siblings. Social History: Ms. Cross is . She quit smoking 1 year ago but had smoked 0.5 packs/day for 50 years. She has no history of drinking. She is . She has a history of smoking for 45 years, up to 1-1/2 packs of cigarettes daily. She quit smoking in February 2020. She does not drink alcohol. Review Of Symptoms: <See Above> Vital Signs: Performed on Sep 24, 2020 12:33 Height - 66.00 in Weight - 141.8 lbs (HIGH) BSA - 1.73 sq.m BMI - 22.89 Temperature - 96.1 F (LOW) Pulse - 112 /min (HIGH) Respiration - 18 /min BP - 105/63 mm(hg) O2 Sat - 98 % Pain - 5 Fatigue - 6,1 - No physically strenuous activity, but ambulatory and able to carry out light or sedentary work (e.g. office work, light house work). (ECOG) Physical Examination: Constitutional Alert, oriented, no acute distress. Skin pink, warm and dry. Head Normocephalic; atraumatic. Eyes Conjunctivae and sclerae are clear and without icterus. Pupils are reactive and equal. Neck Supple without masses or thyromegaly. No jugular venous distension. Respiratory Lungs are clear to auscultation without rhonchi or wheezing. Cardiovascular Regular rate and rhythm of heart without murmurs,clicks, gallops or rubs. Back/Spine Non-tender to palpation. Extremities Left arm swelling above PICC insertion site. The PICC line insertion site itself is unremarkable. There is no redness or warmth noted at this time. There is swelling/thickness in her shoulder area. Musculoskeletal No tenderness or swelling, normal range of motion without obvious weakness. Integumentary No rashes or lesions. Neurologic No sensory or motor deficits, normal cerebellar function, normal gait. Psychiatric Alert and oriented times three. Coherent speech. Verbalizes understanding of our discussions today. Laboratory:Test performed on Oct 04, 2020 07:56 Creatinine 1.5 mg/dL Cr Clearance (Est) 33.25 mL/min Test performed on Sep 19, 2020 13:27 Sodium 136 mmol/L Potassium 4.9 mmol/L Chloride 102 mmol/L CO2 21 mmol/L Anion Gap 17.9 BUN 69 mg/dL Glucose 305 mg/dL Osmolality - Calculated 314 mOsm/kg Calcium 8.4 mg/dL Protein, Total 6.2 g/dL Albumin 3.7 g/dL Globulin 2.5 g/dL Bilirubin, Total 0.2 mg/dL ALT (SGPT) 13 U/L AST (SGOT) 14 U/L Alkaline Phosphatase 35 IU/L WBC 5.1 10 3/uL RBC 3.03 10 6/uL HGB 9.0 g/dL HCT 28.4 % MCV 93.7 fL MCH 29.7 pg MCHC 31.7 g/dL RDW 17.2 % Platelet Count 206 10 3/cmm MPV 9.7 fL Neutrophils 4.55 10 3/uL Lymphocytes 0.2 10 3/uL Monocytes 0.2 10 3/uL Eosinophils 0.0 10 3/uL Basophils 0.0 10 3/uL Neutrophil % 89.1 % Lymphocyte % 3.7 % Monocyte % 3.1 % Eosinophil % 0.0 % Basophils % 0.2 % NRBC % 0 % Impression: 1. 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 By clinical evaluation her disease appears to be stage IIB (T1c, N1, M0). 2. 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 3. COPD. 4. Hypertension. 5. Hyperlipidemia. 6. Type 2 diabetes. 7. Coronary artery disease with previous angioplasty/stent placement. 8. Chronic kidney disease. 9. GERD. 10. 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 11. She underwent right nephrectomy for renal cell carcinoma approximately 2009. Plan/Problems Addressed at this Visit: 1. 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 By clinical evaluation her disease appears to be stage IIB (T1c, N1, M0). 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 As such, she was adamantly opposed to undergoing surgery for the lung cancer. As an alternative, she was given the option to undergo chemoradiation utilizing a standard weekly carboplatin/paclitaxel chemotherapy regimen. She began her week 1 carboplatin/paclitaxel concurrently with radiation on 08/16/2020. She tolerated it without significant toxicity, but her further treatment was interrupted due to her social circumstances. She received her week 2 carboplatin/paclitaxel on 08/28/2020. As yet she has had no further chemotherapy. In the meantime, she had developed an open wound at the Port-A-Cath site in the upper right chest wall, and the Port-A-Cath was no longer viable for use. The port was removed per Dr. Rodarte on 09/19/2020 and a left PICC was placed on 09/19/2020. A. She presents today with left arm swelling in association with a PICC line. This will need further evaluation prior to any further treatment as this is the only IV access that she currently has. B. Her last labs were September 19, 2020 which reported a WBC of 5.1 hemoglobin is 9.0 platelets are 206,000 and her ANC was 4550. Potassium was 4.9 random glucose was 305 her BUN was 69 and her creatinine was 1.9. Her LFTs were normal. C. Her treatment will once again be placed on hold while we await a venous Doppler of the left extremity swelling post PICC line insertion. Her venous Doppler will be obtained on 09/25/2020 and further plan of care will be decided at that time. D. Mrs. Cross was instructed to contact us in interim should questions or problems arise. She is also advised to present to the ER if she has any further complications with swelling in the arm, sudden shortness of breath or any other concerns. 2. 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 Treatment is being deferred until she has completed her chemoradiation. Signed By: Anila Arias-DOMITILA, AOJANELLP Davy Cartwright MD <<Signature on File>>
== END 2020-10-10 23:59 | disposition home or self-care (01) ==
LOC: ONCMED 05:50
PROVIDERS: Nurse Practitioner; Absent Provider Radiology Radiation Oncology; PCP Nurse Practitioner; Visit Provider Radiology Radiation Oncology
DX: Z51.0 Encounter for antineoplastic radiation therapy (principal); C34.11 Malignant neoplasm of upper lobe, right bronchus or lung; D05.11 Intraductal carcinoma in situ of right breast; Z17.1 Estrogen receptor negative status [ER-]; J44.9 Chronic obstructive pulmonary disease, unspecified; I10 Essential (primary) hypertension; E78.5 Hyperlipidemia, unspecified; E11.59 Type 2 diabetes mellitus with other circulatory complications; I25.10 Atherosclerotic heart disease of native coronary artery without angina pectoris; Z95.5 Presence of coronary angioplasty implant and graft; E11.22 Type 2 diabetes mellitus with diabetic chronic kidney disease; N18.9 Chronic kidney disease, unspecified; K21.9 Gastro-esophageal reflux disease without esophagitis; M47.9 Spondylosis, unspecified; M54.5 Low back pain; G89.29 Other chronic pain; Z90.5 Acquired absence of kidney; Z85.528 Personal history of other malignant neoplasm of kidney; Z79.899 Other long term (current) drug therapy
CPT/HCPCS: 36415; 36569; 71045; 77014; 77336; 77386; 80053; 85025; 93971; 96360; 99214; C1751; J3370; J7040; J7050

== ENCOUNTER 2020-10-18 05:29 | Outpatient (RCR) | payer MEDICARE, MEDICAID, SELFPAY ==
--- NOTE | 2020-10-25 09:19 | N.ONRD TS_ITS ---
Radiation OncologyTreatment Summary Patient Name: Melonie Cross Date of : 1945 Date of Service: 10/25/2020 Attending Physician: Darrick Pierre M.D. Melonie Cross has completed definitive thoracic radiotherapy for the management of a clinical stage IIB (T1cN1) squamous cell carcinoma of the right upper lobe of the lung and hilum. Thoracic radiation therapy was delivered between the dates of August 16, 2020 through October 18, 2020. A prescribed dose of 58 Gy was delivered in 29 fractions encompassing 64 elapsed days. The patient elected to defer the last scheduled treatment on account of a family health predicament. The right upper-lobe mass and mediastinal lymphadenopathy were treated utilizing an intensity modulated radiotherapy plan with a step and shoot treatment technique. The plan required five gantry angles (15???, 160???, 205???, 290???, and 315???) replicating a partial arc. The collimator rotation 0???. The field sizes spanned between 9.9 cm x 10 cm to 13.7 cm x 10 cm. The SSDs measured a minimum of 85.7 cm to a maximum of 90.8 cm. The ports delivered 148 MU, 114 MU, 122 MU, 113 MU, and 112 MU corresponding to the gantry angles described. All treatments were performed with the [employer] Shot Therapy linear accelerator and an isocentric technique. The dose was calculated by Anisotropic Analytic Algorithm. A photon energy of 6 MV was prescribed with the plan normalized to deliver 100% of the prescription dose to 95% of the planning target volume. She has been prescribed carboplatin (AUC 2) and Abraxane (40 mg/m???) weekly during radiotherapy under the supervision of Davy Cartwright M.D. Signed by: Dr. Darrick Pierre 10/25/2020 9:17:44 AM
== END 2020-11-10 23:59 | disposition home or self-care (01) ==
LOC: ONCMED 05:29
PROVIDERS: Absent Provider Radiology Radiation Oncology; PCP Nurse Practitioner; Visit Provider Radiology Radiation Oncology
DX: Z51.0 Encounter for antineoplastic radiation therapy (principal); C34.11 Malignant neoplasm of upper lobe, right bronchus or lung; D05.11 Intraductal carcinoma in situ of right breast; Z79.899 Other long term (current) drug therapy
CPT/HCPCS: 77014; 77336; 77386

== ENCOUNTER → 2020-10-24 11:15 | Outpatient (BNVA) | payer MEDICARE, MEDICAID, SELFPAY | PROVIDERS: PCP Nurse Practitioner; Visit Provider Nurse Practitioner | DX: E11.65 Type 2 diabetes mellitus with hyperglycemia (principal); Z79.4 Long term (current) use of insulin | CPT/HCPCS: 80053; 80061; 81000; 83036 ==

== ENCOUNTER 2020-11-23 09:23 | Outpatient (CLI) | payer MEDICARE, MEDICAID, SELFPAY ==
--- NOTE | 2020-11-23 09:55 | ONCRAD EPV_ITS ---
Radiation Oncology Follow-Up Note Patient Name: Melonie Cross Date of : 1945 Date of Service: 11/23/2020 Attending Physician: Darrick Pierre M.D. Melonie Cross has completed definitive thoracic radiotherapy for the management of a clinical stage IIB (T1cN1) squamous cell carcinoma of the right upper lobe of the lung and hilum. Thoracic radiation therapy was delivered between the dates of August 16, 2020 through October 18, 2020. A prescribed dose of 58 Gy was delivered in 29 fractions encompassing 64 elapsed days. The patient elected to defer the last scheduled treatment on account of a family health predicament. On review of systems, she denied pulmonary symptoms. On physical examination, she weighed 136 lbs and her temperature was 98.8???F. Her blood pressure was 117/60 mmHg. The pulse was 100 bpm and the respiratory rate was 20 breaths per minute. Her oxygen saturation while breathing ambient air was 97%. Auscultation of the posterior lung gusman identified bronchial breath sounds. In summary, Ms. Cross returned for a routine post-radiotherapy follow-up. She will scheduled for follow-up with her medical oncologist. Signed by: Dr. Darrick Pierre 11/23/2020 9:54:44 AM
== END 2020-11-23 09:24 | disposition home or self-care (01) ==
LOC: ONCMED 09:26
PROVIDERS: PCP Nurse Practitioner; Visit Provider Radiology Radiation Oncology
DX: C34.11 Malignant neoplasm of upper lobe, right bronchus or lung (principal); R06.00 Dyspnea, unspecified; Z99.81 Dependence on supplemental oxygen; Z79.899 Other long term (current) drug therapy
CPT/HCPCS: 99024

== ENCOUNTER 2020-12-13 11:16 | Outpatient (CLI) | payer MEDICARE, MEDICAID, SELFPAY ==
[2020-12-13 12:35] LABS: Basophils % 0.6 %; Eosinophils % 0.3 %; Hematocrit 33.8 % (37.0-47.0); Hemoglobin 10.4 g/dL (11.5-15.3); Lymphocytes # 0.6 10^3/uL (0.8-4.8); Lymphocytes % 8.6 %; Mean Corpuscular HGB Conc 30.8 g/dL (30.0-36.0); Mean Corpuscular Hemoglobin 29.5 pg (28.0-34.0); Mean Platelet Volume 9.6 fL (7.4-10.4); Monocytes # 0.6 10^3/uL (0.2-0.9); Monocytes % 8.6 %; Neutrophils % 81.2 %; Nucleated Red Blood Cells % 0 %; Platelet Count 457 10^3/cmm (130-400); Red Blood Count 3.52 10^6/uL (4.1-5.3); Red Cell Distribution Width 15.6 % (12.1-15.1); Reticulocyte % 1.5 % (0.5-2.0)
[2020-12-13 13:32] LABS: Alanine Aminotransferase 12 U/L (0-33); Albumin Level 3.9 g/dL (3.5-5.2); Alkaline Phosphatase 36 IU/L (35-105); Anion Gap 17.4 (5-19); Aspartate Amino Transferase 24 U/L (0-32); Blood Urea Nitrogen 19 mg/dL (8-23); Calcium 9.2 mg/dL (8.5-10.5); Carbon Dioxide 22 mmol/L (22-29); Chloride 102 mmol/L (98-107); Ferritin 145 ng/mL (15-150); Globulin 2.5 g/dL (1.3-4.6); Glucose 134 mg/dL (65-115); Iron 20 ug/dL (37-145); Lactate Dehydrogenase 160 U/L (135-214); Osmolality Calculated 288 mOsm/kg (285-295); Percent Saturation 4.8 % (20-50); Potassium 4.4 mmol/L (3.5-5.1); Sodium 137 mmol/L (136-145); Thyroid Stimulating Hormone 0.88 uIU/mL (0.27-4.20); Total Bilirubin 0.2 mg/dL (0.15-1.2); Total Iron Binding Capacity 410 mcg/dl; Total Protein 6.4 g/dL (6.6-8.7); Unsaturated Iron Binding 390 ug/dL (112-347); Vitamin B12 383 pg/mL (232-1245)
[2020-12-13 15:01] LABS: LAB Peripheral Smear Sent for Review
[2020-12-13 15:34] LABS: Erythrocyte Sedimentation Rate 31 mm/hr (0-15)
[2020-12-13 16:42] LABS: Estmated Average Glucose 105; Hemoglobin A1C 5.3 % (4.0-6.0)
[2020-12-14 09:22] LABS: PROTEIN, TOTAL 6.4 g/dL (6.1-8.1)
[2020-12-14 12:56] LABS: ALBUMIN 3.6 g/dL (3.8-4.8); ALPHA 1 GLOBULIN 0.4 g/dL (0.2-0.3); BETA 1 GLOBULIN 0.5 g/dL (0.4-0.6); BETA 2 GLOBULIN 0.3 g/dL (0.2-0.5); GAMMA GLOBULIN 0.6 g/dL (0.8-1.7)
--- NOTE | 2020-12-15 14:44 | ONC FU_ITS ---
Dr. Cartwright Patient Follow-Up Note Patient: Melonie Cross Unit #: [id number]: 1945 Dicatated By: Davy Cartwright M.D.Date of Visit:Dec 13, 2020 Onc Med Follow-up/Prog Note Chief Complaint: Lung cancer and breast cancer. 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 Her chest x-ray on 03/12/2020 showed a faint 2 cm nodular density in the right suprahilar region which was new compared to previous study from 2017. She was recommended to have further evaluation with chest CT. Her noncontrast CT on 03/28/2020 showed a right upper lobe lung mass measuring 2.12 cm. There were no other pulmonary parenchymal lesions noted and there was no significant mediastinal or axillary adenopathy noted. She was then referred to Dr. Polanco and on 04/04/2020 she underwent bronchoscopy/EBUS with FNA biopsy of a station 11R lymph node. There were no endobronchial lesions identified and attempted biopsy of the lung nodule was unsuccessful. The endobronchial ultrasound showed no significant lymphadenopathy. The largest node was in the right hilar node group, and pathology on the FNA was consistent with poorly differentiated nonkeratinizing squamous cell carcinoma. I had seen her initially on 04/25/2020. 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 She was able to come in for staging PET/CT on 04/28/2020. That study showed an FDG avid right upper lobe mass measuring 2.1 cm, SUV 10.9, consistent with primary malignancy. A superior right hilar lymph node was FDG avid with SUV 4.8, consistent with local metastatic disease. The only other area of abnormal uptake was a solid lesion in the superior right breast measuring 1.7 x 1.2 cm with SUV 10.0, suspicious for synchronous primary breast cancer. She was then able to come in for pulmonary function studies on 05/01/2020. Her FEV1 was 1.57 L, 69% of predicted. She had radiation oncology consultation with Dr. Pierre on 06/07/2020. Although with N1 disease she was still potentially an operable candidate, she indicated that due to her social circumstances and requirement for hospitalization, that she would still not consider surgery as a treatment option. She was agreeable, though, to undergo radiation. At that time she had further evaluation for the breast lesion with diagnostic mammogram/ultrasound. It was BI-RADS 5, highly suggestive of malignancy. The mammogram showed a dense heterogeneous focal asymmetric density measuring 2.7 x 2.4 cm, corresponding to the lesion identified by PET/CT. Ultrasound showed a hypoechoic solid irregular mass at the 12 o'clock position measuring 2.3 x 1.8 x 1.5 cm. Also noted was an enlarged lymph node in the right axilla measuring 1.9 x 1.2 x 1.0 cm. On 06/22/2020 she underwent ultrasound-guided biopsy of the breast mass and of the axillary lymph node. Pathology on the breast showed grade 2 invasive ductal carcinoma. It was found to be ER and PA negative, both less < 1%. HER-2/vargas was positive, 3+ by IHC and amplification ratio by FISH of 2.9 with 9.0 HER-2 copies/cell. The lymph node showed sinus histiocytosis. Ultimately, it was determined that she was not an appropriate candidate for SBRT to the lung lesion, and we opted to proceed with standard chemoradiation utilizing weekly carboplatin/placlitaxel for the chemosensitization. We opted to defer further management of the breast cancer until the lung cancer treatment was completed. Her other medical illnesses include COPD, hypertension, hyperlipidemia, type 2 diabetes, and coronary artery disease. She has had previous angioplasty/stent placement. Her medical history is also significant for having undergone right nephrectomy for renal cell carcinoma sometime around 2009. Those records were not available. She does have a history of smoking for 45 years, up to a pack and a half of cigarettes daily. She quit smoking in February 2020. INTERIM HISTORY: She underwent placement of Port-A-Cath venous access device on 08/07/2020 and then she began week 1 carboplatin/paclitaxel concurrently with radiation on 08/16/2020. She tolerated the chemotherapy with acceptable toxicity, but her further management was complicated due to her social circumstances. She received her week 2 chemotherapy on 08/28/2020. She then continued radiation, though with some further interruptions. Due to lack of venous access and multiple failed attempts to obtain venous access, she received no further chemotherapy. She ultimately completed radiation on 10/18/2020 to a total dose of 5800 cGy administered in 29 fractions. She is seen for a follow-up visit. She has not been feeling very good, in part due to emotional distress over her son's recent . She also complains that her legs have been weak, and they also have been hurting, especially when she walks. It is limiting her activity. Her ECOG score is 2. Her appetite has not been good. She does not have fever or night sweats. She has not had sore mouth or throat. She says her breathing is pretty good, and she does not complain of cough. She also has not been having chest pain. She has nausea occasionally. She has no other GI or complaints. She has had some pain in the right lower back area, but that has been going on for years and it is not any worse now. She reports no other joint or bone pain. She does not complain of headache or dizziness, and she has not been having numbness or paresthesia. She has having difficulty sleeping at night. Medications: Alendronate Sodium (70 mg) Tablet Oral Take as Directed, Anoro Ellipta 1 Inhalation (of 62.5-25 mcg/inh) Aerosol Powder, Breath Activated Inhalation q 24 hours, Aspirin 1 Tablet (of 81 mg) Tablet, chewable Oral daily, Bactroban (2 %) Ointment Topical t.i.d., Benazepril HCl 1 Tablet (of 40 mg) Oral daily, Budesonide (0.5 mg/2mL) Suspension Inhalation b.i.d., Cardizem CD 1 (360 mg) Capsule SR 24 HR Oral daily, Cholecalciferol 1 Tablet (of 50 mcg ) Oral daily, diazePAM 1 (10 mg) Tablet Oral four times a day, Fenofibrate 1 (145 mg) Tablet Oral daily, HYDROcodone-Acetaminophen 1 Tablet (of 10-325 mg) Oral 6x/d, Ipratropium-Albuterol 1 Inhalation (of 0.5-2.5 (3) mg/3mL) Solution Inhalation four times a day, Isosorbide Mononitrate ER 1 Tablet (of 60 mg) Tablet SR 24 HR Oral b.i.d., Magnesium Oxide 1 (400 mg) Capsule Oral b.i.d., Metoprolol Succinate ER 1 Tablet (of 100 mg) Tablet SR 24 HR Oral daily, Nitroglycerin Tablet, sublingual Sublingual PRN, Ondansetron HCl 1 Tablet (of 4 mg) Oral daily, Pantoprazole Sodium 1 (20 mg) Tablet, enteric coated Oral daily, Probiotic & Acidophilus Ex St 1 Capsule Oral daily, Theophylline ER 1 (400 mg) Capsule SR 24 HR Oral daily, Tresiba FlexTouch 75 Units (of 200 Units/mL) Subcutaneous daily, Victoza 1 (18 mg/3mL) Subcutaneous q 24 hours, Xyzal 1 Tablet (of 5 mg) Oral daily Allergies: amLODIPine Besylate, Cephalexin, Erythromycin Base, Penicillins, Propranolol HCl, Tetanus-Diphtheria Toxoids Td, Tetracycline HCl, and ticlopidine. Vital Signs: Performed on Dec 13, 2020 11:36 Height - 66.00 in Weight - 129.8 lbs (LOW) BSA - 1.66 sq.m BMI - 20.95 Temperature - 97.6 F (LOW) Pulse - 116 /min (HIGH) Respiration - 18 /min BP - 111/66 mm(hg) O2 Sat - 96 % Pain - 9 Fatigue - 4 Physical Examination: Constitutional - She appears somewhat weak generally, Eyes - Sclerae nonicteric. Conjunctivae clear, ENMT - No lesions noted in the oral cavity, Hematologic/Lymphatic - No cervical, clavicular, or axillary adenopathy, Respiratory - Lungs show diminished air movement and slightly coarse breath sounds bilaterally, Cardiovascular - Heart rhythm is irregular. There is a II/ systolic murmur. There is no gallop or rub noted, Abdomen - Soft. Liver and spleen are not enlarged. There is no abdominal mass or ascites noted and there is no inguinal adenopathy, Extremities - No edema. Dorsalis pedis pulses are palpable bilaterally, Neurologic - There is evidence of muscle atrophy in her legs, but there are no focal neurologic deficits noted. Problem List: 1. 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 By clinical evaluation her disease appears to be stage IIB (T1c, N1, M0). 2. Grade 2 invasive ductal carcinoma of the right breast, ER/PA negative and HER-2/vargas positive. 3. COPD. 4. Hypertension. 5. Hyperlipidemia. 6. Type 2 diabetes. 7. Coronary artery disease with previous angioplasty/stent placement. 8. Chronic kidney disease. 9. GERD. 10. 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 11. She underwent right nephrectomy for renal cell carcinoma approximately 2009. Problems Addressed with this Encounter and Plan: 1. 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 By clinical evaluation her disease appears to be stage IIB (T1c, N1, M0). 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 As such, she had been adamantly opposed to undergoing surgery for the lung cancer. As an alternative, she was given the option to undergo chemoradiation utilizing a standard weekly carboplatin/paclitaxel chemotherapy regimen. She began her week 1 carboplatin/paclitaxel concurrently with radiation on 08/16/2020. She tolerated it without significant toxicity, but her further treatment was interrupted due to her social circumstances. She received her week 2 carboplatin/paclitaxel on 08/28/2020. Due to lack of venous access despite multiple attempts to place a venous access device, she received no further chemotherapy. She completed radiation on 10/18/2020 to a total dose of 5800 cGy administered in 29 fractions. Overall, her treatment was very suboptimal, mostly due to her social circumstances. She has not yet been evaluated for response. As such, she will have laboratory studies today and she will now be scheduled for restaging CT scans. I will see her again to discuss further treatment when those results are available. 2. She has been found to have grade 2 invasive ductal carcinoma in situ of the right breast, ER/PA negative and HER/2/vargas positive. Treatment has deferred pending completion of her chemoradiation, and it will also need to be addressed with her next visit. Signed By: Davy Cartwright M.D. <<Signature on File>>
== END 2020-12-13 11:17 | disposition home or self-care (01) ==
LOC: ONCMED 11:18
PROVIDERS: PCP Nurse Practitioner; Visit Provider Internal Medicine Medical Oncology
DX: C34.11 Malignant neoplasm of upper lobe, right bronchus or lung (principal); D05.11 Intraductal carcinoma in situ of right breast; J44.9 Chronic obstructive pulmonary disease, unspecified; I25.10 Atherosclerotic heart disease of native coronary artery without angina pectoris; Z79.899 Other long term (current) drug therapy; Z95.5 Presence of coronary angioplasty implant and graft
CPT/HCPCS: 36415; 80053; 80500; 82607; 82728; 82746; 83010; 83036; 83540; 83550; 83615; 84155; 84165; 84443; 85025; 85045; 85651; 96372; 99214

== ENCOUNTER 2020-12-21 08:11 | Outpatient (CLI) | payer MEDICARE, MEDICAID, SELFPAY ==
[2020-12-21 08:53] LABS: Basophils # 0.1 10^3/uL (0.0-0.1); Basophils % 0.8 %; Eosinophils # 0.1 10^3/uL (0.0-0.8); Eosinophils % 1.6 %; Hematocrit 32.1 % (37.0-47.0); Hemoglobin 9.8 g/dL (11.5-15.3); Lymphocytes # 0.5 10^3/uL (0.8-4.8); Lymphocytes % 6.7 %; Mean Corpuscular HGB Conc 30.5 g/dL (30.0-36.0); Mean Corpuscular Hemoglobin 29.6 pg (28.0-34.0); Mean Platelet Volume 9.3 fL (7.4-10.4); Monocytes # 0.6 10^3/uL (0.2-0.9); Monocytes % 7.9 %; Neutrophils # 6.52 10^3/uL (1.8-7.7); Neutrophils % 82.7 %; Nucleated Red Blood Cells % 0 %; Platelet Count 437 10^3/cmm (130-400); Red Blood Count 3.31 10^6/uL (4.1-5.3); Red Cell Distribution Width 14.8 % (12.1-15.1); White Blood Count 7.9 10^3/uL (4.0-10.0)
--- NOTE | 2020-12-21 09:11 | CT_ITS ---
WS: [id number] CT CHEST TECHNIQUE: Contrast enhanced CT of the chest with coronal and sagittal reformatted images. CLINICAL INFORMATION: LUNG CANCER COMPARISON: None. DLP: 501.[address] scans at [facility] use at least one of these dose optimization techniques: automated e xposure control; mA and/or kV adjustment per patient size (includes targeted exams where dose is matc hed to clinical indication); or iterative reconstruction. FINDINGS: Again seen is the spiculated right upper lobe lesion with a small amount of central cavitation. Today this measures approximately 2.1 x 1.7 x 2.7 cm AP by transverse by craniocaudal. This is increased i n size and more solid in appearance compared to previous compatible with disease progression. This ca n be further evaluated PET/CT. No other suspicious pulmonary parenchymal abnormalities. Lungs are wel l aerated. No acute pulmonary infiltrates. Moderate thoracic aortic calcification. Multinodular right thyroid unchanged in appearance. No medias tinal or hilar lymphadenopathy. No axillary lymphadenopathy. Removal of the right chest Port-A-Cath w ith a small seroma in the right breast. Adrenal glands are normal. Normal GE junction. Cholecystectomy. CT/CT chest w con* [id number] IMPRESSION: 1. Progressed right upper lobe spiculated solid mass measuring 2.1 x 1.7 x 2.7 cm AP by transverse by craniocaudal. This is more solid and progressed in siz e compared to September 04, 2020. This can be further evaluated PET/CT. 2. No other suspicious pulmonary parenchymal abnormalities. 3. No mediastinal or hilar lymphadenopathy. 4. Multinodular thyroid unchanged.
[2020-12-21 09:13] LABS: Alanine Aminotransferase 7 U/L (0-33); Alkaline Phosphatase 37 IU/L (35-105); Anion Gap 14.5 (5-19); Aspartate Amino Transferase 21 U/L (0-32); Blood Urea Nitrogen 12 mg/dL (8-23); Calcium 8.8 mg/dL (8.5-10.5); Carbon Dioxide 24 mmol/L (22-29); Chloride 103 mmol/L (98-107); Globulin 2.7 g/dL (1.3-4.6); Glucose 86 mg/dL (65-115); Osmolality Calculated 283 mOsm/kg (285-295); Potassium 4.5 mmol/L (3.5-5.1); Sodium 137 mmol/L (136-145); Total Bilirubin 0.2 mg/dL (0.15-1.2); Total Protein 6.7 g/dL (6.6-8.7)
[2020-12-21] MEDS: iodixanol 320 mg/mL 100mL Btl IV (09:34)
== END 2020-12-21 08:12 | disposition home or self-care (01) ==
LOC: ONCMED 08:13
PROVIDERS: PCP Nurse Practitioner; Visit Provider Internal Medicine Medical Oncology
DX: C34.11 Malignant neoplasm of upper lobe, right bronchus or lung (principal); I70.0 Atherosclerosis of aorta; E04.2 Nontoxic multinodular goiter
CPT/HCPCS: 36415; 71260; 80053; 85025; Q9967

== ENCOUNTER → 2021-01-21 10:38 | Outpatient (BNVA) | payer MEDICARE, MEDICAID, SELFPAY | PROVIDERS: PCP Nurse Practitioner; Visit Provider Nurse Practitioner | DX: E11.65 Type 2 diabetes mellitus with hyperglycemia (principal); Z79.4 Long term (current) use of insulin; J43.9 Emphysema, unspecified; E61.1 Iron deficiency; I10 Essential (primary) hypertension; F41.8 Other specified anxiety disorders; E78.1 Pure hyperglyceridemia; Z23 Encounter for immunization; R82.90 Unspecified abnormal findings in urine | CPT/HCPCS: 80053; 81000; 83036; 87077; 87086; 87184 ==

== ENCOUNTER 2021-02-01 09:44 | Outpatient (CLI) | payer MEDICARE, MEDICAID, SELFPAY | END 2021-02-01 09:45 | disposition home or self-care (01) | LOC: ONCMED 09:46 | PROVIDERS: PCP Nurse Practitioner; Visit Provider Internal Medicine Medical Oncology | DX: C34.11 Malignant neoplasm of upper lobe, right bronchus or lung (principal) | CPT/HCPCS: 36415 ==

== ENCOUNTER 2021-02-15 10:24 | Outpatient (CLI) | payer MEDICARE, MEDICAID, SELFPAY ==
[2021-02-15 11:01] LABS: Basophils # 0.1 10^3/uL (0.0-0.1); Basophils % 0.8 %; Eosinophils # 0.2 10^3/uL (0.0-0.8); Hematocrit 31.7 % (37.0-47.0); Hemoglobin 9.7 g/dL (11.5-15.3); Lymphocytes # 0.5 10^3/uL (0.8-4.8); Lymphocytes % 7.2 %; Mean Corpuscular HGB Conc 30.6 g/dL (30.0-36.0); Mean Corpuscular Hemoglobin 27.5 pg (28.0-34.0); Mean Corpuscular Volume 89.8 fl (81-99); Mean Platelet Volume 9.4 fL (7.4-10.4); Monocytes # 0.7 10^3/uL (0.2-0.9); Monocytes % 9.8 %; Neutrophils # 5.69 10^3/uL (1.8-7.7); Neutrophils % 78.8 %; Nucleated Red Blood Cells % 0 %; Platelet Count 523 10^3/cmm (130-400); Red Blood Count 3.53 10^6/uL (4.1-5.3); Red Cell Distribution Width 15.6 % (12.1-15.1); White Blood Count 7.2 10^3/uL (4.0-10.0)
[2021-02-15 11:25] LABS: Alanine Aminotransferase 11 U/L (0-33); Albumin Level 3.7 g/dL (3.5-5.2); Alkaline Phosphatase 46 IU/L (35-105); Anion Gap 13.8 (5-19); Aspartate Amino Transferase 33 U/L (0-32); Blood Urea Nitrogen 19 mg/dL (8-23); Calcium 9.3 mg/dL (8.5-10.5); Carbon Dioxide 28 mmol/L (22-29); Chloride 101 mmol/L (98-107); Globulin 2.9 g/dL (1.3-4.6); Glucose 74 mg/dL (65-115); Osmolality Calculated 287 mOsm/kg (285-295); Potassium 4.8 mmol/L (3.5-5.1); Sodium 138 mmol/L (136-145); Total Bilirubin 0.2 mg/dL (0.15-1.2); Total Protein 6.6 g/dL (6.6-8.7)
== END 2021-02-15 10:25 | disposition home or self-care (01) ==
LOC: ONCMED 10:26
PROVIDERS: PCP Nurse Practitioner; Visit Provider Internal Medicine Medical Oncology
DX: C34.11 Malignant neoplasm of upper lobe, right bronchus or lung (principal)
CPT/HCPCS: 36415; 80053; 85025

== ENCOUNTER 2021-02-18 06:34 | Outpatient (CLI) | payer MEDICARE, MEDICAID, SELFPAY ==
[2021-02-18 11:25] LABS: Iron 29 ug/dL (37-145); Percent Saturation 6.9 % (20-50); Total Iron Binding Capacity 417 mcg/dl; Unsaturated Iron Binding 388 ug/dL (112-347)
--- NOTE | 2021-02-18 18:34 | ONC FU_ITS ---
Dr. Cartwright Patient Follow-Up Note Patient: Melonie Cross Unit #: [id number]: [id number] Dicatated By: Davy Cartwright M.D.Date of Visit:Feb 18, 2021 Onc Med Follow-up/Prog Note Chief Complaint: Lung cancer and breast cancer. 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 Her chest x-ray on 03/12/2020 showed a faint 2 cm nodular density in the right suprahilar region which was new compared to previous study from 2017. She was recommended to have further evaluation with chest CT. Her noncontrast CT on 03/28/2020 showed a right upper lobe lung mass measuring 2.12 cm. There were no other pulmonary parenchymal lesions noted and there was no significant mediastinal or axillary adenopathy noted. She was then referred to Dr. Polanco and on 04/04/2020 she underwent bronchoscopy/EBUS with FNA biopsy of a station 11R lymph node. There were no endobronchial lesions identified and attempted biopsy of the lung nodule was unsuccessful. The endobronchial ultrasound showed no significant lymphadenopathy. The largest node was in the right hilar node group, and pathology on the FNA was consistent with poorly differentiated nonkeratinizing squamous cell carcinoma. I had seen her initially on 04/25/2020. 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 She was able to come in for staging PET/CT on 04/28/2020. That study showed an FDG avid right upper lobe mass measuring 2.1 cm, SUV 10.9, consistent with primary malignancy. A superior right hilar lymph node was FDG avid with SUV 4.8, consistent with local metastatic disease. The only other area of abnormal uptake was a solid lesion in the superior right breast measuring 1.7 x 1.2 cm with SUV 10.0, suspicious for synchronous primary breast cancer. She was then able to come in for pulmonary function studies on 05/01/2020. Her FEV1 was 1.57 L, 69% of predicted. She had radiation oncology consultation with Dr. Pierre on 06/07/2020. Although with N1 disease she was still potentially an operable candidate, she indicated that due to her social circumstances and requirement for hospitalization, that she would still not consider surgery as a treatment option. She was agreeable, though, to undergo radiation. At that time she had further evaluation for the breast lesion with diagnostic mammogram/ultrasound. It was BI-RADS 5, highly suggestive of malignancy. The mammogram showed a dense heterogeneous focal asymmetric density measuring 2.7 x 2.4 cm, corresponding to the lesion identified by PET/CT. Ultrasound showed a hypoechoic solid irregular mass at the 12 o'clock position measuring 2.3 x 1.8 x 1.5 cm. Also noted was an enlarged lymph node in the right axilla measuring 1.9 x 1.2 x 1.0 cm. On 06/22/2020 she underwent ultrasound-guided biopsy of the breast mass and of the axillary lymph node. Pathology on the breast showed grade 2 invasive ductal carcinoma. It was found to be ER and DC negative, both less < 1%. HER-2/vargas was positive, 3+ by IHC and amplification ratio by FISH of 2.9 with 9.0 HER-2 copies/cell. The lymph node showed sinus histiocytosis. Ultimately, it was determined that she was not an appropriate candidate for SBRT to the lung lesion, and we opted to proceed with standard chemoradiation utilizing weekly carboplatin/placlitaxel for the chemosensitization. We opted to defer further management of the breast cancer until the lung cancer treatment was completed. Her other medical illnesses include COPD, hypertension, hyperlipidemia, type 2 diabetes, and coronary artery disease. She has had previous angioplasty/stent placement. Her medical history is also significant for having undergone right nephrectomy for renal cell carcinoma sometime around 2009. Those records were not available. She does have a history of smoking for 45 years, up to a pack and a half of cigarettes daily. She quit smoking in February 2020. INTERIM HISTORY: She underwent placement of Port-A-Cath venous access device on 08/07/2020 and then she began week 1 carboplatin/paclitaxel concurrently with radiation on 08/16/2020. She tolerated the chemotherapy with acceptable toxicity, but her further management was complicated due to her social circumstances. She received her week 2 chemotherapy on 08/28/2020. She then continued radiation, though with some further interruptions. Due to lack of venous access and multiple failed attempts to obtain venous access, she received no further chemotherapy. She ultimately completed radiation on 10/18/2020 to a total dose of 5800 cGy administered in 29 fractions. Overall, her treatment was very suboptimal, mainly due to her social circumstances. As of her follow-up visit on 12/13/2020 she was mildly anemic with hemoglobin 10.4 g. Her serum iron studies show low transferrin saturation at 4.8%, consistent with iron deficiency, and at that point she began on oral iron supplementation. Restaging chest CT on 12/21/2020 showed progressed right upper lobe spiculated solid mass measuring 2.1 x 1.7 x 2.7 cm. There was no associated mediastinal or hilar lymphadenopathy. With those findings, she had further evaluation with next generation sequencing by liquid biopsy. There were no tumor related somatic alterations detected in the sample, presumably due to low circulating tumor-derived cell-free DNA levels. She had initially declined to return for follow-up, her son and her significant other both having during this time. She had recently called reporting that she had become to weak to walk. I was very concerned that she either had brain or spinal cord metastasis, but she still would not come in for evaluation. She returns now for a follow-up visit. In retrospect, her episode of weakness appears to been related to depression melt down , as she has since then felt somewhat better. She still has limited activity. ECOG score is 2. Appetite is variable. Her weight is down 20 pounds since September. She does not have fever or night sweats. She does not complain of cough. She says her breathing is pretty good. She does have some shortness of breath with more strenuous activity. She does not complain of chest pain. She has nausea, but she manages it adequately with lorazepam. She is having constipation with the iron supplement. She has no complaints. She has occasional pain in her sternal area, but it lasts just a short time. She has some ongoing back pain. She does not complain of headache or dizziness, and she has no focal neurologic symptoms. Medications: Alendronate Sodium (70 mg) Tablet Oral Take as Directed, Anoro Ellipta 1 Inhalation (of 62.5-25 mcg/inh) Aerosol Powder, Breath Activated Inhalation q 24 hours, Aspirin 1 Tablet (of 81 mg) Tablet, chewable Oral daily, Bactroban (2 %) Ointment Topical t.i.d., Benazepril HCl 1 Tablet (of 40 mg) Oral daily, Budesonide (0.5 mg/2mL) Suspension Inhalation b.i.d., Cardizem CD 1 (360 mg) Capsule SR 24 HR Oral daily, Cholecalciferol 1 Tablet (of 50 mcg ) Oral daily, diazePAM 1 (10 mg) Tablet Oral four times a day, Fenofibrate 1 (145 mg) Tablet Oral daily, HYDROcodone-Acetaminophen 1 Tablet (of 10-325 mg) Oral 6x/d, Ipratropium-Albuterol 1 Inhalation (of 0.5-2.5 (3) mg/3mL) Solution Inhalation four times a day, Isosorbide Mononitrate ER 1 Tablet (of 60 mg) Tablet SR 24 HR Oral b.i.d., Magnesium Oxide 1 (400 mg) Capsule Oral b.i.d., Metoprolol Succinate ER 1 Tablet (of 100 mg) Tablet SR 24 HR Oral daily, Nitroglycerin Tablet, sublingual Sublingual PRN, Ondansetron HCl 1 Tablet (of 4 mg) Oral daily, Pantoprazole Sodium 1 (20 mg) Tablet, enteric coated Oral daily, Probiotic & Acidophilus Ex St 1 Capsule Oral daily, Theophylline ER 1 (400 mg) Capsule SR 24 HR Oral daily, Tresiba FlexTouch 75 Units (of 200 Units/mL) Subcutaneous daily, Victoza 1 (18 mg/3mL) Subcutaneous q 24 hours, Xyzal 1 Tablet (of 5 mg) Oral daily Allergies: amLODIPine Besylate, Cephalexin, Erythromycin Base, Penicillins, Propranolol HCl, Tetanus-Diphtheria Toxoids Td, Tetracycline HCl, and ticlopidine. Vital Signs: Performed on Feb 18, 2021 10:36 Height - 66.00 in Weight - 122.8 lbs (LOW) BSA - 1.63 sq.m BMI - 19.82 Temperature - 98.0 F (LOW) Pulse - 85 /min Respiration - 18 /min BP - 111/60 mm(hg) O2 Sat - 95 % (LOW) Pain - 0 Fatigue - 5 Physical Examination: Constitutional - She appears somewhat weak generally, Eyes - Sclerae nonicteric. Conjunctivae clear, ENMT - No lesions noted in the oral cavity, Hematologic/Lymphatic - No cervical, clavicular, or axillary adenopathy, Respiratory - Lungs show some decrease in air movement with slightly coarse breath sounds bilaterally, Cardiovascular - Heart rhythm is irregular. There is a II/ systolic murmur. There is no gallop or rub noted, Abdomen - Soft. Liver and spleen are not enlarged. There is no abdominal mass or ascites noted and there is no inguinal adenopathy, Extremities - No edema, Neurologic - There is mild lower extremity weakness. Lab/Imaging: Test performed on Feb 15, 2021 10:45 Sodium 138 mmol/L Potassium 4.8 mmol/L Chloride 101 mmol/L CO2 28 mmol/L Anion Gap 13.8 BUN 19 mg/dL Creatinine 1.1 mg/dL Cr Clearance (Est) 45.3400 mL/min Glucose 74 mg/dL Osmolality - Calculated 287 mOsm/kg Calcium 9.3 mg/dL Protein, Total 6.6 g/dL Albumin 3.7 g/dL Globulin 2.9 g/dL Bilirubin, Total 0.2 mg/dL ALT (SGPT) 11 U/L AST (SGOT) 33 U/L Alkaline Phosphatase 46 IU/L WBC 7.2 10 3/uL RBC 3.53 10 6/uL HGB 9.7 g/dL HCT 31.7 % MCV 89.8 fl MCH 27.5 pg MCHC 30.6 g/dL RDW 15.6 % Platelet Count 523 10 3/cmm MPV 9.4 fL Neutrophils 5.69 10 3/uL Lymphocytes 0.5 10 3/uL Monocytes 0.7 10 3/uL Eosinophils 0.2 10 3/uL Basophils 0.1 10 3/uL Neutrophil % 78.8 % Lymphocyte % 7.2 % Monocyte % 9.8 % Eosinophil % 3.0 % Basophils % 0.8 % NRBC % 0 % Problem List: 1. 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 By clinical evaluation her disease appears to be stage IIB (T1c, N1, M0). 2. Grade 2 invasive ductal carcinoma of the right breast, ER/DC negative and HER-2/vargas positive. 3. COPD. 4. Hypertension. 5. Hyperlipidemia. 6. Type 2 diabetes. 7. Coronary artery disease with previous angioplasty/stent placement. 8. Chronic kidney disease. 9. GERD. 10. 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 11. She underwent right nephrectomy for renal cell carcinoma approximately 2009. Problems Addressed with this Encounter and Plan: 1. 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 By clinical evaluation her disease appears to be stage IIB (T1c, N1, M0). 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 As such, she had been adamantly opposed to undergoing surgery for the lung cancer. As an alternative, she was given the option to undergo chemoradiation utilizing a standard weekly carboplatin/paclitaxel chemotherapy regimen. She began her week 1 carboplatin/paclitaxel concurrently with radiation on 08/16/2020. She tolerated it without significant toxicity, but her further treatment was interrupted due to her social circumstances. She received her week 2 carboplatin/paclitaxel on 08/28/2020. Due to lack of venous access despite multiple attempts to place a venous access device, she received no further chemotherapy. She completed radiation on 10/18/2020 to a total dose of 5800 cGy administered in 29 fractions. Overall, her treatment was very suboptimal, mostly due to her social circumstances. Her restaging chest CT on 12/21/2020 showed progression of the right upper lobe spiculated solid mass measuring 2.1 x 1.7 x 2.7 cm. There was no associated mediastinal or hilar adenopathy. Her next generation sequencing liquid biopsy was nonrevealing, presumably due to low levels of circulating tumor DNA. Thus far she has declined additional evaluation or further treatment of the lung cancer. She is agreeable to having repeat chest CT with her follow-up visit in 1 month, but she is inclined now to just continue with symptomatic/supportive care measures and to transition to hospice at the appropriate time. 2. She has been found to have grade 2 invasive ductal carcinoma in situ of the right breast, ER/DC negative and HER/2/vargas positive. She is wanting to defer any further treatment for it. 3. She has iron deficiency anemia. It is not correcting on oral iron supplementation, which she is tolerating poorly due to constipation. As such, she will be given parenteral iron replacement with 2 infusions of Injectafer, subject to verification of insurance coverage. 4. She is having significant depression. She will start venlafaxine ER 75 mg daily. Signed By: Davy Cartwright M.D. <<Signature on File>>
== END 2021-02-18 06:35 | disposition home or self-care (01) ==
LOC: ONCMED 06:35
PROVIDERS: PCP Nurse Practitioner; Visit Provider Internal Medicine Medical Oncology
DX: C34.11 Malignant neoplasm of upper lobe, right bronchus or lung (principal); C50.811 Malignant neoplasm of overlapping sites of right female breast; Z17.1 Estrogen receptor negative status [ER-]; J44.9 Chronic obstructive pulmonary disease, unspecified; E78.5 Hyperlipidemia, unspecified; E11.59 Type 2 diabetes mellitus with other circulatory complications; I25.10 Atherosclerotic heart disease of native coronary artery without angina pectoris; E11.22 Type 2 diabetes mellitus with diabetic chronic kidney disease; N18.9 Chronic kidney disease, unspecified; I12.9 Hypertensive chronic kidney disease with stage 1 through stage 4 chronic kidney disease, or unspecified chronic kidney disease; K21.9 Gastro-esophageal reflux disease without esophagitis; M47.9 Spondylosis, unspecified; M54.50 Low back pain, unspecified; Z85.53 Personal history of malignant neoplasm of renal pelvis; Z90.5 Acquired absence of kidney; Z92.21 Personal history of antineoplastic chemotherapy; Z92.3 Personal history of irradiation; Z87.891 Personal history of nicotine dependence; Z79.899 Other long term (current) drug therapy
CPT/HCPCS: 83540; 83550; 99215

== ENCOUNTER 2021-02-22 06:27 | Outpatient (CLI) | payer MEDICARE, MEDICAID, SELFPAY ==
[2021-02-22] MEDS: ferric carboxy (IVPB) 750 MG in sodium chloride 0.9% (100 ml) 100 ML 460 MG IV (10:00)
== END 2021-02-22 06:28 | disposition home or self-care (01) ==
LOC: ONCMED 06:27
PROVIDERS: PCP Nurse Practitioner; Visit Provider Internal Medicine Medical Oncology
DX: D50.9 Iron deficiency anemia, unspecified (principal); Z79.899 Other long term (current) drug therapy
CPT/HCPCS: 96365; J1439

== ENCOUNTER 2021-03-01 06:37 | Outpatient (CLI) | payer MEDICARE, MEDICAID, SELFPAY ==
[2021-03-01] MEDS: sodium chloride 0.9% (100 ml) 100 ML 999 ML IV (10:40)
[2021-03-01] MEDS: ferric carboxy (PYXIS) 750 mg/15 mL INJ IV (10:40)
== END 2021-03-01 06:38 | disposition home or self-care (01) ==
LOC: ONCMED 06:37
PROVIDERS: PCP Nurse Practitioner; Visit Provider Internal Medicine Medical Oncology
DX: D50.9 Iron deficiency anemia, unspecified (principal)
CPT/HCPCS: 96365; J1439

== ENCOUNTER 2021-03-18 09:13 | Outpatient (CLI) | payer MEDICARE, MEDICAID, SELFPAY ==
--- NOTE | 2021-03-18 | CT_ITS ---
WS: [id number] CT CHEST TECHNIQUE: Contrast enhanced CT of the chest with coronal and sagittal reformatted images. CLINICAL INFORMATION: RUL NEOPLASM COMPARISON: CT chest December 21, 2020 DLP: 670.[address] scans at [facility] use at least one of these dose optimization techniques: automated e xposure control; mA and/or kV adjustment per patient size (includes targeted exams where dose is matc hed to clinical indication); or iterative reconstruction. FINDINGS: Again seen is the spiculated right upper lobe mass which has progressed compared to December 21 1. Today this measures 2.2 x 3.1 x 2.9 CM compared to previous 2.1 x 1.7 x 2.7 cm. In addition, there are multiple new subcentimeter nodules within the right upper lobe, right lower lobe, left lower lob e and left upper lobe suspicious for metastatic disease. Largest nodules measure approximately 4 to 5 mm. Numerous new tiny faint nodules more prominent in the right lung. Dense aortic calcification. Coronary calcification. Normal caliber thoracic aorta. Adrenal glands are normal. Cholecystectomy clips. Multinodular thyroid unchanged. Stable right breast seroma. Enlarged nodules in the right axilla. New compared to previous largest measuring 1.[address]/CT chest w con* [id number] IMPRESSION: 1. Spiculated right upper lobe mass has progressed compared to previous. Today this measures 2.2 x 3.1 x 2.9 CM compared to previous 2.1 x 1.7 x 2.7 cm. 2. Numerous new small subcentimeter nodules in both lungs largest measuring 4 to 5 mm suspicious for metastatic disease. 3. New Right axillary lymphadenopathy. 4. Stable right breast seroma
[2021-03-18] MEDS: iodixanol 320 mg/mL 100mL Btl IV (12:22)
== END 2021-03-18 09:14 | disposition home or self-care (01) ==
PROVIDERS: PCP Nurse Practitioner; Visit Provider Internal Medicine Medical Oncology
DX: C34.11 Malignant neoplasm of upper lobe, right bronchus or lung (principal); R91.8 Other nonspecific abnormal finding of lung field; R59.0 Localized enlarged lymph nodes; N64.89 Other specified disorders of breast
CPT/HCPCS: 71260; Q9967

== ENCOUNTER 2021-04-03 09:23 | Outpatient (CLI) | payer MEDICARE, MEDICAID, SELFPAY ==
[2021-04-03 09:51] LABS: Basophils # 0.1 10^3/uL (0.0-0.1); Basophils % 0.7 %; Eosinophils % 0.4 %; Hematocrit 34.8 % (37.0-47.0); Hemoglobin 10.8 g/dL (11.5-15.3); Lymphocytes # 0.6 10^3/uL (0.8-4.8); Lymphocytes % 7.8 %; Mean Corpuscular Hemoglobin 29.3 pg (28.0-34.0); Mean Corpuscular Volume 94.6 fl (81-99); Mean Platelet Volume 9.5 fL (7.4-10.4); Monocytes # 0.6 10^3/uL (0.2-0.9); Monocytes % 8.7 %; Neutrophils # 6.07 10^3/uL (1.8-7.7); Neutrophils % 82.1 %; Nucleated Red Blood Cells % 0 %; Platelet Count 432 10^3/cmm (130-400); Red Blood Count 3.68 10^6/uL (4.1-5.3); Red Cell Distribution Width 18.5 % (12.1-15.1); White Blood Count 7.4 10^3/uL (4.0-10.0)
[2021-04-03 10:20] LABS: Alanine Aminotransferase 12 U/L (0-33); Albumin Level 3.9 g/dL (3.5-5.2); Alkaline Phosphatase 59 IU/L (35-105); Anion Gap 18.7 (5-19); Aspartate Amino Transferase 27 U/L (0-32); Blood Urea Nitrogen 24 mg/dL (8-23); Carbon Dioxide 22 mmol/L (22-29); Chloride 104 mmol/L (98-107); Globulin 2.9 g/dL (1.3-4.6); Glucose 120 mg/dL (65-115); Iron 39 ug/dL (37-145); Osmolality Calculated 295 mOsm/kg (285-295); Percent Saturation 10.6 % (20-50); Potassium 4.7 mmol/L (3.5-5.1); Sodium 140 mmol/L (136-145); Total Bilirubin 0.2 mg/dL (0.15-1.2); Total Iron Binding Capacity 365 mcg/dl; Total Protein 6.8 g/dL (6.6-8.7); Unsaturated Iron Binding 326 ug/dL (112-347)
--- NOTE | 2021-04-03 12:47 | ONC FU_ITS ---
Dr. Cartwright Patient Follow-Up Note Patient: Melonie Cross Unit #: [id number]: [id number] Dicatated By: Davy Cartwright M.D.Date of Visit:Apr 03, 2021 Onc Med Follow-up/Prog Note Chief Complaint: Lung cancer/breast cancer/anemia. 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 Her chest x-ray on 03/12/2020 showed a faint 2 cm nodular density in the right suprahilar region which was new compared to previous study from 2017. She was recommended to have further evaluation with chest CT. Her noncontrast CT on 03/28/2020 showed a right upper lobe lung mass measuring 2.12 cm. There were no other pulmonary parenchymal lesions noted and there was no significant mediastinal or axillary adenopathy noted. She was then referred to Dr. Polanco and on 04/04/2020 she underwent bronchoscopy/EBUS with FNA biopsy of a station 11R lymph node. There were no endobronchial lesions identified and attempted biopsy of the lung nodule was unsuccessful. The endobronchial ultrasound showed no significant lymphadenopathy. The largest node was in the right hilar node group, and pathology on the FNA was consistent with poorly differentiated nonkeratinizing squamous cell carcinoma. I had seen her initially on 04/25/2020. 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 She was able to come in for staging PET/CT on 04/28/2020. That study showed an FDG avid right upper lobe mass measuring 2.1 cm, SUV 10.9, consistent with primary malignancy. A superior right hilar lymph node was FDG avid with SUV 4.8, consistent with local metastatic disease. The only other area of abnormal uptake was a solid lesion in the superior right breast measuring 1.7 x 1.2 cm with SUV 10.0, suspicious for synchronous primary breast cancer. She was then able to come in for pulmonary function studies on 05/01/2020. Her FEV1 was 1.57 L, 69% of predicted. She had radiation oncology consultation with Dr. Pierre on 06/07/2020. Although with N1 disease she was still potentially an operable candidate, she indicated that due to her social circumstances and requirement for hospitalization, that she would still not consider surgery as a treatment option. She was agreeable, though, to undergo radiation. At that time she had further evaluation for the breast lesion with diagnostic mammogram/ultrasound. It was BI-RADS 5, highly suggestive of malignancy. The mammogram showed a dense heterogeneous focal asymmetric density measuring 2.7 x 2.4 cm, corresponding to the lesion identified by PET/CT. Ultrasound showed a hypoechoic solid irregular mass at the 12 o'clock position measuring 2.3 x 1.8 x 1.5 cm. Also noted was an enlarged lymph node in the right axilla measuring 1.9 x 1.2 x 1.0 cm. On 06/22/2020 she underwent ultrasound-guided biopsy of the breast mass and of the axillary lymph node. Pathology on the breast showed grade 2 invasive ductal carcinoma. It was found to be ER and MT negative, both less < 1%. HER-2/vargas was positive, 3+ by IHC and amplification ratio by FISH of 2.9 with 9.0 HER-2 copies/cell. The lymph node showed sinus histiocytosis. Ultimately, it was determined that she was not an appropriate candidate for SBRT to the lung lesion, and we opted to proceed with standard chemoradiation utilizing weekly carboplatin/placlitaxel for the chemosensitization. We opted to defer further management of the breast cancer until the lung cancer treatment was completed. Her other medical illnesses include COPD, hypertension, hyperlipidemia, type 2 diabetes, and coronary artery disease. She has had previous angioplasty/stent placement. Her medical history is also significant for having undergone right nephrectomy for renal cell carcinoma sometime around 2009. Those records were not available. She does have a history of smoking for 45 years, up to a pack and a half of cigarettes daily. She quit smoking in February 2020. INTERIM HISTORY: She underwent placement of Port-A-Cath venous access device on 08/07/2020 and then she began week 1 carboplatin/paclitaxel concurrently with radiation on 08/16/2020. She tolerated the chemotherapy with acceptable toxicity, but her further management was complicated due to her social circumstances. She received her week 2 chemotherapy on 08/28/2020. She then continued radiation, though with some further interruptions. Due to lack of venous access and multiple failed attempts to obtain venous access, she received no further chemotherapy. She ultimately completed radiation on 10/18/2020 to a total dose of 5800 cGy administered in 29 fractions. Overall, her treatment was very suboptimal, mainly due to her social circumstances. As of her follow-up visit on 12/13/2020 she was mildly anemic with hemoglobin 10.4 g. Her serum iron studies show low transferrin saturation at 4.8%, consistent with iron deficiency, and at that point she began on oral iron supplementation. Restaging chest CT on 12/21/2020 showed progressed right upper lobe spiculated solid mass measuring 2.1 x 1.7 x 2.7 cm. There was no associated mediastinal or hilar lymphadenopathy. With those findings, she had further evaluation with next generation sequencing by liquid biopsy. There were no tumor related somatic alterations detected in the sample, presumably due to low circulating tumor-derived cell-free DNA levels. She had initially declined to return for follow-up, her son and her significant other both having during this time. She had then called to report that she had become too weak to walk. She eventually agreed to return here for a visit on 02/18/2021. Her hemoglobin had declined to 9.7 g. Her transferrin saturation was low at 6.9%, consistent with iron deficiency. As she had been intolerant of oral iron, she was given parenteral iron replacement with 2 infusions of Injectafer. She tolerated it well. Restaging chest CT on 03/18/2021 showed slight increase in the right upper lobe spiculated mass measuring 2.2 x 3.1 x 2.9 cm. Numerous small subcentimeter nodules were noted in both lung gusman, the largest measuring 4 to 5 mm. There were new from the prior studies and suspicious for metastatic disease. She is seen for a follow-up visit. She has noted some improvement in her energy and activity tolerance following the parenteral iron infusions. She is trying to be more active. ECOG score is 1. She has good appetite. She does not have fever or night sweats. She complains of having a runny nose. She has not had sore mouth or throat and she does not complain of cough. Her breathing is pretty good. She has not been having chest pain. She has had occasional episodes of nausea/vomiting. She has no other GI or complaints. She continues to have burning pain in her lower back. Is being managed with a combination of oxycodone and hydrocodone/APAP. She does not complain of headache or dizziness, and she has no focal neurologic symptoms. Medications: Alendronate Sodium (70 mg) Tablet Oral Take as Directed, Anoro Ellipta 1 Inhalation (of 62.5-25 mcg/inh) Aerosol Powder, Breath Activated Inhalation q 24 hours, Aspirin 1 Tablet (of 81 mg) Tablet, chewable Oral daily, Bactroban (2 %) Ointment Topical t.i.d., Benazepril HCl 1 Tablet (of 40 mg) Oral daily, Budesonide (0.5 mg/2mL) Suspension Inhalation b.i.d., Cardizem CD 1 (360 mg) Capsule SR 24 HR Oral daily, Cholecalciferol 1 Tablet (of 50 mcg ) Oral daily, diazePAM 1 (10 mg) Tablet Oral four times a day, Fenofibrate 1 (145 mg) Tablet Oral daily, HYDROcodone-Acetaminophen 2 Tablet (of 10-325 mg) Oral 8x/d, Ipratropium-Albuterol 1 Inhalation (of 0.5-2.5 (3) mg/3mL) Solution Inhalation four times a day, Isosorbide Mononitrate ER 1 Tablet (of 60 mg) Tablet SR 24 HR Oral b.i.d., Magnesium Oxide 1 (400 mg) Capsule Oral b.i.d., Metoprolol Succinate ER 1 Tablet (of 100 mg) Tablet SR 24 HR Oral daily, Nitroglycerin Tablet, sublingual Sublingual PRN, Ondansetron HCl 1 Tablet (of 4 mg) Oral daily, oxyCODONE HCl 1 Tablet (of 15 mg) Oral four times a day, Pantoprazole Sodium 1 (20 mg) Tablet, enteric coated Oral daily, Probiotic & Acidophilus Ex St 1 Capsule Oral daily, Theophylline ER 1 (400 mg) Capsule SR 24 HR Oral daily, Tresiba FlexTouch 75 Units (of 200 Units/mL) Subcutaneous daily, Victoza 1 (18 mg/3mL) Subcutaneous q 24 hours, Xyzal 1 Tablet (of 5 mg) Oral daily Allergies: amLODIPine Besylate, Cephalexin, Erythromycin Base, Penicillins, Propranolol HCl, Tetanus-Diphtheria Toxoids Td, Tetracycline HCl, and ticlopidine. Vital Signs: Performed on Apr 03, 2021 11:36 Height - 66.00 in Weight - 117.6 lbs (LOW) BSA - 1.60 sq.m BMI - 18.98 Temperature - 96.9 F (LOW) Pulse - 83 /min Respiration - 16 /min BP - 109/63 mm(hg) O2 Sat - 94 % (LOW) Pain - 0 Fatigue - 5 Physical Examination: Constitutional - She looks a little better generally, Eyes - Sclerae nonicteric. Conjunctivae clear, ENMT - No lesions noted in the oral cavity, Hematologic/Lymphatic - No cervical or clavicular adenopathy. There is a soft node in the anterior aspect of the right axilla which measures about 2 cm, Respiratory - Lungs show slightly coarse breath sounds along with some decrease in air movement bilaterally, Cardiovascular - Heart rhythm is regular. There is a II/ systolic murmur. There is no gallop or rub noted, Abdomen - Soft. Liver and spleen are not enlarged. There is no abdominal mass or ascites noted and there is no inguinal adenopathy, Extremities - No edema, Neurologic - No focal neurologic deficits noted. Lab/Imaging: Test performed on Apr 03, 2021 09:42 Iron 39 mcg/dL Sodium 140 mmol/L Iron Binding Capacity (TIBC) 365 mcg/dl Potassium 4.7 mmol/L % Iron Saturation 10.6 % Chloride 104 mmol/L CO2 22 mmol/L UIBC 326 mcg/dL Anion Gap 18.7 BUN 24 mg/dL Creatinine 1.2 mg/dL Cr Clearance (Est) 35.16 mL/min Glucose 120 mg/dL Osmolality - Calculated 295 mOsm/kg Calcium 9.0 mg/dL Protein, Total 6.8 g/dL Albumin 3.9 g/dL Globulin 2.9 g/dL Bilirubin, Total 0.2 mg/dL ALT (SGPT) 12 U/L AST (SGOT) 27 U/L Alkaline Phosphatase 59 IU/L WBC 7.4 10 3/uL RBC 3.68 10 6/uL HGB 10.8 g/dL HCT 34.8 % MCV 94.6 fl MCH 29.3 pg MCHC 31.0 g/dL RDW 18.5 % Platelet Count 432 10 3/cmm MPV 9.5 fL Neutrophils 6.07 10 3/uL Lymphocytes 0.6 10 3/uL Monocytes 0.6 10 3/uL Eosinophils 0.0 10 3/uL Basophils 0.1 10 3/uL Neutrophil % 82.1 % Lymphocyte % 7.8 % Monocyte % 8.7 % Eosinophil % 0.4 % Basophils % 0.7 % NRBC % 0 % Problem List: 1. 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 By clinical evaluation her disease appears to be stage IIB (T1c, N1, M0). 2. Grade 2 invasive ductal carcinoma of the right breast, ER/MT negative and HER-2/vargas positive. 3. COPD. 4. Hypertension. 5. Hyperlipidemia. 6. Type 2 diabetes. 7. Coronary artery disease with previous angioplasty/stent placement. 8. Chronic kidney disease. 9. GERD. 10. 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 11. She underwent right nephrectomy for renal cell carcinoma approximately 2009. Problems Addressed with this Encounter and Plan: 1. 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 By clinical evaluation her disease appears to be stage IIB (T1c, N1, M0). 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 As such, she had been adamantly opposed to undergoing surgery for the lung cancer. As an alternative, she was given the option to undergo chemoradiation utilizing a standard weekly carboplatin/paclitaxel chemotherapy regimen. She began her week 1 carboplatin/paclitaxel concurrently with radiation on 08/16/2020. She tolerated it without significant toxicity, but her further treatment was interrupted due to her social circumstances. She received her week 2 carboplatin/paclitaxel on 08/28/2020. Due to lack of venous access despite multiple attempts to place a venous access device, she received no further chemotherapy. She completed radiation on 10/18/2020 to a total dose of 5800 cGy administered in 29 fractions. Overall, her treatment was very suboptimal, mostly due to her social circumstances. Her restaging chest CT on 12/21/2020 showed progression of the right upper lobe spiculated solid mass measuring 2.1 x 1.7 x 2.7 cm. There was no associated mediastinal or hilar adenopathy. Her next generation sequencing liquid biopsy was nonrevealing, presumably due to low levels of circulating tumor DNA. Thus far she has had no further treatment for the lung cancer. Her restaging chest CT on 03/18/2021 showed just a slight increase in the right upper lobe mass, but there were new subcentimeter pulmonary nodules bilaterally consistent with metastatic disease. As she is not overtly symptomatic, for now she will remain on observation, but at this point I will repeat a next generation sequencing by liquid biopsy. 2. She was found to have grade 2 invasive ductal carcinoma in situ of the right breast, ER/MT negative and HER/2/vargas positive. Further treatment was deferred due to the lung cancer. She now has evidence of right axillary adenopathy. 3. She has iron deficiency anemia. As it was not correcting on oral iron and she was not tolerating it well, in February she was given parenteral iron with 2 infusions of Injectafer. She has had some response, but she is still mildly anemic with transferrin saturation low at 10.6%. As such, she will be scheduled for 2 additional infusions of Injectafer. She will be scheduled for 1-month interval follow-up. Signed By: Davy Cartwright M.D. <<Signature on File>>
== END 2021-04-03 09:24 | disposition home or self-care (01) ==
LOC: ONCMED 09:32
PROVIDERS: PCP Nurse Practitioner; Visit Provider Internal Medicine Medical Oncology
DX: C50.911 Malignant neoplasm of unspecified site of right female breast (principal); Z17.1 Estrogen receptor negative status [ER-]; Z15.01 Genetic susceptibility to malignant neoplasm of breast; C34.11 Malignant neoplasm of upper lobe, right bronchus or lung; J44.9 Chronic obstructive pulmonary disease, unspecified; I10 Essential (primary) hypertension; E78.5 Hyperlipidemia, unspecified; E11.22 Type 2 diabetes mellitus with diabetic chronic kidney disease; I12.9 Hypertensive chronic kidney disease with stage 1 through stage 4 chronic kidney disease, or unspecified chronic kidney disease; N18.9 Chronic kidney disease, unspecified; K21.9 Gastro-esophageal reflux disease without esophagitis; G89.29 Other chronic pain; M54.9 Dorsalgia, unspecified; Z85.528 Personal history of other malignant neoplasm of kidney; Z90.5 Acquired absence of kidney
CPT/HCPCS: 36415; 80053; 83540; 83550; 85025; 99214

== ENCOUNTER 2021-04-04 06:47 | Outpatient (CLI) | payer MEDICARE, MEDICAID, SELFPAY ==
[2021-04-04] MEDS: ferric carboxy (IVPB) 750 MG in sodium chloride 0.9% (100 ml) 100 ML 460 MG IV (10:10)
== END 2021-04-04 06:48 | disposition home or self-care (01) ==
PROVIDERS: PCP Nurse Practitioner; Visit Provider Internal Medicine Medical Oncology
DX: D50.9 Iron deficiency anemia, unspecified (principal)
CPT/HCPCS: 96365; J1439

== ENCOUNTER 2021-04-11 06:34 | Outpatient (CLI) | payer MEDICARE, MEDICAID, SELFPAY ==
[2021-04-11] MEDS: ferric carboxy (IVPB) 750 MG in sodium chloride 0.9% (100 ml) 100 ML 345 MG IV (09:50)
== END 2021-04-11 06:35 | disposition home or self-care (01) ==
LOC: ONCMED 06:35
PROVIDERS: PCP Nurse Practitioner; Visit Provider Internal Medicine Medical Oncology
DX: D50.9 Iron deficiency anemia, unspecified (principal); Z79.899 Other long term (current) drug therapy
CPT/HCPCS: 96365; J1439

== ENCOUNTER → 2021-04-22 11:41 | Outpatient (BNVA) | payer MEDICARE, MEDICAID, SELFPAY | PROVIDERS: PCP Nurse Practitioner; Visit Provider Nurse Practitioner | DX: E11.65 Type 2 diabetes mellitus with hyperglycemia (principal); Z79.4 Long term (current) use of insulin | CPT/HCPCS: 80053; 80061; 82043; 83036; 84443 ==

== ENCOUNTER 2021-04-26 09:29 | Outpatient (CLI) | payer MEDICARE, MEDICAID, SELFPAY | END 2021-04-26 09:30 | disposition home or self-care (01) | LOC: ONCMED 09:33 | PROVIDERS: PCP Nurse Practitioner; Visit Provider Internal Medicine Medical Oncology | DX: C34.90 Malignant neoplasm of unspecified part of unspecified bronchus or lung (principal) | CPT/HCPCS: 36415 ==

== ENCOUNTER 2021-05-09 08:37 | Outpatient (CLI) | payer MEDICARE, MEDICAID, SELFPAY ==
[2021-05-09 09:22] LABS: Basophils % 0.4 %; Eosinophils % 0.4 %; Hematocrit 39.3 % (37.0-47.0); Hemoglobin 12.4 g/dL (11.5-15.3); Lymphocytes # 0.6 10^3/uL (0.8-4.8); Lymphocytes % 11.9 %; Mean Corpuscular HGB Conc 31.6 g/dL (30.0-36.0); Mean Corpuscular Hemoglobin 30.7 pg (28.0-34.0); Mean Corpuscular Volume 97.3 fl (81-99); Mean Platelet Volume 9.8 fL (7.4-10.4); Monocytes # 0.5 10^3/uL (0.2-0.9); Monocytes % 10.8 %; Neutrophils # 3.51 10^3/uL (1.8-7.7); Neutrophils % 76.1 %; Nucleated Red Blood Cells % 0 %; Platelet Count 345 10^3/cmm (130-400); Red Blood Count 4.04 10^6/uL (4.1-5.3); Red Cell Distribution Width 17.9 % (12.1-15.1); White Blood Count 4.6 10^3/uL (4.0-10.0)
[2021-05-09 09:40] LABS: Alanine Aminotransferase 10 U/L (0-33); Albumin Level 3.8 g/dL (3.5-5.2); Alkaline Phosphatase 83 IU/L (35-105); Anion Gap 17.5 (5-19); Aspartate Amino Transferase 32 U/L (0-32); Blood Urea Nitrogen 18 mg/dL (8-23); Calcium 9.8 mg/dL (8.5-10.5); Carbon Dioxide 24 mmol/L (22-29); Chloride 97 mmol/L (98-107); Globulin 2.8 g/dL (1.3-4.6); Glucose 86 mg/dL (65-115); Iron 51 ug/dL (37-145); Osmolality Calculated 279 mOsm/kg (285-295); Potassium 4.5 mmol/L (3.5-5.1); Sodium 134 mmol/L (136-145); Total Bilirubin 0.2 mg/dL (0.15-1.2); Total Iron Binding Capacity 283 mcg/dl; Total Protein 6.6 g/dL (6.6-8.7); Unsaturated Iron Binding 232 ug/dL (112-347)
--- NOTE | 2021-05-09 12:10 | XRR_ITS ---
PROCEDURE INFORMATION: Exam: XR Pelvis Exam date and time: 05/09/2021 12:10 PM Age: 76 years old Clinical indication: Prior surgery; Surgery type: Kidney, ovarian; Patient HX: Abd pain, low back pain, trouble urinating. Cancer (type)--lung, breast, kidney; Additional info: Lung cancer/back pain TECHNIQUE: Imaging protocol: XR pelvis. Views: 1 or 2 view. COMPARISON: CR XR KUB portable [id number] 05/31/2020 11:32 PM FINDINGS: Bones/joints: Degenerative changes are present in the lower lumbar spine with joint space narrowing sclerosis and osteophytes. The hip joints are unremarkable. Soft tissues: Unremarkable. Gastrointestinal tract: There is a prominent amount of stool in the colon consistent with constipation. Organs: There is a 16 mm calcification in the mid pelvis consistent with a calcified fibroid. XR/XR pelvis 1-2V* [id number] IMPRESSION: 1. Prominent amount of stool. 2. Degenerative disease in the spine. 3. No acute abnormality.
--- NOTE | 2021-05-09 12:10 | XRR_ITS ---
PROCEDURE INFORMATION: Exam: XR Abdomen Exam date and time: 05/09/2021 12:10 PM Age: 76 years old Clinical indication: Abdominal pain; Generalized; Prior surgery; Surgery type: Kidney ovarian; Patient HX: Cancer (type)--lung, breast, kidney. Abd pain, low back pain, trouble urinating; Additional info: Lung cancer/constipation/back pain TECHNIQUE: Imaging protocol: XR of the abdomen. Views: 2 Views. Upright and supine views. COMPARISON: CR XR KUB portable [id number] 05/31/2020 11:32 PM FINDINGS: Gastrointestinal tract: There is a prominent amount of stool in the colon and rectum which is consistent with history of constipation. There is no evidence of small bowel obstruction or dilatation. Intraperitoneal space: Surgical clips are present in the right upper quadrant. Organs: There is a small calcified uterine fibroid. Vasculature: The aorta and iliac arteries are calcified. Bones/joints: There is lumbar spine scoliosis and DJD. XR/XR abdomen min 2V [id number] IMPRESSION: 1. Prominent amount of stool consistent with constipation. 2. No acute abnormality. The small bowel is not dilated.
--- NOTE | 2021-05-09 12:10 | XRR_ITS ---
PROCEDURE INFORMATION: Exam: XR Lumbosacral Spine Exam date and time: 05/09/2021 12:10 PM Age: 76 years old Clinical indication: Low back pain; Patient HX: Cancer (type)--lung, breast, kidney; Additional info: Back pain/lung cancer TECHNIQUE: Imaging protocol: XR of the lumbosacral spine. Views: 2 or 3 views. COMPARISON: CR XR pelvis 1-2V* [id number] 05/09/2021 12:20 PM FINDINGS: Bones/joints: Chronic degenerative changes are present in the lumbar spine especially from L2-S1 with disc space narrowing sclerosis and osteophytes. There is moderate scoliosis. There is no fracture or other acute abnormality. Soft tissues: Unremarkable. Vasculature: The aorta and iliac arteries are calcified. XR/XR lumbar spine 2-3V* [id number] IMPRESSION: Degenerative disease and scoliosis. No acute bony abnormality.
--- NOTE | 2021-05-09 19:04 | ONC FU_ITS ---
Dr. Cartwright Patient Follow-Up Note Patient: Melonie Cross Unit #: [id number]: 1945 Dicatated By: Davy Cartwright M.D.Date of Visit:May 09, 2021 Onc Med Follow-up/Prog Note Chief Complaint: Lung cancer/breast cancer/anemia. 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 Her chest x-ray on 03/12/2020 showed a faint 2 cm nodular density in the right suprahilar region which was new compared to previous study from 2017. She was recommended to have further evaluation with chest CT. Her noncontrast CT on 03/28/2020 showed a right upper lobe lung mass measuring 2.12 cm. There were no other pulmonary parenchymal lesions noted and there was no significant mediastinal or axillary adenopathy noted. She was then referred to Dr. Polanco and on 04/04/2020 she underwent bronchoscopy/EBUS with FNA biopsy of a station 11R lymph node. There were no endobronchial lesions identified and attempted biopsy of the lung nodule was unsuccessful. The endobronchial ultrasound showed no significant lymphadenopathy. The largest node was in the right hilar node group, and pathology on the FNA was consistent with poorly differentiated nonkeratinizing squamous cell carcinoma. I had seen her initially on 04/25/2020. 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 She was able to come in for staging PET/CT on 04/28/2020. That study showed an FDG avid right upper lobe mass measuring 2.1 cm, SUV 10.9, consistent with primary malignancy. A superior right hilar lymph node was FDG avid with SUV 4.8, consistent with local metastatic disease. The only other area of abnormal uptake was a solid lesion in the superior right breast measuring 1.7 x 1.2 cm with SUV 10.0, suspicious for synchronous primary breast cancer. She was then able to come in for pulmonary function studies on 05/01/2020. Her FEV1 was 1.57 L, 69% of predicted. She had radiation oncology consultation with Dr. Pierre on 06/07/2020. Although with N1 disease she was still potentially an operable candidate, she indicated that due to her social circumstances and requirement for hospitalization, that she would still not consider surgery as a treatment option. She was agreeable, though, to undergo radiation. At that time she had further evaluation for the breast lesion with diagnostic mammogram/ultrasound. It was BI-RADS 5, highly suggestive of malignancy. The mammogram showed a dense heterogeneous focal asymmetric density measuring 2.7 x 2.4 cm, corresponding to the lesion identified by PET/CT. Ultrasound showed a hypoechoic solid irregular mass at the 12 o'clock position measuring 2.3 x 1.8 x 1.5 cm. Also noted was an enlarged lymph node in the right axilla measuring 1.9 x 1.2 x 1.0 cm. On 06/22/2020 she underwent ultrasound-guided biopsy of the breast mass and of the axillary lymph node. Pathology on the breast showed grade 2 invasive ductal carcinoma. It was found to be ER and GA negative, both less < 1%. HER-2/vargas was positive, 3+ by IHC and amplification ratio by FISH of 2.9 with 9.0 HER-2 copies/cell. The lymph node showed sinus histiocytosis. Ultimately, it was determined that she was not an appropriate candidate for SBRT to the lung lesion, and we opted to proceed with standard chemoradiation utilizing weekly carboplatin/placlitaxel for the chemosensitization. We opted to defer further management of the breast cancer until the lung cancer treatment was completed. Her other medical illnesses include COPD, hypertension, hyperlipidemia, type 2 diabetes, and coronary artery disease. She has had previous angioplasty/stent placement. Her medical history is also significant for having undergone right nephrectomy for renal cell carcinoma sometime around 2009. Those records were not available. She does have a history of smoking for 45 years, up to a pack and a half of cigarettes daily. She quit smoking in February 2020. INTERIM HISTORY: She underwent placement of Port-A-Cath venous access device on 08/07/2020 and then she began week 1 carboplatin/paclitaxel concurrently with radiation on 08/16/2020. She tolerated the chemotherapy with acceptable toxicity, but her further management was complicated due to her social circumstances. She received her week 2 chemotherapy on 08/28/2020. She then continued radiation, though with some further interruptions. Due to lack of venous access and multiple failed attempts to obtain venous access, she received no further chemotherapy. She ultimately completed radiation on 10/18/2020 to a total dose of 5800 cGy administered in 29 fractions. Overall, her treatment was very suboptimal, mainly due to her social circumstances. As of her follow-up visit on 12/13/2020 she was mildly anemic with hemoglobin 10.4 g. Her serum iron studies show low transferrin saturation at 4.8%, consistent with iron deficiency, and at that point she began on oral iron supplementation. Restaging chest CT on 12/21/2020 showed progressed right upper lobe spiculated solid mass measuring 2.1 x 1.7 x 2.7 cm. There was no associated mediastinal or hilar lymphadenopathy. With those findings, she had further evaluation with next generation sequencing by liquid biopsy. There were no tumor related somatic alterations detected in the sample, presumably due to low circulating tumor-derived cell-free DNA levels. She had initially declined to return for follow-up, her son and her significant other both having during this time. She had then called to report that she had become too weak to walk. She eventually agreed to return here for a visit on 02/18/2021. Her hemoglobin had declined to 9.7 g. Her transferrin saturation was low at 6.9%, consistent with iron deficiency. As she had been intolerant of oral iron, she was given parenteral iron replacement with 2 infusions of Injectafer. She tolerated it well. Restaging chest CT on 03/18/2021 showed slight increase in the right upper lobe spiculated mass measuring 2.2 x 3.1 x 2.9 cm. Numerous small subcentimeter nodules were noted in both lung gusman, the largest measuring 4 to 5 mm. There were new from the prior studies and suspicious for metastatic disease. At her follow-up visit on 04/03/2021 she remained mildly anemic, hemoglobin 10.8 g. Her transferrin saturation was still low at 10.6%, and she was given further parenteral iron replacement with 2 additional infusions of Injectafer. In the meantime, she had further evaluation with next generation sequencing by liquid biopsy. 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 There were no other actionable mutations identified. She is seen for a follow-up visit. She was feeling better generally following the iron infusions in March. In fact she says she was doing 100 . However, over the last several days she began having pretty severe pain in her low back area, enough to limit her activity. During this time she also developed worsening constipation. She had previously been able to manage constipation with Movantik, but it does not seem to be working now. Her appetite is still okay. She has not had fever or night sweats. She has not had sore mouth or throat. She does not complain of cough and she has not been having shortness of breath or chest pain. She has had no nausea/vomiting. Bladder function has been okay. She does not complain of headache or dizziness, and she has no focal neurologic symptoms. Medications: Alendronate Sodium (70 mg) Tablet Oral Take as Directed, Anoro Ellipta 1 Inhalation (of 62.5-25 mcg/inh) Aerosol Powder, Breath Activated Inhalation q 24 hours, Aspirin 1 Tablet (of 81 mg) Tablet, chewable Oral daily, Bactroban (2 %) Ointment Topical t.i.d., Benazepril HCl 1 Tablet (of 40 mg) Oral daily, Budesonide (0.5 mg/2mL) Suspension Inhalation b.i.d., Cardizem CD 1 (360 mg) Capsule SR 24 HR Oral daily, Cholecalciferol 1 Tablet (of 50 mcg ) Oral daily, diazePAM 1 (10 mg) Tablet Oral four times a day, Fenofibrate 1 (145 mg) Tablet Oral daily, HYDROcodone-Acetaminophen 2 Tablet (of 10-325 mg) Oral 8x/d, Ipratropium-Albuterol 1 Inhalation (of 0.5-2.5 (3) mg/3mL) Solution Inhalation four times a day, Isosorbide Mononitrate ER 1 Tablet (of 60 mg) Tablet SR 24 HR Oral b.i.d., Magnesium Oxide 1 (400 mg) Capsule Oral b.i.d., Metoprolol Succinate ER 1 Tablet (of 100 mg) Tablet SR 24 HR Oral daily, Nitroglycerin Tablet, sublingual Sublingual PRN, Ondansetron HCl 1 Tablet (of 4 mg) Oral daily, oxyCODONE HCl 1 Tablet (of 15 mg) Oral four times a day, Pantoprazole Sodium 1 (20 mg) Tablet, enteric coated Oral daily, Probiotic & Acidophilus Ex St 1 Capsule Oral daily, Theophylline ER 1 (400 mg) Capsule SR 24 HR Oral daily, Tresiba FlexTouch 75 Units (of 200 Units/mL) Subcutaneous daily, Victoza 1 (18 mg/3mL) Subcutaneous q 24 hours, Xyzal 1 Tablet (of 5 mg) Oral daily Allergies: amLODIPine Besylate, Cephalexin, Erythromycin Base, Penicillins, Propranolol HCl, Tetanus-Diphtheria Toxoids Td, Tetracycline HCl, and ticlopidine. Vital Signs: Performed on May 09, 2021 11:40 Height - 66.00 in Weight - 115.6 lbs (LOW) BSA - 1.58 sq.m BMI - 18.66 Temperature - 96.6 F (LOW) Pulse - 82 /min Respiration - 16 /min BP - 130/56 mm(hg) O2 Sat - 93 % (LOW) Pain - 9 Fatigue - 4 Physical Examination: Constitutional - She appears somewhat weak generally, Eyes - Sclerae nonicteric. Conjunctivae clear, ENMT - No lesions noted in the oral cavity, Hematologic/Lymphatic - No cervical, clavicular, or axillary adenopathy, Respiratory - Lungs show diminished air movement bilaterally. There is slight wheezing, Cardiovascular - Heart rhythm is regular. There is a II/ systolic murmur. There is no gallop or rub noted, Abdomen - Soft. Liver and spleen are not enlarged. There is no abdominal mass or ascites noted and there is no inguinal adenopathy, Extremities - No edema, Neurologic - No focal neurologic deficits noted. Lab/Imaging: Test performed on May 09, 2021 08:53 Iron 51 mcg/dL Sodium 134 mmol/L Iron Binding Capacity (TIBC) 283 mcg/dl Potassium 4.5 mmol/L % Iron Saturation 18.0 % Chloride 97 mmol/L CO2 24 mmol/L UIBC 232 mcg/dL Anion Gap 17.5 BUN 18 mg/dL Creatinine 1.0 mg/dL Cr Clearance (Est) 40.86 mL/min Glucose 86 mg/dL Osmolality - Calculated 279 mOsm/kg Calcium 9.8 mg/dL Protein, Total 6.6 g/dL Albumin 3.8 g/dL Globulin 2.8 g/dL Bilirubin, Total 0.2 mg/dL ALT (SGPT) 10 U/L AST (SGOT) 32 U/L Alkaline Phosphatase 83 IU/L WBC 4.6 10 3/uL RBC 4.04 10 6/uL HGB 12.4 g/dL HCT 39.3 % MCV 97.3 fl MCH 30.7 pg MCHC 31.6 g/dL RDW 17.9 % Platelet Count 345 10 3/cmm MPV 9.8 fL Neutrophils 3.51 10 3/uL Lymphocytes 0.6 10 3/uL Monocytes 0.5 10 3/uL Eosinophils 0.0 10 3/uL Basophils 0.0 10 3/uL Neutrophil % 76.1 % Lymphocyte % 11.9 % Monocyte % 10.8 % Eosinophil % 0.4 % Basophils % 0.4 % NRBC % 0 % Problem List: 1. 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 By clinical evaluation her disease appears to be stage IIB (T1c, N1, M0). 2. Grade 2 invasive ductal carcinoma of the right breast, ER/GA negative and HER-2/vargas positive. 3. COPD. 4. Hypertension. 5. Hyperlipidemia. 6. Type 2 diabetes. 7. Coronary artery disease with previous angioplasty/stent placement. 8. Chronic kidney disease. 9. GERD. 10. 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 11. She underwent right nephrectomy for renal cell carcinoma approximately 2009. Problems Addressed with this Encounter and Plan: 1. 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 By clinical evaluation her disease appears to be stage IIB (T1c, N1, M0). 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 As such, she had been adamantly opposed to undergoing surgery for the lung cancer. As an alternative, she was given the option to undergo chemoradiation utilizing a standard weekly carboplatin/paclitaxel chemotherapy regimen. She began her week 1 carboplatin/paclitaxel concurrently with radiation on 08/16/2020. She tolerated it without significant toxicity, but her further treatment was interrupted due to her social circumstances. She received her week 2 carboplatin/paclitaxel on 08/28/2020. Due to lack of venous access despite multiple attempts to place a venous access device, she received no further chemotherapy. She completed radiation on 10/18/2020 to a total dose of 5800 cGy administered in 29 fractions. Overall, her treatment was very suboptimal, mostly due to her social circumstances. Her restaging chest CT on 12/21/2020 showed progression of the right upper lobe spiculated solid mass measuring 2.1 x 1.7 x 2.7 cm. There was no associated mediastinal or hilar adenopathy. Her next generation sequencing liquid biopsy was nonrevealing, presumably due to low levels of circulating tumor DNA. Her restaging chest CT on 03/18/2021 showed just a slight increase in the right upper lobe mass, but there were new subcentimeter pulmonary nodules bilaterally consistent with metastatic disease. At that point she was not overtly symptomatic. 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 That particularly mutation has an FDA approved indication in bladder cancer, but it is not an approved treatment for non-small cell lung cancer. There were no other actionable mutations identified. She had shown significant improvement in her performance status after completing parenteral iron replacement for iron deficiency anemia. However, she now has developed pretty severe pain in the lower back, and she also is having significant constipation. As her x-rays today show no obvious metastatic disease, she will be treated symptomatically with oxycodone and a bowel regimen. If the pain persists, she will require further imaging. Otherwise, I will just plan a follow-up visit in 1 month. 2. She also was found to have grade 2 invasive ductal carcinoma in situ of the right breast, ER/GA negative and HER/2/vargas positive. Further treatment has been deferred due to the lung cancer. Signed By: Davy Cartwright M.D. <<Signature on File>>
== END 2021-05-09 08:38 | disposition home or self-care (01) ==
PROVIDERS: PCP Nurse Practitioner; Visit Provider Internal Medicine Medical Oncology
DX: C34.11 Malignant neoplasm of upper lobe, right bronchus or lung (principal); C50.911 Malignant neoplasm of unspecified site of right female breast; Z17.1 Estrogen receptor negative status [ER-]; J44.9 Chronic obstructive pulmonary disease, unspecified; I10 Essential (primary) hypertension; E78.5 Hyperlipidemia, unspecified; E11.9 Type 2 diabetes mellitus without complications; I25.10 Atherosclerotic heart disease of native coronary artery without angina pectoris; Z95.5 Presence of coronary angioplasty implant and graft; N18.9 Chronic kidney disease, unspecified; K21.9 Gastro-esophageal reflux disease without esophagitis; G89.29 Other chronic pain; M54.9 Dorsalgia, unspecified; M51.36 Other intervertebral disc degeneration, lumbar region; Z85.528 Personal history of other malignant neoplasm of kidney; Z90.5 Acquired absence of kidney; Z87.891 Personal history of nicotine dependence
CPT/HCPCS: 36415; 72100; 72170; 74019; 80053; 83540; 83550; 85025; 99214

== ENCOUNTER 2021-05-15 09:20 | Outpatient (CLI) | payer MEDICARE, MEDICAID, SELFPAY ==
--- NOTE | 2021-05-15 10:31 | ONC FU_ITS ---
Dr. Cartwright Patient Follow-Up Note Patient: Melonie Cross Unit #: [id number]: 1945 Dicatated By: Davy Cartwright M.D.Date of Visit:May 15, 2021 Onc Med Follow-up/Prog Note Chief Complaint: Lung cancer/breast cancer/anemia. 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 Her chest x-ray on 03/12/2020 showed a faint 2 cm nodular density in the right suprahilar region which was new compared to previous study from 2017. She was recommended to have further evaluation with chest CT. Her noncontrast CT on 03/28/2020 showed a right upper lobe lung mass measuring 2.12 cm. There were no other pulmonary parenchymal lesions noted and there was no significant mediastinal or axillary adenopathy noted. She was then referred to Dr. Polanco and on 04/04/2020 she underwent bronchoscopy/EBUS with FNA biopsy of a station 11R lymph node. There were no endobronchial lesions identified and attempted biopsy of the lung nodule was unsuccessful. The endobronchial ultrasound showed no significant lymphadenopathy. The largest node was in the right hilar node group, and pathology on the FNA was consistent with poorly differentiated nonkeratinizing squamous cell carcinoma. I had seen her initially on 04/25/2020. 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 She was able to come in for staging PET/CT on 04/28/2020. That study showed an FDG avid right upper lobe mass measuring 2.1 cm, SUV 10.9, consistent with primary malignancy. A superior right hilar lymph node was FDG avid with SUV 4.8, consistent with local metastatic disease. The only other area of abnormal uptake was a solid lesion in the superior right breast measuring 1.7 x 1.2 cm with SUV 10.0, suspicious for synchronous primary breast cancer. She was then able to come in for pulmonary function studies on 05/01/2020. Her FEV1 was 1.57 L, 69% of predicted. She had radiation oncology consultation with Dr. Pierre on 06/07/2020. Although with N1 disease she was still potentially an operable candidate, she indicated that due to her social circumstances and requirement for hospitalization, that she would still not consider surgery as a treatment option. She was agreeable, though, to undergo radiation. At that time she had further evaluation for the breast lesion with diagnostic mammogram/ultrasound. It was BI-RADS 5, highly suggestive of malignancy. The mammogram showed a dense heterogeneous focal asymmetric density measuring 2.7 x 2.4 cm, corresponding to the lesion identified by PET/CT. Ultrasound showed a hypoechoic solid irregular mass at the 12 o'clock position measuring 2.3 x 1.8 x 1.5 cm. Also noted was an enlarged lymph node in the right axilla measuring 1.9 x 1.2 x 1.0 cm. On 06/22/2020 she underwent ultrasound-guided biopsy of the breast mass and of the axillary lymph node. Pathology on the breast showed grade 2 invasive ductal carcinoma. It was found to be ER and MI negative, both less < 1%. HER-2/vargas was positive, 3+ by IHC and amplification ratio by FISH of 2.9 with 9.0 HER-2 copies/cell. The lymph node showed sinus histiocytosis. Ultimately, it was determined that she was not an appropriate candidate for SBRT to the lung lesion, and we opted to proceed with standard chemoradiation utilizing weekly carboplatin/placlitaxel for the chemosensitization. We opted to defer further management of the breast cancer until the lung cancer treatment was completed. Her other medical illnesses include COPD, hypertension, hyperlipidemia, type 2 diabetes, and coronary artery disease. She has had previous angioplasty/stent placement. Her medical history is also significant for having undergone right nephrectomy for renal cell carcinoma sometime around 2009. Those records were not available. She does have a history of smoking for 45 years, up to a pack and a half of cigarettes daily. She quit smoking in February 2020. INTERIM HISTORY: She underwent placement of Port-A-Cath venous access device on 08/07/2020 and then she began week 1 carboplatin/paclitaxel concurrently with radiation on 08/16/2020. She tolerated the chemotherapy with acceptable toxicity, but her further management was complicated due to her social circumstances. She received her week 2 chemotherapy on 08/28/2020. She then continued radiation, though with some further interruptions. Due to lack of venous access and multiple failed attempts to obtain venous access, she received no further chemotherapy. She ultimately completed radiation on 10/18/2020 to a total dose of 5800 cGy administered in 29 fractions. Overall, her treatment was very suboptimal, mainly due to her social circumstances. As of her follow-up visit on 12/13/2020 she was mildly anemic with hemoglobin 10.4 g. Her serum iron studies show low transferrin saturation at 4.8%, consistent with iron deficiency, and at that point she began on oral iron supplementation. Restaging chest CT on 12/21/2020 showed progressed right upper lobe spiculated solid mass measuring 2.1 x 1.7 x 2.7 cm. There was no associated mediastinal or hilar lymphadenopathy. With those findings, she had further evaluation with next generation sequencing by liquid biopsy. There were no tumor related somatic alterations detected in the sample, presumably due to low circulating tumor-derived cell-free DNA levels. She had initially declined to return for follow-up, her son and her significant other both having during this time. She had then called to report that she had become too weak to walk. She eventually agreed to return here for a visit on 02/18/2021. Her hemoglobin had declined to 9.7 g. Her transferrin saturation was low at 6.9%, consistent with iron deficiency. As she had been intolerant of oral iron, she was given parenteral iron replacement with 2 infusions of Injectafer. She tolerated it well. Restaging chest CT on 03/18/2021 showed slight increase in the right upper lobe spiculated mass measuring 2.2 x 3.1 x 2.9 cm. Numerous small subcentimeter nodules were noted in both lung gusman, the largest measuring 4 to 5 mm. There were new from the prior studies and suspicious for metastatic disease. At her follow-up visit on 04/03/2021 she remained mildly anemic, hemoglobin 10.8 g. Her transferrin saturation was still low at 10.6%, and she was given further parenteral iron replacement with 2 additional infusions of Injectafer. In the meantime, she had further evaluation with next generation sequencing by liquid biopsy. 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 There were no other actionable mutations identified. She was seen for a follow-up visit on 05/09/2021. At that time she reported recent onset of pretty severe pain in her lower back. She also was having constipation. She was given symptomatic management with immediate release oxycodone and a bowel regimen. X-rays of the spine and pelvis showed no evidence of metastatic disease. She returns now for an unplanned visit. The pain in her back has continued to worsen, the point that she is no longer able to do any kind of work activity. She is having to take 30 mg immediate release oxycodone 4 times a day, and she is really not getting that much relief. Her bowel function, though, has improved significantly on the bowel regimen with senna/docusate. Her appetite is not good. She does not have fever or night sweats. She has dry mouth. She does not complain of cough, and she has not been having shortness of breath or chest pain. She has no other GI or complaints. She has no focal neurologic symptoms. Medications: Alendronate Sodium (70 mg) Tablet Oral Take as Directed, Anoro Ellipta 1 Inhalation (of 62.5-25 mcg/inh) Aerosol Powder, Breath Activated Inhalation q 24 hours, Aspirin 1 Tablet (of 81 mg) Tablet, chewable Oral daily, Bactroban (2 %) Ointment Topical t.i.d., Benazepril HCl 1 Tablet (of 40 mg) Oral daily, Budesonide (0.5 mg/2mL) Suspension Inhalation b.i.d., Cardizem CD 1 (360 mg) Capsule SR 24 HR Oral daily, Cholecalciferol 1 Tablet (of 50 mcg ) Oral daily, diazePAM 1 (10 mg) Tablet Oral four times a day, Fenofibrate 1 (145 mg) Tablet Oral daily, HYDROcodone-Acetaminophen 2 Tablet (of 10-325 mg) Oral 8x/d, Ipratropium-Albuterol 1 Inhalation (of 0.5-2.5 (3) mg/3mL) Solution Inhalation four times a day, Isosorbide Mononitrate ER 1 Tablet (of 60 mg) Tablet SR 24 HR Oral b.i.d., Magnesium Oxide 1 (400 mg) Capsule Oral b.i.d., Metoprolol Succinate ER 1 Tablet (of 100 mg) Tablet SR 24 HR Oral daily, Nitroglycerin Tablet, sublingual Sublingual PRN, Ondansetron HCl 1 Tablet (of 4 mg) Oral daily, oxyCODONE HCl 1 Tablet (of 15 mg) Oral four times a day, Pantoprazole Sodium 1 (20 mg) Tablet, enteric coated Oral daily, Probiotic & Acidophilus Ex St 1 Capsule Oral daily, Theophylline ER 1 (400 mg) Capsule SR 24 HR Oral daily, Tresiba FlexTouch 75 Units (of 200 Units/mL) Subcutaneous daily, Victoza 1 (18 mg/3mL) Subcutaneous q 24 hours, Xyzal 1 Tablet (of 5 mg) Oral daily Allergies: amLODIPine Besylate, Cephalexin, Erythromycin Base, Penicillins, Propranolol HCl, Tetanus-Diphtheria Toxoids Td, Tetracycline HCl, and ticlopidine. Vital Signs: Performed on May 15, 2021 09:36 Height - 66.00 in Weight - 108.8 lbs (LOW) BSA - 1.54 sq.m BMI - 17.56 (LOW) Temperature - 98.5 F Pulse - 80 /min Respiration - 16 /min BP - 118/52 mm(hg) O2 Sat - 92 % (LOW) Pain - 7 Fatigue - 1 Physical Examination: Constitutional - She appears generally weak, Eyes - Sclerae nonicteric. Conjunctivae clear, ENMT - No lesions noted in the oral cavity, Hematologic/Lymphatic - No cervical, clavicular, or axillary adenopathy, Respiratory - Lungs sound clear with diminished air movement bilaterally, Cardiovascular - Heart rhythm is regular. There is a II/ systolic murmur. There is no gallop or rub noted, Abdomen - Soft. Liver and spleen are not enlarged. There is no abdominal mass or ascites noted and there is no inguinal adenopathy, Back/Spine - There is no significant bony tenderness in the spine, Extremities - No edema, Neurologic - No focal neurologic deficits noted. Lab/Imaging: Test performed on May 09, 2021 08:53 Iron 51 mcg/dL Sodium 134 mmol/L Iron Binding Capacity (TIBC) 283 mcg/dl Potassium 4.5 mmol/L % Iron Saturation 18.0 % Chloride 97 mmol/L CO2 24 mmol/L UIBC 232 mcg/dL Anion Gap 17.5 BUN 18 mg/dL Creatinine 1.0 mg/dL Cr Clearance (Est) 40.86 mL/min Glucose 86 mg/dL Osmolality - Calculated 279 mOsm/kg Calcium 9.8 mg/dL Protein, Total 6.6 g/dL Albumin 3.8 g/dL Globulin 2.8 g/dL Bilirubin, Total 0.2 mg/dL ALT (SGPT) 10 U/L AST (SGOT) 32 U/L Alkaline Phosphatase 83 IU/L WBC 4.6 10 3/uL RBC 4.04 10 6/uL HGB 12.4 g/dL HCT 39.3 % MCV 97.3 fl MCH 30.7 pg MCHC 31.6 g/dL RDW 17.9 % Platelet Count 345 10 3/cmm MPV 9.8 fL Neutrophils 3.51 10 3/uL Lymphocytes 0.6 10 3/uL Monocytes 0.5 10 3/uL Eosinophils 0.0 10 3/uL Basophils 0.0 10 3/uL Neutrophil % 76.1 % Lymphocyte % 11.9 % Monocyte % 10.8 % Eosinophil % 0.4 % Basophils % 0.4 % NRBC % 0 % Problem List: 1. 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 By clinical evaluation her disease appears to be stage IIB (T1c, N1, M0). 2. Grade 2 invasive ductal carcinoma of the right breast, ER/MI negative and HER-2/vargas positive. 3. COPD. 4. Hypertension. 5. Hyperlipidemia. 6. Type 2 diabetes. 7. Coronary artery disease with previous angioplasty/stent placement. 8. Chronic kidney disease. 9. GERD. 10. 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 11. She underwent right nephrectomy for renal cell carcinoma approximately 2009. Problems Addressed with this Encounter and Plan: 1. 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 By clinical evaluation her disease appears to be stage IIB (T1c, N1, M0). 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 As such, she had been adamantly opposed to undergoing surgery for the lung cancer. As an alternative, she was given the option to undergo chemoradiation utilizing a standard weekly carboplatin/paclitaxel chemotherapy regimen. She began her week 1 carboplatin/paclitaxel concurrently with radiation on 08/16/2020. She tolerated it without significant toxicity, but her further treatment was interrupted due to her social circumstances. She received her week 2 carboplatin/paclitaxel on 08/28/2020. Due to lack of venous access despite multiple attempts to place a venous access device, she received no further chemotherapy. She completed radiation on 10/18/2020 to a total dose of 5800 cGy administered in 29 fractions. Overall, her treatment was very suboptimal, mostly due to her social circumstances. Her restaging chest CT on 12/21/2020 showed progression of the right upper lobe spiculated solid mass measuring 2.1 x 1.7 x 2.7 cm. There was no associated mediastinal or hilar adenopathy. Her next generation sequencing liquid biopsy was nonrevealing, presumably due to low levels of circulating tumor DNA. Her restaging chest CT on 03/18/2021 showed just a slight increase in the right upper lobe mass, but there were new subcentimeter pulmonary nodules bilaterally consistent with metastatic disease. At that point she was not overtly symptomatic. 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 That particularly mutation has an FDA approved indication in bladder cancer, but it is not an approved treatment for non-small cell lung cancer. There were no other actionable mutations identified. She had shown significant improvement in her performance status after completing parenteral iron replacement for iron deficiency anemia. However, within the past 2 weeks she has developed significant pain in the lower back area. Her initial x-ray showed no evidence of metastatic disease, but the pain has continued to worsen, and it is not being managed adequately with immediate release oxycodone with the dosage increased to 30 mg 4 times a day. The symptoms are very worrisome for metastatic involvement, and she will be scheduled now for further evaluation with MRI of the lumbar spine. She will now start on the fentanyl patch at 25 mcg/h, and she will continue the immediate release oxycodone as needed. I discussed options for further management of the lung cancer. If she is confirmed to have metastatic involvement in the spine, she can be evaluated for palliative radiation. She would also have the option to have a trial of immunotherapy as a second line treatment, but I would otherwise just recommend transitioning to symptomatic/supportive care on hospice. 2. She also was found to have grade 2 invasive ductal carcinoma in situ of the right breast, ER/MI negative and HER/2/vargas positive. Further treatment has been deferred due to the lung cancer. Signed By: Davy Cartwright M.D. <<Signature on File>>
== END 2021-05-15 09:21 | disposition home or self-care (01) ==
LOC: ONCMED 09:25
PROVIDERS: PCP Nurse Practitioner; Visit Provider Internal Medicine Medical Oncology
DX: C34.11 Malignant neoplasm of upper lobe, right bronchus or lung (principal); C50.811 Malignant neoplasm of overlapping sites of right female breast; Z17.1 Estrogen receptor negative status [ER-]; J44.9 Chronic obstructive pulmonary disease, unspecified; I10 Essential (primary) hypertension; E78.5 Hyperlipidemia, unspecified; E11.59 Type 2 diabetes mellitus with other circulatory complications; I25.10 Atherosclerotic heart disease of native coronary artery without angina pectoris; Z95.5 Presence of coronary angioplasty implant and graft; E11.22 Type 2 diabetes mellitus with diabetic chronic kidney disease; N18.9 Chronic kidney disease, unspecified; K21.9 Gastro-esophageal reflux disease without esophagitis; M47.9 Spondylosis, unspecified; Z90.5 Acquired absence of kidney; Z79.899 Other long term (current) drug therapy; Z92.21 Personal history of antineoplastic chemotherapy; Z92.3 Personal history of irradiation
CPT/HCPCS: 99214

== ENCOUNTER 2021-05-22 21:18 | Inpatient (IN) | payer MEDICARE, MEDICAID, SELFPAY ==
[2021-05-22 21:19] VITALS: BP 101/53; PULSE 88; RESP 16; TEMP 37; O2SAT 97; BMI 19.6
[2021-05-22 21:28] VITALS: BP 101/53; PULSE 96; RESP 18; O2SAT 97
--- NOTE | 2021-05-22 21:35 | XRR_ITS ---
PROCEDURE INFORMATION: Exam: XR Chest Exam date and time: 05/22/2021 9:35 PM Age: 76 years old Clinical indication: Other: AMS TECHNIQUE: Imaging protocol: XR of the chest. Views: 1 view. COMPARISON: CT chest w con* [id number] 03/18/2021 10:17 AM FINDINGS: Lungs: Redemonstration of the right upper lobe suprahilar mass measuring approximately 3.5 cm on this digital examination. There is no evidence of focal pulmonary consolidation. Pleural spaces: No pleural effusion or pneumothorax. Heart/Mediastinum: Normal in size. Bones/joints: No acute fracture is identified. XR/XR chest 1V portable [id number] IMPRESSION: 1. Redemonstration of the right upper lobe suprahilar mass consistent with neoplasm. 2. The previously demonstrated multiple subcentimeter metastatic nodules are present but are seen to better advantage on the comparison CT scan of the chest. 3. No acute pulmonary consolidation.
--- NOTE | 2021-05-22 21:35 | CTR_ITS ---
PROCEDURE INFORMATION: Exam: CT Head Without Contrast Exam date and time: 05/22/2021 9:35 PM Age: 76 years old Clinical indication: Altered mental status/memory loss; Patient HX: AMS TECHNIQUE: Imaging protocol: Computed tomography of the head without contrast. Radiation optimization: All CT scans at this facility use at least one of these dose optimization techniques: automated exposure control; mA and/or kV adjustment per patient size (includes targeted exams where dose is matched to clinical indication); or iterative reconstruction. COMPARISON: No relevant prior studies available. RADIATION DOSE METRICS: Total DLP (mGy-cm): 897.92 FINDINGS: Brain: There are mild confluent periventricular hypodensities consistent with chronic microischemic changes of white matter. There is no evidence of acute intracranial hemorrhage or mass effect on the ventricular system. There are no extra-axial fluid collections or midline shift. The posterior fossa shows mild cerebellar atrophy. 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 Cerebral ventricles: There are prominent sulci and mild ventriculomegaly. Paranasal sinuses: There is debris in the right and left sphenoid sinuses. Mastoid air cells: The visualized mastoid air cells are well aerated. Bones/joints: No acute fracture. Soft tissues: Unremarkable. CT/CT head wo con* [id number] IMPRESSION: 1. Age-appropriate involutional changes of the brain. 2. Mild cerebral small-vessel disease. 3. No acute intracranial abnormality. 4. 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 A vestibular schwannoma is considered less likely given peripheral calcification and the fact that the nodule does not appear to arise from the porous acusticus. Non emergent MRI may be helpful for evaluation of the adjacent cranial nerves if clinically indicated.
--- NOTE | 2021-05-22 21:35 | ECG_ITS ---
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
--- NOTE | 2021-05-22 22:30 | ED_ITS ---
Documented by User: James Handley MD 05/22/21 22:43 HPI - General Adult General: Chief complaint: ER Hold Stated complaint: Confusion Time Seen by Provider: 05/22/21 21:25 History of Present Illness: Patient a 76-year-old female with a history of scoliosis on multiple opiate medication including fentanyl patches and oxycodone presenting to the emergency room with concerns for altered mental status. Per EMS, patient was noted by neighbor to be smoking cigarettes on the run and and patient was found naked outside of her house knocking on her neighbor's door. Patient attempted to light up a cigarette with an albuterol nebulizer. Patient is AAO x2, disinhibited and confused currently. Patient has no other focal complaints including chest pain, shortness breath, palpitation, lightheadedness, nausea/vomiting, diarrhea, melena hematochezia. Onset: unknown Duration:ongoing Location: outside Severity:severe Associated symptoms: Deny chest pain, dyspnea, nausea, rash, palpitations or vomiting Review of Systems Const: Denies: fever(s) or chills Eyes: Denies: change in vision ENMT: Denies: mouth pain Card: Denies: chest pain or palpitations Resp: Denies: dyspnea or non-productive cough GI: Denies: abdominal pain, nausea, vomiting or diarrhea : Denies: dysuria Musc: Denies: extremity pain Skin/Breast: Denies: rash or new lesions Neuro: Reports: other (+confusion and altered mental status per EMS); Denies: weakness in extremities Psych: Reports: other (Normal mood) Igor/Lymph: Denies: easy bruising PFSH ED PFSH: Medical History Acid reflux Allergic rhinitis due to allergen Breast cancer, right COPD (chronic obstructive pulmonary disease) Diabetes mellitus with hyperglycemia, with long-term current use of insulin HTN (hypertension) Nocturnal oxygen desaturation Osteoarthritis Post-menopausal osteoporosis Surgical History History of angioplasty with stent 1998 History of cholecystectomy History of oophorectomy History of removal of Port-a-Cath (09/19/20) History of tonsillectomy Hx of carotid angioplasty Port-A-Cath in place Family History Family/Other Diabetes Father COPD exacerbation Social History Quit status (tobacco): has quit using tobacco Year quit tobacco: 2020 - 1PPD x 50 Years Second hand smoke exposure: No Smoking risk assessment/counseling performed?: Yes Alcohol intake: never Desire information about alcohol rehabilitation?: No Counseling given: No Desire information about substance/drug rehabilitation?: No Counseling given: No Lives independently: Yes Household members: children Housing: House Marital status: / Current occupational status: disabled Pets and animals: Yes Pets & animals: dog(s) History of recent travel: No Current gender identity: Female Physical Exam Const: COMMON NORMALS: alert HENMT: COMMON NORMALS: atraumatic HEAD & SCALP: atraumatic MOUTH: moist mucous membranes not abnormal Eye: COMMON NORMALS: EOMs intact bilaterally and conjunctivae normal CONJUNCTIVA: Yes conjunctivae normal Neck/C-Spine: COMMON NORMALS: full ROM and supple Resp: COMMON NORMALS: normal respiratory effort and clear to auscultation bilaterally AUSCULTATION: clear to auscultation bilaterally Cardio: COMMON NORMALS: regular rate RATE: regular rate GI: COMMON NORMALS: Soft to palpation and non-tender PALPATION: Yes Soft to palpation Extremity: COMMON NORMALS: full ROM Neuro: SENSORIUM/ORIENTATION: Yes alert MOTOR EXAM: No Abnormal motor strength present and Other motor observations present (no focal motor deficits) OTHER: AAOx2, following commands, moving all extremities neuro exam grossly intact including cranial nerves and strength exam Psych: COMMON NORMALS: cooperative ATTITUDE: Yes agitated SPEECH: Yes rapid MOOD & AFFECT: Yes euthymic mood THOUGHT PROCESS: disorganized ATTENTION/CONCENTRATION: Yes concentration grossly intact MEMORY/COGNITION: Yes memory grossly impaired INSIGHT: Limited insight present (Psych) JUDGEMENT: questionable Skin: NARRATIVE SKIN EXAM: Two 25mcg/hr fentanyl patches in the lower lumbar area and upper glute area Course 2 Vital Signs: Vital signs: Vital Signs Temperature 98.6 F 05/22/21 21:19 Pulse Rate 89 05/22/21 23:28 Respiratory Rate 18 05/22/21 21:28 Blood Pressure 125/47 05/22/21 23:28 Pulse Oximetry 91 05/22/21 23:28 [facility] - General Adult Medical Decision Making 76-year-old female with a history of chronic pain on multiple medicine including fentanyl patch and oxycodone presents emergency room room with altered mental status. Arrival, patient was found to have two 25 MCG/hr fentanyl patches in the glute areas and lower back area. Patient denied knowing that she had fentanyl patches there. Patient is AAO x2, thoughts appears to be disorganized with questionable judgement. CT brain negative for any acute finding. Lab work-up at this time for altered mental status. Case signed out to Dr. Rajan Lab Data : 05/22/21 22:14 05/22/21 22:14 Radiology Impressions Chest X-Ray 05/22/21 21:35 IMPRESSION: 1. Redemonstration of the right upper lobe suprahilar mass consistent with neoplasm. 2. The previously demonstrated multiple subcentimeter metastatic nodules are present but are seen to better advantage on the comparison CT scan of the chest. 3. No acute pulmonary consolidation. Head CT 05/22/21 21:35 IMPRESSION: 1. Age-appropriate involutional changes of the brain. 2. Mild cerebral small-vessel disease. 3. No acute intracranial abnormality. 4. 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 A vestibular schwannoma is considered less likely given peripheral calcification and the fact that the nodule does not appear to arise from the porous acusticus. Non emergent MRI may be helpful for evaluation of the adjacent cranial nerves if clinically indicated. Laboratory Results WBC 6.1 10^3/uL (4.0-10.0) 05/22/21 22:14 RBC 4.01 10^6/uL (4.1-5.3) L 05/22/21 22:14 Hgb 12.0 g/dL (11.5-15.3) 05/22/21 22:14 Hct 38.4 % (37.0-47.0) 05/22/21 22:14 MCV 95.8 fl (81-99) 05/22/21 22:14 MCH 29.9 pg (28.0-34.0) 05/22/21 22:14 MCHC 31.3 g/dL (30.0-36.0) 05/22/21 22:14 RDW 16.2 % (12.1-15.1) H 05/22/21 22:14 Plt Count 414 10^3/cmm (130-400) H 05/22/21 22:14 MPV 10.5 fL (7.4-10.4) H 05/22/21 22:14 Neut % (Auto) 76.5 % 05/22/21 22:14 Lymph % (Auto) 8.2 % 05/22/21 22:14 [place] % (Auto) 14.3 % 05/22/21 22:14 Eos % (Auto) 0.3 % 05/22/21 22:14 Baso % (Auto) 0.2 % 05/22/21 22:14 Neut # (Auto) 4.66 10^3/uL (1.8-7.7) 05/22/21 22:14 Lymph # (Auto) 0.5 10^3/uL (0.8-4.8) L 05/22/21 22:14 [place] # (Auto) 0.9 10^3/uL (0.2-0.9) 05/22/21 22:14 Eos # (Auto) 0.0 10^3/uL (0.0-0.8) 05/22/21 22:14 Baso # (Auto) 0.0 10^3/uL (0.0-0.1) 05/22/21 22:14 Nucleated RBC % (auto) 0 % 05/22/21 22:14 Nucleated RBCs # 0.0 /100WBC 05/22/21 22:14 Sodium 139 mmol/L (136-145) 05/22/21 22:14 Potassium 4.5 mmol/L (3.5-5.1) 05/22/21 22:14 Chloride 99 mmol/L (98-107) 05/22/21 22:14 Carbon Dioxide 26 mmol/L (22-29) 05/22/21 22:14 Anion Gap 18.5 (5-19) 05/22/21 22:14 BUN 36 mg/dL (8-23) H 05/22/21 22:14 Creatinine 1.7 mg/dL (0.5-0.9) H 05/22/21 22:14 GFR Calculation Not Reportable 05/22/21 22:14 Glucose 95 mg/dL (65-115) 05/22/21 22:14 Calculated Osmolality 296 mOsm/kg (285-295) H 05/22/21 22:14 Calcium 8.7 mg/dL (8.5-10.5) 05/22/21 22:14 Total Bilirubin 0.3 mg/dL (0.15-1.2) 05/22/21 22:14 AST 39 U/L (0-32) H 05/22/21 22:14 ALT 19 U/L (0-33) 05/22/21 22:14 Alkaline Phosphatase 80 IU/L (35-105) 05/22/21 22:14 Total Protein 6.6 g/dL (6.6-8.7) 05/22/21 22:14 Albumin 3.7 g/dL (3.5-5.2) 05/22/21 22:14 Globulin 2.9 g/dL (1.3-4.6) 05/22/21:14 Lipase 43 U/L (13-60) 05/22/21:14 TSH 0.93 uIU/mL (0.27-4.20) 05/22/21: Free T4 1.83 ng/dL (0.82-1.77) H 05/22/21 22:14 Urine Color Yellow (Yellow) 05/22/21:30 Urine Appearance Clear (CLEAR) 05/22/21: Urine pH 6 (5-7) 05/22/21: Ur Specific [place] 1.010 (1.005-1.030) 05/22/21 22:30 Urine Protein Neg (Negative) 05/22/21 22: Urine Glucose (UA) Norm (Normal) 05/22/21: Urine Ketones Negative (Negative) 05/22/21: Urine Blood Neg (Negative) 05/22/21:30 Urine Nitrate Negative (Negative) 05/22/21:30 Urine Bilirubin 1+ (Negative) H 05/22/21:30 Urine Urobilinogen 1 mg/dL (Negative) H 05/22/21 22:30 Ur Leukocyte Esterase 2+ (Negative) H 05/22/21 22:30 Urine RBC 0-4 /hpf (0-2) H 05/22/21 22:30 Urine WBC 10-15 /hpf (0-5) H 05/22/21 22:30 Ur Squamous Epith Cells 10-15 /hpf (0-5) H 02/09/22 22:30 Ur Transition Epith Cell 0-4 /hpf 05/22/21 22:30 Amorphous Sediment Not Reportable 05/22/21 22:30 Urine Bacteria 2+ /hpf (NONE) H 05/22/21 22:30 Salicylates < 0.3 mg/dL (3-10) L 05/22/21 22:14 Acetaminophen < 5.0 ug/mL (10-30) L 05/22/21 22:14 SARS-CoV-2 Ag (Rapid) Negative (Negative) 05/22/21 22:29 Discharge Plan Discharge Patient Disposition: Admitted As Inpatient Admit Provider: Kiran Mcwilliams Clinical Impression: Altered mental status, Acute cystitis Condition: Stable Coding Level of Care Code ED Information Technology Account Manager for Chg Fwd Exam Comprehensive Documented by User: Kris Rajan MD 05/23/21 00:07 HPI - General Adult General: Chief complaint: ER Hold Stated complaint: Confusion Time Seen by Provider: 05/22/21 21:25 [facility] ED PFSH: Medical History Acid reflux Allergic rhinitis due to allergen Breast cancer, right COPD (chronic obstructive pulmonary disease) Diabetes mellitus with hyperglycemia, with long-term current use of insulin HTN (hypertension) Nocturnal oxygen desaturation Osteoarthritis Post-menopausal osteoporosis Surgical History History of angioplasty with stent 1998 History of cholecystectomy History of oophorectomy History of removal of Port-a-Cath (09/19/20) History of tonsillectomy Hx of carotid angioplasty Port-A-Cath in place Family History Family/Other Diabetes Father COPD exacerbation Social History Quit status (tobacco): has quit using tobacco Year quit tobacco: 2019 - 1PPD x 50 Years Second hand smoke exposure: No Smoking risk assessment/counseling performed?: Yes Alcohol intake: never Desire information about alcohol rehabilitation?: No Counseling given: No Desire information about substance/drug rehabilitation?: No Counseling given: No Lives independently: Yes Household members: children Housing: House Marital status: / Current occupational status: disabled Pets and animals: Yes Pets & animals: dog(s) History of recent travel: No Current gender identity: Female Course Vital Signs: Vital signs: Vital Signs Temperature 98.6 F 05/22/21 21:19 Pulse Rate 89 05/22/21 23:28 Respiratory Rate 18 05/22/21 21:28 Blood Pressure 125/47 05/22/21 23:28 Pulse Oximetry 91 05/22/21 23:28 MDM - General Adult Medical Decision Making 76-year-old female with a history of chronic pain on multiple medicine including fentanyl patch and oxycodone presents emergency room room with altered mental status. Arrival, patient was found to have two 25 MCG/hr fentanyl patches in the glute areas and lower back area. Patient denied knowing that she had fentanyl patches there. Patient is AAO x2, thoughts appears to be disorganized with questionable judgement. CT brain negative for any acute finding. Lab work-up at this time for altered mental status. Case signed out to Dr. Rajan Patient presents with altered mental status also with a possible acute cystitis. She also found to have a fentanyl patch taking pain meds it could be causing some of her altered mental status. Will admit here for the AMS and start antibiotics for the UTI she has been stable while here. Lab Data : 05/22/21 22:14 05/22/21 22:14 Radiology Impressions Chest X-Ray 05/22/21 21:35 IMPRESSION: 1. Redemonstration of the right upper lobe suprahilar mass consistent with neoplasm. 2. The previously demonstrated multiple subcentimeter metastatic nodules are present but are seen to better advantage on the comparison CT scan of the chest. 3. No acute pulmonary consolidation. Head CT 05/22/21 21:35 IMPRESSION: 1. Age-appropriate involutional changes of the brain. 2. Mild cerebral small-vessel disease. 3. No acute intracranial abnormality. 4. 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 A vestibular schwannoma is considered less likely given peripheral calcification and the fact that the nodule does not appear to arise from the porous acusticus. Non emergent MRI may be helpful for evaluation of the adjacent cranial nerves if clinically indicated. Laboratory Results WBC 6.1 10^3/uL (4.0-10.0) 05/22/21 22:14 RBC 4.01 10^6/uL (4.1-5.3) L 05/22/21 22:14 Hgb 12.0 g/dL (11.5-15.3) 05/22/21 22:14 Hct 38.4 % (37.0-47.0) 05/22/21 22:14 MCV 95.8 fl (81-99) 05/22/21 22:14 MCH 29.9 pg (28.0-34.0) 05/22/21 22:14 MCHC 31.3 g/dL (30.0-36.0) 05/22/21 22:14 RDW 16.2 % (12.1-15.1) H 05/22/21 22:14 Plt Count 414 10^3/cmm (130-400) H 05/22/21 22:14 MPV 10.5 fL (7.4-10.4) H 05/22/21 22:14 Neut % (Auto) 76.5 % 05/22/21 22:14 Lymph % (Auto) 8.2 % 05/22/21 22:14 [place] % (Auto) 14.3 % 05/22/21 22:14 Eos % (Auto) 0.3 % 05/22/21:14 Baso % (Auto) 0.2 % 05/22/21 22:14 Neut # (Auto) 4.66 10^3/uL (1.8-7.7) 05/22/21 22:14 Lymph # (Auto) 0.5 10^3/uL (0.8-4.8) L 05/22/21 22:14 [place] # (Auto) 0.9 10^3/uL (0.2-0.9) 05/22/21 22:14 Eos # (Auto) 0.0 10^3/uL (0.0-0.8) 05/22/21 22:14 Baso # (Auto) 0.0 10^3/uL (0.0-0.1) 05/22/21 22:14 Nucleated RBC % (auto) 0 % 05/22/21 22:14 Nucleated RBCs # 0.0 /100WBC 05/22/21 22:14 Sodium 139 mmol/L (136-145) 05/22/21 22:14 Potassium 4.5 mmol/L (3.5-5.1) 05/22/21 22:14 Chloride 99 mmol/L (98-107) 05/22/21 22:14 Carbon Dioxide 26 mmol/L (22-29) 05/22/21 22:14 Anion Gap 18.5 (5-19) 05/22/21 22:14 BUN 36 mg/dL (8-23) H 05/22/21 22:14 Creatinine 1.7 mg/dL (0.5-0.9) H 05/22/21 22:14 GFR Calculation Not Reportable 05/22/21 22:14 Glucose 95 mg/dL (65-115) 05/22/21 22:14 Calculated Osmolality 296 mOsm/kg (285-295) H 05/22/21 22:14 Calcium 8.7 mg/dL (8.5-10.5) 05/22/21 22:14 Total Bilirubin 0.3 mg/dL (0.15-1.2) 05/22/21 22:14 AST 39 U/L (0-32) H 05/22/21 22:14 ALT 19 U/L (0-33) 05/22/21 22:14 Alkaline Phosphatase 80 IU/L (35-105) 05/22/21 22:14 Total Protein 6.6 g/dL (6.6-8.7) 05/22/21 22:14 Albumin 3.7 g/dL (3.5-5.2) 05/22/21 22:14 Globulin 2.9 g/dL (1.3-4.6) 05/22/21 22:14 Lipase 43 U/L (13-60) 05/22/21 22:14 TSH 0.93 uIU/mL (0.27-4.20) 05/22/21 22:14 Free T4 1.83 ng/dL (0.82-1.77) H 05/22/21 22:14 Urine Color Yellow (Yellow) 05/22/21 22:30 Urine Appearance Clear (CLEAR) 05/22/21 22:30 Urine pH 6 (5-7) 05/22/21 22:30 Ur Specific [place] 1.010 (1.005-1.030) 05/22/21 22:30 Urine Protein Neg (Negative) 05/22/21 22:30 Urine Glucose (UA) Norm (Normal) 05/22/21 22:30 Urine Ketones Negative (Negative) 05/22/21 22:30 Urine Blood Neg (Negative) 05/22/21 22: Urine Nitrate Negative (Negative) 05/22/21 22: Urine Bilirubin 1+ (Negative) H 05/22/21 22:30 Urine Urobilinogen 1 mg/dL (Negative) H 05/22/21 22:30 Ur Leukocyte Esterase 2+ (Negative) H 05/22/21 22:30 Urine RBC 0-4 /hpf (0-2) H 05/22/21 22:30 Urine WBC 10-15 /hpf (0-5) H 05/22/21 22:30 Ur Squamous Epith Cells 10-15 /hpf (0-5) H 05/22/21 22:30 Ur Transition Epith Cell 0-4 /hpf 05/22/21 22:30 Amorphous Sediment Not Reportable 05/22/21 22:30 Urine Bacteria 2+ /hpf (NONE) H 05/22/21 22:30 Salicylates < 0.3 mg/dL (3-10) L 05/22/21 22:14 Acetaminophen < 5.0 ug/mL (10-30) L 05/22/21 22:14 SARS-CoV-2 Ag (Rapid) Negative (Negative) 05/22/21 22:29 Discharge Plan Discharge Patient Disposition: Admitted As Inpatient Admit Provider: Kiran Mcwilliams Clinical Impression: Altered mental status, Acute cystitis Condition: Stable Coding Level of Care Code ED Information Technology Account Manager for Chg Fwd Exam Comprehensive
[2021-05-22 22:31] LABS: Basophils % 0.2 %; Eosinophils % 0.3 %; Hematocrit 38.4 % (37.0-47.0); Lymphocytes # 0.5 10^3/uL (0.8-4.8); Lymphocytes % 8.2 %; Mean Corpuscular HGB Conc 31.3 g/dL (30.0-36.0); Mean Corpuscular Hemoglobin 29.9 pg (28.0-34.0); Mean Corpuscular Volume 95.8 fl (81-99); Mean Platelet Volume 10.5 fL (7.4-10.4); Monocytes # 0.9 10^3/uL (0.2-0.9); Monocytes % 14.3 %; Neutrophils # 4.66 10^3/uL (1.8-7.7); Neutrophils % 76.5 %; Nucleated Red Blood Cells % 0 %; Platelet Count 414 10^3/cmm (130-400); Red Blood Count 4.01 10^6/uL (4.1-5.3); Red Cell Distribution Width 16.2 % (12.1-15.1); White Blood Count 6.1 10^3/uL (4.0-10.0)
[2021-05-22 22:58] LABS: Add Urine Microscopic? YES; Bilirubin Urine 1+ (Negative); Blood Urine Neg (Negative); Glucose Urine UA Norm (Normal); Ketones Urine Negative (Negative); Leukocyte Esterase Urine 2+ (Negative); Nitrate Urine Negative (Negative); Protein Urine Neg (Negative); RBC Urine 0-4 /hpf (0-2); Urine Appearance Clear (CLEAR); Urine Color Yellow (Yellow); Urobilinogen Urine 1 mg/dL (Negative); pH Urine 6 (5-7)
[2021-05-22 22:59] LABS: Add Urine Culture? No; Bacteria Urine 2+ /hpf; Transitional Epi Cells Urine 0-4 /hpf
[2021-05-22] MEDS: LORazepam 1 mg Tablet PO (23:02)
[2021-05-22 23:05] LABS: SARS Covid-2 Antigen Negative (Negative)
[2021-05-22 23:13] LABS: Alanine Aminotransferase 19 U/L (0-33); Albumin Level 3.7 g/dL (3.5-5.2); Alkaline Phosphatase 80 IU/L (35-105); Anion Gap 18.5 (5-19); Aspartate Amino Transferase 39 U/L (0-32); Blood Urea Nitrogen 36 mg/dL (8-23); Calcium 8.7 mg/dL (8.5-10.5); Carbon Dioxide 26 mmol/L (22-29); Chloride 99 mmol/L (98-107); Free T4 Free Thyroxine 1.83 ng/dL (0.82-1.77); Globulin 2.9 g/dL (1.3-4.6); Glucose 95 mg/dL (65-115); Lipase 43 U/L (13-60); Osmolality Calculated 296 mOsm/kg (285-295); Potassium 4.5 mmol/L (3.5-5.1); Sodium 139 mmol/L (136-145); Thyroid Stimulating Hormone 0.93 uIU/mL (0.27-4.20); Total Bilirubin 0.3 mg/dL (0.15-1.2); Total Protein 6.6 g/dL (6.6-8.7)
[2021-05-22 23:15] LABS: Acetaminophen < 5.0 ug/mL (10-30); Salicylate < 0.3 mg/dL (3-10)
[2021-05-22 23:28] VITALS: BP 125/47; PULSE 89; O2SAT 91
[2021-05-22] MEDS: levofloxacin-dextrose 5 % 750 MG/150 ML PREMIX 100 MG IV (23:57)
[2021-05-23] VITALS (18 sets, daily range): BP systolic 96–131; BP diastolic 43–66; PULSE 76–111; RESP 12–20; TEMP 36.5–36.6; O2SAT 90–100
--- NOTE | 2021-05-23 00:21 | ECG_ITS ---
[facility] Test Date: 2021-05-23 Pat Name: Melonie Cross Department: Room: EDIP Gender: Female Trading Specialist: : [id number] Requested By: Kiran Mcwilliams Order Number: [id number] Pradeep MD: Cecelia Duran M.D. Measurements Intervals [place] Rate: 95 P: 76 WV: 159 QRS: -10 QRSD: 70 T: 57 QT: 345 QTc: 435 Interpretive Statements SINUS RHYTHM POSSIBLE LEFT ATRIAL ENLARGEMENT [-0.1mV P-WAVE IN V1/V2] INFERIOR MYOCARDIAL INFARCTION , PROBABLY OLD [40+ ms Q WAVE AND/OR ST/T ABNORMALITY IN II/aVF] Compared to ECG 05/22/2021 22:00:46 Myocardial infarct finding now present Electronically Signed On 05-23-2021 11:01:40 [employer] by Cecelia Duran M.D. [email or web address] [id number]
--- NOTE | 2021-05-23 00:23 | P.HP_ITS ---
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 due to altered mental status. Currently patient's alert to person, not to place, not to time, she does follow commands, but becomes quite agitated, she tells me that we are holding her against her well, she wants to go back to her home in [facility] [place]. She has no complaints, no headache, no blurry vision, no nausea, no vomiting, no neck pain, no chest pain, no abdominal pain, no back pain, no diarrhea, no dysuria, no hematuria lung no shortness of breath, no cough. She does not know why she is here in the hospital. According to ER physician, patient was found wandering the neighborhood, confused, knocking on neighbors doors, she was naked outside. She was found to have 225 mcg fentanyl patches on her back, she also uses oxycodone at home, found to have presumed altered mental status secondary to polypharmacy, UA positive for UTI, given antibiotics. Review of Systems Const: Denies: fever(s) or malaise Eyes: Denies: blurry vision Resp: Denies: dyspnea or wheezing GI: Denies: nausea, vomiting, diarrhea, hematochezia or melena : Denies: flank pain or dysuria Musc: Denies: neck pain or back pain Skin/Breast: Denies: rash Neuro: Denies: headache(s), dizziness or vertigo Psych: Denies: depression Medications/Allergies Home Medications Medication Instructions Recorded Confirmed Last Taken Type cholecalciferol (vitamin D3) 50 50 mcg PO DAILY 05/26/19 04/26/21 09/19/20 History mcg (2,000 unit) capsule hydrocodone 10 mg-acetaminophen 1 tab PO Q6H PRN 04/03/20 04/26/21 09/19/20 History 325 mg tablet [id number] lightweight wheelchair #1 ea 07/26/20 04/26/21 Unknown Rx nebulizers #1 each 07/26/20 04/26/21 Unknown Rx ondansetron HCl 4 mg tablet 4 mg PO DAILY #30 tab 10/23/20 04/26/21 Unknown Rx (Zofran) ferrous sulfate 300 mg (60 mg 300 mg (5 mL) PO DAILY #500 ml 01/21/21 04/26/21 Unknown Rx iron)/5 mL oral liquid pen needle, diabetic 33 gauge x #200 each 01/21/21 04/26/21 Unknown Rx 5/32 nitroglycerin 0.4 mg sublingual 0.4 mg SUBLINGUAL Q5M PRN #25 tab 02/28/21 04/26/21 Unknown Rx tablet (Nitrostat) aspirin 81 mg tablet,delayed 81 mg PO DAILY #30 tab 04/22/21 04/26/21 Unknown Rx release benazepril 40 mg tablet (Lotensin) 40 mg PO DAILY #30 tab 04/22/21 04/26/21 Unknown Rx budesonide 0.5 mg/2 mL suspension 0.5 mg (2 mL) INHALATION BID #120 04/22/21 04/26/21 Unknown Rx for nebulization (Pulmicort) ml diltiazem HCl 360 mg 360 mg PO DAILY #30 cap 04/22/21 04/26/21 Unknown Rx capsule,extended release 24 hr escitalopram oxalate 10 mg tablet 10 mg PO .at supper #30 tab 04/22/21 04/26/21 Unknown Rx (Lexapro) fenofibrate nanocrystallized 145 145 mg PO DAILY #30 tab 04/22/21 04/26/21 Unknown Rx mg tablet (Tricor) insulin degludec 200 unit/mL (3 See Rx Instructions SUBCUT DAILY 04/22/21 04/26/21 Unknown Rx mL) subcutaneous pen (Tresiba #27 ml FlexTouch U-200 insulin) ipratropium 0.5 mg-albuterol 3 mg 3 ml INHALATION QID PRN #180 ml 04/22/21 04/26/21 Unknown Rx (2.5 mg base)/3 mL nebulization soln isosorbide mononitrate 60 mg 60 mg PO BID #60 tab 04/22/21 04/26/21 Unknown Rx tablet,extended release 24 hr liraglutide 0.6 mg/0.1 mL (18 mg/3 1.2 mg (0.2 mL) SUBCUT Q24H #9 ml 04/22/21 04/26/21 Unknown Rx mL) subcutaneous pen injector (Shopitizeza 3-Alfred) magnesium oxide 400 mg PO BID #60 tab 04/22/21 04/26/21 Unknown Rx metoprolol succinate 100 mg 100 mg PO DAILY #30 tab 04/22/21 04/26/21 Unknown Rx tablet,extended release 24 hr pantoprazole 20 mg tablet,delayed 20 mg PO DAILY #30 tab 04/22/21 04/26/21 Unknown Rx release theophylline 400 mg 400 mg PO DAILY #30 cap 04/22/21 04/26/21 Unknown Rx capsule,extended release 24 hr tiotropium 2.5 mcg-olodaterol 2.5 2 puff INHALATION Q24H #4 g 04/22/21 04/26/21 Unknown Rx mcg/actuation mist for inhalation (Stiolto Respimat) Allergies Allergy/AdvReac Type Severity Reaction Status Date / Time amlodipine [From Norvasc] Allergy swelling Verified 01/04/21 09:33 cephalexin Allergy ALGY-Anaphy Verified 01/04/21 09:33 laxis erythromycin base Allergy ADR-Nausea Verified 01/04/21 09:33 Penicillins Allergy swelling Verified 01/04/21 09:33 propranolol [From Inderal LA] Allergy swelling Verified 01/04/21 09:33 tetanus toxoid, adsorbed Allergy swelling Verified 01/04/21 09:33 tetracycline Allergy ADR-Nausea Verified 01/04/21 09:33 ticlopidine [From Ticlid] Allergy swelling Verified 01/04/21 09:33 PFSH Acute PFSH: Medical History Acid reflux Allergic rhinitis due to allergen Breast cancer, right COPD (chronic obstructive pulmonary disease) Diabetes mellitus with hyperglycemia, with long-term current use of insulin HTN (hypertension) Nocturnal oxygen desaturation Osteoarthritis Post-menopausal osteoporosis Surgical History History of angioplasty with stent 1998 History of cholecystectomy History of oophorectomy History of removal of Port-a-Cath (09/19/20) History of tonsillectomy Hx of carotid angioplasty Port-A-Cath in place Family History Family/Other Diabetes Father COPD exacerbation Social History Quit status (tobacco): has quit using tobacco Year quit tobacco: 2020 - 1PPD x 50 Years Second hand smoke exposure: No Smoking risk assessment/counseling performed?: Yes Alcohol intake: never Desire information about alcohol rehabilitation?: No Counseling given: No Desire information about substance/drug rehabilitation?: No Counseling given: No Lives independently: Yes Household members: children Housing: House Marital status: / Current occupational status: disabled Pets and animals: Yes Pets & animals: dog(s) History of recent travel: No Current gender identity: Female Vitals/I&O/Wt Last Vital Signs Temp 98.6 F 05/22/21 21:19 Pulse 89 05/22/21 23:28 Resp 18 05/22/21 21:28 BP 125/47 05/22/21 23:28 Pulse Ox 91 05/22/21 23:28 Weight last 48 hrs Weight 53.524 kg Physical Exam Const: COMMON NORMALS: no acute distress EXAM LIMITATIONS: altered mental status ORIENTATION/CONSCIOUSNESS: Yes awake, Yes oriented to person and Yes confused; not oriented to place and not oriented to time HENMT: COMMON NORMALS: normocephalic HEAD & SCALP: normocephalic Eye: COMMON NORMALS: Equal, round and reactive pupils present and EOMs intact bilaterally Neck/C-Spine: COMMON NORMALS: no JVD Lymph: LYMPHATIC: no lymphadenopathy noted Resp: COMMON NORMALS: normal respiratory effort, No retractions, No use of accessory muscles and clear to auscultation bilaterally AUSCULTATION: clear to auscultation bilaterally Cardio: COMMON NORMALS: no JVD, regular rate, regular rhythm, S1 normal heart sound present and S2 normal heart sound present RATE: regular rate RHYTHM: regular rhythm HEART SOUNDS: S1 normal heart sound present and S2 normal heart sound present GI: COMMON NORMALS: Normal to inspection, nondistended, normoactive bowel genoveva nds present, Soft to palpation, non-tender, No hepatosplenomegaly present, no masses and no bruits PALPATION: Yes Soft to palpation and Yes No hepatosplenomegaly present Extremity: COMMON NORMALS: capillary refill normal, no clubbing, cyanosis or edema, no calf tenderness and no pedal edema Neuro: OTHER: Wiggles her toes, squeezes my fingers able to smile, does not follow other neurologic testing Psych: COMMON NORMALS: mental status grossly normal Data : 05/22/21 22:14 05/22/21 22:14 A&P Assessment and plan (1) Altered mental status: Status: Acute (2) Acute cystitis: Status: Acute (3) Diabetes mellitus with hyperglycemia, with long-term current use of insulin: Status: Chronic Qualifiers: Diabetes mellitus type: type 2 Qualified Code(s): E11.65 - Type 2 diabetes mellitus with hyperglycemia; Z79.4 - correction (current) use of insulin (4) Acute kidney injury: Status: Acute (5) COPD (chronic obstructive pulmonary disease): Status: Chronic Qualifiers: COPD type: emphysema Emphysema type: unspecified Qualified Code(s): J43.9 - Emphysema, unspecified (6) HTN (hypertension): Status: Chronic Qualifiers: Hypertension type: essential hypertension Qualified Code(s): I10 - Essential (primary) hypertension Plan Altered mental status -Secondary to possible underlying UTI -Also possible polypharmacy from fentanyl, oxycodone -All sedating medications have been held head CT shows -Head CT shows -?A probable 11 mm meningioma of the left cerebellopontine angle cistern. A vestibular schwannoma is considered less likely given peripheral calcification and the fact that the nodule does not appear to arise from the porous acusticus.? Non emergent MRI may be helpful for evaluation of the adjacent cranial nerves if clinically indicated. -Given history of underlying malignancy, can consider MRI REZA -Creatinine 1.7, receiving IV hydration NSTEMI -Serial troponins, serial EKGs, -No complaints of chest pain Right upper lobe lung cancer -Status post chemotherapy, radiation therapy Breast cancer, grade 2 infiltrating ductal carcinoma, further treatment deferred due to lung cancer Hypertension couple continue home meds Full code Lovenox for DVT prophylaxis Attestations Medical Necessity Statement*: Patient requires hospitalization, for altered mental status, inpatient, other than 2 minutes Coding Level of Care Code Acute Tile Installer for [facility] Fwd Exam Comprehensive Diagnoses Altered mental status R41.82 Acute cystitis N30.00 Diabetes mellitus with hyperglycemia, with long-term current use of insulin E11.65; Z79.4 Diabetes mellitus type: type 2 Acute kidney injury N17.9 COPD (chronic obstructive pulmonary disease) J43.9 COPD type: emphysema Emphysema type: unspecified HTN (hypertension) I10 Hypertension type: essential hypertension
--- NOTE | 2021-05-23 00:53 | USCV_ITS ---
AmericaMelonie Age: 76 Gender: F : 1945 Exam Date: 05/23/2021 06:22 Ordering Phys: Kiran Mcwilliams MD Technologist: Marisol Christopher Exam Location: [facility] [place] Indication: AMS BP: 137 / 48 HR: 99 Rhythm: Sinus Technical Quality: Adequate MEASUREMENTS (Male / Female) Normal Values 2D ECHO LV Diastolic Diameter PLAX 4.0 cm 4.2 - 5.9 / 3.9 - 5.3 cm LV Systolic Diameter PLAX 1.9 cm IVS Diastolic Thickness 1.3 cm 0.6 - 1.0 / 0.6 - 0.9 cm IVS Systolic Thickness 1.7 cm LVPW Diastolic Thickness 1.0 cm 0.6 - 1.0 / 0.6 - 0.9 cm LVPW Systolic Thickness 1.6 cm LVOT Diameter 1.9 cm LV Ejection Fraction 2D Teich 85.1 % LV Ejection Fraction MOD 2C 81.0 % LV Ejection Fraction 2C AL 85.6 % LA Diameter 2.6 cm LA Width 2.8 cm LA Height 3.1 cm RA Width 2.7 cm RA Height 2.6 cm Aorta at Sinotubular Diameter 2.4 cm M-MODE Aortic Annulus Diameter 2.2 cm LA Ao Ratio MM 1.3 MV E Point Septal Separation 0.2 cm DOPPLER AV Peak Velocity 170.0 cm/s LVOT Peak Velocity 109.0 cm/s AV Area Cont Eq vti 2.2 cm squared AV Area Cont Eq pk 1.8 cm squared MV Peak Velocity 208.0 cm/s MV Area PHT 4.1 cm squared Mitral E to A Ratio 0.4 MV E' Velocity 39.5 cm/s Mitral E to MV E' Ratio 6.8 Mitral E to LV E' Lateral Ratio 6.8 Mitral E to LV E' Septal Ratio 6.9 TR Peak Velocity 213.5 cm/s TR Peak Gradient 18.2 mmHg TR Mean Velocity 166.8 cm/s TR Mean Gradient 12.3 mmHg TR Velocity Time Integral 49.6 cm TV Peak E Velocity 49.0 cm/s Right Atrial Pressure 3.0 mmHg Pulmonary Artery Systolic Pressu 21.2 mmHg PV Peak Velocity 98.0 cm/s RV Acceleration Time 0.1 s RV Ejection Time 0.3 s RV AcT/ET 0.4 FINDINGS Left Ventricle Normal left ventricular cavity size. Normal left ventricular systolic function. No regional wall motion abnormalities. Left ventricular ejection fraction is estimated at 65 %. Grade I/IV diastolic dysfunction (abnormal relaxation filling pattern), normal to mildly elevated filling pressures. Right Ventricle The right ventricle is normal in size and function. Right Atrium The right atrium is normal in size. Left Atrium The left atrium is normal in size. Mitral Valve Moderately thickened mitral valve. Severe mitral annular calcification. No mitral valve stenosis. No mitral valve regurgitation. Aortic Valve Severe aortic valve calcification. Mild aortic valve stenosis, mean gradient 5.6 mmHg, OLENA 2.2 cm squared. No aortic valve regurgitation. Tricuspid Valve Moderate tricuspid valve regurgitation. Pulmonic Valve Structurally normal pulmonic valve without significant stenosis. There is no pulmonic regurgitation. Pericardium Normal pericardium without effusion. Aorta Normal ascending aorta dimension. CONCLUSIONS 1-Normal left ventricular cavity size. Normal left ventricular systolic function. No regional wall motion abnormalities. Left ventricular ejection fraction is estimated at 65 %. Grade I/IV diastolic dysfunction (abnormal relaxation filling pattern), normal to mildly elevated filling pressures. 2-Severe aortic valve calcification. Mild aortic valve stenosis, mean gradient 5.6 mmHg, OLENA 2.2 cm squared. No aortic valve regurgitation. 3-Moderately thickened mitral valve. Severe mitral annular calcification. No mitral valve stenosis. No mitral valve regurgitation. 4-Moderate tricuspid valve regurgitation. 5-There is no pericardial effusion. 6-Pulmonary artery systolic pressure is within normal limits. 7-Right atrial pressure is around 5 mm of mercury. 8-There are no prior echocardiogram studies to compare. Eduardo Shoemaker MD (Electronically Signed) Final Date: 23 May 2021 17:55 S
--- NOTE | 2021-05-23 00:53 | USCV_ITS ---
AmericaMelonie Age: 76 Gender: F : 1945 Exam Date: 05/23/2021 06:38 Ordering Phys: Kiran Mcwilliams MD Technologist: Marisol Christopher [place] [facility] [place]: AMS Risk Factors: Previous Vascular Surgery: Right Brachial BP: / Left Brachial BP: / Right Left Velocity (cm/s) Spectral Plaque Velocity (cm/s) Spectral Plaque Syst/Diast Broadening Syst/Diast Broadening 79.40/ 24.30 Prox CCA 88.10 / 11.80 86.30/ 11.30 Mid CCA 72.30 / 14.50 82.50/ 11.30 Distal CCA 61.50 / 4.30 71.30/ 14.10 Prox ICA 87.10 / 14.30 82.50/ 11.30 Mid ICA 121.30/ 24.30 74.80/ 10.90 Distal ICA 55.60 / 11.00 146.50 ECA 141.40 0.96 ICA/CCA 1.38 Antegrade Vertebral Antegrade 71.70/ 10.10 cm/s 94.80/ 20.90 cm/s Tri Subclavian Tri 188.9 80.50 0 CONCLUSIONS Right ICA stenosis <50%. Moderate calcified atheromatous plaque right carotid bulb/ICA. Left ICA stenosis <50%. Moderate calcified atheromatous plaque left carotid bulb/ICA. Normal antegrade Doppler flow noted in the right vertebral artery. Normal antegrade Doppler flow noted in the left vertebral artery. Devante Honeycutt MD (Electronically Signed) Final Date: 23 May 2021 09:49 S
[2021-05-23 01:03] LABS: Troponin(5th) Baseline 53 ng/L (0-10)
[2021-05-23 01:08] LABS: NT Pro B Type Natriuretic Pept 1245 pg/mL (0-125); Procalcitonin 0.16 ng/mL (0-0.5)
[2021-05-23 01:16] LABS: Lactic Sepsis W/Reflex 0.8 mmol/L (0.5-2.2)
[2021-05-23] MEDS: pantoprazole 40 mg SDV IVP (01:21)
[2021-05-23] MEDS: enoxaparin 40 mg/0.4 mL Syringe SUBCUT (01:23)
[2021-05-23] MEDS: sodium chloride 0.9% 1,000 ML 75 ML IV (01:24)
[2021-05-23 01:28] LABS: Troponin 5 2HR 56.58 ng/L (0-10); Troponin 5 2HR Delta 3.58 ABS# (0-10)
[2021-05-23] MEDS: haloperidol inj 5 mg/mL INJ 1 mL 1 MG IVP (02:54)
[2021-05-23 03:14] LABS: Influenza A by IFA Negative (Negative); Influenza B by IFA Negative (Negative)
[2021-05-23] MEDS: ipratropium-albuterol 3 mL Neb INHALATION ×4 (03:29→21:00)
[2021-05-23] MEDS: LORazepam 2 mg/mL INJ 1 mL 0.5 MG IVP (03:37)
--- NOTE | 2021-05-23 06:18 | ECG_ITS ---
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: : 1945 Requested By: Kiran Mcwilliams Order Number: [id number] Reading MD: AZEEM CHAVIRA Measurements Intervals [place] Rate: 108 P: 79 ID: [id number] QRS: 1 QRSD: 67 T: 55 QT: 327 QTc: 440 Interpretive Statements SINUS TACHYCARDIA POSSIBLE RIGHT ATRIAL ENLARGEMENT [0.25mV P-WAVE] POSSIBLE LEFT ATRIAL ENLARGEMENT [-0.1mV P-WAVE IN V1/V2] ABNORMAL RHYTHM ECG Compared to ECG 05/23/2021 02:35:56 Sinus rhythm no longer present Myocardial infarct finding no longer present Electronically Signed On 05-23-2021 21:49:35 CNC MAINTENANCE MECHANIC by AZEEM CHAVIRA [id number]
[2021-05-23 07:47] LABS: Troponin 5 6HR 50.99 ng/L (0-10)
[2021-05-23 07:52] LABS: Troponin 5 6HR Delta -2.01 ng/L (0-12)
--- NOTE | 2021-05-23 07:58 | PC.PHAR ---
PT UNABLE TO VERIFY HOME MEDS-HOME HEALTH NURSE BURAK VERIFIED ON PHONE-NURSE BURAK STATED PT NO LONGER TAKES INSULIN DUE TO WEIGHT LOSS.
[2021-05-23] MEDS: fenofibrate 145 mg Tablet PO (09:27)
[2021-05-23] MEDS: cholecalciferol (vitamin D3) 1,000 unit Tablet 1000 UNIT PO (09:27)
[2021-05-23] MEDS: dilTIAZem ER (24HR) 180 mg Capsule 360 MG PO (09:27)
[2021-05-23] MEDS: aspirin 81 mg EC Tablet PO (09:27)
[2021-05-23] MEDS: isosorbide mononitrate ER 60 mg Tablet PO (09:27)
[2021-05-23] MEDS: metoprolol succinate ER (24 HR) 50 mg Tablet 100 MG PO (09:27)
[2021-05-23] MEDS: acetaminophen 325 mg Tablet 650 MG PO (09:32)
[2021-05-23] MEDS: oxyCODONE 5 mg IR Tab/Cap PO (14:08)
--- NOTE | 2021-05-23 14:14 | P.PN_ITS ---
Subjective Subjective: Melonie reports she has some pain. She feels okay. She would like to go home. She does not really remember why she came in. She denies any suicidal or homicidal ideation. History and physical was reviewed. Reports she has significant lower back pain. Medications: Reviewed: Yes Vitals/I&O/Wt Last Vital Signs Temp 98.6 F 05/22/21 21:19 Pulse 78 05/23/21 13:32 Resp 18 05/23/21 14:08 BP 96/46 05/23/21 11:30 Pulse Ox 98 05/23/21 14:08 Weight last 48 hrs Weight 53.524 kg Physical Exam Narrative: General exam no distress Neck supple Cardiovascular regular rate and rhythm without murmur Lungs clear Abdomen is soft, positive bowel sounds Extremities no cyanosis clubbing or edema Data : 05/22/21 22:14 05/22/21 22:14 Micro: Microbiology 05/23/21 00:57 Blood Culture - Preliminary Blood SPECIMEN COLLECTED 05/22/21 22:14 Blood Culture - Preliminary Blood SPECIMEN COLLECTED A&P Assessment and plan (1) Altered mental status: Improved. Most likely secondary to fentanyl, which was added to her oxycodone. Reintroduce oxycodone, lower rate, avoid fentanyl. Monitor response closely. Note that she was placed on a 96-hour hold when she came in. Will consult psychiatry for evaluation, if this can be removed. CT head demonstrated likely meningioma. Status: Acute (2) Acute cystitis: Currently on Levaquin Await culture Status: Acute (3) Diabetes mellitus with hyperglycemia, with long-term current use of insulin: Diet controlled currently. Status: Chronic Qualifiers: Diabetes mellitus type: type 2 Qualified Code(s): E11.65 - Type 2 diabetes mellitus with hyperglycemia; Z79.4 - USP (current) use of insulin (4) Acute kidney injury: IV fluids were given overnight Repeat laboratory. Avoid anti-inflammatories. Status: Acute (5) COPD (chronic obstructive pulmonary disease): No evidence of exacerbation DuoNeb as needed Status: Chronic Qualifiers: COPD type: emphysema Emphysema type: unspecified Qualified Code(s): J43.9 - Emphysema, unspecified (6) HTN (hypertension): Reduce home medications, Imdur, secondary to lower blood pressures Status: Chronic Qualifiers: Hypertension type: essential hypertension Qualified Code(s): I10 - Essential (primary) hypertension Plan Elevated troponin, type II elevation. Echocardiogram was ordered and pending. Low back pain. Unknown history of patient fell. Has malignancy. Check LS CT History of lung cancer status post chemotherapy and radiation, squamous cell Breast cancer, treatment deferred secondary to lung cancer Full code Lovenox for DVT prophylaxis Attestations Medical Necessity Statement*: Needs continued hospital stay, for close monitoring of mental status with reintroduction of OxyIR, evaluation by psychiatry in this patient on a 96-hour hold, close follow-up of acute kidney in jury. Coding Level of Care Code Acute Lead Simulation Modeling Engineer for g Fwd Diagnoses Altered mental status R41.82 Acute cystitis N30.00 Diabetes mellitus with hyperglycemia, with long-term current use of insulin E11.65; Z79.4 Diabetes mellitus type: type 2 Acute kidney injury N17.9 COPD (chronic obstructive pulmonary disease) J43.9 COPD type: emphysema Emphysema type: unspecified HTN (hypertension) I10 Hypertension type: essential hypertension
--- NOTE | 2021-05-23 14:19 | CT_ITS ---
WS: [id number] CT lumbar spine wo con* [id number] REASON FOR EXAM: pain, history of malignancy IV CONTRAST ADMINISTERED: Noncontrast TOTAL EXAM DLP: 1007.[address] scans at [facility] use at least one of these dose optimization techniques: automat ed exposure control; mA and/or kV adjustment per patient size (includes targeted exams where dose is matched to clinical indication); or iterative reconstruction. FINDINGS: No significant vertebral body compression deformity. No focal vertebral body lesion. Severe narrowing of the intervertebral disc spaces with degenerative interspace gas, L2-S1. Significant degenerative change in the facet joints L2-S1. Broad-based disc protrusion, degenerative change in the facet joints, and posterior ligamentous hyper trophy producing moderate central and bilateral foraminal stenosis at L2-L3. Small amount of epidural gas at this level from the degenerative gas in the disc space. Broad-based disc protrusion, degenerative changes in the facet joints, and posterior ligamentous hype rtrophy produce moderate central and bilateral foraminal stenosis at L3-L4. At L4-L5 broad-based disc protrusion with a more focal disc protrusion containing gas right of midlin e. Broad-based disc protrusion, degenerative change in the facet joints, and posterior ligamentous hy pertrophy produce mild central and bilateral foraminal stenosis. At L5-S1 broad-based disc protrusion, degenerative change in the facet joints, posterior ligamentous hypertrophy produce mild central and bilateral foraminal stenosis. At the S1 level there is a lucency in the posterior medial left iliac bone with a thin sclerotic landon in. This measures 10 mm in maximum diameter. Just above this level and more laterally in the left iliac bone there is a 4 mm area of ill-defined s clerosis. CT/CT lumbar spine wo con* [id number] IMPRESSION: Severe multilevel degenerative disc disease and spinal stenosis as above. No metastatic disease identified within the vertebral bodies. Abnormalities in the left iliac bone are unlikely malignant.
[2021-05-23 14:59] LABS: Blood Urea Nitrogen 27 mg/dL (8-23); Calcium 8.5 mg/dL (8.5-10.5); Carbon Dioxide 22 mmol/L (22-29); Chloride 98 mmol/L (98-107); Glucose 179 mg/dL (65-115); Osmolality Calculated 282 mOsm/kg (285-295); Sodium 131 mmol/L (136-145)
[2021-05-23 15:04] LABS: Anion Gap 15.3 (5-19); Potassium 4.3 mmol/L (3.5-5.1)
--- NOTE | 2021-05-23 15:27 | PC.NURSE ---
REPORT TO MICHELLE NURSE ON [facility]SUR, PATIENT WILL BE TRANSPORTED VIA STAFF ON ED CART
--- NOTE | 2021-05-23 15:31 | PC.NURSE ---
ENEIDA IS GOING WITH PATIENT TO THE FLOOR UPDATED URIEL ON 96 HOUR HOLD
--- NOTE | 2021-05-23 15:53 | PC.OT ---
OT EVALUATION ATTEMPTED. PATIENT IS SITTING AT [facility]ATION WAITING FOR ROOM TO BE CLEANED. IS SPEAKING WITH CHARGE NURSE AND 1:1 SITTER. CONFUSED; NURSING REQUESTS HOLD AT THIS TIME.
[2021-05-24] VITALS (9 sets, daily range): BP systolic 100–130; BP diastolic 51–63; PULSE 60–88; RESP 16–18; TEMP 36.6–37; O2SAT 93–98
[2021-05-24] MEDS: enoxaparin 30 mg/0.3 mL Syringe SUBCUT (01:25)
[2021-05-24] MEDS: acetaminophen 325 mg Tablet 650 MG PO (01:25)
[2021-05-24] MEDS: pantoprazole 40 mg SDV IVP (01:52)
[2021-05-24] MEDS: oxyCODONE 5 mg IR Tab/Cap PO ×2 (05:20→09:46)
[2021-05-24 06:04] LABS: Basophils % 0.4 %; Eosinophils % 0.6 %; Hematocrit 37.9 % (37.0-47.0); Lymphocytes # 0.5 10^3/uL (0.8-4.8); Lymphocytes % 8.4 %; Mean Corpuscular HGB Conc 31.7 g/dL (30.0-36.0); Mean Corpuscular Hemoglobin 30.2 pg (28.0-34.0); Mean Corpuscular Volume 95.5 fl (81-99); Mean Platelet Volume 10.2 fL (7.4-10.4); Monocytes # 0.8 10^3/uL (0.2-0.9); Monocytes % 14.9 %; Neutrophils % 75.1 %; Nucleated Red Blood Cells % 0 %; Platelet Count 367 10^3/cmm (130-400); Red Blood Count 3.97 10^6/uL (4.1-5.3); Red Cell Distribution Width 15.7 % (12.1-15.1); White Blood Count 5.5 10^3/uL (4.0-10.0)
[2021-05-24 06:25] LABS: Alanine Aminotransferase 18 U/L (0-33); Albumin Level 3.3 g/dL (3.5-5.2); Alkaline Phosphatase 76 IU/L (35-105); Anion Gap 15.9 (5-19); Aspartate Amino Transferase 33 U/L (0-32); Blood Urea Nitrogen 23 mg/dL (8-23); Calcium 9.9 mg/dL (8.5-10.5); Carbon Dioxide 22 mmol/L (22-29); Chloride 104 mmol/L (98-107); Globulin 3.5 g/dL (1.3-4.6); Glucose 89 mg/dL (65-115); Osmolality Calculated 289 mOsm/kg (285-295); Phosphorus 2.9 mg/dL (2.5-4.5); Potassium 3.9 mmol/L (3.5-5.1); Sodium 138 mmol/L (136-145); Total Bilirubin 0.4 mg/dL (0.15-1.2); Total Protein 6.8 g/dL (6.6-8.7)
--- NOTE | 2021-05-24 08:46 | W.PM.PSYCONS ---
Providers/Reason for Consult Consulting Physican/Specialty*: Giovani Mckee MD/Psychiatist Reason for Consult*: Altered mental status, probably due to excessive opiates Attending Physician: Valente Lugo MD Primary Care Provider: GITA Decker Psych Consult HPI History of Present Illness Melonie Cross is a 76 year old female who was reportedly found outside her home knocking on people's doors. She was trying to light a cigarette with an albuterol inhaler. She has been much better since she has been in the hospital and her opiate intake has been monitored. She has been pleasant and cooperative. She continues to complain of a lot of back pain. She does not have any memory of the incident which is not surprising. Her memory recently has been good. She has been able to participate in her care. She seems to have decision-making capacity. There is been no evidence of her having poor judgment or being a danger to herself or anyone else since she has been in the hospital. She denies any prior mental health treatment. Meds Home Medications and Allergies Home Medications Medication Instructions Recorded Confirmed Last Taken Type cholecalciferol (vitamin D3) 50 50 mcg PO DAILY 05/26/19 05/23/21 09/19/20 History mcg (2,000 unit) capsule K0003 lightweight wheelchair #1 ea 07/26/20 05/23/21 Unknown Rx nebulizers #1 each 07/26/20 05/23/21 Unknown Rx nitroglycerin 0.4 mg sublingual 0.4 mg SUBLINGUAL Q5M PRN #25 tab 02/28/21 05/23/21 Unknown Rx tablet (Nitrostat) aspirin 81 mg tablet,delayed 81 mg PO DAILY #30 tab 04/22/21 05/23/21 Unknown Rx release benazepril 40 mg tablet (Lotensin) 40 mg PO DAILY #30 tab 04/22/21 05/23/21 Unknown Rx budesonide 0.5 mg/2 mL suspension 0.5 mg (2 mL) INHALATION BID #120 04/22/21 05/23/21 Unknown Rx for nebulization (Pulmicort) ml diltiazem HCl 360 mg 360 mg PO DAILY #30 cap 04/22/21 05/23/21 Unknown Rx capsule,extended release 24 hr ipratropium 0.5 mg-albuterol 3 mg 3 ml INHALATION QID PRN #180 ml 04/22/21 05/23/21 Unknown Rx (2.5 mg base)/3 mL nebulization soln isosorbide mononitrate 60 mg 60 mg PO BID #60 tab 04/22/21 05/23/21 Unknown Rx tablet,extended release 24 hr magnesium oxide 400 mg PO BID #60 tab 04/22/21 05/23/21 Unknown Rx metoprolol succinate 100 mg 100 mg PO DAILY #30 tab 04/22/21 05/23/21 Unknown Rx tablet,extended release 24 hr pantoprazole 20 mg tablet,delayed 20 mg PO DAILY #30 tab 04/22/21 05/23/21 Unknown Rx release theophylline 400 mg 400 mg PO DAILY #30 cap 04/22/21 05/23/21 Unknown Rx capsule,extended release 24 hr tiotropium 2.5 mcg-olodaterol 2.5 2 puff INHALATION Q24H #4 g 04/22/21 05/23/21 Unknown Rx mcg/actuation mist for inhalation (Course Heroolto Respimat) fentanyl 25 mcg/hr transdermal 50 mcg TRANSDERMAL .EVERY 72 HOURS 05/23/21 05/23/21 Unknown History patch oxycodone 15 mg tablet 15 mg PO QID PRN 05/23/21 05/23/21 Unknown History venlafaxine 75 mg tablet,extended 75 mg PO DAILY 05/23/21 05/23/21 Unknown History release 24 hr Allergies Allergy/AdvReac Type Severity Reaction Status Date / Time amlodipine [From Norvasc] Allergy swelling Verified 05/23/21 08:48 cephalexin Allergy ALGY-Anaphy Verified 05/23/21 08:48 laxis erythromycin base Allergy ADR-Nausea Verified 05/23/21 08:48 Penicillins Allergy swelling Verified 05/23/21 08:48 propranolol [From Inderal LA] Allergy swelling Verified 05/23/21 08:48 tetanus toxoid, adsorbed Allergy swelling Verified 05/23/21 08:48 tetracycline Allergy ADR-Nausea Verified 05/23/21 08:48 ticlopidine [From Ticlid] Allergy swelling Verified 05/23/21 08:48 Current Medications Current Medications Generic Name Dose Route Start Last Admin Trade Name Freq PRN Reason Stop Dose Admin Acetaminophen 650 mg 05/23/21 00:53 05/24/21 01:25 Acetaminophen 325 Mg Tablet PO 650 mg Q6H PRN Administration Mild/Mod Pain Or Temp >/= 101 Albuterol/Ipratropium 3 ml 05/23/21 02:55 05/23/21 13:26 Ipratropium-Albuterol 3 Ml Neb INHALATION 3 ml Q4H PRN Administration SHORTNESS OF BREATH Albuterol/Ipratropium 3 ml 05/23/21 20:00 05/23/21 21:00 Ipratropium-Albuterol 3 Ml Neb INHALATION 3 ml QID.RESPIRATORY ALLEGRA Administration Aspirin 81 mg 05/23/21 09:00 05/23/21 09:27 Aspirin 81 Mg Ec Tablet PO 81 mg DAILY ALLEGRA Administration Diltiazem HCl 360 mg 05/23/21 09:00 05/23/21 09:27 Diltiazem Er (24hr) 180 Mg Capsule PO 360 mg DAILY ALLEGRA Administration Enoxaparin Sodium 30 mg 05/24/21 01:30 05/24/21 01:25 Enoxaparin 30 Mg/0.3 Ml Syringe SUBCUT 30 mg Q24H ALLEGRA Administration Escitalopram Oxalate 10 mg 05/23/21 09:00 05/23/21 09:28 Escitalopram 10 Mg Tablet PO Not Given DAILY ALLEGRA Fenofibrate 145 mg 05/23/21 09:00 05/23/21 09:27 Fenofibrate 145 Mg Tablet PO 145 mg DAILY ALLEGRA Administration Metoprolol Succinate 100 mg 05/23/21 09:00 05/23/21 09:27 Metoprolol Succinate Er (24 Hr) 50 Mg Tablet PO 100 mg DAILY ALLEGRA Administration Oxycodone HCl 5 mg 05/23/21 14:01 05/24/21 05:20 Oxycodone 5 Mg Ir Tab/Cap PO 5 mg Q4H PRN Administration MODERATE PAIN Pantoprazole Sodium 40 mg 05/23/21 00:53 05/24/21 01:52 Pantoprazole 40 Mg Sdv IVP 40 mg Q24H ALLEGRA Administration Vitamin D 1,000 unit 05/23/21 09:00 05/23/21 09:27 Cholecalciferol (Vitamin D3) 1,000 Unit Tablet PO 1,000 unit DAILY ALLEGRA Administration PFSH NPU PFSH: Medical History Acid reflux Allergic rhinitis due to allergen Breast cancer, right COPD (chronic obstructive pulmonary disease) Diabetes mellitus with hyperglycemia, with long-term current use of insulin HTN (hypertension) Nocturnal oxygen desaturation Osteoarthritis Post-menopausal osteoporosis Surgical History History of angioplasty with stent 1998 History of cholecystectomy History of oophorectomy History of removal of Port-a-Cath (09/19/20) History of tonsillectomy Hx of carotid angioplasty Port-A-Cath in place Family History Family/Other Diabetes Father COPD exacerbation Social History Quit status (tobacco): has quit using tobacco Year quit tobacco: 2020 - 1PPD x 50 Years Second hand smoke exposure: No Smoking risk assessment/counseling performed?: Yes Alcohol intake: never Desire information about alcohol rehabilitation?: No Counseling given: No Desire information about substance/drug rehabilitation?: No Counseling given: No Lives independently: Yes Household members: children Housing: House Marital status: / Current occupational status: disabled Pets and animals: Yes Pets & animals: dog(s) History of recent travel: No Current gender identity: Female Mental Status Exam MSE Comments: This is a 76-year-old thin female who appears approximately her stated age and is in no acute distress. She is pleasant and cooperative with the evaluation. She is dressed in hospital gown. psychomotor activity is normal. Speech is at a regular rate and rhythm, normal volume, good articulation, not pressured. Alert, oriented X3. She was off by a couple of days and thought it was May 21 but that is not surprising for hospital patient who has had lapse of memory due to the opiate-induced altered mental status. She was able to discuss the recent presidents. Attention and concentration seem to be fairly good at the moment. Memory is intact Mood is good. Affect is euthymic. She just wants to go home. She says that she has things that she needs to do. Thought process is logical and goal-directed. Thought content: Denies auditory and visual hallucinations. No delusions or paranoia are noted. No current suicidal ideation, and no homicidal ideation. Fund of knowledge is average. Insight and judgment appear to be fairly good. Impulse control is fairly good. Vitals/I&O/Wt Last Vital Signs Temp 97.8 F 05/24/21 07:22 Pulse 74 05/24/21 07:22 Resp 18 05/24/21 07:22 BP 130/63 05/24/21 07:22 Pulse Ox 96 05/24/21 07:22 05/23/21 05/24/21 05/24/21 22:59 06:59 14:59 Intake Total 60 / 1060 250 / 1310 Balance 60 / 1060 250 / 1310 Weight last 48 hrs Weight 53.524 kg Weight 53.524 kg Data NPU : 05/24/21 05:58 05/24/21 05:58 Micro: Microbiology 05/23/21 00:57 Blood Culture - Preliminary Blood NEGATIVE TO DATE 05/22/21 22:14 Blood Culture - Preliminary Blood NEGATIVE TO DATE Microbiology 05/23/21 00:57 Blood Blood Culture - Preliminary NEGATIVE TO DATE 05/22/21 22:14 Blood Blood Culture - Preliminary NEGATIVE TO DATE A&P Assessment and plan (1) Altered mental status: Status: Acute Plan This is a 76-year-old female who has significant back pain and recently had altered mental status most likely due to excessive opiates. This has cleared up with hospitalization and monitoring her for medications. She is currently not a danger to herself or others. She is alert and oriented and does not need a sitter. She does not need to be transferred to a geriatric psychiatry unit. She might benefit from a therapist who could help her with her coping skills however this is not essential. It does not seem that psychotropic medications are warranted at this time. Attestations NPU Medical Necessity Statement*: Please see attending physician's notes regarding medical necessity. 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
[2021-05-24] MEDS: isosorbide mononitrate ER 30 mg Tablet PO (08:52)
[2021-05-24] MEDS: cholecalciferol (vitamin D3) 1,000 unit Tablet 1000 UNIT PO (08:52)
[2021-05-24] MEDS: escitalopram 10 mg Tablet PO (08:52)
[2021-05-24] MEDS: fenofibrate 145 mg Tablet PO (08:52)
[2021-05-24] MEDS: dilTIAZem ER (24HR) 180 mg Capsule 360 MG PO (08:52)
[2021-05-24] MEDS: aspirin 81 mg EC Tablet PO (08:52)
[2021-05-24] MEDS: metoprolol succinate ER (24 HR) 50 mg Tablet 100 MG PO (08:52)
[2021-05-24] MEDS: ipratropium-albuterol 3 mL Neb INHALATION ×2 (08:56→11:42)
--- NOTE | 2021-05-24 08:59 | PC.RESP ---
RT Shift Note Frequent safety and respiratory rounds continue. Orders completed as indicated. Patient monitored pre and post treatments throughout shift. Patient [Did.] tolerate treatments appropriately. Condition [.DidNotChange]. Patient and/or inside account representative educated on respiratory treatment and medications. Patient and/or inside account representative verbalized understanding. Will continue to monitor patient progress.
--- NOTE | 2021-05-24 10:57 | P.DS_ITS ---
Discharge Providers Date of Admission: 05/22/21 23:34 Date of Discharge: May 24, 2021 Attending Provider at Admission: Kiran Mcwilliams MD Attending Provider at Discharge: Valente Lugo MD Primary Care Provider: GITA Decker Diagnoses at Discharge Discharge Diagnosis (1) Altered mental status: Status: Acute Reason for Visit Reason for Visit: Confusion Hospital Course Hospital Course Melonie is a 76-year-old white female, who presented to the hospital with confusion. She was placed on a 96-hour hold. She had had a recent medicine change, with fentanyl added to her chronic pain medicine. She has significant pain secondary to lung malignancy. During her hospital stay her fentanyl patch was held. Mental status improved greatly. Psychiatry evaluated her and determined she was decisional and did not need the 96-hour hold. Urine was obtained but did not seem infected, instead contaminated. Medication was reduced secondary to lower blood pressures on admission and benazepril was discontinued, Imdur reduced. At discharge she was alert and oriented x3, and goals were discussed with the patient. Home health on discharge to ensure appropriate safety measures at home. Other studies done while in the hospital included head CT with no acute findings, carotid Doppler with no flow-limiting stenosis, lumbar CT with no overt malignancy. Echocardiogram was also done demonstrating mild aortic stenosis, moderate tricuspid regurgitation, preserved EF and 1/4 diastolic dysfunction. Physical Exam Narrative: General exam no distress Neck is supple no lymphadenopathy thyromegaly Cardiovascular regular rate and rhythm with a 2/6 systolic murmur Lungs clear Abdomen is soft nontender Extremities no cyanosis clubbing or edema Discharge Data Studies Completed and Pending Completed Studies During Hospitalization Category Date Time Status CT head wo con* [id number] Urgent Cat Scan 05/22/21 21:[address] lumbar spine wo con* [id number] Routine Cat Scan 05/23/21 14:19 Completed XR chest 1V portable [id number] Urgent Exams 05/22/21 21:35 Completed CV carotid duplex BI* [id number] Routine Ultrasound 05/23/21 00:53 Completed CV. echo complete* [id number] Routine Ultrasound 05/23/21 00:53 Completed Pending at discharge Category Date Time Status Blood Culture Stat Lab 05/23/21 00:57 Results Complete Blood Count w/Auto AM LABS Lab 05/25/21 04:00 Ordered Complete Blood Count w/Auto AM LABS Lab 05/26/21 04:00 Ordered Comprehensive Metabolic Panel AM LABS Lab 05/25/21 04:00 Ordered Comprehensive Metabolic Panel AM LABS Lab 05/26/21 04:00 Ordered Magnesium AM LABS Lab 05/25/21 04:00 Ordered Magnesium AM LABS Lab 05/26/21 04:00 Ordered Phosphorus AM LABS Lab 05/25/21 04:00 Ordered Phosphorus AM LABS Lab 05/26/21 04:00 Ordered Urine Culture Stat Lab 05/23/21 00:29 Received Radiology Impressions Chest X-Ray 05/22/21 21:35 IMPRESSION: 1. Redemonstration of the right upper lobe suprahilar mass consistent with neoplasm. 2. The previously demonstrated multiple subcentimeter metastatic nodules are present but are seen to better advantage on the comparison CT scan of the chest. 3. No acute pulmonary consolidation. Head CT 05/22/21 21:35 IMPRESSION: 1. Age-appropriate involutional changes of the brain. 2. Mild cerebral small-vessel disease. 3. No acute intracranial abnormality. 4. 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 A vestibular schwannoma is considered less likely given peripheral calcification and the fact that the nodule does not appear to arise from the porous acusticus. Non emergent MRI may be helpful for evaluation of the adjacent cranial nerves if clinically indicated. Lumbar Spine CT 05/23/21 14:19 IMPRESSION: Severe multilevel degenerative disc disease and spinal stenosis as above. No metastatic disease identified within the vertebral bodies. Abnormalities in the left iliac bone are unlikely malignant. Laboratory Results WBC 5.5 10^3/uL (4.0-10.0) 05/24/21 05:58 RBC 3.97 10^6/uL (4.1-5.3) L 05/24/21 05:58 Hgb 12.0 g/dL (11.5-15.3) 05/24/21 05:58 Hct 37.9 % (37.0-47.0) 05/24/21 05:58 MCV 95.5 fl (81-99) 05/24/21 05:58 MCH 30.2 pg (28.0-34.0) 05/24/21 05:58 MCHC 31.7 g/dL (30.0-36.0) 05/24/21 05:58 RDW 15.7 % (12.1-15.1) H 05/24/21 05:58 Plt Count 367 10^3/cmm (130-400) 05/24/21 05:58 MPV 10.2 fL (7.4-10.4) 05/24/21 05:58 Neut % (Auto) 75.1 % 05/24/21 05:58 Lymph % (Auto) 8.4 % 05/24/21 05:58 Sequoyah % (Auto) 14.9 % 05/24/21 05:58 Eos % (Auto) 0.6 % 05/24/21 05:58 Baso % (Auto) 0.4 % 05/24/21 05:58 Neut # (Auto) 4.10 10^3/uL (1.8-7.7) 05/24/21 05:58 Lymph # (Auto) 0.5 10^3/uL (0.8-4.8) L 05/24/21 05:58 Sequoyah # (Auto) 0.8 10^3/uL (0.2-0.9) 05/24/21 05:58 Eos # (Auto) 0.0 10^3/uL (0.0-0.8) 05/24/21 05:58 Baso # (Auto) 0.0 10^3/uL (0.0-0.1) 05/24/21 05:58 Nucleated RBC % (auto) 0 % 05/24/21 05:58 Nucleated RBCs # 0.0 /100WBC 05/24/21 05:58 Sodium 138 mmol/L (136-145) 05/24/21 05:58 Potassium 3.9 mmol/L (3.5-5.1) 05/24/21 05:58 Chloride 104 mmol/L (98-107) 05/24/21 05:58 Carbon Dioxide 22 mmol/L (22-29) 05/24/21 05:58 Anion Gap 15.9 (5-19) 05/24/21 05:58 BUN 23 mg/dL (8-23) 05/24/21 05:58 Creatinine 1.3 mg/dL (0.5-0.9) H 05/24/21 05:58 GFR Calculation Not Reportable 05/24/21 05:58 Glucose 89 mg/dL (65-115) 05/24/21 05:58 Calculated Osmolality 289 mOsm/kg (285-295) 05/24/21 05:58 Lactic Acid 0.8 mmol/L (0.5-2.2) 05/23/21 00:57 Calcium 9.9 mg/dL (8.5-10.5) 05/24/21 05:58 Phosphorus 2.9 mg/dL (2.5-4.5) 05/24/21 05:58 Magnesium 2.0 mg/dL (1.7-2.3) 05/24/21 05:58 Total Bilirubin 0.4 mg/dL (0.15-1.2) 05/24/21 05:58 AST 33 U/L (0-32) H 05/24/21 05:58 ALT 18 U/L (0-33) 05/24/21 05:58 Alkaline Phosphatase 76 IU/L (35-105) 05/24/21 05:58 Troponin T Baseline 53 ng/L (0-10) H 05/22/21 22:14 Troponin T 120 Minute 56.58 ng/L (0-10) H 05/23/21 01:00 Delta Troponin T 3.58 ABS# (0-10) 05/23/21 01:00 Troponin T Hi Sens 6Hr 50.99 ng/L (0-10) H 05/23/21 07:05 Troponin T Hi Sens 6Hr Delta -2.01 ng/L (0-12) L 05/23/21 07:05 NT-Pro-B Natriuret Pep 1245 pg/mL (0-125) H 05/22/21 22:14 Total Protein 6.8 g/dL (6.6-8.7) 05/24/21 05:58 Albumin 3.3 g/dL (3.5-5.2) L 05/24/21 05:58 Globulin 3.5 g/dL (1.3-4.6) 05/24/21 05:58 Lipase 43 U/L (13-60) 05/22/21 22:14 Procalcitonin 0.16 ng/mL (0-0.5) 05/22/21 22:14 TSH 0.93 uIU/mL (0.27-4.20) 05/22/21 22:14 Free T4 1.83 ng/dL (0.82-1.77) H 05/22/21 22:14 Urine Color Yellow (Yellow) 05/22/21 22: Urine Appearance Clear (CLEAR) 05/22/21 22: Urine pH 6 (5-7) 05/22/21 22:30 Ur Specific Leon 1.010 (1.005-1.030) 05/22/21 22:30 Urine Protein Neg (Negative) 05/22/21: Urine Glucose (UA) Norm (Normal) 05/22/21: Urine Ketones Negative (Negative) 05/22/21 22: Urine Blood Neg (Negative) 05/22/21: Urine Nitrate Negative (Negative) 05/22/21: Urine Bilirubin 1+ (Negative) H 05/22/21: Urine Urobilinogen 1 mg/dL (Negative) H 05/22/21: Ur Leukocyte Esterase 2+ (Negative) H 05/22/21: Urine RBC 0-4 /hpf (0-2) H 05/22/21: Urine WBC 10-15 /hpf (0-5) H 05/22/21 22:30 Ur Squamous Epith Cells 10-15 /hpf (0-5) H 05/22/21 22:30 Ur Transition Epith Cell 0-4 /hpf 05/22/21: Amorphous Sediment Not Reportable 05/22/21: Urine Bacteria 2+ /hpf (NONE) H 05/22/21 22:30 Salicylates < 0.3 mg/dL (3-10) L 05/22/21:14 Acetaminophen < 5.0 ug/mL (10-30) L 05/22/21 22:14 Theophylline 6.6 ug/ml (10-20) L 05/22/21 22:14 Influenza Type A Ag Negative (Negative) 05/23/21: Influenza Type B Ag Negative (Negative) 05/23/21: SARS-CoV-2 Ag (Rapid) Negative (Negative) 05/22/21 22:29 Vitals Last Vital Signs Temp 97.8 F 05/24/21 07:22 Pulse 88 05/24/21 08:58 Resp 16 05/24/21 09:46 BP 130/63 05/24/21 07:22 Pulse Ox 98 05/24/21 08:58 Discharge Plan Discharge Patient Disposition: Home Health Service Condition: Stable Prescriptions: New isosorbide mononitrate 30 mg Tablet Extended Release 24 Hr 30 mg PO DAILY Qty: 30 0RF Continued cholecalciferol (vitamin D3) 50 mcg (2,000 unit) capsule 50 mcg PO DAILY 0RF (DME) nebulizers Misc See Rx Instructions .ROUTE .MEDSUPPLY Qty: 1 0RF Rx Instructions: As directed (DME) K0003 lightweight wheelchair See Rx Instructions .Route .MEDSUPPLY Qty: 1 0RF Rx Instructions: use daily as needed for daily personal care mobility ipratropium-albuterol 0.5 mg-3 mg(2.5 mg base)/3 mL solution for nebulization 3 ml INHALATION QID PRN (Reason: shortness of breath or wheezing) Qty: 180 11RF budesonide [Pulmicort] 0.5 mg/2 mL suspension for nebulization 0.5 mg inhalation BID Qty: 120 11RF aspirin 81 mg tablet,delayed release (DR/EC) 81 mg PO DAILY Qty: 30 2RF Hold Instructions: Resume on 08/10/20. diltiazem HCl 360 mg capsule,extended release 24hr 360 mg PO DAILY Qty: 30 2RF Stiolto Respimat 2.5-2.5 mcg/actuation mist 2 puff inhalation Q24H Qty: 4 2RF Rx Instructions: To replace Anoro magnesium oxide 400 mg magnesium tablet 400 mg PO BID Qty: 60 2RF metoprolol succinate 100 mg tablet extended release 24 hr 100 mg PO DAILY Qty: 30 2RF pantoprazole 20 mg tablet,delayed release (DR/EC) 20 mg PO DAILY Qty: 30 2RF theophylline 400 mg capsule,extended release 24hr 400 mg PO DAILY Qty: 30 2RF nitroglycerin [Nitrostat] 0.4 mg tablet, sublingual 0.4 mg SUBLINGUAL Q5M PRN (Reason: chest pain) Qty: 25 0RF venlafaxine 75 mg Tablet Extended Release 24hr 75 mg PO DAILY 0RF oxycodone 15 mg Tablet 15 mg PO QID PRN (Reason: Pain) 0RF Discontinued benazepril [Lotensin] 40 mg tablet 40 mg PO DAILY Qty: 30 2RF isosorbide mononitrate 60 mg tablet extended release 24 hr 60 mg PO BID Qty: 60 2RF fentanyl 25 mcg/hr patch 72 hour 50 mcg transdermal .EVERY 72 HOURS 0RF Discharge Orders: Discharge Order (Routine); Ordered 05/24/21 Ordered By: Valente Lugo Referrals: Idalia Means, GITA [Primary Care Provider] - 4-7 days Discharge Diet: Diabetic Discharge Activity: Increase activity as tolerated Patient Instructions: Opioid Safety Activity Restrictions/Additional Instructions: Take all medicine as prescribed Return for any concerns Keep follow-up with oncology Follow-up with your primary care provider 3 to 5 days. Discharge Attestations Time Spent in Discharge Care*: greater than 30 min Quality Metrics Clinical Quality Measures [ No reported AMI, CVA or VTE this stay] Coding Level of Care Code Acute [facility] note Diagnoses Altered mental status R41.82
--- NOTE | 2021-05-24 13:45 | PC.NURSE ---
patient and home health aid verbalized understanding of discharge instructions, home medications, and follow up appointments.
[2021-05-26 18:03] LABS: Acinetobacter baumannii Not Detected (NOT DETECT); Bacteroides fragilis Not Detected (NOT DETECT); Citrobacter Not Detected (NOT DETECT); Cronobacter sakazakii Not Detected (NOT DETECT); Enterobacter cloacae complex Not Detected (NOT DETECT); Enterobacter non cloacae Not Detected (NOT DETECT); Fusobacterium necrophorum Not Detected (NOT DETECT); Fusobacterium nucleatum Not Detected (NOT DETECT); Haemophilus influenzae Not Detected (NOT DETECT); Klebsiella pneumoniae group Not Detected (NOT DETECT); Morganella morganii Not Detected (NOT DETECT); Neisseria meningitidis Not Detected (NOT DETECT); Pan Candida Not Detected (NOT DETECT); Pan Gram-Positive Not Detected (NOT DETECT); Proteus mirabilis Not Detected (NOT DETECT); Pseudomonas aeruginosa Not Detected (NOT DETECT); Salmonella Not Detected (NOT DETECT); Serratia Not Detected (NOT DETECT); Serratia marcescens Not Detected (NOT DETECT); Stenotrophomonas maltophilia Not Detected (NOT DETECT)
[2021-05-26 18:21] LABS: CTX-M Not Detected (NOT DETECT)
--- NOTE | 2021-05-30 09:02 | PC.SOCIAL ---
BC results called from [facility] showing positive 1 out of 4 Agrobacterium radiobacter. Discussed with Dr Lugo and he agrees with lab this is likely a contaminant and no further orders required. Received response on 05/28/2021. Contacted patient to update her and she verbalized understanding. She is not experiencing any fever, malaise or N/V. She would like results communicated to Idalia Means and Dr Cartwright. Will send result and Dr Lugo response to both providers listed above. No further needs known. Will request a read receipt to verify was viewed.
== END 2021-05-24 13:47 | disposition home health service (06) | DRG 689 ==
LOC: ER 23:35 → ER IP 23:59 → MEDSURG 05-23 15:25
PROVIDERS: Emergency Medicine; Admitting Provider Family Medicine; Emergency Provider Emergency Medicine; PCP Nurse Practitioner; Visit Provider Internal Medicine
DX: N30.00 Acute cystitis without hematuria (principal); I21.A1 Myocardial infarction type 2; C34.11 Malignant neoplasm of upper lobe, right bronchus or lung; N17.9 Acute kidney failure, unspecified; M41.9 Scoliosis, unspecified; K21.9 Gastro-esophageal reflux disease without esophagitis; C50.911 Malignant neoplasm of unspecified site of right female breast; E11.9 Type 2 diabetes mellitus without complications; I10 Essential (primary) hypertension; M19.90 Unspecified osteoarthritis, unspecified site; M81.0 Age-related osteoporosis without current pathological fracture; I25.10 Atherosclerotic heart disease of native coronary artery without angina pectoris; Z95.5 Presence of coronary angioplasty implant and graft; Z87.891 Personal history of nicotine dependence; E78.5 Hyperlipidemia, unspecified; Z90.5 Acquired absence of kidney; Z85.528 Personal history of other malignant neoplasm of kidney; R41.82 Altered mental status, unspecified; T40.605A Adverse effect of unspecified narcotics, initial encounter; Z79.891 Long term (current) use of opiate analgesic; Z79.82 Long term (current) use of aspirin; I08.3 Combined rheumatic disorders of mitral, aortic and tricuspid valves; Z92.21 Personal history of antineoplastic chemotherapy; Z92.3 Personal history of irradiation
CPT/HCPCS: 36415; 70450; 71045; 72131; 80048; 80053; 80198; 80307; 81001; 83605; 83690; 83735; 83880; 84100; 84145; 84439; 84443; 84484; 85025; 87040; 87077; 87086; 87186; 87205; 87426; 87804; 93005; 93306; 93880; 94640; 94664; 96365; 96366; 96372; 96375; 97110; 97161; 97165; 99285; C9113; J1630; J1650; J1956; J2060; J7030

== ENCOUNTER 2021-05-29 07:51 | Outpatient (CLI) | payer MEDICARE, MEDICAID, SELFPAY ==
[2021-05-29 08:51] LABS: Basophils # 0.1 10^3/uL (0.0-0.1); Basophils % 0.8 %; Eosinophils % 0.3 %; Hematocrit 40.5 % (37.0-47.0); Hemoglobin 12.8 g/dL (11.5-15.3); Lymphocytes # 0.6 10^3/uL (0.8-4.8); Lymphocytes % 7.6 %; Mean Corpuscular HGB Conc 31.6 g/dL (30.0-36.0); Mean Corpuscular Hemoglobin 30.4 pg (28.0-34.0); Mean Corpuscular Volume 96.2 fl (81-99); Mean Platelet Volume 10.4 fL (7.4-10.4); Monocytes # 0.6 10^3/uL (0.2-0.9); Monocytes % 7.7 %; Neutrophils # 6.59 10^3/uL (1.8-7.7); Neutrophils % 83.3 %; Nucleated Red Blood Cells % 0 %; Platelet Count 410 10^3/cmm (130-400); Red Blood Count 4.21 10^6/uL (4.1-5.3); Red Cell Distribution Width 15.3 % (12.1-15.1); White Blood Count 7.9 10^3/uL (4.0-10.0)
[2021-05-29 09:44] LABS: Alanine Aminotransferase 25 U/L (0-33); Albumin Level 3.8 g/dL (3.5-5.2); Alkaline Phosphatase 86 IU/L (35-105); Anion Gap 18.2 (5-19); Aspartate Amino Transferase 53 U/L (0-32); Blood Urea Nitrogen 34 mg/dL (8-23); Calcium 10.1 mg/dL (8.5-10.5); Carbon Dioxide 22 mmol/L (22-29); Chloride 102 mmol/L (98-107); Globulin 3.5 g/dL (1.3-4.6); Glucose 101 mg/dL (65-115); Iron 83 ug/dL (37-145); Osmolality Calculated 294 mOsm/kg (285-295); Potassium 4.2 mmol/L (3.5-5.1); Sodium 138 mmol/L (136-145); Total Bilirubin 0.4 mg/dL (0.15-1.2); Total Iron Binding Capacity 237 mcg/dl; Total Protein 7.3 g/dL (6.6-8.7); Unsaturated Iron Binding 154 ug/dL (112-347)
[2021-05-29 09:59] LABS: Ferritin 4164 ng/mL (15-150)
--- NOTE | 2021-05-29 10:52 | ONC FU_ITS ---
Dr. Cartwright Patient Follow-Up Note Patient: Melonie Cross Unit #: [id number]: 1945 Dicatated By: Davy Cartwright M.D.Date of Visit:May 29, 2021 Onc Med Follow-up/Prog Note Chief Complaint: Lung cancer/breast cancer/anemia. 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 Her chest x-ray on 03/12/2020 showed a faint 2 cm nodular density in the right suprahilar region which was new compared to previous study from 2017. She was recommended to have further evaluation with chest CT. Her noncontrast CT on 03/28/2020 showed a right upper lobe lung mass measuring 2.12 cm. There were no other pulmonary parenchymal lesions noted and there was no significant mediastinal or axillary adenopathy noted. She was then referred to Dr. Polanco and on 04/04/2020 she underwent bronchoscopy/EBUS with FNA biopsy of a station 11R lymph node. There were no endobronchial lesions identified and attempted biopsy of the lung nodule was unsuccessful. The endobronchial ultrasound showed no significant lymphadenopathy. The largest node was in the right hilar node group, and pathology on the FNA was consistent with poorly differentiated nonkeratinizing squamous cell carcinoma. I had seen her initially on 04/25/2020. 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 She was able to come in for staging PET/CT on 04/28/2020. That study showed an FDG avid right upper lobe mass measuring 2.1 cm, SUV 10.9, consistent with primary malignancy. A superior right hilar lymph node was FDG avid with SUV 4.8, consistent with local metastatic disease. The only other area of abnormal uptake was a solid lesion in the superior right breast measuring 1.7 x 1.2 cm with SUV 10.0, suspicious for synchronous primary breast cancer. She was then able to come in for pulmonary function studies on 05/01/2020. Her FEV1 was 1.57 L, 69% of predicted. She had radiation oncology consultation with Dr. Pierre on 06/07/2020. Although with N1 disease she was still potentially an operable candidate, she indicated that due to her social circumstances and requirement for hospitalization, that she would still not consider surgery as a treatment option. She was agreeable, though, to undergo radiation. At that time she had further evaluation for the breast lesion with diagnostic mammogram/ultrasound. It was BI-RADS 5, highly suggestive of malignancy. The mammogram showed a dense heterogeneous focal asymmetric density measuring 2.7 x 2.4 cm, corresponding to the lesion identified by PET/CT. Ultrasound showed a hypoechoic solid irregular mass at the 12 o'clock position measuring 2.3 x 1.8 x 1.5 cm. Also noted was an enlarged lymph node in the right axilla measuring 1.9 x 1.2 x 1.0 cm. On 06/22/2020 she underwent ultrasound-guided biopsy of the breast mass and of the axillary lymph node. Pathology on the breast showed grade 2 invasive ductal carcinoma. It was found to be ER and DC negative, both less < 1%. HER-2/vargas was positive, 3+ by IHC and amplification ratio by FISH of 2.9 with 9.0 HER-2 copies/cell. The lymph node showed sinus histiocytosis. Ultimately, it was determined that she was not an appropriate candidate for SBRT to the lung lesion, and we opted to proceed with standard chemoradiation utilizing weekly carboplatin/placlitaxel for the chemosensitization. We opted to defer further management of the breast cancer until the lung cancer treatment was completed. Her other medical illnesses include COPD, hypertension, hyperlipidemia, type 2 diabetes, and coronary artery disease. She has had previous angioplasty/stent placement. Her medical history is also significant for having undergone right nephrectomy for renal cell carcinoma sometime around 2009. Those records were not available. She does have a history of smoking for 45 years, up to a pack and a half of cigarettes daily. She quit smoking in February 2020. INTERIM HISTORY: She underwent placement of Port-A-Cath venous access device on 08/07/2020 and then she began week 1 carboplatin/paclitaxel concurrently with radiation on 08/16/2020. She tolerated the chemotherapy with acceptable toxicity, but her further management was complicated due to her social circumstances. She received her week 2 chemotherapy on 08/28/2020. She then continued radiation, though with some further interruptions. Due to lack of venous access and multiple failed attempts to obtain venous access, she received no further chemotherapy. She ultimately completed radiation on 10/18/2020 to a total dose of 5800 cGy administered in 29 fractions. Overall, her treatment was very suboptimal, mainly due to her social circumstances. As of her follow-up visit on 12/13/2020 she was mildly anemic with hemoglobin 10.4 g. Her serum iron studies show low transferrin saturation at 4.8%, consistent with iron deficiency, and at that point she began on oral iron supplementation. Restaging chest CT on 12/21/2020 showed progressed right upper lobe spiculated solid mass measuring 2.1 x 1.7 x 2.7 cm. There was no associated mediastinal or hilar lymphadenopathy. With those findings, she had further evaluation with next generation sequencing by liquid biopsy. There were no tumor related somatic alterations detected in the sample, presumably due to low circulating tumor-derived cell-free DNA levels. She had initially declined to return for follow-up, her son and her significant other both having during this time. She had then called to report that she had become too weak to walk. She eventually agreed to return here for a visit on 02/18/2021. Her hemoglobin had declined to 9.7 g. Her transferrin saturation was low at 6.9%, consistent with iron deficiency. As she had been intolerant of oral iron, she was given parenteral iron replacement with 2 infusions of Injectafer. She tolerated it well. Restaging chest CT on 03/18/2021 showed slight increase in the right upper lobe spiculated mass measuring 2.2 x 3.1 x 2.9 cm. Numerous small subcentimeter nodules were noted in both lung gusman, the largest measuring 4 to 5 mm. There were new from the prior studies and suspicious for metastatic disease. At her follow-up visit on 04/03/2021 she remained mildly anemic, hemoglobin 10.8 g. Her transferrin saturation was still low at 10.6%, and she was given further parenteral iron replacement with 2 additional infusions of Injectafer. In the meantime, she had further evaluation with next generation sequencing by liquid biopsy. 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 There were no other actionable mutations identified. She was seen for a follow-up visit on 05/09/2021. At that time she reported recent onset of pretty severe pain in her lower back. She also was having constipation. She was given symptomatic management with immediate release oxycodone and a bowel regimen. X-rays of the spine and pelvis showed no evidence of metastatic disease. At her follow-up on 05/15/2021 she continued to have severe back pain. She was scheduled to have further evaluation with CT of the lumbar spine, as she felt that she would not be able to tolerate an MRI. As the pain was not being managed adequately, her oxycodone dosage was increased and I also added fentanyl at 25 mcg/h. On 05/22/2021 she was admitted to the hospital with opioid related ARCHITECTURE TECHNICIAN side effects. She improved with stopping the pain medication, and she was unable to restart the immediate release oxycodone. Her lumbar spine CT showed severe multilevel degenerative disc disease with associated spinal stenosis. There was no evidence of metastatic disease. She is seen for a follow-up visit. She has been feeling somewhat better since she has been home from the hospital. She is able to do some light work housework. ECOG score is one. Her appetite is a little better. She does not have fever or night sweats. She has not had sore mouth or throat. She does not complain of cough. She says her breathing is pretty good. She has not had any chest pain. She has no GI complaints. Bowel function has been adequate with senna. She has noted improvement in her bladder function. She continues to have some back pain. She does not complain of headache or dizziness, and she has no focal neurologic symptoms. Medications: Aspirin 1 Tablet (of 81 mg) Tablet, chewable Oral daily, Budesonide (0.5 mg/2mL) Suspension Inhalation b.i.d., Cardizem CD 1 (360 mg) Capsule SR 24 HR Oral daily, Cholecalciferol 1 Tablet (of 50 mcg ) Oral daily, diazePAM 1 (10 mg) Tablet Oral four times a day, Ipratropium-Albuterol 1 Inhalation (of 0.5-2.5 (3) mg/3mL) Solution Inhalation four times a day, Isosorbide Mononitrate ER 1 Tablet (of 30 mg) Tablet SR 24 HR Oral b.i.d., Magnesium Oxide 1 (400 mg) Capsule Oral b.i.d., Metoprolol Succinate ER 1 Tablet (of 100 mg) Tablet SR 24 HR Oral daily, Nitroglycerin Tablet, sublingual Sublingual PRN, oxyCODONE HCl 1 Tablet (of 15 mg) Oral four times a day, Pantoprazole Sodium 1 (20 mg) Tablet, enteric coated Oral daily, Stiolto Respimat 2 Inhalation (of 2.5-2.5 mcg/act) Aerosol, solution Inhalation daily, Theophylline ER 1 (400 mg) Capsule SR 24 HR Oral daily, Venlafaxine HCl 1 Tablet (of 75 mg) Oral daily Allergies: amLODIPine Besylate, Cephalexin, Erythromycin Base, Penicillins, Propranolol HCl, Tetanus-Diphtheria Toxoids Td, Tetracycline HCl, and ticlopidine. Vital Signs: Performed on May 29, 2021 09:12 Height - 66.00 in Weight - 99.6 lbs (LOW) BSA - 1.49 sq.m BMI - 16.08 (LOW) Temperature - 98.2 F (LOW) Pulse - 89 /min Respiration - 18 /min BP - 136/70 mm(hg) O2 Sat - 95 % (LOW) Pain - 8 Fatigue - 5 Physical Examination: Constitutional - She appears somewhat weak generally, Eyes - Sclerae nonicteric. Conjunctivae clear, ENMT - No lesions noted in the oral cavity, Hematologic/Lymphatic - No cervical, clavicular, or axillary adenopathy, Respiratory - Lungs sound clear with diminished air movement bilaterally, Cardiovascular - Heart rhythm is regular. There is a II/ systolic murmur. There is no gallop or rub noted, Abdomen - Soft. Liver and spleen are not enlarged. There is no abdominal mass or ascites noted and there is no inguinal adenopathy, Extremities - No edema, Neurologic - No focal neurologic deficits noted. Lab/Imaging: Test performed on May 29, 2021 08:36 Ferritin 4164 ng/mL Iron 83 mcg/dL Sodium 138 mmol/L Iron Binding Capacity (TIBC) 237 mcg/dl Potassium 4.2 mmol/L % Iron Saturation 35.0 % Chloride 102 mmol/L CO2 22 mmol/L UIBC 154 mcg/dL Anion Gap 18.2 BUN 34 mg/dL Creatinine 1.2 mg/dL Cr Clearance (Est) 29.3300 mL/min Glucose 101 mg/dL Osmolality - Calculated 294 mOsm/kg Calcium 10.1 mg/dL Protein, Total 7.3 g/dL Albumin 3.8 g/dL Globulin 3.5 g/dL Bilirubin, Total 0.4 mg/dL ALT (SGPT) 25 U/L AST (SGOT) 53 U/L Alkaline Phosphatase 86 IU/L WBC 7.9 10 3/uL RBC 4.21 10 6/uL HGB 12.8 g/dL HCT 40.5 % MCV 96.2 fl MCH 30.4 pg MCHC 31.6 g/dL RDW 15.3 % Platelet Count 410 10 3/cmm MPV 10.4 fL Neutrophils 6.59 10 3/uL Lymphocytes 0.6 10 3/uL Monocytes 0.6 10 3/uL Eosinophils 0.0 10 3/uL Basophils 0.1 10 3/uL Neutrophil % 83.3 % Lymphocyte % 7.6 % Monocyte % 7.7 % Eosinophil % 0.3 % Basophils % 0.8 % NRBC % 0 % Problem List: 1. 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 By clinical evaluation her disease appears to be stage IIB (T1c, N1, M0). 2. Grade 2 invasive ductal carcinoma of the right breast, ER/DC negative and HER-2/vargas positive. 3. COPD. 4. Hypertension. 5. Hyperlipidemia. 6. Type 2 diabetes. 7. Coronary artery disease with previous angioplasty/stent placement. 8. Chronic kidney disease. 9. GERD. 10. 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 11. She underwent right nephrectomy for renal cell carcinoma approximately 2009. Problems Addressed with this Encounter and Plan: 1. 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 By clinical evaluation her disease appears to be stage IIB (T1c, N1, M0). 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 As such, she had been adamantly opposed to undergoing surgery for the lung cancer. As an alternative, she was given the option to undergo chemoradiation utilizing a standard weekly carboplatin/paclitaxel chemotherapy regimen. She began her week 1 carboplatin/paclitaxel concurrently with radiation on 08/16/2020. She tolerated it without significant toxicity, but her further treatment was interrupted due to her social circumstances. She received her week 2 carboplatin/paclitaxel on 08/28/2020. Due to lack of venous access despite multiple attempts to place a venous access device, she received no further chemotherapy. She completed radiation on 10/18/2020 to a total dose of 5800 cGy administered in 29 fractions. Overall, her treatment was very suboptimal, mostly due to her social circumstances. Her restaging chest CT on 12/21/2020 showed progression of the right upper lobe spiculated solid mass measuring 2.1 x 1.7 x 2.7 cm. There was no associated mediastinal or hilar adenopathy. Her next generation sequencing liquid biopsy was nonrevealing, presumably due to low levels of circulating tumor DNA. Her restaging chest CT on 03/18/2021 showed just a slight increase in the right upper lobe mass, but there were new subcentimeter pulmonary nodules bilaterally consistent with metastatic disease. At that point she was not overtly symptomatic. 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 That particularly mutation has an FDA approved indication in bladder cancer, but it is not an approved treatment for non-small cell lung cancer. There were no other actionable mutations identified. She had shown significant improvement in her performance status after completing parenteral iron replacement for iron deficiency anemia. Thus far she has just continued on observation/symptomatic management for the lung cancer. Depending on her clinical course, she potentially would be eligible for a trial of immunotherapy as 2nd line treatment. She would otherwise be appropriate for palliative care on hospice. I will see her for follow-up visit in 2 weeks. 2. During follow-up she developed severe lower back pain. Initial x-rays showed no obvious metastatic disease. She was managed symptomatically pending further evaluation with CT. She had increasing opiate requirement, and she ended up being admitted to the hospital with opiate related ARCHITECTURE TECHNICIAN side effects after starting fentanyl. She has now recovered to baseline. Her lumbar spine CT showed severe multilevel degenerative disease with associated spinal stenosis, but there was no evidence of metastatic disease. She will continue symptomatic management with immediate release oxycodone 15 mg up to 4 times daily, I will also add meloxicam 15 mg daily. 3. She also was found to have grade 2 invasive ductal carcinoma in situ of the right breast, ER/DC negative and HER/2/vargas positive. Further treatment has been deferred due to the lung cancer. Signed By: Davy Cartwright M.D. <<Signature on File>>
== END 2021-05-29 07:52 | disposition home or self-care (01) ==
LOC: ONCMED 07:53
PROVIDERS: PCP Nurse Practitioner; Visit Provider Internal Medicine Medical Oncology
DX: C34.11 Malignant neoplasm of upper lobe, right bronchus or lung (principal); C79.81 Secondary malignant neoplasm of breast; J44.9 Chronic obstructive pulmonary disease, unspecified; D50.9 Iron deficiency anemia, unspecified; I10 Essential (primary) hypertension; E78.5 Hyperlipidemia, unspecified; E11.9 Type 2 diabetes mellitus without complications; I25.10 Atherosclerotic heart disease of native coronary artery without angina pectoris; K21.9 Gastro-esophageal reflux disease without esophagitis; M47.9 Spondylosis, unspecified; Z79.899 Other long term (current) drug therapy; Z87.891 Personal history of nicotine dependence; Z85.528 Personal history of other malignant neoplasm of kidney
CPT/HCPCS: 36415; 80053; 82728; 83540; 83550; 85025; 99214

== ENCOUNTER 2021-06-08 00:39 | Inpatient (IN) | payer MEDICARE, MEDICAID, SELFPAY ==
[2021-06-08] VITALS (28 sets, daily range): BP systolic 93–148; BP diastolic 48–73; PULSE 63–92; RESP 14–21; TEMP 36.2–37.1; O2SAT 90–100; BMI 17.1
--- NOTE | 2021-06-08 | SCC_ITS ---
Procedure done: Open reduction internal fixation left hip with intramedullary device 56.5 seconds of fluoroscopic guidance, for a cumulative dose of 2.04 mGy, was provided to Dr. Ha by the radiology department. C-arm images of the LEFT hip were saved for the patient's permanent record. [facility]Jim
--- NOTE | 2021-06-08 | XR_ITS ---
WS: [id number] INTRAOPERATIVE TECHNIQUE: 4 Spot fluoroscopic images for intraoperative purposes. FLUOROSCOPY TIME: 56.5 seconds CLINICAL INFORMATION: HIP FX/SURG PICS COMPARISON: None. FINDINGS: Intramedullary gustavo and screw fixation LEFT hip. Intramedullary gustavo extends into the distal femur. Nor mal anatomic alignment. Hardware present in position. XR/XR hip LT 2-3V wo/w pel* [id number] IMPRESSION: Images obtained for intraoperative purposes.
--- NOTE | 2021-06-08 00:47 | XRR_ITS ---
PROCEDURE INFORMATION: Exam: XR Left Femur Exam date and time: 06/08/2021 12:47 AM Age: 76 years old Clinical indication: Injury or trauma; Fall; Blunt trauma; Thigh or upper leg; Patient HX: Patient fell off of couch at home. C/O left leg pain. Leg in external rotation with foreshortening. ; Additional info: Fall L thiph pain TECHNIQUE: Imaging protocol: XR Left femur. Views: 2 views. COMPARISON: CR XR lumbar spine 2-3V* [id number] 05/09/2021 12:45 PM FINDINGS: Bones/joints: Intertrochanteric comminuted mildly displaced hip fracture. 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 Soft tissues: Unremarkable. Vasculature: Scattered vascular calcifications. XR/XR femur LT min 2V* [id number] IMPRESSION: 1. Intertrochanteric comminuted mildly displaced hip fracture. 2. Scattered vascular calcifications. 3. 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
--- NOTE | 2021-06-08 00:47 | XRR_ITS ---
PROCEDURE INFORMATION: Exam: XR Left Tibia and Fibula Exam date and time: 06/08/2021 12:47 AM Age: 76 years old Clinical indication: Injury or trauma; Fall; Blunt trauma; Thigh or upper leg; Patient HX: Patient fell off of couch at home. C/O left leg pain. Leg in external rotation with foreshortening. TECHNIQUE: Imaging protocol: XR Left tibia and fibula. Views: 2 views. COMPARISON: No relevant prior studies available. FINDINGS: Bones/joints: Normal. Soft tissues: Normal. Vasculature: Scattered vascular calcifications. XR/XR tibia fibula LT 2V [id number] IMPRESSION: Negative for fracture or dislocation
[2021-06-08] MEDS: ondansetron 2 mg/ML SDV 2 mL 4 MG IVP (00:50)
[2021-06-08] MEDS: fentaNYL 50 mcg/mL INJ 2mL 100 MCG IVP (00:50)
--- NOTE | 2021-06-08 00:55 | XRR_ITS ---
PROCEDURE INFORMATION: Exam: XR Chest Exam date and time: 06/08/2021 12:55 AM Age: 76 years old Clinical indication: Injury or trauma; Fall; Blunt trauma (contusions or hematomas); Prior surgery; Surgery type: Port a cath. Coronary angioplasty. ; Patient HX: Pre op for hip fracture. History of copd with pulmonary nodule. RT breast cancer. TECHNIQUE: Imaging protocol: XR of the chest. Views: 1 view. COMPARISON: CR (CHEST, ) 05/22/2021 10:26 PM FINDINGS: Lungs: Right upper lobe suprahilar 4.9 cm masslike airspace opacity again seen similar to prior exam and an increased left lower lobe 2.9 cm nodular opacity compared to prior exam concerning for underlying malignancy. Emphysematous changes. Pleural spaces: Unremarkable. No pleural effusion. No pneumothorax. Heart/Mediastinum: Unremarkable. No cardiomegaly. Bones/joints: Unremarkable. XR/XR chest 1V portable [id number] IMPRESSION: 1. Right upper lobe suprahilar 4.9 cm masslike airspace opacity again seen similar to prior exam and an increased left lower lobe 2.9 cm nodular opacity compared to prior exam concerning for underlying malignancy. 2. Emphysematous changes.
--- NOTE | 2021-06-08 00:57 | ECG_ITS ---
[facility] Test Date: 2021-06-08 Pat Name: Melonie Cross Department: Room: EDIP Gender: Female Psychiatrist: : 1945 Requested By: Eran Mccloud Order Number: [id number] Pradeep MD: Delfino Jaquez M.D. Measurements Intervals [place] Rate: 64 P: 73 MD: 187 QRS: 35 QRSD: 74 T: 56 QT: 381 QTc: 395 Interpretive Statements SINUS RHYTHM LOW QRS VOLTAGE IN PRECORDIAL LEADS [QRS DEFLECTION < 1.0 mV IN CHEST LEADS] INTERPRETATION BASED ON A DEFAULT AGE OF 40 YEARS Compared to ECG 05/23/2021 07:32:18 Low QRS voltage now present Sinus tachycardia no longer present Electronically Signed On 06-08-2021 6:59:37 DIAMOND DRILLER by Delfino Jaquez M.D. [email or web address]
[2021-06-08 01:21] LABS: Basophils # 0.1 10^3/uL (0.0-0.1); Basophils % 0.7 %; Eosinophils # 0.1 10^3/uL (0.0-0.8); Eosinophils % 0.7 %; Hematocrit 38.7 % (37.0-47.0); Hemoglobin 12.1 g/dL (11.5-15.3); Lymphocytes # 0.5 10^3/uL (0.8-4.8); Mean Corpuscular HGB Conc 31.3 g/dL (30.0-36.0); Mean Corpuscular Hemoglobin 30.9 pg (28.0-34.0); Mean Corpuscular Volume 98.7 fl (81-99); Mean Platelet Volume 10.9 fL (7.4-10.4); Monocytes # 0.6 10^3/uL (0.2-0.9); Monocytes % 8.5 %; Neutrophils # 5.87 10^3/uL (1.8-7.7); Neutrophils % 82.7 %; Nucleated Red Blood Cells % 0 %; Platelet Count 347 10^3/cmm (130-400); Red Blood Count 3.92 10^6/uL (4.1-5.3); Red Cell Distribution Width 15.8 % (12.1-15.1); White Blood Count 7.1 10^3/uL (4.0-10.0)
--- NOTE | 2021-06-08 01:29 | W.ED.FALL ---
HPI - Fall General: Chief Complaint: Fall Stated Complaint: FALL L HIP Time Seen by Provider: 06/08/21 00:42 Source: patient History of Present Illness: 76-year-old lady who fell from a standing position in her living room floor. She states she tripped over a rug. She complains of right lower extremity pain, particularly to the hip. She denies hitting her head. She denies headache. complaint: fall Onset (ago): hour(s) Place fall occurred: home Loss of consciousness: None Prolonged down time: no Symptoms prior to fall: none Context: tripped/slipped Location of injury - extremities: Right: thigh Quality: aching and throbbing Associated symptoms-after fall: Reports difficulty walking; Denies abdominal pain, chest pain, headache(s) or short of breath Review of Systems Const: Denies: fever(s) ENMT: Denies: throat pain Card: Denies: chest pain Resp: Denies: dyspnea or productive cough GI: Denies: abdominal pain Neuro: Reports: difficulty walking; Denies: headache(s) PFSH ED PFSH: Medical History Acid reflux Allergic rhinitis due to allergen Breast cancer, right COPD (chronic obstructive pulmonary disease) Diabetes mellitus with hyperglycemia, with long-term current use of insulin HTN (hypertension) Nocturnal oxygen desaturation Osteoarthritis Post-menopausal osteoporosis Surgical History History of angioplasty with stent 1998 History of cholecystectomy History of oophorectomy History of removal of Port-a-Cath (09/19/20) History of tonsillectomy Hx of carotid angioplasty Port-A-Cath in place Family History Family/Other Diabetes Father COPD exacerbation Social History Smoking and tobacco status: never smoked Quit status (tobacco): has quit using tobacco Year quit tobacco: 2020 - 1PPD x 50 Years Second hand smoke exposure: No Smoking risk assessment/counseling performed?: Yes Alcohol intake: never Desire information about alcohol rehabilitation?: No Counseling given: No Desire information about substance/drug rehabilitation?: No Counseling given: No Lives independently: Yes Household members: children Housing: House Marital status: / Current occupational status: disabled Pets and animals: Yes Pets & animals: dog(s) History of recent travel: No Current gender identity: Female Physical Exam Const: GENERAL APPEARANCE: cooperative, in distress, ill appearing and frail appearing ORIENTATION/CONSCIOUSNESS: Yes awake, Yes oriented to person and Yes oriented to place; not oriented to time HENMT: COMMON NORMALS: normocephalic, atraumatic and Normal external nose present HEAD & SCALP: normocephalic and atraumatic FACE & SINUS: normal facial exam NOSE: Normal external nose present Eye: COMMON NORMALS: Equal, round and reactive pupils present and EOMs intact bilaterally PUPIL: Yes Equal, round and reactive pupils present Chest: COMMONS NORMALS: normal inspection of the chest Resp: COMMON NORMALS: normal respiratory effort, No use of accessory muscles and clear to auscultation bilaterally AUSCULTATION: clear to auscultation bilaterally Cardio: COMMON NORMALS: regular rate and regular rhythm RATE: regular rate RHYTHM: regular rhythm HEART SOUNDS: Murmur heart sound present GI: COMMON NORMALS: Normal to inspection, nondistended, normoactive bowel sounds present, Soft to palpation and non-tender PALPATION: Yes Soft to palpation Extremity: NARRATIVE EXTREMITY EXAM: Right lower extremity exam shows shortening and external rotation of the right lower extremity. There is tenderness over the right proximal thigh. Pulses and sensation are intact. Neuro: SENSORIUM/ORIENTATION: Yes oriented to person, Yes oriented to place and No oriented to time Skin: OTHER: Patient has a chronic decubitus ulcer to the sacrum. Course Consultations: Consultation #1: lakesha Time: 01:38 Consultation #2: cesilia Vital Signs: Vital signs: Vital Signs Temperature 97.8 F 06/08/21 00:41 Pulse Rate 63 06/08/21 00:41 Respiratory Rate 18 06/08/21 00:50 Blood Pressure 125/49 06/08/21 00:41 Pulse Oximetry 94 06/08/21 00:41 MDM - Fall Medical Decision Making [id number] female enteric fracture status post fall. She will be admitted. Some labs are pending. Roland is placed. Lab Data : 06/08/21 00:50 06/08/21 00:50 Radiology Impressions Femur X-Ray 06/08/21 00:47 IMPRESSION: 1. Intertrochanteric comminuted mildly displaced hip fracture. 2. Scattered vascular calcifications. 3. 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 Tibia/Fibula X-Ray 06/08/21 00:47 IMPRESSION: Negative for fracture or dislocation Chest X-Ray 06/08/21 00:55 IMPRESSION: 1. Right upper lobe suprahilar 4.9 cm masslike airspace opacity again seen similar to prior exam and an increased left lower lobe 2.9 cm nodular opacity compared to prior exam concerning for underlying malignancy. 2. Emphysematous changes. Laboratory Results WBC 7.1 10^3/uL (4.0-10.0) 06/08/21 00:50 RBC 3.92 10^6/uL (4.1-5.3) L 06/08/21 00:50 Hgb 12.1 g/dL (11.5-15.3) 06/08/21 00:50 Hct 38.7 % (37.0-47.0) 06/08/21 00:50 MCV 98.7 fl (81-99) 06/08/21 00:50 MCH 30.9 pg (28.0-34.0) 06/08/21 00:50 MCHC 31.3 g/dL (30.0-36.0) 06/08/21 00:50 RDW 15.8 % (12.1-15.1) H 06/08/21 00:50 Plt Count 347 10^3/cmm (130-400) 06/08/21 00:50 MPV 10.9 fL (7.4-10.4) H 06/08/21 00:50 Neut % (Auto) 82.7 % 06/08/21 00:50 Lymph % (Auto) 7.0 % 06/08/21 00:50 [place] % (Auto) 8.5 % 06/08/21 00:50 Eos % (Auto) 0.7 % 06/08/21 00:50 Baso % (Auto) 0.7 % 06/08/21 00:50 Neut # (Auto) 5.87 10^3/uL (1.8-7.7) 06/08/21 00:50 Lymph # (Auto) 0.5 10^3/uL (0.8-4.8) L 06/08/21 00:50 [place] # (Auto) 0.6 10^3/uL (0.2-0.9) 06/08/21 00:50 Eos # (Auto) 0.1 10^3/uL (0.0-0.8) 06/08/21 00:50 Baso # (Auto) 0.1 10^3/uL (0.0-0.1) 06/08/21 00:50 Nucleated RBC % (auto) 0 % 06/08/21 00:50 Nucleated RBCs # 0.0 /100WBC 06/08/21 00:50 Sodium 139 mmol/L (136-145) 06/08/21 00:50 Chloride 104 mmol/L (98-107) 06/08/21 00:50 Carbon Dioxide 22 mmol/L (22-29) 06/08/21 00:50 GFR Calculation Not Reportable 06/08/21 00:50 Glucose 90 mg/dL (65-115) 06/08/21 00:50 Calcium 9.8 mg/dL (8.5-10.5) 06/08/21 00:50 Total Bilirubin 0.2 mg/dL (0.15-1.2) 06/08/21 00:50 ALT 26 U/L (0-33) 06/08/21 00:50 Alkaline Phosphatase 90 IU/L (35-105) 06/08/21 00:50 Creatine Kinase 54 U/L (26-192) 06/08/21 00:50 Total Protein 6.7 g/dL (6.6-8.7) 06/08/21 00:50 Albumin 4.0 g/dL (3.5-5.2) 06/08/21 00:50 Globulin 2.7 g/dL (1.3-4.6) 06/08/21 00:50 Discharge Plan Discharge Patient Disposition: Admitted As Inpatient Clinical Impression: Closed hip fracture Qualifiers: Encounter type: initial encounter Laterality: right Qualified Code(s): S72.001A - Fracture of unspecified part of neck of right femur, initial encounter for closed fracture Condition: Stable Coding Level of Care Code ED Viscosity Inspector for [facility] Fwd Exam Detailed
[2021-06-08 01:41] LABS: Alanine Aminotransferase 26 U/L (0-33); Alkaline Phosphatase 90 IU/L (35-105); Anion Gap 19.7 (5-19); Aspartate Amino Transferase 41 U/L (0-32); Blood Urea Nitrogen 58 mg/dL (8-23); Calcium 9.8 mg/dL (8.5-10.5); Carbon Dioxide 22 mmol/L (22-29); Chloride 104 mmol/L (98-107); Creatine Phosphokinase 54 U/L (26-192); Globulin 2.7 g/dL (1.3-4.6); Glucose 90 mg/dL (65-115); Osmolality Calculated 304 mOsm/kg (285-295); Sodium 139 mmol/L (136-145); Total Bilirubin 0.2 mg/dL (0.15-1.2); Total Protein 6.7 g/dL (6.6-8.7)
[2021-06-08 01:44] LABS: Potassium 6.7 mmol/L (3.5-5.1)
[2021-06-08 01:44] LABS: Add Urine Microscopic? YES; Bilirubin Urine 2+ (Negative); Blood Urine 2+ (Negative); Glucose Urine UA Norm (Normal); Ketones Urine 2+ (Negative); Leukocyte Esterase Urine Trace (Negative); Nitrate Urine Negative (Negative); Protein Urine Neg (Negative); Urine Appearance Clear (CLEAR); Urine Color Yellow (Yellow); Urobilinogen Urine Norm (Negative); pH Urine 5 (5-7)
[2021-06-08 01:46] LABS: Add Urine Culture? No; Bacteria Urine 3+ /hpf; Hyaline Casts Urine 0-4 /lpf; Squamous Epithelial Cell Urine 15-25 /hpf (0-5); WBC Urine 0-4 /hpf (0-5)
[2021-06-08] MEDS: enoxaparin 40 mg/0.4 mL Syringe SUBCUT (01:58)
--- NOTE | 2021-06-08 01:58 | P.HP_ITS ---
Providers/Chief Complaint Admitting Physician: No Santana Primary Care Provider: GITA Decker Chief Complaint: FALL L HIP History of Present Illness 76-year-old female with past medical history significant for hypertension, diabetes mellitus, chronic obstructive pulmonary disease, and stage 3 chronic kidney disease with baseline creatinine around 1.2 who presented to the hospital after she tripped and fell for her rug. Patient stated she did not have any symptoms prior to the fall. Denies any loss of consciousness. Denied any head trauma. Complaining of right lower extremity pain. Upon arrival to hospital she was found to have intertrochanteric comminuted mildly displaced hip fracture with distal femoral metadiaphyseal chronic appearing bone infarct. On chest xray she was noted to have chronic appearing right upper lobe 4.9 cm masslike airspace opacity and 2.9 cm nodular opacity in LLL with emphasematous changes. Lab workup showed WBC 7.1, hemoglobin of 12.1, hematocrit 38.7 and platelet count 347. Sodium 139, potassium 6.7, chloride 104, bicarb 22, BUN 58 and creatinine of 2.4. Urinalysis showed trace leukocyte esterase, negative nitrate, 15 to 25 epithelial cells. In ER patient was given albuterol 2.5 mg Inh x 1, Sodium bicarb, insulin 6 units, 1L NS bolus and fentanyl 100 mcg IV x1. Review of Systems Narrative: Comprehensive review of symptomFound to be negative with pertinent findings noted in HPI Medications/Allergies Home Medications Medication Instructions Recorded Confirmed Last Taken Type cholecalciferol (vitamin D3) 50 50 mcg PO DAILY 05/26/19 06/04/21 09/19/20 History mcg (2,000 unit) capsule K0003 lightweight wheelchair #1 ea 07/26/20 06/04/21 Unknown Rx nebulizers #1 each 07/26/20 06/04/21 Unknown Rx nitroglycerin 0.4 mg sublingual 0.4 mg SUBLINGUAL Q5M PRN #25 tab 02/28/21 06/04/21 Unknown Rx tablet (Nitrostat) aspirin 81 mg tablet,delayed 81 mg PO DAILY #30 tab 04/22/21 06/04/21 Unknown Rx release budesonide 0.5 mg/2 mL suspension 0.5 mg (2 mL) INHALATION BID #120 04/22/21 06/04/21 Unknown Rx for nebulization (Pulmicort) ml diltiazem HCl 360 mg 360 mg PO DAILY #30 cap 04/22/21 06/04/21 Unknown Rx capsule,extended release 24 hr ipratropium 0.5 mg-albuterol 3 mg 3 ml INHALATION QID PRN #180 ml 04/22/21 06/04/21 Unknown Rx (2.5 mg base)/3 mL nebulization soln magnesium oxide 400 mg PO BID #60 tab 04/22/21 06/04/21 Unknown Rx metoprolol succinate 100 mg 100 mg PO DAILY #30 tab 04/22/21 06/04/21 Unknown Rx tablet,extended release 24 hr pantoprazole 20 mg tablet,delayed 20 mg PO DAILY #30 tab 04/22/21 06/04/21 Unknown Rx release theophylline 400 mg 400 mg PO DAILY #30 cap 04/22/21 06/04/21 Unknown Rx capsule,extended release 24 hr tiotropium 2.5 mcg-olodaterol 2.5 2 puff INHALATION Q24H #4 g 04/22/21 06/04/21 Unknown Rx mcg/actuation mist for inhalation (Stiolto Respimat) oxycodone 15 mg tablet 15 mg PO QID PRN 05/23/21 06/04/21 Unknown History venlafaxine 75 mg tablet,extended 75 mg PO DAILY 05/23/21 06/04/21 Unknown History release 24 hr isosorbide mononitrate 30 mg 30 mg PO DAILY #30 tab 05/24/21 06/04/21 Unknown Rx tablet,extended release 24 hr nebulizers #1 ea 05/31/21 06/04/21 Unknown Rx honey 100 % topical paste 1 applic TOPICAL BID #103 ml 06/04/21 06/04/21 Unknown Rx (MediHoney (honey)) mupirocin 2 % topical ointment 1 applic TOPICAL BID #15 g 06/04/21 06/04/21 Unknown Rx sulfamethoxazole 800 1 tab PO BID #20 tab 06/04/21 06/04/21 Unknown Rx mg-trimethoprim 160 mg tablet (Bactrim DS) Allergies Allergy/AdvReac Type Severity Reaction Status Date / Time amlodipine [From [facility]] Allergy swelling Verified 06/04/21 08:32 cephalexin Allergy ALGY-Anaphy Verified 06/04/21 08:32 laxis erythromycin base Allergy ADR-Nausea Verified 06/04/21 08:32 Penicillins Allergy swelling Verified 06/04/21 08:32 propranolol [From Inderal LA] Allergy swelling Verified 06/04/21 08:32 tetanus toxoid, adsorbed Allergy swelling Verified 06/04/21 08:32 tetracycline Allergy ADR-Nausea Verified 06/04/21 08:32 ticlopidine [From Ticlid] Allergy swelling Verified 06/04/21 08:32 PFSH Acute PFSH: Medical History Acid reflux Allergic rhinitis due to allergen Breast cancer, right COPD (chronic obstructive pulmonary disease) Diabetes mellitus with hyperglycemia, with long-term current use of insulin HTN (hypertension) Nocturnal oxygen desaturation Osteoarthritis Post-menopausal osteoporosis Surgical History History of angioplasty with stent 1998 History of cholecystectomy History of oophorectomy History of removal of Port-a-Cath (09/19/20) History of tonsillectomy Hx of carotid angioplasty Port-A-Cath in place Family History Family/Other Diabetes Father COPD exacerbation Social History Smoking and tobacco status: never smoked Quit status (tobacco): has quit using tobacco Year quit tobacco: 2020 - 1PPD x 50 Years Second hand smoke exposure: No Smoking risk assessment/counseling performed?: Yes Alcohol intake: never Desire information about alcohol rehabilitation?: No Counseling given: No Desire information about substance/drug rehabilitation?: No Counseling given: No Lives independently: Yes Household members: children Housing: House Marital status: / Current occupational status: disabled Pets and animals: Yes Pets & animals: dog(s) History of recent travel: No Current gender identity: Female Vitals/I&O/Wt Last Vital Signs Temp 97.8 F 06/08/21 00:41 Pulse 63 06/08/21 00:41 Resp 18 06/08/21 00:50 BP 125/49 06/08/21 00:41 Pulse Ox 94 06/08/21 00:41 Weight last 48 hrs Weight 46.72 kg Physical Exam Narrative: General-Awake alert, mild distress due to pain HEENT-grossly unremarkable CVS-regular rate rhythm new line chest-clear to auscultation Abdomen-soft nontender nondistended Extremities- decreased range of motion left due to pain Urinary Catheter Management: Roland Latex: Cath Placed During This Visit: yes Urinary Catheter Date of Insertion: 06/08/21 Urinary Catheter Time of Insertion: 01:19 Data : 06/08/21 00:50 06/08/21 00:50 A&P Assessment and plan (1) Closed hip fracture: Status: Acute Qualifiers: Encounter type: initial encounter Laterality: right Qualified Code(s): S72.001A - Fracture of unspecified part of neck of right femur, initial encounter for closed fracture (2) Diabetes mellitus with hyperglycemia, with long-term current use of insulin: Status: Chronic Qualifiers: Diabetes mellitus type: type 2 Qualified Code(s): E11.65 - Type 2 diabetes mellitus with hyperglycemia; Z79.4 - superintendent terminal (current) use of insulin (3) COPD (chronic obstructive pulmonary disease): Status: Chronic Qualifiers: COPD type: emphysema Emphysema type: unspecified Qualified Code(s): J43.9 - Emphysema, unspecified (4) HTN (hypertension): Status: Chronic Qualifiers: Hypertension type: essential hypertension Qualified Code(s): I10 - Essential (primary) hypertension (5) Hyperkalemia: Status: Acute (6) Acute worsening of stage 3 chronic kidney disease: Status: Acute Plan Mechanical fall with hip fracture Ortho consulted in ER Pain control IVF PT/OT consult Acute on chornic stage 3 kidney disease / Hyperkalemia Baseline creatinine around 1.2 Now increased to 2.4 K 6.7 s/p HCO3, insulin,albuterol Repear BMP in am Monitor on tele NS at 75 cc/hr Roland placement - immobilizaiton Diabetes Mellitus Sliding scale insulin Qachs checks COPD Continue chronic home maintennce therapy Supplemental o2 as needed. DVT prophylaxis Heparin 5000 units Q12 * Verify home meds in am and resume Attestations Medical Necessity Statement*: Anticipate > 2 midnight stay in hospital for e napoleon and treatment. Time Spent in Patient Care: Greater than 35 minutes (>than 50% of time spent in counselling and/or direct pt care on unit) . Coding Level of Care Code Acute Document Clerk for [facility] Fwd Diagnoses Closed hip fracture S72.001A Encounter type: initial encounter Laterality: right Diabetes mellitus with hyperglycemia, with long-term current use of insulin E11.65; Z79.4 Diabetes mellitus type: type 2 COPD (chronic obstructive pulmonary disease) J43.9 COPD type: emphysema Emphysema type: unspecified HTN (hypertension) I10 Hypertension type: essential hypertension Hyperkalemia E87.5 Acute worsening of stage 3 chronic kidney disease N18.30
[2021-06-08] MEDS: sodium chloride 0.9% 1,000 ML 75 ML IV (01:59)
[2021-06-08] MEDS: sodium chloride 0.9% 1,000 ML 999 ML IV (02:13)
[2021-06-08] MEDS: insulin regular-human 100 units/1 mL 6 UNIT IVP (02:23)
[2021-06-08] MEDS: sodium chloride 23.4% 8.5 MEQ in dextrose 10% 250 ML 250 MEQ IV (02:23)
[2021-06-08] MEDS: morphine 4 mg/mL SDV 1 mL 2 MG IVP ×2 (02:56→07:00)
--- NOTE | 2021-06-08 06:49 | PC.NURSE ---
report given to Anitha MENDEZ
[2021-06-08 07:12] LABS: Glucose Point of Care 62 mg/dL (70-110)
--- NOTE | 2021-06-08 08:25 | PC.NURSE ---
PATIENT APPEARS TO UPSET AND ANXIOUS. PATIENT STATES THAT SHE FEELS ALL ALONE AND LIKE THE PEREZ ARE CLOSING IN. PATIENT MENTIONS HER DX OF CANCER AND STATES THAT SHE FEELS LIKE SHE IS BEING A BABY. NURSE TALKS WITH PATIENT AND STATES THAT IT IS OK TO FEEL THINGS LIKE THIS AND SHE CAN ALWAYS VERBALIZE FEELINGS. PATIENT IS NOT AGGRESSIVE, BUT PSA PROVIDED AT THIS TIME.
[2021-06-08] MEDS: pantoprazole DR 40 mg Tablet PO (08:43)
--- NOTE | 2021-06-08 10:34 | ANES.PREANE2 ---
Pre-Anesthetic Assessment Height/Weight: Height 1.65 m Weight 46.72 kg Temp Pulse Resp BP Pulse Ox 97.8 F 82 16 129/67 96 06/08/21 00:41 06/08/21 08:02 06/08/21 08:02 06/08/21 08:02 06/08/21 08:02 Preop Diagnosis: Left intratrochanteric hip fracture Gamma nail Familial anesthetic complications: none Was Beta Aileen taken within 24 hours: Yes Was Clonidine taken within 24 hours: N/A Last intake: > 8 hrs Social Tobacco and No alcohol Exam alert, oriented x 3, clear to auscultation bilaterally and regular rate & rhythm Airway Cervical ROM: within normal limits Mallampati: Class II Dentition: false Pulmonary Chronic Obstructive Pulmonary Disease CV/HEM Coronary Artery Disease (stents in 1998) and Hypertension Chronic Renal Insufficiency Metabolic Diabetes Mellitus Anesthetic Plan ASA status: 3 Anesthesia: General Risk of > 500 ml blood loss (7ml/kg in children): No Medications/Allergies Home Medications Medication Instructions Recorded Confirmed Last Taken Type cholecalciferol (vitamin D3) 50 50 mcg PO DAILY 05/26/19 06/04/21 09/19/20 History mcg (2,000 unit) capsule K0003 lightweight wheelchair #1 ea 07/26/20 06/04/21 Unknown Rx nebulizers #1 each 07/26/20 06/04/21 Unknown Rx nitroglycerin 0.4 mg sublingual 0.4 mg SUBLINGUAL Q5M PRN #25 tab 02/28/21 06/04/21 Unknown Rx tablet (Nitrostat) aspirin 81 mg tablet,delayed 81 mg PO DAILY #30 tab 04/22/21 06/04/21 Unknown Rx release budesonide 0.5 mg/2 mL suspension 0.5 mg (2 mL) INHALATION BID #120 04/22/21 06/04/21 Unknown Rx for nebulization (Pulmicort) ml diltiazem HCl 360 mg 360 mg PO DAILY #30 cap 04/22/21 06/04/21 Unknown Rx capsule,extended release 24 hr ipratropium 0.5 mg-albuterol 3 mg 3 ml INHALATION QID PRN #180 ml 04/22/21 06/04/21 Unknown Rx (2.5 mg base)/3 mL nebulization soln magnesium oxide 400 mg PO BID #60 tab 04/22/21 06/04/21 Unknown Rx metoprolol succinate 100 mg 100 mg PO DAILY #30 tab 04/22/21 06/04/21 Unknown Rx tablet,extended release 24 hr pantoprazole 20 mg tablet,delayed 20 mg PO DAILY #30 tab 04/22/21 06/04/21 Unknown Rx release theophylline 400 mg 400 mg PO DAILY #30 cap 04/22/21 06/04/21 Unknown Rx capsule,extended release 24 hr tiotropium 2.5 mcg-olodaterol 2.5 2 puff INHALATION Q24H #4 g 04/22/21 06/04/21 Unknown Rx mcg/actuation mist for inhalation (Stiolto Respimat) oxycodone 15 mg tablet 15 mg PO QID PRN 05/23/21 06/04/21 Unknown History venlafaxine 75 mg tablet,extended 75 mg PO DAILY 05/23/21 06/04/21 Unknown History release 24 hr isosorbide mononitrate 30 mg 30 mg PO DAILY #30 tab 05/24/21 06/04/21 Unknown Rx tablet,extended release 24 hr nebulizers #1 ea 05/31/21 06/04/21 Unknown Rx honey 100 % topical paste 1 applic TOPICAL BID #103 ml 06/04/21 06/04/21 Unknown Rx (MediHoney (honey)) mupirocin 2 % topical ointment 1 applic TOPICAL BID #15 g 06/04/21 06/04/21 Unknown Rx sulfamethoxazole 800 1 tab PO BID #20 tab 06/04/21 06/04/21 Unknown Rx mg-trimethoprim 160 mg tablet (Bactrim DS) Allergies Allergy/AdvReac Type Severity Reaction Status Date / Time amlodipine [From Norvasc] Allergy swelling Verified 06/04/21 08:32 cephalexin Allergy ALGY-Anaphy Verified 06/04/21 08:32 laxis erythromycin base Allergy ADR-Nausea Verified 06/04/21 08:32 Penicillins Allergy swelling Verified 06/04/21 08:32 propranolol [From Inderal LA] Allergy swelling Verified 06/04/21 08:32 tetanus toxoid, adsorbed Allergy swelling Verified 06/04/21 08:32 tetracycline Allergy ADR-Nausea Verified 06/04/21 08:32 ticlopidine [From Ticlid] Allergy swelling Verified 06/04/21 08:32 Current Medications Generic Name Dose Route Start Last Admin Trade Name Freq PRN Reason Stop Dose Admin Heparin Sodium (Porcine) 5,000 unit 06/08/21 03:45 06/08/21 03:59 Heparin 5,000 Unit/Ml Inj 1 Ml SUBCUT Not Given Q12H ALLEGRA Sodium Chloride 1,000 mls @ 75 mls/hr 06/08/21 01:45 06/08/21 01:59 Sodium Chloride 0.9% IV 75 mls/hr .[id number] ALLEGRA Administration Sodium Chloride 8.5 meq/ 252.125 mls @ 0 mls/hr 06/08/21 02:00 06/08/21 03:27 Dextrose IV Infused .Q0M ALLEGRA Infusion As Directed Insulin Human Lispro 0 unit 06/08/21 08:00 06/08/21 07:24 Insulin Lispro 100 Unit/1 Ml SUBCUT Not Given WM&BEDTIME ALLEGRA Protocol Morphine Sulfate 2 mg 06/08/21 01:42 06/08/21 07:00 Morphine 4 Mg/Ml Sdv 1 Ml IVP 2 mg Q4H PRN Administration SEVERE PAIN Pantoprazole Sodium 40 mg 06/08/21 09:00 06/08/21 08:[address] 40 Mg Tablet PO 40 mg DAILY ALLEGRA Administration PFS Anesthesia Medical History Acid reflux Allergic rhinitis due to allergen Breast cancer, right COPD (chronic obstructive pulmonary disease) Diabetes mellitus with hyperglycemia, with long-term current use of insulin HTN (hypertension) Nocturnal oxygen desaturation Osteoarthritis Post-menopausal osteoporosis Surgical History History of angioplasty with stent 1998 History of cholecystectomy History of oophorectomy History of removal of Port-a-Cath (09/19/20) History of tonsillectomy Hx of carotid angioplasty Port-A-Cath in place Family History Family/Other Diabetes Father COPD exacerbation Social History Smoking and tobacco status: never smoked Quit status (tobacco): has quit using tobacco Year quit tobacco: 2020 - 1PPD x 50 Years Second hand smoke exposure: No Smoking risk assessment/counseling performed?: Yes Alcohol intake: never Desire information about alcohol rehabilitation?: No Counseling given: No Desire information about substance/drug rehabilitation?: No Counseling given: No Lives independently: Yes Household members: children Housing: House Marital status: / Current occupational status: disabled Pets and animals: Yes Pets & animals: dog(s) History of recent travel: No Current gender identity: Female Data Anesthesia : 06/08/21 00:50 06/08/21 00:50 Short CBC 06/08/21 Range/Units 00:50 WBC 7.1 (4.0-10.0) 10^3/uL Hgb 12.1 (11.5-15.3) g/dL Hct 38.7 (37.0-47.0) % MCV 98.7 (81-99) fl Plt Count 347 (130-400) 10^3/cmm Neut % (Auto) 82.7 % Neut # (Auto) 5.87 (1.8-7.7) 10^3/uL BMP 06/08/21 00:50 Sodium 139 Potassium 6.7 H* Chloride 104 Carbon Dioxide 22 BUN 58 H Creatinine 2.4 H Glucose 90 Calcium 9.8 Cardiac Enzymes 06/08/21 Range/Units 00:50 Creatine Kinase 54 (26-192) U/L Liver Function 06/08/21 Range/Units 00:50 Total Bilirubin 0.2 (0.15-1.2) mg/dL AST 41 H (0-32) U/L ALT 26 (0-33) U/L Alkaline Phosphatase 90 (35-105) IU/L Albumin 4.0 (3.5-5.2) g/dL Urine 06/08/21 Range/Units 01:24 Urine Color Yellow (Yellow) Urine Appearance Clear (CLEAR) Urine pH 5 (5-7) Ur Specific [place] 1.020 (1.005-1.030) Urine Protein Neg (Negative) Urine Glucose (UA) Norm (Normal) Urine Ketones 2+ H (Negative) Urine Nitrate Negative (Negative) Urine Bilirubin 2+ H (Negative) Ur Leukocyte Esterase Trace H (Negative) Urine RBC 5-10 H (0-2) /hpf Urine WBC 0-4 H (0-5) /hpf Cardiac Studies: Echocardiogram 05/23/21
[2021-06-08] MEDS: ciprofloxacin 500 mg Tablet 250 MG PO ×2 (10:46→21:59)
[2021-06-08 11:11] LABS: Blood Urea Nitrogen 45 mg/dL (8-23); Calcium 8.6 mg/dL (8.5-10.5); Carbon Dioxide 16 mmol/L (22-29); Chloride 108 mmol/L (98-107); Glucose 56 mg/dL (65-115); Osmolality Calculated 285 mOsm/kg (285-295); Sodium 133 mmol/L (136-145)
--- NOTE | 2021-06-08 12:25 | PM.CONSULT ---
Providers/Reason For Consult Consulting Physician/Specialty*: Lavon Ha MD; orthopedic surgery Reason for Consult*: Left intertrochanteric hip fracture Attending Physician: Lavon Ha MD Primary Care Provider: GITA Decker History of Present Illness History of Present Illness Melonie Cross is a 76 year old female who fell at home with resulting hip.on many occasions would go without. She describes a severe left hip pain. She has been admitted to medicine left [facility] this week and orthopedics is consulted for management of her left intertrochanteric hip fracture. She reports that she is scheduled to see Dr. Loyola for a small decubital ulcer over her Medications/Allergies Home Medications Medication Instructions Recorded Confirmed Last Taken Type cholecalciferol (vitamin D3) 50 50 mcg PO DAILY 05/26/19 06/04/21 09/19/20 History mcg (2,000 unit) capsule K0003 lightweight wheelchair #1 ea 07/26/20 06/04/21 Unknown Rx nebulizers #1 each 07/26/20 06/04/21 Unknown Rx nitroglycerin 0.4 mg sublingual 0.4 mg SUBLINGUAL Q5M PRN #25 tab 02/28/21 06/04/21 Unknown Rx tablet (Nitrostat) aspirin 81 mg tablet,delayed 81 mg PO DAILY #30 tab 04/22/21 06/04/21 Unknown Rx release budesonide 0.5 mg/2 mL suspension 0.5 mg (2 mL) INHALATION BID #120 04/22/21 06/04/21 Unknown Rx for nebulization (Pulmicort) ml diltiazem HCl 360 mg 360 mg PO DAILY #30 cap 04/22/21 06/04/21 Unknown Rx capsule,extended release 24 hr ipratropium 0.5 mg-albuterol 3 mg 3 ml INHALATION QID PRN #180 ml 04/22/21 06/04/21 Unknown Rx (2.5 mg base)/3 mL nebulization soln magnesium oxide 400 mg PO BID #60 tab 04/22/21 06/04/21 Unknown Rx metoprolol succinate 100 mg 100 mg PO DAILY #30 tab 04/22/21 06/04/21 Unknown Rx tablet,extended release 24 hr pantoprazole 20 mg tablet,delayed 20 mg PO DAILY #30 tab 04/22/21 06/04/21 Unknown Rx release theophylline 400 mg 400 mg PO DAILY #30 cap 04/22/21 06/04/21 Unknown Rx capsule,extended release 24 hr tiotropium 2.5 mcg-olodaterol 2.5 2 puff INHALATION Q24H #4 g 04/22/21 06/04/21 Unknown Rx mcg/actuation mist for inhalation (Stiolto Respimat) oxycodone 15 mg tablet 15 mg PO QID PRN 05/23/21 06/04/21 Unknown History venlafaxine 75 mg tablet,extended 75 mg PO DAILY 05/23/21 06/04/21 Unknown History release 24 hr isosorbide mononitrate 30 mg 30 mg PO DAILY #30 tab 05/24/21 06/04/21 Unknown Rx tablet,extended release 24 hr nebulizers #1 ea 05/31/21 06/04/21 Unknown Rx honey 100 % topical paste 1 applic TOPICAL BID #103 ml 06/04/21 06/04/21 Unknown Rx (Marito (honey)) mupirocin 2 % topical ointment 1 applic TOPICAL BID #15 g 06/04/21 06/04/21 Unknown Rx sulfamethoxazole 800 1 tab PO BID #20 tab 06/04/21 06/04/21 Unknown Rx mg-trimethoprim 160 mg tablet (Bactrim DS) Allergies Allergy/AdvReac Type Severity Reaction Status Date / Time amlodipine [From Norvasc] Allergy swelling Verified 06/04/21 08:32 cephalexin Allergy ALGY-Anaphy Verified 06/04/21 08:32 laxis erythromycin base Allergy ADR-Nausea Verified 06/04/21 08:32 Penicillins Allergy swelling Verified 06/04/21 08:32 propranolol [From Inderal LA] Allergy swelling Verified 06/04/21 08:32 tetanus toxoid, adsorbed Allergy swelling Verified 06/04/21 08:32 tetracycline Allergy ADR-Nausea Verified 06/04/21 08:32 ticlopidine [From Ticlid] Allergy swelling Verified 06/04/21 08:32 Current Medications Generic Name Dose Route Start Last Admin Trade Name Freq PRN Reason Stop Dose Admin Ciprofloxacin HCl 250 mg 06/08/21 10:15 06/08/21 10:46 Ciprofloxacin 500 Mg Tablet PO 250 mg Q18H ALLEGRA Administration Protocol Heparin Sodium (Porcine) 5,000 unit 06/08/21 03:45 06/08/21 03:59 Heparin 5,000 Unit/Ml Inj 1 Ml SUBCUT Not Given Q12H ALLEGRA Sodium Chloride 1,000 mls @ 75 mls/hr 06/08/21 01:45 06/08/21 01:59 Sodium Chloride 0.9% IV 75 mls/hr .[id number] ALLEGRA Administration Sodium Chloride 8.5 meq/ 252.125 mls @ 0 mls/hr 06/08/21 02:00 06/08/21 03:27 Dextrose IV Infused .Q0M ALLEGRA Infusion As Directed Insulin Human Lispro 0 unit 06/08/21 08:00 06/08/21 07:24 Insulin Lispro 100 Unit/1 Ml SUBCUT Not Given WM&BEDTIME ALLEGRA Protocol Morphine Sulfate 2 mg 06/08/21 01:42 06/08/21 07:00 Morphine 4 Mg/Ml Sdv 1 Ml IVP 2 mg Q4H PRN Administration SEVERE PAIN Pantoprazole Sodium 40 mg 06/08/21 09:00 06/08/21 08:[address] 40 Mg Tablet PO 40 mg DAILY ALLEGRA Administration PFSH Acute PFSH: Medical History Acid reflux Allergic rhinitis due to allergen Breast cancer, right COPD (chronic obstructive pulmonary disease) Diabetes mellitus with hyperglycemia, with long-term current use of insulin HTN (hypertension) Nocturnal oxygen desaturation Osteoarthritis Post-menopausal osteoporosis Surgical History History of angioplasty with stent 1998 History of cholecystectomy History of oophorectomy History of removal of Port-a-Cath (09/19/20) History of tonsillectomy Hx of carotid angioplasty Port-A-Cath in place Family History Family/Other Diabetes Father COPD exacerbation Social History Smoking and tobacco status: never smoked Quit status (tobacco): has quit using tobacco Year quit tobacco: 2020 - 1PPD x 50 Years Second hand smoke exposure: No Smoking risk assessment/counseling performed?: Yes Alcohol intake: never Desire information about alcohol rehabilitation?: No Counseling given: No Desire information about substance/drug rehabilitation?: No Counseling given: No Lives independently: Yes Household members: children Housing: House Marital status: / Current occupational status: disabled Pets and animals: Yes Pets & animals: dog(s) History of recent travel: No Current gender identity: Female Vitals/I&O/Wt Last Vital Signs Temp 97.8 F 06/08/21 00:41 Pulse 82 06/08/21 08:02 Resp 16 06/08/21 08:02 BP 129/67 06/08/21 08:02 Pulse Ox 96 06/08/21 08:02 06/07/21 06/08/21 06/08/21 22:59 06:59 14:59 Intake Total 1252.125 / 1252.125 Balance 1252.125 / 1252.125 Weight last 48 hrs Weight 103 lb Physical Exam Narrative: There is clear shortening and external she has pain with motion of the left hip. She will flex and extend her toes and her ankle. Her sensation is intact to light touch. I really cannot feel good dorsalis pedis or tibialis posterior pulse in the left. Over her left upper buttock there is approximately 2 cm in diameter area of necrotic tissue just adjacent to her sacrum. There is no fluctuance and the tissues are relatively mobile and supple. Urinary Catheter Management: Roland Latex: Cath Placed During This Visit: yes Reason for Continuing Indwelling Catheter: Required Immobilization for Trauma or Surgery or Anesthesia Urinary Catheter Date of Insertion: 06/08/21 Urinary Catheter Time of Insertion: 01:19 Data : 06/08/21 00:50 06/08/21 10:37 Other Xray: My impression: Radiographs of the left femur are reviewed from earlier this morning. The patient appears to have a 3 part left intertrochanteric hip fracture testing of a neck and head and lesser troches fragment A&P Assessment and plan (1) Intertrochanteric fracture of left hip: I discussed options with the patient.. I told the patient we could treat this nonoperatively but certainly they would be at risk for medical problems without surgery. Theywould have problems with pain that would require narcotics for pain control. 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 I discussed surgical intervention with the patient. I told them with open reduction internal fixation they should be able to be mobilized and resume ambulatory status. We can eliminate the problems associated with prolonged bed rest and would have better control of pain. Certainly there would be inherent risk with surgery. These would would include the risk of cardiac complications, stroke, infection, and even . She has a small sacral decubitus as well away from our incision. I do not think it involves the surgical field but may place her at a slightly higher risk of infection. Unfortunately I think tear of the decub would be virtually impossible with a broken hip and certainly fixation of the hip would facilitate care of that problem. I discussed risk of any orthopedic implant including nonunion, malunion, a component failure. I discussed the possible need for component removal. I discussed risk of deep venous thromboses and pulmonary emboli that are present with any treatment and the importance of DVT prophylaxis. The patient expressed good understanding of alternative treatments, seem to comprehend, and agrees to surgical intervention. 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
--- NOTE | 2021-06-08 13:34 | PC.OT ---
Order received and chart reviewed. Patient awaiting surgery. Will hold OT eval and await new orders from ortho. Kwaku Pittman OTR/Lily
--- NOTE | 2021-06-08 14:08 | PM.OP ---
Operative Report Date of procedure: June 08, 2021 Pre-op diagnosis: Preop Diagnosis Left intratrochanteric hip fracture Procedure: Preop Diagnosis ? Left intertrochanteric hip fracture ? Post-op diagnosis: same Post-op diagnosis: Same Post-op findings: Same Procedure done: Open reduction internal fixation left hip with intramedullary device Pathology: none sent Surgeon: Lavon Ha Anesthesia: General Estimated blood loss (mL): 100 Condition: stable Disposition: PACU Procedure: The patient was taken to the operating room.? They were given 1 g of Ancef.? They were positioned on the? fracture table with the right lower extremity in gentle traction.? A timeout was performed.? A 2 cm long incision was made proximal to the greater trochanter scalpel blade.? Dissection was carried down to tip the greater trochanter.? A guidepin was passed manually from the tip of the trochanter down the shaft.? The proximal reamer was utilized to open up the proximal canal.? Due to the small canal size a ball-tipped guidewire was passed and sequential reaming was accomplished up to 12.5 mm.? An 11 mm by 360 mm [place] gamma nail was passed down the canal without difficulty.? Under visualization of fluoroscopy a guidepin was driven up into the head and neck at 125? angle.? It was measured at 80 mm in length and a lag screw similar length was then placed and locked into place with the proximal locking screw.? ? Intraoperative imaging was obtained verifying satisfactory position of the hardware and reduction of the fracture.? Deep tissues were closed with 0 Vicryl as were subcutaneous tissues.? The skin was closed with skin donnell.? Sterile dressings were applied.? The patient was extubated and taken to recovery room in stable condition.
[2021-06-08] MEDS: sodium chloride 0.9% 1,000 ML 50 ML IV (15:19)
--- NOTE | 2021-06-08 15:53 | PM.PN ---
Subjective Subjective: Patient was seen preoperatively, she does complain of wheezing, is a smoker, no history of COVID-19 infection, no fevers, no chills, no nausea, no vomiting reports tripping on a rug, no preceding headache, no blurry vision, no nausea, no vomiting, no chest pain, no palpitations, Vitals/I&O/Wt Last Vital Signs Temp 97.2 F L 06/08/21 14:31 Pulse 77 06/08/21 14:49 Resp 16 06/08/21 14:49 BP 148/62 06/08/21 14:31 Pulse Ox 94 06/08/21 14:49 06/08/21 06/08/21 06/08/21 06:59 14:59 22:59 Intake Total 1252.125 / 1252.125 800 / 800 Output Total 1050 / 1050 Balance 1252.125 / 1252.125 -250 / -250 Weight last 48 hrs Weight 46.72 kg Physical Exam Const: COMMON NORMALS: no acute distress and patient oriented x3 Resp: COMMON NORMALS: normal respiratory effort, No retractions and No use of accessory muscles AUSCULTATION: wheezes Cardio: COMMON NORMALS: regular rate, regular rhythm, S1 normal heart sound present and S2 normal heart sound present RATE: regular rate RHYTHM: regular rhythm HEART SOUNDS: S1 normal heart sound present and S2 normal heart sound present GI: COMMON NORMALS: Normal to inspection, nondistended, normoactive bowel sounds present, Soft to palpation, non-tender and No hepatosplenomegaly present PALPATION: Yes Soft to palpation and Yes No hepatosplenomegaly present Extremity: COMMON NORMALS: no pedal edema Neuro: COMMON NORMALS: patient oriented x3 Psych: COMMON NORMALS: mental status grossly normal Urinary Catheter Management: Roland Latex: Cath Placed During This Visit: yes Reason for Continuing Indwelling Catheter: Required Immobilization for Trauma or Surgery or Anesthesia Urinary Catheter Date of Insertion: 06/08/21 Urinary Catheter Time of Insertion: 01:19 Data : 06/08/21 00:50 06/08/21 10:37 A&P Assessment and plan (1) Closed hip fracture: Status: Acute Qualifiers: Encounter type: initial encounter Laterality: right Qualified Code(s): S72.001A - Fracture of unspecified part of neck of right femur, initial encounter for closed fracture (2) Diabetes mellitus with hyperglycemia, with long-term current use of insulin: Status: Chronic Qualifiers: Diabetes mellitus type: type 2 Qualified Code(s): E11.65 - Type 2 diabetes mellitus with hyperglycemia; Z79.4 - 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 of insulin (3) COPD (chronic obstructive pulmonary disease): Status: Chronic Qualifiers: COPD type: emphysema Emphysema type: unspecified Qualified Code(s): J43.9 - Emphysema, unspecified (4) HTN (hypertension): Status: Chronic Qualifiers: Hypertension type: essential hypertension Qualified Code(s): I10 - Essential (primary) hypertension (5) Hyperkalemia: Status: Acute (6) Acute worsening of stage 3 chronic kidney disease: Status: Acute Plan Mechanical fall with hip fracture Status post open reduction internal fixation left hip Pain control IVF PT/OT consult Acute on chornic stage 3 kidney disease / Hyperkalemia Baseline creatinine around 1.2 Now increased to 2.4 K 6.7 s/p HCO3, insulin,albuterol, repeat potassium 6.0, scheduled Kayexalate Repear BMP in am Monitor on tele NS at 75 cc/hr Roland placement - immobilizaiton Diabetes Mellitus Sliding scale insulin Qachs checks COPD Continue chronic home maintennce therapy Supplemental o2 as needed. 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
[2021-06-08] MEDS: sodium polystyrene sulfonate 15 gm/60 mL Btl PO ×2 (16:20→22:01)
[2021-06-08] MEDS: oxyCODONE 5 mg IR Tab/Cap 20 MG PO ×2 (16:20→20:31)
[2021-06-08 16:57] LABS: Potassium 5.8 mmol/L (3.5-5.1)
[2021-06-08 17:06] LABS: Glucose Point of Care 131 mg/dL (70-110)
[2021-06-08 20:06] LABS: Glucose Point of Care 276 mg/dL (70-110)
[2021-06-08] MEDS: budesonide 0.5 mg/2 mL Neb INHALATION (20:20)
[2021-06-08] MEDS: ipratropium-albuterol 3 mL Neb INHALATION ×2 (20:21→23:34)
[2021-06-08] MEDS: clindamycin 900 MG/50 ML PREMIX 100 MG IV (20:58)
[2021-06-09] VITALS (20 sets, daily range): BP systolic 106–133; BP diastolic 52–65; PULSE 74–92; RESP 16–20; TEMP 36.6–36.8; O2SAT 91–96
[2021-06-09] MEDS: oxyCODONE 5 mg IR Tab/Cap 20 MG PO ×4 (00:30→19:41)
[2021-06-09] MEDS: clindamycin 900 MG/50 ML PREMIX 100 MG IV ×2 (03:11→13:48)
[2021-06-09] MEDS: sodium polystyrene sulfonate 15 gm/60 mL Btl PO (03:11)
[2021-06-09] MEDS: ipratropium-albuterol 3 mL Neb INHALATION ×5 (03:41→23:38)
[2021-06-09 03:42] LABS: Hematocrit 29.5 % (37.0-47.0); Hemoglobin 9.3 g/dL (11.5-15.3); Lymphocytes # 0.2 10^3/uL (0.8-4.8); Lymphocytes % 2.2 %; Mean Corpuscular HGB Conc 31.5 g/dL (30.0-36.0); Mean Corpuscular Hemoglobin 30.9 pg (28.0-34.0); Mean Platelet Volume 10.9 fL (7.4-10.4); Monocytes # 0.5 10^3/uL (0.2-0.9); Monocytes % 6.4 %; Neutrophils # 7.34 10^3/uL (1.8-7.7); Nucleated Red Blood Cells % 0 %; Platelet Count 269 10^3/cmm (130-400); Red Blood Count 3.01 10^6/uL (4.1-5.3); Red Cell Distribution Width 15.7 % (12.1-15.1); White Blood Count 8.1 10^3/uL (4.0-10.0)
[2021-06-09 04:07] LABS: Alanine Aminotransferase 22 U/L (0-33); Albumin Level 3.1 g/dL (3.5-5.2); Alkaline Phosphatase 68 IU/L (35-105); Anion Gap 15.6 (5-19); Aspartate Amino Transferase 41 U/L (0-32); Blood Urea Nitrogen 35 mg/dL (8-23); Calcium 8.7 mg/dL (8.5-10.5); Carbon Dioxide 22 mmol/L (22-29); Chloride 105 mmol/L (98-107); Globulin 2.1 g/dL (1.3-4.6); Glucose 165 mg/dL (65-115); Osmolality Calculated 298 mOsm/kg (285-295); Potassium 4.6 mmol/L (3.5-5.1); Sodium 138 mmol/L (136-145); Total Bilirubin 0.2 mg/dL (0.15-1.2); Total Protein 5.2 g/dL (6.6-8.7)
[2021-06-09] MEDS: dilTIAZem ER (24HR) 180 mg Capsule 360 MG PO (07:42)
[2021-06-09] MEDS: aspirin 81 mg EC Tablet PO (07:42)
[2021-06-09] MEDS: ciprofloxacin 500 mg Tablet 250 MG PO ×2 (07:42→22:30)
[2021-06-09] MEDS: venlafaxine ER (24HR) 75 mg Capsule PO (07:43)
[2021-06-09] MEDS: isosorbide mononitrate ER 30 mg Tablet PO (07:43)
[2021-06-09] MEDS: metoprolol succinate ER (24 HR) 100 mg Tablet PO (07:43)
[2021-06-09] MEDS: budesonide 0.5 mg/2 mL Neb INHALATION ×2 (07:46→19:27)
[2021-06-09] MEDS: LORazepam 1 mg Tablet PO ×3 (10:26→19:41)
--- NOTE | 2021-06-09 11:42 | PC.CHAP ---
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 [] Patient/Family/Request visit [] Outpatient visit [] Follow-up visit [] Physician referral [] Code/Alert [X] Routine visit [] Staff referral [] Actively dying [] Patient sleeping [] Family support [] [] Out of room [] Palliative care [] [] Receiving care in room [] Pre-surgical visit [] Trauma [] Long length of stay [] ICU visit [X] Other: daughter present Relational/Emotional Strength [] Patient feels connected with others/family/visitors/staff [X] Distress [] Loneliness/isolation [] Abandonment Spirituality of Patient [] Person of Gavi [] Attends Amish of their Gavi [X] Believes in Prayer [] Reads Bible or Baptist materials [X] There are Spiritual issues to be addressed Storage Architect Interventions [X] Prayer [X] Active listening [X] Non-anxious presence [X] Spiritual/emotional support [] Crisis/trauma care [] Spiritual counseling [] Bereavement support [] Provided bereavement packet [] Provided Bible/devotional materials [] Provided toy/stuffed animal, coloring book to patient or family member [] Provided Communion [] Anointing/[place] [] Salvation [X] Completed spiritual assessment [] Other: Impact on Illness or Injury [] Angry [] Fearful [] Anxious [] Often cries [] Exhaustion [] Unable to work [] Unable to attend shinto [] Unable to walk/stand [] Unable to read [] Unable to drive [] Unable to eat/drink [] Unable to sleep [] Unable to be with family [] Patient intubated [] Other: Summary: Pt distressed with high levels of anxiety. Storage Architect visit appreciated by pt but did not seem to diminish anxiety. Suggested pt speak with her doctor about help with the anxiety. Pt has had recent loss of son and multiple health issues. Time spent with patient: 30 mins
[2021-06-09 12:42] LABS: Glucose Point of Care 138 mg/dL (70-110)
[2021-06-09 12:42] LABS: Glucose Point of Care 110 mg/dL (70-110)
--- NOTE | 2021-06-09 13:24 | P.PN_ITS ---
Subjective Subjective: Patient was seen this morning she is very anxious this morning, she tells me that she does not want to spend more time here in the hospital, she wants to go home, she already has lung cancer she tells me her breast cancer, and there is nothing they can do about it she tells me, she just wants to go home, she also tells me that her son from COVID-19 in this hospital roughly a year ago, this makes her anxious, she does use lorazepam at home, I did advise her that she has had a hip fracture, she needs PT OT, certainly we can discharge her home but I would feel safe with her for staying PT OT, having appropriate evaluation before she goes home she is agreeable, she does not want to go to a assisted Vitals/I&O/Wt Last Vital Signs Temp 97.8 F 06/09/21 11:42 Pulse 90 06/09/21 12:11 Resp 16 06/09/21 12:11 BP 115/64 06/09/21 11:42 Pulse Ox 94 06/09/21 12:11 06/08/21 06/09/21 06/09/21 22:59 06:59 14:59 Intake Total 120 / 920 220 / 1140 Output Total 350 / 1400 650 / 650 Balance -230 / -480 220 / -260 -650 / -650 Weight last 48 hrs Weight 46.72 kg Physical Exam Const: COMMON NORMALS: no acute distress and patient oriented x3 Resp: COMMON NORMALS: normal respiratory effort, No retractions, No use of accessory muscles and clear to auscultation bilaterally AUSCULTATION: clear to auscultation bilaterally Cardio: COMMON NORMALS: regular rate, regular rhythm, S1 normal heart sound present and S2 normal heart sound present RATE: regular rate RHYTHM: regular rhythm HEART SOUNDS: S1 normal heart sound present and S2 normal heart sound present GI: COMMON NORMALS: Normal to inspection, nondistended, normoactive bowel sounds present, Soft to palpation, non-tender and No hepatosplenomegaly present PALPATION: Yes Soft to palpation and Yes No hepatosplenomegaly present Extremity: COMMON NORMALS: no pedal edema Neuro: COMMON NORMALS: patient oriented x3 Psych: COMMON NORMALS: mental status grossly normal Urinary Catheter Management: Roland Latex: Cath Placed During This Visit: yes, but has since been removed by the nurse Reason for Continuing Indwelling Catheter: Decision to DC Catheter Urinary Catheter Date of Insertion: 06/08/21 Urinary Catheter Time of Insertion: 01:19 Date Urinary Catheter Removed: 06/09/21 Time Urinary Catheter Discontinued: 11:43 Data : 06/09/21 03:00 06/09/21 03:00 A&P Assessment and plan (1) Closed hip fracture: Status: Acute Qualifiers: Encounter type: initial encounter Laterality: right Qualified Code(s): S72.001A - Fracture of unspecified part of neck of right femur, initial encounter for closed fracture (2) Diabetes mellitus with hyperglycemia, with long-term current use of insulin: Status: Chronic Qualifiers: Diabetes mellitus type: type 2 Qualified Code(s): E11.65 - Type 2 diabetes mellitus with hyperglycemia; Z79.4 - [facility] (current) use of insulin (3) COPD (chronic obstructive pulmonary disease): Status: Chronic Qualifiers: COPD type: emphysema Emphysema type: unspecified Qualified Code(s): J43.9 - Emphysema, unspecified (4) HTN (hypertension): Status: Chronic Qualifiers: Hypertension type: essential hypertension Qualified Code(s): I10 - Essential (primary) hypertension (5) Hyperkalemia: Status: Acute (6) Acute worsening of stage 3 chronic kidney disease: Status: Acute Plan Mechanical fall with hip fracture Status post open reduction internal fixation left hip Pain control, continue home oxycodone, continue home lorazepam IVF PT/OT consult DC Roland Plan on discharging in the next 24 hours Acute on chornic stage 3 kidney disease / Hyperkalemia Baseline creatinine around 1.2 Now increased to 1.3 K 6.7 s/p HCO3, insulin,albuterol, repeat potassium 6.0, scheduled Kayexalate Repear BMP potassium 4.6 Monitor on tele NS at 75 cc/hr Roland placement - immobilizaiton Diabetes Mellitus Sliding scale insulin Qachs checks COPD Continue chronic home maintennce therapy Supplemental o2 as needed. 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
[2021-06-09] MEDS: sodium chloride 0.9% 1,000 ML 50 ML IV (13:59)
--- NOTE | 2021-06-09 16:22 | P.PN_ITS ---
Subjective Subjective: Patient with little pain. Up independent with walker. Wants to go home. Vitals/I&O/Wt Last Vital Signs Temp 98.0 F 06/09/21 15:45 Pulse 82 06/09/21 15:45 Resp 18 06/09/21 15:45 BP 133/65 06/09/21 15:45 Pulse Ox 96 06/09/21 15:45 06/09/21 06/09/21 06/09/21 06:59 14:59 22:59 Intake Total 220 / 1140 1290 / 1290 Output Total 650 / 650 Balance 220 / -260 640 / 640 Weight last 48 hrs Weight 103 lb Physical Exam Narrative: Proximal dressing with slight bloody staining. Minimal swelling thigh Urinary Catheter Management: Roland Latex: Cath Placed During This Visit: yes, but has since been removed by the nurse Reason for Continuing Indwelling Catheter: Decision to DC Catheter Urinary Catheter Date of Insertion: 06/08/21 Urinary Catheter Time of Insertion: 01:19 Date Urinary Catheter Removed: 06/09/21 Time Urinary Catheter Discontinued: 11:43 Data : 06/09/21 03:00 06/09/21 03:00 A&P Assessment and plan (1) Intertrochanteric fracture of left hip: Status: Acute (2) Status post open reduction with internal fixation of fracture: Melonie is doing very well. I would agree to discharge home tomorrow. She can weight-bear as tolerated with a walker. She will follow-up with me in 1 month. 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
[2021-06-09 17:16] LABS: Glucose Point of Care 141 mg/dL (70-110)
[2021-06-09 20:21] LABS: Glucose Point of Care 130 mg/dL (70-110)
[2021-06-09] MEDS: enoxaparin 40 mg/0.4 mL Syringe SUBCUT (22:32)
[2021-06-10] VITALS (13 sets, daily range): BP systolic 116–150; BP diastolic 68–74; PULSE 75–91; RESP 16–18; TEMP 36.6–36.9; O2SAT 90–98
[2021-06-10] MEDS: oxyCODONE 5 mg IR Tab/Cap 20 MG PO ×3 (00:31→09:06)
[2021-06-10] MEDS: ipratropium-albuterol 3 mL Neb INHALATION ×3 (03:45→11:08)
[2021-06-10] MEDS: ciprofloxacin 500 mg Tablet 250 MG PO (08:04)
[2021-06-10] MEDS: isosorbide mononitrate ER 30 mg Tablet PO (08:05)
[2021-06-10] MEDS: metoprolol succinate ER (24 HR) 100 mg Tablet PO (08:05)
[2021-06-10] MEDS: aspirin 81 mg EC Tablet PO (08:05)
[2021-06-10] MEDS: predniSONE 20 mg Tablet 40 MG PO (08:05)
[2021-06-10] MEDS: dilTIAZem ER (24HR) 180 mg Capsule 360 MG PO (08:05)
[2021-06-10] MEDS: venlafaxine ER (24HR) 75 mg Capsule PO (08:05)
[2021-06-10] MEDS: budesonide 0.5 mg/2 mL Neb INHALATION (08:21)
[2021-06-10] MEDS: LORazepam 1 mg Tablet PO (09:27)
--- NOTE | 2021-06-10 11:17 | PM.DCS ---
Discharge Providers Date of Admission: 06/08/21 14:28 Date of Discharge: June 10, 2021 Attending Provider at Admission: Lavon Ha MD Attending Provider at Discharge: Gage Casey Primary Care Provider: GITA Decker Diagnoses at Discharge Discharge Diagnosis (1) Intertrochanteric fracture of left hip: Status: Acute (2) Status post open reduction with internal fixation of fracture: Status: Acute Reason for Visit Reason for Visit: FALL L HIP Hospital Course Hospital Course Pleasant 76-year-old lady admitted for treatment of left hip fracture, status post ORIF on 06/08. On presentation with noted REZA on CKD, hyperkalemia, both improved. She is doing well postoperatively. She is asked to discontinue meloxicam, stop Bactrim due to REZA, potassium abnormality. She is asked for follow-up labs to reassess renal function, electrolytes. Due to anemia CBC is requested for recheck. Please follow-up results. Avoid NSAIDs, Bactrim. Walker is requested for her. Physical Exam Const: COMMON NORMALS: no acute distress and patient oriented x3 HENMT: COMMON NORMALS: oropharynx normal Neck/C-Spine: COMMON NORMALS: no JVD Resp: COMMON NORMALS: normal respiratory effort and clear to auscultation bilaterally AUSCULTATION: clear to auscultation bilaterally Cardio: COMMON NORMALS: no JVD, regular rhythm, S1 normal heart sound present, S2 normal heart sound present and No murmurs present (Cardio) RHYTHM: regular rhythm HEART SOUNDS: S1 normal heart sound present and S2 normal heart sound present GI: COMMON NORMALS: Normal to inspection, nondistended, normoactive bowel sounds present, Soft to palpation and non-tender PALPATION: Yes Soft to palpation Extremity: COMMON NORMALS: no joint enlargement and no pedal edema OTHER: Min swelling LLE, dry blood strikethrough on dressing. Neuro: COMMON NORMALS: patient oriented x3 and moves all extremities Skin: COMMON NORMALS: no rashes or lesions noted GENERAL SKIN EXAM: no rashes or lesions noted Urinary Catheter Management: Roland Latex: Cath Placed During This Visit: yes, but has since been removed by the nurse Reason for Continuing Indwelling Catheter: Decision to DC Catheter Urinary Catheter Date of Insertion: 06/08/21 Urinary Catheter Time of Insertion: 01:19 Date Urinary Catheter Removed: 06/09/21 Time Urinary Catheter Discontinued: 11:43 Discharge Data Studies Completed and Pending Completed Studies During Hospitalization Category Date Time Status XR chest 1V portable [id number] Stat Exams 06/08/21 00:55 Completed XR femur LT min 2V* [id number] Stat Exams 06/08/21 00:47 Completed XR hip LT 2-3V wo/w pel* [id number] Routine Exams 06/08/21 Completed XR tibia fibula LT 2V [id number] Stat Exams 06/08/21 00:47 Completed Radiology Impressions Hip/Pelvis X-Ray 06/08/21 00:00 IMPRESSION: Images obtained for intraoperative purposes. Femur X-Ray 06/08/21 00:47 IMPRESSION: 1. Intertrochanteric comminuted mildly displaced hip fracture. 2. Scattered vascular calcifications. 3. 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 Tibia/Fibula X-Ray 06/08/21 00:47 IMPRESSION: Negative for fracture or dislocation Chest X-Ray 06/08/21 00:55 IMPRESSION: 1. Right upper lobe suprahilar 4.9 cm masslike airspace opacity again seen similar to prior exam and an increased left lower lobe 2.9 cm nodular opacity compared to prior exam concerning for underlying malignancy. 2. Emphysematous changes. Laboratory Results WBC 8.1 10^3/uL (4.0-10.0) 06/09/21 03:00 RBC 3.01 10^6/uL (4.1-5.3) L 06/09/21 03:00 Hgb 9.3 g/dL (11.5-15.3) L 06/09/21 03:00 Hct 29.5 % (37.0-47.0) L 06/09/21 03:00 MCV 98.0 fl (81-99) 06/09/21 03:00 MCH 30.9 pg (28.0-34.0) 06/09/21 03:00 MCHC 31.5 g/dL (30.0-36.0) 06/09/21 03:00 RDW 15.7 % (12.1-15.1) H 06/09/21 03:00 Plt Count 269 10^3/cmm (130-400) 06/09/21 03:00 MPV 10.9 fL (7.4-10.4) H 06/09/21 03:00 Neut % (Auto) 91.0 % 06/09/21 03:00 Lymph % (Auto) 2.2 % 06/09/21 03:00 [place] % (Auto) 6.4 % 06/09/21 03:00 Eos % (Auto) 0.0 % 06/09/21 03:00 Baso % (Auto) 0.0 % 06/09/21 03:00 Neut # (Auto) 7.34 10^3/uL (1.8-7.7) 06/09/21 03:00 Lymph # (Auto) 0.2 10^3/uL (0.8-4.8) L 06/09/21 03:00 [place] # (Auto) 0.5 10^3/uL (0.2-0.9) 06/09/21 03:00 Eos # (Auto) 0.0 10^3/uL (0.0-0.8) 06/09/21 03:00 Baso # (Auto) 0.0 10^3/uL (0.0-0.1) 06/09/21 03:00 Nucleated RBC % (auto) 0 % 06/09/21 03:00 Nucleated RBCs # 0.0 /100WBC 06/09/21 03:00 Sodium 138 mmol/L (136-145) 06/09/21 03:00 Potassium 4.6 mmol/L (3.5-5.1) 06/09/21 03:00 Chloride 105 mmol/L (98-107) 06/09/21 03:00 Carbon Dioxide 22 mmol/L (22-29) 06/09/21 03:00 Anion Gap 15.6 (5-19) 06/09/21 03:00 BUN 35 mg/dL (8-23) H 06/09/21 03:00 Creatinine 1.3 mg/dL (0.5-0.9) H 06/09/21 03:00 GFR Calculation Not Reportable 06/09/21 03:00 Glucose 165 mg/dL (65-115) H 06/09/21 03:00 POC Glucose 130 mg/dL (70-110) H 06/09/21 20:14 Calculated Osmolality 298 mOsm/kg (285-295) H 06/09/21 03:00 Calcium 8.7 mg/dL (8.5-10.5) 06/09/21 03:00 Total Bilirubin 0.2 mg/dL (0.15-1.2) 06/09/21 03:00 AST 41 U/L (0-32) H 06/09/21 03:00 ALT 22 U/L (0-33) 06/09/21 03:00 Alkaline Phosphatase 68 IU/L (35-105) 06/09/21 03:00 Creatine Kinase 54 U/L (26-192) 06/08/21 00:50 Total Protein 5.2 g/dL (6.6-8.7) L 06/09/21 03:00 Albumin 3.1 g/dL (3.5-5.2) L 06/09/21 03:00 Globulin 2.1 g/dL (1.3-4.6) 06/09/21 03:00 Urine Color Yellow (Yellow) 06/08/21 01:24 Urine Appearance Clear (CLEAR) 06/08/21 01:24 Urine pH 5 (5-7) 06/08/21 01:24 Ur Specific [place] 1.020 (1.005-1.030) 06/08/21 01:24 Urine Protein Neg (Negative) 06/08/21 01:24 Urine Glucose (UA) Norm (Normal) 06/08/21 01:24 Urine Ketones 2+ (Negative) H 06/08/21 01:24 Urine Blood 2+ (Negative) H 06/08/21 01:24 Urine Nitrate Negative (Negative) 06/08/21 01:24 Urine Bilirubin 2+ (Negative) H 06/08/21 01:24 Urine Urobilinogen Norm mg/dL (Negative) 06/08/21 01:24 Ur Leukocyte Esterase Trace (Negative) H 06/08/21 01:24 Urine RBC 5-10 /hpf (0-2) H 06/08/21 01:24 Urine WBC 0-4 /hpf (0-5) H 06/08/21 01:24 Ur Squamous Epith Cells 15-25 /hpf (0-5) H 06/08/21 01:24 Amorphous Sediment Not Reportable 06/08/21 01:24 Urine Bacteria 3+ /hpf (NONE) H 06/08/21 01:24 Hyaline Casts 0-4 /lpf H 06/08/21 01:24 Vitals Last Vital Signs Temp 97.8 F 06/10/21 07:35 Pulse 77 06/10/21 08:29 Resp 18 06/10/21 09:06 BP 150/72 06/10/21 07:35 Pulse Ox 96 06/10/21 08:23 Discharge Plan Discharge Patient Disposition: Home Health Service Condition: Stable Prescriptions: Continued cholecalciferol (vitamin D3) 50 mcg (2,000 unit) capsule 50 mcg PO DAILY 0RF ipratropium-albuterol 0.5 mg-3 mg(2.5 mg base)/3 mL solution for nebulization 3 ml INHALATION QID PRN (Reason: shortness of breath or wheezing) Qty: 180 11RF budesonide [Pulmicort] 0.5 mg/2 mL suspension for nebulization 0.5 mg inhalation BID Qty: 120 11RF aspirin 81 mg tablet,delayed release (DR/EC) 81 mg PO DAILY Qty: 30 2RF Hold Instructions: Resume on 08/10/20. diltiazem HCl 360 mg capsule,extended release 24hr 360 mg PO DAILY Qty: 30 2RF Stiolto Respimat 2.5-2.5 mcg/actuation mist 2 puff inhalation Q24H Qty: 4 2RF Rx Instructions: To replace Anoro magnesium oxide 400 mg magnesium tablet 400 mg PO BID Qty: 60 2RF metoprolol succinate 100 mg tablet extended release 24 hr 100 mg PO DAILY Qty: 30 2RF pantoprazole 20 mg tablet,delayed release (DR/EC) 20 mg PO DAILY Qty: 30 2RF theophylline 400 mg capsule,extended release 24hr 400 mg PO DAILY Qty: 30 2RF mupirocin 2 % ointment 1 applic topical BID Qty: 15 0RF nitroglycerin [Nitrostat] 0.4 mg tablet, sublingual 0.4 mg SUBLINGUAL Q5M PRN (Reason: chest pain) Qty: 25 0RF venlafaxine 75 mg Tablet Extended Release 24hr 75 mg PO DAILY 0RF oxycodone 15 mg Tablet 15 mg PO QID PRN (Reason: Pain) 0RF isosorbide mononitrate 30 mg Tablet Extended Release 24 Hr 30 mg PO DAILY Qty: 30 0RF Klor-Con 10 10 mEq tablet extended release 10 meq PO BID 0RF hydrocodone-acetaminophen 10-325 mg tablet 1 - 2 tab PO Q6H PRN (Reason: Pain) 0RF lorazepam 1 mg tablet 1 mg PO BID 0RF fenofibrate nanocrystallized 145 mg tablet 145 mg PO DAILY 0RF Discontinued sulfamethoxazole-trimethoprim [Bactrim DS] 800-160 mg tablet 1 tab PO BID Qty: 20 0RF meloxicam 15 mg tablet 15 mg PO DAILY 0RF No Action (DME) nebulizers Misc See Rx Instructions .ROUTE .MEDSUPPLY Qty: 1 0RF Rx Instructions: As directed (DME) K0003 lightweight wheelchair See Rx Instructions .Route .MEDSUPPLY Qty: 1 0RF Rx Instructions: use daily as needed for daily personal care mobility (DME) nebulizers Misc See Rx Instructions .ROUTE .MEDSUPPLY Qty: 1 0RF Rx Instructions: As directed Discharge Orders: Discharge Order (Routine); Ordered 06/10/21 Ordered By: Gage Casey Other Ambulatory Orders: Basic Metabolic Panel (Routine) Timeframe: 4 Days Facility: [facility] - Location: Lab - Main Lab Ordered By: Gage Casey Complete Blood Count w/Auto (Routine) Timeframe: 4 Days Location: Determined by Patient Ordered By: Gage Casey DME: Walker (Order) Location: None Selected Ordered By: Gage Casey Referrals: Idalia Means FNP-C [Primary Care Provider] - 06/17/21 3:20 pm Lavon Ha MD [Physician] - 07/09/21 9:45 am Discharge Activity: Limit activity as instructed Patient Instructions: Acute Kidney Injury (GEN), Hyperkalemia (GEN), Anemia (GEN), ORIF of Hip Fracture (GEN), Opioid Safety Activity Restrictions/Additional Instructions: May weight-bear as tolerated left lower extremity Okay to shower. May remove dressings in 48 hours. Please have labs drawn in 4 days for reassessment of anemia following hip fracture and repair as well as due to acute kidney injury on presentation which improved, to follow-up renal function, as well as due to high potassium on presentation. Please not take any potassium supplements. Please stop taking meloxicam due to acute kidney injury and chronic kidney disease. Please stop taking Bactrim due to acute kidney injury and high potassium level. Avoid Bactrim. Discharge Attestations Time Spent in Discharge Care*: greater than 30 min Quality Metrics Clinical Quality Measures [ No reported AMI, CVA or VTE this stay] Coding Level of Care Code Acute Chg FW DC note Diagnoses Intertrochanteric fracture of left hip S72.142A Status post open reduction with internal fixation of fracture Z98.890; Z87.81
[2021-06-10 13:01] LABS: Glucose Point of Care 100 mg/dL (70-110)
[2021-06-10 13:01] LABS: Glucose Point of Care 109 mg/dL (70-110)
--- NOTE | 2021-06-10 13:50 | PC.NURSE ---
patient verbalized understanding of discharge instructions, home medication, and follow up appointments. Patient memory care program director stated that they talked to pa and will pickle solution maker her walker on the way home.
== END 2021-06-10 13:52 | disposition home health service (06) | DRG 481 ==
LOC: ER 01:47 → ER IP 02:24 → OR 10:31 → MEDSURG 14:35
PROVIDERS: Family Medicine; Hospitalist; Admitting Provider Orthopaedic Surgery; Emergency Provider Emergency Medicine; PCP Nurse Practitioner; Visit Provider Internal Medicine
PROC: 0QS706Z Reposition Left Upper Femur with Intramedullary Internal Fixation Device, Open Approach (ICD-10-PCS; CPT 27245; principal; 2021-06-08 12:50)
DX: S72.142A Displaced intertrochanteric fracture of left femur, initial encounter for closed fracture (principal); N17.9 Acute kidney failure, unspecified; E87.5 Hyperkalemia; D63.1 Anemia in chronic kidney disease; W01.0XXA Fall on same level from slipping, tripping and stumbling without subsequent striking against object, initial encounter; I12.9 Hypertensive chronic kidney disease with stage 1 through stage 4 chronic kidney disease, or unspecified chronic kidney disease; N18.30 Chronic kidney disease, stage 3 unspecified; Z79.82 Long term (current) use of aspirin; E11.65 Type 2 diabetes mellitus with hyperglycemia; J43.9 Emphysema, unspecified; Z79.4 Long term (current) use of insulin; Z85.3 Personal history of malignant neoplasm of breast; Z85.118 Personal history of other malignant neoplasm of bronchus and lung; I25.10 Atherosclerotic heart disease of native coronary artery without angina pectoris; Z95.5 Presence of coronary angioplasty implant and graft; F17.200 Nicotine dependence, unspecified, uncomplicated
CPT/HCPCS: 36415; 36416; 51702; 71045; 73502; 73552; 73590; 76000; 80048; 80053; 81001; 82550; 82962; 84132; 85025; 93005; 94640; 96365; 96367; 96372; 96375; 97116; 97161; 97165; 97530; 99285; C1713; C1776; J1100; J1200; J1650; J1815; J2270; J2405; J2704; J2920; J2930; J3010; J3490; J7030; J7512; J7611; J7626; J7799

== ENCOUNTER 2021-06-14 12:27 | Outpatient (CLI) | payer MEDICARE, MEDICAID, SELFPAY ==
[2021-06-14 12:42] LABS: Basophils % 0.1 %; Eosinophils # 0.1 10^3/uL (0.0-0.8); Eosinophils % 1.3 %; Hematocrit 31.4 % (37.0-47.0); Lymphocytes # 0.4 10^3/uL (0.8-4.8); Lymphocytes % 4.6 %; Mean Corpuscular HGB Conc 31.8 g/dL (30.0-36.0); Mean Corpuscular Hemoglobin 31.3 pg (28.0-34.0); Mean Corpuscular Volume 98.4 fl (81-99); Mean Platelet Volume 11.3 fL (7.4-10.4); Monocytes # 0.7 10^3/uL (0.2-0.9); Monocytes % 8.5 %; Neutrophils # 7.44 10^3/uL (1.8-7.7); Neutrophils % 85.2 %; Nucleated Red Blood Cells % 0 %; Platelet Count 339 10^3/cmm (130-400); Red Blood Count 3.19 10^6/uL (4.1-5.3); Red Cell Distribution Width 15.4 % (12.1-15.1); White Blood Count 8.7 10^3/uL (4.0-10.0)
[2021-06-14 12:57] LABS: Potassium 4.2 mmol/L (3.5-5.1)
[2021-06-14 13:27] LABS: Anion Gap 16.2 (5-19); Blood Urea Nitrogen 21 mg/dL (8-23); Calcium 8.8 mg/dL (8.5-10.5); Carbon Dioxide 25 mmol/L (22-29); Chloride 102 mmol/L (98-107); Glucose 155 mg/dL (65-115); Osmolality Calculated 294 mOsm/kg (285-295); Sodium 139 mmol/L (136-145)
== END 2021-06-14 12:28 | disposition home or self-care (01) ==
LOC: LAB 12:31
PROVIDERS: Internal Medicine; PCP Nurse Practitioner; Visit Provider Family Medicine
DX: E87.5 Hyperkalemia (principal); N17.9 Acute kidney failure, unspecified; D64.9 Anemia, unspecified; N30.00 Acute cystitis without hematuria
CPT/HCPCS: 80048; 85025

== ENCOUNTER 2021-06-22 08:11 | Emergency (ER) | payer MEDICARE, MEDICAID, SELFPAY ==
[2021-06-22 08:15] VITALS: BP 161/71; PULSE 93; RESP 18; TEMP 36.5; O2SAT 93; BMI 17.1
--- NOTE | 2021-06-22 08:22 | XRR_ITS ---
PROCEDURE INFORMATION: Exam: XR Left Hip Exam date and time: 06/22/2021 8:22 AM Age: 76 years old Clinical indication: Hip pain; Left hip; Prior surgery; Surgery date: <1 month; Additional info: Pain, mobility difficulty TECHNIQUE: Imaging protocol: XR Left hip. Views: 2 or 3 views hip with pelvis when performed. COMPARISON: OT XR hip LT 2-3V wo/w pel* [id number] 06/08/2021 1:50 PM FINDINGS: Bones/joints: Intramedullary nail and screw fixation of a healing intertrochanteric left femur fracture. No new fracture or change in alignment. Hardware is intact. Mild degenerative changes of the left hip. Osteopenia. Soft tissues: Unremarkable. Vasculature: Vascular calcifications. XR/XR hip LT 2-3V wo/w pel* [id number] IMPRESSION: Intramedullary nail and screw fixation of a healing intertrochanteric left femur fracture. No new fracture or change in alignment.
--- NOTE | 2021-06-22 08:33 | W.ED.EXTPRO ---
HPI - Extremity Problem General: Chief complaint: Extremity Injury, Lower Stated complaint: LEFT HIP PAIN Time Seen by Provider: 06/22/21 08:17 History of Present Illness: 76-year-old female presents with left hip pain and problems moving it. Patient reports couple weeks ago she fell and had a hip surgery. She reports that this morning she is having difficulty movement with significant amount of pain in the left hip. She denies any new injury. Patient reports that she was laying on the couch last night moved to the chair and is having difficulty since moving to the chair. She reports pain with any type of movement or palpitation Associated symptoms: Deny chest pain or fever(s) Review of Systems Const: Denies: fever(s) or chills Card: Denies: chest pain or palpitations Resp: Denies: dyspnea or productive cough Musc: Reports: extremity swelling (Continued postop swelling and bruising of left foot no new changes) and joint pain (Left hip); Denies: joint redness or joint warmth Skin/Breast: Reports: other (Ecchymosis left foot) Neuro: Reports: weakness in extremities; Denies: headache(s) or numbness in extremities Const: Denies fever(s) Card: Denies chest pain or palpitations Musc: Denies redness Skin: Reports other (Ecchymosis left foot) Neuro: Denies headache(s) PFS ED PFSH: Medical History (Updated 06/22/21 @ 09:21 by Amrik Kilpatrick DO) Acid reflux Allergic rhinitis due to allergen Breast cancer, right Closed hip fracture COPD (chronic obstructive pulmonary disease) Diabetes mellitus with hyperglycemia, with long-term current use of insulin HTN (hypertension) Hyperkalemia Intertrochanteric fracture of left hip Nocturnal oxygen desaturation Osteoarthritis Post-menopausal osteoporosis Surgical History History of angioplasty with stent 1998 History of cholecystectomy History of oophorectomy History of removal of Port-a-Cath (09/19/20) History of tonsillectomy Hx of carotid angioplasty Port-A-Cath in place Family History Family/Other Diabetes Father COPD exacerbation Social History Smoking and tobacco status: never smoked Quit status (tobacco): has quit using tobacco Year quit tobacco: 2020 - 1PPD x 50 Years Second hand smoke exposure: No Smoking risk assessment/counseling performed?: Yes Alcohol intake: never Desire information about alcohol rehabilitation?: No Counseling given: No Desire information about substance/drug rehabilitation?: No Counseling given: No Lives independently: Yes Household members: children Housing: House Marital status: / Current occupational status: disabled Pets and animals: Yes Pets & animals: dog(s) History of recent travel: No Current gender identity: Female Physical Exam Const: OTHER: Frail, chronic ill HENMT: COMMON NORMALS: normocephalic and hearing grossly normal bilaterally; head/scalp not atraumatic HEAD & SCALP: normocephalic; not atraumatic Neck/C-Spine: COMMON NORMALS: full ROM Resp: COMMON NORMALS: normal respiratory effort, No retractions and clear to auscultation bilaterally AUSCULTATION: clear to auscultation bilaterally Cardio: COMMON NORMALS: regular rate and regular rhythm RATE: regular rate RHYTHM: regular rhythm GI: COMMON NORMALS: Normal to inspection, nondistended, normoactive bowel sounds present, Soft to palpation and non-tender PALPATION: Yes Soft to palpation Extremity: NARRATIVE EXTREMITY EXAM: Tender to palpation and with any range of motion left hip and upper leg Neuro: COMMON NORMALS: CN's II-XII intact bilaterally Skin: NARRATIVE SKIN EXAM: Mild ecchymosis left foot Course Vital Signs: Vital signs: Vital Signs Temperature 97.7 F 06/22/21 08:15 Pulse Rate 93 06/22/21 08:15 Respiratory Rate 18 06/22/21 08:15 Blood Pressure 161/71 06/22/21 08:15 Pulse Oximetry 93 06/22/21 08:15 MDM - Extremity (Nontraumatic) Medical Decision Making Patient is x-ray does not show any acute fractures or dislocation. Patient's hardware shows no abnormality. Patient with left hip pain is likely just postsurgical. Patient reports that she has a wheelchair at home which she uses. I recommend she use her wheelchair. That she continue physical therapy. She should call her primary care provider on Thursday to have her home health services reevaluated to ensure that she does not need any other services. Patient stable and discharged home Lab Data Radiology Impressions Hip/Pelvis X-Ray 06/22/21 08:22 IMPRESSION: Intramedullary nail and screw fixation of a healing intertrochanteric left femur fracture. No new fracture or change in alignment. Imaging Data Xray Ortho: My impression: No acute fracture or dislocation Radiologist's impression: XR/XR hip LT 2-3V wo/w pel* [id number] IMPRESSION: Intramedullary nail and screw fixation of a healing intertrochanteric left femur fracture. No new fracture or change in alignment. Discharge Plan Discharge Patient Disposition: Home Clinical Impression: Left hip pain Condition: Stable Prescriptions: No Action cholecalciferol (vitamin D3) 50 mcg (2,000 unit) capsule 50 mcg PO DAILY 0RF (DME) nebulizers Misc See Rx Instructions .ROUTE .MEDSUPPLY Qty: 1 0RF Rx Instructions: As directed ([facility]) K0003 lightweight wheelchair See Rx Instructions .Route .MEDSUPPLY Qty: 1 0RF Rx Instructions: use daily as needed for daily personal care mobility ipratropium-albuterol 0.5 mg-3 mg(2.5 mg base)/3 mL solution for nebulization 3 ml INHALATION QID PRN (Reason: shortness of breath or wheezing) Qty: 180 11RF budesonide [Pulmicort] 0.5 mg/2 mL suspension for nebulization 0.5 mg inhalation BID Qty: 120 11RF aspirin 81 mg tablet,delayed release (DR/EC) 81 mg PO DAILY Qty: 30 2RF Hold Instructions: Resume on 08/10/20. diltiazem HCl 360 mg capsule,extended release 24hr 360 mg PO DAILY Qty: 30 2RF Stiolto Respimat 2.5-2.5 mcg/actuation mist 2 puff inhalation Q24H Qty: 4 2RF Rx Instructions: To replace Anoro magnesium oxide 400 mg magnesium tablet 400 mg PO BID Qty: 60 2RF metoprolol succinate 100 mg tablet extended release 24 hr 100 mg PO DAILY Qty: 30 2RF pantoprazole 20 mg tablet,delayed release (DR/EC) 20 mg PO DAILY Qty: 30 2RF theophylline 400 mg capsule,extended release 24hr 400 mg PO DAILY Qty: 30 2RF mupirocin 2 % ointment 1 applic topical BID Qty: 15 0RF nitroglycerin [Nitrostat] 0.4 mg tablet, sublingual 0.4 mg SUBLINGUAL Q5M PRN (Reason: chest pain) Qty: 25 0RF venlafaxine 75 mg Tablet Extended Release 24hr 75 mg PO DAILY 0RF oxycodone 15 mg Tablet 15 mg PO QID PRN (Reason: Pain) 0RF isosorbide mononitrate 30 mg Tablet Extended Release 24 Hr 30 mg PO DAILY Qty: 30 0RF Klor-Con 10 10 mEq tablet extended release 10 meq PO BID 0RF lorazepam 1 mg tablet 1 mg PO BID 0RF fenofibrate nanocrystallized 145 mg tablet 145 mg PO DAILY 0RF Discharge Orders: Discharge ED (Routine); Ordered 06/22/21 Ordered By: Amrik Kilpatrick Referrals: Idalia Means, RECORDS MANAGEMENT DIRECTOR-C [Primary Care Provider] - Discharge Diet: Usual diet Discharge Activity: Increase activity as tolerated and Wheelchair as instructed Patient Instructions: Hip Bursitis (ED), Hip Pain (ED), Opioid Safety Activity Restrictions/Additional Instructions: Tylenol or ibuprofen as needed for pain and discomfort 4% topical lidocaine with menthol cream, gel or patches instructed on package Voltaren/diclofenac cream as directed on pack Warm moist heat to left hip for 20 minutes a day through 4-5 times daily Coding Level of Care Code ED Ski Base Trimmer for Luis Fwd Exam Detailed
[2021-06-22] MEDS: ketorolac 30 mg/mL INJ IM (09:22)
[2021-06-22] MEDS: orphenadrine 30 mg/mL Inj 2 mL 60 MG IM (09:23)
[2021-06-22 09:55] VITALS: BP 161/71; PULSE 58; RESP 20; O2SAT 97
--- NOTE | 2021-06-22 10:08 | PC.NURSE ---
patient and caregiver are not wanting to go home- this RN reviewed discharge instructions, went over that patient is able to get up and around but slowly, reviewed OTC meds, patient to be taken to lobby via wheelchair
== END 2021-06-22 10:17 | disposition home or self-care (01) ==
PROVIDERS: Emergency Provider Student in an Organized Health Care Education/Training Program; PCP Nurse Practitioner
DX: M25.552 Pain in left hip (principal); Z79.82 Long term (current) use of aspirin; Z85.3 Personal history of malignant neoplasm of breast; J44.9 Chronic obstructive pulmonary disease, unspecified; E11.9 Type 2 diabetes mellitus without complications; I10 Essential (primary) hypertension; Z87.891 Personal history of nicotine dependence
CPT/HCPCS: 73502; 96372; 99283; J1885; J2360

== ENCOUNTER 2021-06-28 08:30 | Outpatient (CLI) | payer MEDICARE, MEDICAID, SELFPAY ==
[2021-06-28 09:02] LABS: Basophils % 0.5 %; Eosinophils # 0.1 10^3/uL (0.0-0.8); Eosinophils % 1.3 %; Hemoglobin 9.9 g/dL (11.5-15.3); Lymphocytes # 0.3 10^3/uL (0.8-4.8); Lymphocytes % 4.6 %; Mean Corpuscular HGB Conc 31.9 g/dL (30.0-36.0); Mean Corpuscular Hemoglobin 31.7 pg (28.0-34.0); Mean Corpuscular Volume 99.4 fl (81-99); Mean Platelet Volume 10.4 fL (7.4-10.4); Monocytes # 0.5 10^3/uL (0.2-0.9); Monocytes % 7.7 %; Neutrophils # 5.36 10^3/uL (1.8-7.7); Neutrophils % 85.6 %; Nucleated Red Blood Cells % 0 %; Platelet Count 453 10^3/cmm (130-400); Red Blood Count 3.12 10^6/uL (4.1-5.3); Red Cell Distribution Width 15.7 % (12.1-15.1); White Blood Count 6.3 10^3/uL (4.0-10.0)
[2021-06-28 09:18] LABS: Alanine Aminotransferase 59 U/L (0-33); Albumin Level 3.9 g/dL (3.5-5.2); Alkaline Phosphatase 124 IU/L (35-105); Anion Gap 15.7 (5-19); Aspartate Amino Transferase 116 U/L (0-32); Blood Urea Nitrogen 39 mg/dL (8-23); Calcium 10.3 mg/dL (8.5-10.5); Carbon Dioxide 27 mmol/L (22-29); Chloride 96 mmol/L (98-107); Globulin 2.6 g/dL (1.3-4.6); Glucose 96 mg/dL (65-115); Osmolality Calculated 289 mOsm/kg (285-295); Potassium 3.7 mmol/L (3.5-5.1); Sodium 135 mmol/L (136-145); Total Bilirubin 0.5 mg/dL (0.15-1.2); Total Protein 6.5 g/dL (6.6-8.7)
[2021-06-28 10:02] LABS: Iron 29 ug/dL (37-145); Percent Saturation 9.8 % (20-50); Total Iron Binding Capacity 293 mcg/dl; Unsaturated Iron Binding 264 ug/dL (112-347)
[2021-06-28 10:17] LABS: Ferritin 5567 ng/mL (15-150)
--- NOTE | 2021-06-28 10:54 | USCV_ITS ---
Melonie Cross Age: 76 Gender: F : 1945 Exam Date: 06/28/2021 11:05 Ordering Phys: Stephanie Mcmahan GARNISHER Technologist: Exam Location: [facility] [place] Indication: LT LEG PAIN AND SWELLING PROCEDURES: Venous duplex imaging was performed in only the left lower extremity. The following venous structures were evaluated: common femoral vein, profunda vein, proximal portion of the greater saphenous vein, superficial femoral vein, and the popliteal vein. In addition, the posterior tibial and peroneal trunk were evaluated. FINDINGS: LT LEG DVT IN LT CFVAND FEMORAL VEIN CALLED DR Echogenic material in the lumen of the common femoral and femoral vein on the left side with some sluggish spontaneous flow CONCLUSIONS Deep vein thrombosis causing subtotal occlusion of the left femoral and common femoral veins. Dr Guido Marks MD [facility] (Electronically Signed) Final Date: 28 June 2021 19:00 S
--- NOTE | 2021-06-30 15:49 | ONC FU_ITS ---
Stephanie Mcmahan Progress Note Patient: Melonie Cross Unit #: [id number]: [id number] Dicatated By: Stephanie Mcmahan N.P.Date of Visit:Jun 28, 2021 Onc MED Follow-up/Prog Note Chief Complaint: Lung cancer/breast cancer/anemia. 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 Her chest x-ray on 03/12/2020 showed a faint 2 cm nodular density in the right suprahilar region which was new compared to previous study from 2017. She was recommended to have further evaluation with chest CT. Her noncontrast CT on 03/28/2020 showed a right upper lobe lung mass measuring 2.12 cm. There were no other pulmonary parenchymal lesions noted and there was no significant mediastinal or axillary adenopathy noted. She was then referred to Dr. Polanco and on 04/04/2020 she underwent bronchoscopy/EBUS with FNA biopsy of a station 11R lymph node. There were no endobronchial lesions identified and attempted biopsy of the lung nodule was unsuccessful. The endobronchial ultrasound showed no significant lymphadenopathy. The largest node was in the right hilar node group, and pathology on the FNA was consistent with poorly differentiated nonkeratinizing squamous cell carcinoma. I had seen her initially on 04/25/2020. 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 She was able to come in for staging PET/CT on 04/28/2020. That study showed an FDG avid right upper lobe mass measuring 2.1 cm, SUV 10.9, consistent with primary malignancy. A superior right hilar lymph node was FDG avid with SUV 4.8, consistent with local metastatic disease. The only other area of abnormal uptake was a solid lesion in the superior right breast measuring 1.7 x 1.2 cm with SUV 10.0, suspicious for synchronous primary breast cancer. She was then able to come in for pulmonary function studies on 05/01/2020. Her FEV1 was 1.57 L, 69% of predicted. She had radiation oncology consultation with Dr. Pierre on 06/07/2020. Although with N1 disease she was still potentially an operable candidate, she indicated that due to her social circumstances and requirement for hospitalization, that she would still not consider surgery as a treatment option. She was agreeable, though, to undergo radiation. At that time she had further evaluation for the breast lesion with diagnostic mammogram/ultrasound. It was BI-RADS 5, highly suggestive of malignancy. The mammogram showed a dense heterogeneous focal asymmetric density measuring 2.7 x 2.4 cm, corresponding to the lesion identified by PET/CT. Ultrasound showed a hypoechoic solid irregular mass at the 12 o'clock position measuring 2.3 x 1.8 x 1.5 cm. Also noted was an enlarged lymph node in the right axilla measuring 1.9 x 1.2 x 1.0 cm. On 06/22/2020 she underwent ultrasound-guided biopsy of the breast mass and of the axillary lymph node. Pathology on the breast showed grade 2 invasive ductal carcinoma. It was found to be ER and TX negative, both less < 1%. HER-2/vargas was positive, 3+ by IHC and amplification ratio by FISH of 2.9 with 9.0 HER-2 copies/cell. The lymph node showed sinus histiocytosis. Ultimately, it was determined that she was not an appropriate candidate for SBRT to the lung lesion, and we opted to proceed with standard chemoradiation utilizing weekly carboplatin/placlitaxel for the chemosensitization. We opted to defer further management of the breast cancer until the lung cancer treatment was completed. Her other medical illnesses include COPD, hypertension, hyperlipidemia, type 2 diabetes, and coronary artery disease. She has had previous angioplasty/stent placement. Her medical history is also significant for having undergone right nephrectomy for renal cell carcinoma sometime around 2009. Those records were not available. She does have a history of smoking for 45 years, up to a pack and a half of cigarettes daily. She quit smoking in February 2020. INTERIM HISTORY: She underwent placement of Port-A-Cath venous access device on 08/07/2020 and then she began week 1 carboplatin/paclitaxel concurrently with radiation on 08/16/2020. She tolerated the chemotherapy with acceptable toxicity, but her further management was complicated due to her social circumstances. She received her week 2 chemotherapy on 08/28/2020. She then continued radiation, though with some further interruptions. Due to lack of venous access and multiple failed attempts to obtain venous access, she received no further chemotherapy. She ultimately completed radiation on 10/18/2020 to a total dose of 5800 cGy administered in 29 fractions. Overall, her treatment was very suboptimal, mainly due to her social circumstances. As of her follow-up visit on 12/13/2020 she was mildly anemic with hemoglobin 10.4 g. Her serum iron studies show low transferrin saturation at 4.8%, consistent with iron deficiency, and at that point she began on oral iron supplementation. Restaging chest CT on 12/21/2020 showed progressed right upper lobe spiculated solid mass measuring 2.1 x 1.7 x 2.7 cm. There was no associated mediastinal or hilar lymphadenopathy. With those findings, she had further evaluation with next generation sequencing by liquid biopsy. There were no tumor related somatic alterations detected in the sample, presumably due to low circulating tumor-derived cell-free DNA levels. She had initially declined to return for follow-up, her son and her significant other both having during this time. She had then called to report that she had become too weak to walk. She eventually agreed to return here for a visit on 02/18/2021. Her hemoglobin had declined to 9.7 g. Her transferrin saturation was low at 6.9%, consistent with iron deficiency. As she had been intolerant of oral iron, she was given parenteral iron replacement with 2 infusions of Injectafer. She tolerated it well. Restaging chest CT on 03/18/2021 showed slight increase in the right upper lobe spiculated mass measuring 2.2 x 3.1 x 2.9 cm. Numerous small subcentimeter nodules were noted in both lung gusman, the largest measuring 4 to 5 mm. There were new from the prior studies and suspicious for metastatic disease. At her follow-up visit on 04/03/2021 she remained mildly anemic, hemoglobin 10.8 g. Her transferrin saturation was still low at 10.6%, and she was given further parenteral iron replacement with 2 additional infusions of Injectafer. In the meantime, she had further evaluation with next generation sequencing by liquid biopsy. 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 There were no other actionable mutations identified. She was seen for a follow-up visit on 05/09/2021. At that time she reported recent onset of pretty severe pain in her lower back. She also was having constipation. She was given symptomatic management with immediate release oxycodone and a bowel regimen. X-rays of the spine and pelvis showed no evidence of metastatic disease. At her follow-up on 05/15/2021 she continued to have severe back pain. She was scheduled to have further evaluation with CT of the lumbar spine, as she felt that she would not be able to tolerate an MRI. As the pain was not being managed adequately, her oxycodone dosage was increased and I also added fentanyl at 25 mcg/h. On 05/22/2021 she was admitted to the hospital with opioid related [employer] side effects. She improved with stopping the pain medication, and she was unable to restart the immediate release oxycodone. Her lumbar spine CT showed severe multilevel degenerative disc disease with associated spinal stenosis. There was no evidence of metastatic disease. Patient is seen today for follow-up. She appears distressed and is complaining of severe pain in her left hip and left leg extending down to her left foot. She states that she had hip fracture that was repaired on 06/08/[address] Ha. She states she was able to walk on the hip after it was repaired but she has since declined in status and unable to ambulate due to severe pain. Her caregiver is with her this morning and states that she has been scheduled for a Doppler study to be done July 12. After surgery she had physical therapy coming to her home but has been able to participate in the past week. Review Of Symptoms: See above. Past Medical History: Chronic obstructive pulmonary disease Coronary artery disease Degenerative disease of the spine Gastroesophageal reflux disease Hyperlipidemia Hypertension Osteoporosis Renal cell cancer Type II diabetes Past Surgical History: Oopherectomy Tonsillectomy Placement of the LEFT PICC line in 2020 Removal of right internal jugular PowerPort due to skin breakdown around the port per Dr. Rodarte in 2020 PowerPort right internal jugular vein-Dr. Fritz in 2020 Bronchoscopy/EBUS with FNA biopsy of station 11R lymph node. in 2019 Right nephrectomy for renal cell carcinoma in 2009 Cholecystectomy in 2006 Coronary angioplasty with stent placement in 1998 Allergies: amLODIPine Besylate, Cephalexin, Erythromycin Base, Penicillins, Propranolol HCl, Tetanus-Diphtheria Toxoids Td, Tetracycline HCl, and ticlopidine. Medications: Aspirin 1 Tablet (of 81 mg) Tablet, chewable Oral daily Budesonide (0.5 mg/2mL) Suspension Inhalation b.i.d. Cardizem CD 1 (360 mg) Capsule SR 24 HR Oral daily Cholecalciferol 1 Tablet (of 50 mcg ) Oral daily diazePAM 1 (10 mg) Tablet Oral four times a day Ipratropium-Albuterol 1 Inhalation (of 0.5-2.5 (3) mg/3mL) Solution Inhalation four times a day Isosorbide Mononitrate ER 1 Tablet (of 30 mg) Tablet SR 24 HR Oral b.i.d. Magnesium Oxide 1 (400 mg) Capsule Oral b.i.d. Metoprolol Succinate ER 1 Tablet (of 100 mg) Tablet SR 24 HR Oral daily Nitroglycerin Tablet, sublingual Sublingual PRN oxyCODONE HCl 1 Tablet (of 15 mg) Oral four times a day Pantoprazole Sodium 1 (20 mg) Tablet, enteric coated Oral daily Stiolto Respimat 2 Inhalation (of 2.5-2.5 mcg/act) Aerosol, solution Inhalation daily Theophylline ER 1 (400 mg) Capsule SR 24 HR Oral daily Venlafaxine HCl 1 Tablet (of 150 mg) Oral daily Family History: Ms. Cross's mother at age 70: congestive heart failure, and myocardial infarction at age 70. Ms. Cross's father at age 80: chronic obstructive pulmonary disease, and myocardial infarction at age 80. Father had COPD and of heart attack at age 80. Mother with congestive heart failure at age 70. She had no siblings. Social History: Ms. Cross is . Ms. Cross quit smoking 2 years ago but had smoked 0.5 packs/day for 50 years. She has no history of drinking. She is . She has a history of smoking for 45 years, up to 1-1/2 packs of cigarettes daily. She quit smoking in February 2020. She does not drink alcohol. Physical Examination: Performed on Jun 28, 2021 09:54: Height - 66.00 in, Temperature - 97.9 F (LOW), Pulse - 98 /min, Respiration - 18 /min, BP - 128/75 mm(hg), O2 Sat - 96 %, Pain - 0, and Fatigue - 6. Performance Status: 3 - Capable of only limited self-care, confined to bed or chair more than 50% of waking hours. (ECOG) Constitutional Alert, cooperative, oriented. Mood and affect appropriate. Appears close to chronological age. Chronically ill appearance. Head Normocephalic; no scars. Respiratory Lungs are clear to auscultation without rhonchi or wheezing. Cardiovascular Regular rate and rhythm of heart without murmurs, gallops or rubs. Abdomen Non-tender, non-distended, no masses, ascites or hepatosplenomegaly. Good bowel sounds. No guarding or rebound tenderness. Extremities left foot and leg swollen with tenderness and erythema Musculoskeletal Unable to stand due to pain in left leg and hip Psychiatric Alert and oriented times three. Coherent speech. Verbalizes understanding of our discussions today. Laboratory: Test performed on Jun 28, 2021 08:50 Ferritin 5567 ng/mL Iron 29 mcg/dL Sodium 135 mmol/L Iron Binding Capacity (TIBC) 293 mcg/dl Potassium 3.7 mmol/L % Iron Saturation 9.8 % Chloride 96 mmol/L CO2 27 mmol/L UIBC 264 mcg/dL Anion Gap 15.7 BUN 39 mg/dL Creatinine 1.3 mg/dL Cr Clearance (Est) 27.0800 mL/min Glucose 96 mg/dL Osmolality - Calculated 289 mOsm/kg Calcium 10.3 mg/dL Protein, Total 6.5 g/dL Albumin 3.9 g/dL Globulin 2.6 g/dL Bilirubin, Total 0.5 mg/dL ALT (SGPT) 59 U/L AST (SGOT) 116 U/L Alkaline Phosphatase 124 IU/L WBC 6.3 10 3/uL RBC 3.12 10 6/uL HGB 9.9 g/dL HCT 31.0 % MCV 99.4 fl MCH 31.7 pg MCHC 31.9 g/dL RDW 15.7 % Platelet Count 453 10 3/cmm MPV 10.4 fL Neutrophils 5.36 10 3/uL Lymphocytes 0.3 10 3/uL Monocytes 0.5 10 3/uL Eosinophils 0.1 10 3/uL Basophils 0.0 10 3/uL Neutrophil % 85.6 % Lymphocyte % 4.6 % Monocyte % 7.7 % Eosinophil % 1.3 % Basophils % 0.5 % NRBC % 0 % Impression: 1. 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 By clinical evaluation her disease appears to be stage IIB (T1c, N1, M0). 2. Grade 2 invasive ductal carcinoma of the right breast, ER/TX negative and HER-2/vargas positive. 3. COPD. 4. Hypertension. 5. Hyperlipidemia. 6. Type 2 diabetes. 7. Coronary artery disease with previous angioplasty/stent placement. 8. Chronic kidney disease. 9. GERD. 10. 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 11. She underwent right nephrectomy for renal cell carcinoma approximately 2009. Plan: 1. 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 By clinical evaluation her disease appears to be stage IIB (T1c, N1, M0). 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 As such, she had been adamantly opposed to undergoing surgery for the lung cancer. As an alternative, she was given the option to undergo chemoradiation utilizing a standard weekly carboplatin/paclitaxel chemotherapy regimen. She began her week 1 carboplatin/paclitaxel concurrently with radiation on 08/16/2020. She tolerated it without significant toxicity, but her further treatment was interrupted due to her social circumstances. She received her week 2 carboplatin/paclitaxel on 08/28/2020. Due to lack of venous access despite multiple attempts to place a venous access device, she received no further chemotherapy. She completed radiation on 10/18/2020 to a total dose of 5800 cGy administered in 29 fractions. Overall, her treatment was very suboptimal, mostly due to her social circumstances. Her restaging chest CT on 12/21/2020 showed progression of the right upper lobe spiculated solid mass measuring 2.1 x 1.7 x 2.7 cm. There was no associated mediastinal or hilar adenopathy. Her next generation sequencing liquid biopsy was nonrevealing, presumably due to low levels of circulating tumor DNA. Her restaging chest CT on 03/18/2021 showed just a slight increase in the right upper lobe mass, but there were new subcentimeter pulmonary nodules bilaterally consistent with metastatic disease. At that point she was not overtly symptomatic. 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 That particularly mutation has an FDA approved indication in bladder cancer, but it is not an approved treatment for non-small cell lung cancer. There were no other actionable mutations identified. She had shown significant improvement in her performance status after completing parenteral iron replacement for iron deficiency anemia. Thus far she has just continued on observation/symptomatic management for the lung cancer. Depending on her clinical course, she potentially would be eligible for a trial of immunotherapy as 2nd line treatment. She would otherwise be appropriate for palliative care on hospice. Patient presented today for follow-up for her anemia. Her hemoglobin is 9.9 down from 12.8 and hematocrit is at 31.0 down from 40.5. The decrease in her hemoglobin and hematocrit could be affiliated with a recent hip fracture. Today she is unable to focus on very much other than the pain in her left leg and foot. 2. During follow-up she developed severe lower back pain. Initial x-rays showed no obvious metastatic disease. She was managed symptomatically pending further evaluation with CT. She had increasing opiate requirement, and she ended up being admitted to the hospital with opiate related [employer] side effects after starting fentanyl. She has now recovered to baseline. Her lumbar spine CT showed severe multilevel degenerative disease with associated spinal stenosis, but there was no evidence of metastatic disease. She will continue symptomatic management with immediate release oxycodone 15 mg up to 4 times daily and meloxicam 15 mg daily. 3. She also was found to have grade 2 invasive ductal carcinoma in situ of the right breast, ER/TX negative and HER/2/vargas positive. Further treatment has been deferred due to the lung cancer. 4. Patient suffered from a left hip fracture and it was repaired on 06/08/[address] Ha. She presents today nonambulatory and in severe pain. Her left leg has 2+ edema and erythematous. She is scheduled for a Doppler ultrasound on July 12, 2021. A stat Doppler ultrasound is ordered to be performed today to rule out DVT. Dr. Ha's office notified that she needed a follow-up soon as possible to further evaluate the left hip. They will see her on 07/02/2021. After results of ultrasound are obtained we will determine further course of treatment as indicated. ADDENDUM: Results of left venous Doppler indicates deep vein thrombosis causing subtotal occlusion of the left femoral and common femoral veins. Discussed results with patient. Will start Eliquis for treatment of DVT. Patient will return to the clinic in 2 weeks with CBC, CMP, and iron studies. Signed By: Stephanie Mcmahan N.P. <<Signature on File>>
== END 2021-06-28 08:31 | disposition home or self-care (01) ==
PROVIDERS: Internal Medicine Medical Oncology; PCP Nurse Practitioner; Visit Provider Nurse Practitioner Family
DX: C34.11 Malignant neoplasm of upper lobe, right bronchus or lung (principal); R22.42 Localized swelling, mass and lump, left lower limb; D50.9 Iron deficiency anemia, unspecified; C79.81 Secondary malignant neoplasm of breast; Z17.1 Estrogen receptor negative status [ER-]; J44.9 Chronic obstructive pulmonary disease, unspecified; I10 Essential (primary) hypertension; E78.5 Hyperlipidemia, unspecified; E11.9 Type 2 diabetes mellitus without complications; I25.10 Atherosclerotic heart disease of native coronary artery without angina pectoris; K21.9 Gastro-esophageal reflux disease without esophagitis; N18.9 Chronic kidney disease, unspecified; Z79.899 Other long term (current) drug therapy
CPT/HCPCS: 36415; 80053; 82728; 83540; 83550; 85025; 93971; 99214

== ENCOUNTER 2021-07-08 08:16 | Outpatient (CLI) | payer MEDICARE, MEDICAID, SELFPAY ==
--- NOTE | 2021-07-08 09:47 | ONC FU_ITS ---
Dr. Cartwright Patient Follow-Up Note Patient: Melonie Cross Unit #: [id number]: 1945 Dicatated By: Davy Cartwright M.D.Date of Visit:Jul 08, 2021 Onc Med Follow-up/Prog Note Chief Complaint: Lung cancer/breast cancer/anemia. 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 Her chest x-ray on 03/12/2020 showed a faint 2 cm nodular density in the right suprahilar region which was new compared to previous study from 2017. She was recommended to have further evaluation with chest CT. Her noncontrast CT on 03/28/2020 showed a right upper lobe lung mass measuring 2.12 cm. There were no other pulmonary parenchymal lesions noted and there was no significant mediastinal or axillary adenopathy noted. She was then referred to Dr. Polanco and on 04/04/2020 she underwent bronchoscopy/EBUS with FNA biopsy of a station 11R lymph node. There were no endobronchial lesions identified and attempted biopsy of the lung nodule was unsuccessful. The endobronchial ultrasound showed no significant lymphadenopathy. The largest node was in the right hilar node group, and pathology on the FNA was consistent with poorly differentiated nonkeratinizing squamous cell carcinoma. I had seen her initially on 04/25/2020. 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 She was able to come in for staging PET/CT on 04/28/2020. That study showed an FDG avid right upper lobe mass measuring 2.1 cm, SUV 10.9, consistent with primary malignancy. A superior right hilar lymph node was FDG avid with SUV 4.8, consistent with local metastatic disease. The only other area of abnormal uptake was a solid lesion in the superior right breast measuring 1.7 x 1.2 cm with SUV 10.0, suspicious for synchronous primary breast cancer. She was then able to come in for pulmonary function studies on 05/01/2020. Her FEV1 was 1.57 L, 69% of predicted. She had radiation oncology consultation with Dr. Pierre on 06/07/2020. Although with N1 disease she was still potentially an operable candidate, she indicated that due to her social circumstances and requirement for hospitalization, that she would still not consider surgery as a treatment option. She was agreeable, though, to undergo radiation. At that time she had further evaluation for the breast lesion with diagnostic mammogram/ultrasound. It was BI-RADS 5, highly suggestive of malignancy. The mammogram showed a dense heterogeneous focal asymmetric density measuring 2.7 x 2.4 cm, corresponding to the lesion identified by PET/CT. Ultrasound showed a hypoechoic solid irregular mass at the 12 o'clock position measuring 2.3 x 1.8 x 1.5 cm. Also noted was an enlarged lymph node in the right axilla measuring 1.9 x 1.2 x 1.0 cm. On 06/22/2020 she underwent ultrasound-guided biopsy of the breast mass and of the axillary lymph node. Pathology on the breast showed grade 2 invasive ductal carcinoma. It was found to be ER and IN negative, both less < 1%. HER-2/vargas was positive, 3+ by IHC and amplification ratio by FISH of 2.9 with 9.0 HER-2 copies/cell. The lymph node showed sinus histiocytosis. Ultimately, it was determined that she was not an appropriate candidate for SBRT to the lung lesion, and we opted to proceed with standard chemoradiation utilizing weekly carboplatin/placlitaxel for the chemosensitization. We opted to defer further management of the breast cancer until the lung cancer treatment was completed. Her other medical illnesses include COPD, hypertension, hyperlipidemia, type 2 diabetes, and coronary artery disease. She has had previous angioplasty/stent placement. Her medical history is also significant for having undergone right nephrectomy for renal cell carcinoma sometime around 2009. Those records were not available. She does have a history of smoking for 45 years, up to a pack and a half of cigarettes daily. She quit smoking in February 2020. INTERIM HISTORY: She underwent placement of Port-A-Cath venous access device on 08/07/2020 and then she began week 1 carboplatin/paclitaxel concurrently with radiation on 08/16/2020. She tolerated the chemotherapy with acceptable toxicity, but her further management was complicated due to her social circumstances. She received her week 2 chemotherapy on 08/28/2020. She then continued radiation, though with some further interruptions. Due to lack of venous access and multiple failed attempts to obtain venous access, she received no further chemotherapy. She ultimately completed radiation on 10/18/2020 to a total dose of 5800 cGy administered in 29 fractions. Overall, her treatment was very suboptimal, mainly due to her social circumstances. As of her follow-up visit on 12/13/2020 she was mildly anemic with hemoglobin 10.4 g. Her serum iron studies show low transferrin saturation at 4.8%, consistent with iron deficiency, and at that point she began on oral iron supplementation. Restaging chest CT on 12/21/2020 showed progressed right upper lobe spiculated solid mass measuring 2.1 x 1.7 x 2.7 cm. There was no associated mediastinal or hilar lymphadenopathy. With those findings, she had further evaluation with next generation sequencing by liquid biopsy. There were no tumor related somatic alterations detected in the sample, presumably due to low circulating tumor-derived cell-free DNA levels. She had initially declined to return for follow-up, her son and her significant other both having during this time. She had then called to report that she had become too weak to walk. She eventually agreed to return here for a visit on 02/18/2021. Her hemoglobin had declined to 9.7 g. Her transferrin saturation was low at 6.9%, consistent with iron deficiency. As she had been intolerant of oral iron, she was given parenteral iron replacement with 2 infusions of Injectafer. She tolerated it well. Restaging chest CT on 03/18/2021 showed slight increase in the right upper lobe spiculated mass measuring 2.2 x 3.1 x 2.9 cm. Numerous small subcentimeter nodules were noted in both lung gusman, the largest measuring 4 to 5 mm. There were new from the prior studies and suspicious for metastatic disease. At her follow-up visit on 04/03/2021 she remained mildly anemic, hemoglobin 10.8 g. Her transferrin saturation was still low at 10.6%, and she was given further parenteral iron replacement with 2 additional infusions of Injectafer. In the meantime, she had further evaluation with next generation sequencing by liquid biopsy. 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 There were no other actionable mutations identified. She was seen for a follow-up visit on 05/09/2021. At that time she reported recent onset of pretty severe pain in her lower back. She also was having constipation. She was given symptomatic management with immediate release oxycodone and a bowel regimen. X-rays of the spine and pelvis showed no evidence of metastatic disease. At her follow-up on 05/15/2021 she continued to have severe back pain. She was scheduled to have further evaluation with CT of the lumbar spine, as she felt that she would not be able to tolerate an MRI. As the pain was not being managed adequately, her oxycodone dosage was increased and I also added fentanyl at 25 mcg/h. On 05/22/2021 she was admitted to the hospital with opioid related [employer] side effects. She improved with stopping the pain medication, and she was unable to restart the immediate release oxycodone. Her lumbar spine CT showed severe multilevel degenerative disc disease with associated spinal stenosis. There was no evidence of metastatic disease. As of her follow-up visit on 05/29/2021 she was showing improvement in her clinical status. She continued on symptomatic management. On 06/08/2021 she was admitted to the hospital after falling at home and sustaining an intertrochanteric fracture of the left hip. She underwent ORIF. She was able to be discharged home on 06/10/2021. She was seen for a follow-up visit here on 06/28/2021. At that time she was noted to have swelling in her left leg, and a venous Doppler showed partially occlusive deep vein thrombosis involving the left femoral vein and common femoral vein. She then began anticoagulation with apixaban. She is seen for a follow-up visit. Her main complaint is that she has developed a painful knot in her upper right breast/chest wall. She also complains of pain and weakness in her left leg. She has very limited activity. ECOG score is 3. Her appetite lately has been a little better. She has not had fever or night sweats. She has not had sore mouth or throat. She does not complain of cough. She says her breathing is pretty good. She has no GI complaints other than some constipation, though she says her bowel function has been pretty good with the senna/docusate. Bladder function has been okay. She currently has no other joint or bone pain. She has had a little bit of headache. She has some numbness in her fingers. Medications: Aspirin 1 Tablet (of 81 mg) Tablet, chewable Oral daily, Budesonide (0.5 mg/2mL) Suspension Inhalation b.i.d., Cardizem CD 1 (360 mg) Capsule SR 24 HR Oral daily, Cholecalciferol 1 Tablet (of 50 mcg ) Oral daily, diazePAM 1 (10 mg) Tablet Oral four times a day, Ipratropium-Albuterol 1 Inhalation (of 0.5-2.5 (3) mg/3mL) Solution Inhalation four times a day, Isosorbide Mononitrate ER 1 Tablet (of 30 mg) Tablet SR 24 HR Oral b.i.d., Magnesium Oxide 1 (400 mg) Capsule Oral b.i.d., Metoprolol Succinate ER 1 Tablet (of 100 mg) Tablet SR 24 HR Oral daily, Nitroglycerin Tablet, sublingual Sublingual PRN, oxyCODONE HCl 1 Tablet (of 15 mg) Oral four times a day, Pantoprazole Sodium 1 (20 mg) Tablet, enteric coated Oral daily, Stiolto Respimat 2 Inhalation (of 2.5-2.5 mcg/act) Aerosol, solution Inhalation daily, Theophylline ER 1 (400 mg) Capsule SR 24 HR Oral daily, Venlafaxine HCl 1 Tablet (of 150 mg) Oral daily Allergies: amLODIPine Besylate, Cephalexin, Erythromycin Base, Penicillins, Propranolol HCl, Tetanus-Diphtheria Toxoids Td, Tetracycline HCl, and ticlopidine. Vital Signs: Blood pressure 114/65, pulse 91, respirations 18, temp 97.8 degrees, oxygen saturation 97%. Physical Examination: Constitutional - She appears generally weak, Eyes - Sclerae nonicteric. Conjunctivae clear, ENMT - Mouth is dry. There are no other lesions noted in the oral cavity, Hematologic/Lymphatic - No cervicalor clavicular adenopathy, Respiratory - Lungs sound clear with diminished air movement bilaterally, Cardiovascular - Heart rhythm is regular. There is a II/ systolic murmur. There is no gallop or rub noted, Breasts - She now has a palpable mass in the superior right breast measuring the range of 5 cm. There is no axillary adenopathy noted, Abdomen - Soft. Liver and spleen are not enlarged. There is no abdominal mass or ascites noted and there is no inguinal adenopathy, Extremities - There is mild residual swelling of the left leg, Neurologic - There is significant weakness of the left leg. There are no other neurologic deficits noted. Lab/Imaging: Test performed on Jun 28, 2021 08:50 Ferritin 5567 ng/mL Iron 29 mcg/dL Sodium 135 mmol/L Iron Binding Capacity (TIBC) 293 mcg/dl Potassium 3.7 mmol/L % Iron Saturation 9.8 % Chloride 96 mmol/L CO2 27 mmol/L UIBC 264 mcg/dL Anion Gap 15.7 BUN 39 mg/dL Creatinine 1.3 mg/dL Cr Clearance (Est) 27.0800 mL/min Glucose 96 mg/dL Osmolality - Calculated 289 mOsm/kg Calcium 10.3 mg/dL Protein, Total 6.5 g/dL Albumin 3.9 g/dL Globulin 2.6 g/dL Bilirubin, Total 0.5 mg/dL ALT (SGPT) 59 U/L AST (SGOT) 116 U/L Alkaline Phosphatase 124 IU/L WBC 6.3 10 3/uL RBC 3.12 10 6/uL HGB 9.9 g/dL HCT 31.0 % MCV 99.4 fl MCH 31.7 pg MCHC 31.9 g/dL RDW 15.7 % Platelet Count 453 10 3/cmm MPV 10.4 fL Neutrophils 5.36 10 3/uL Lymphocytes 0.3 10 3/uL Monocytes 0.5 10 3/uL Eosinophils 0.1 10 3/uL Basophils 0.0 10 3/uL Neutrophil % 85.6 % Lymphocyte % 4.6 % Monocyte % 7.7 % Eosinophil % 1.3 % Basophils % 0.5 % NRBC % 0 % Problem List: 1. 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 By clinical evaluation her disease appears to be stage IIB (T1c, N1, M0). 2. Grade 2 invasive ductal carcinoma of the right breast, ER/IN negative and HER-2/vargas positive. 3. COPD. 4. Hypertension. 5. Hyperlipidemia. 6. Type 2 diabetes. 7. Coronary artery disease with previous angioplasty/stent placement. 8. Chronic kidney disease. 9. GERD. 10. 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 11. She underwent right nephrectomy for renal cell carcinoma approximately 2009. Problems Addressed with this Encounter and Plan: 1. 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 By clinical evaluation her disease appears to be stage IIB (T1c, N1, M0). 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 As such, she had been adamantly opposed to undergoing surgery for the lung cancer. As an alternative, she was given the option to undergo chemoradiation utilizing a standard weekly carboplatin/paclitaxel chemotherapy regimen. She began her week 1 carboplatin/paclitaxel concurrently with radiation on 08/16/2020. She tolerated it without significant toxicity, but her further treatment was interrupted due to her social circumstances. She received her week 2 carboplatin/paclitaxel on 08/28/2020. Due to lack of venous access despite multiple attempts to place a venous access device, she received no further chemotherapy. She completed radiation on 10/18/2020 to a total dose of 5800 cGy administered in 29 fractions. Overall, her treatment was very suboptimal, mostly due to her social circumstances. Her restaging chest CT on 12/21/2020 showed progression of the right upper lobe spiculated solid mass measuring 2.1 x 1.7 x 2.7 cm. There was no associated mediastinal or hilar adenopathy. Her next generation sequencing liquid biopsy was nonrevealing, presumably due to low levels of circulating tumor DNA. Her restaging chest CT on 03/18/2021 showed just a slight increase in the right upper lobe mass, but there were new subcentimeter pulmonary nodules bilaterally consistent with metastatic disease. At that point she was not overtly symptomatic. 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 That particularly mutation has an FDA approved indication in bladder cancer, but it is not an approved treatment for non-small cell lung cancer. There were no other actionable mutations identified. She had shown significant improvement in her performance status after completing parenteral iron replacement for iron deficiency anemia. However, on 06/08/2021 she was admitted to the hospital after falling at home and sustaining an intertrochanteric fracture of the left hip. She underwent ORIF. She was able to be discharged home on 06/10/2021. She was seen for a follow-up visit here on 06/28/2021. At that time she was noted to have swelling in her left leg, and a venous Doppler showed partially occlusive deep vein thrombosis involving the left femoral vein and common femoral vein, and she began on anticoagulation with apixaban. Thus far there has been no clear evidence of progression of the lung cancer, but she has had a significant decline in her performance status following the hip fracture. She wishes now to limit her further treatment to symptomatic/supportive care measures. Under the circumstances, I feel that hospice referral is appropriate, and she is agreeable. She will continue immediate release oxycodone 30 mg as needed for pain, and she also will continue anticoagulation with apixaban. I will plan to see her again on an as-needed basis. Her overall prognosis is very poor. 2. She also was found to have grade 2 invasive ductal carcinoma in situ of the right breast, ER/IN negative and HER/2/vargas positive. Further treatment had been deferred due to the lung cancer. She now has a new mass in the superior aspect of the right breast, which is obviously consistent with recurrence of the breast cancer. She will be continuing symptomatic management only, as noted above. Signed By: Davy Cartwright M.D. <<Signature on File>>
== END 2021-07-08 08:17 | disposition home or self-care (01) ==
PROVIDERS: PCP Nurse Practitioner; Visit Provider Internal Medicine Medical Oncology
DX: C34.11 Malignant neoplasm of upper lobe, right bronchus or lung (principal); C79.81 Secondary malignant neoplasm of breast; Z17.1 Estrogen receptor negative status [ER-]; J44.9 Chronic obstructive pulmonary disease, unspecified; I10 Essential (primary) hypertension; E78.5 Hyperlipidemia, unspecified; E11.9 Type 2 diabetes mellitus without complications; I25.10 Atherosclerotic heart disease of native coronary artery without angina pectoris; K21.9 Gastro-esophageal reflux disease without esophagitis; N18.9 Chronic kidney disease, unspecified; Z79.899 Other long term (current) drug therapy
CPT/HCPCS: 99215